=== PATIENT | female | born 1935 | race Caucasian/White ===

== ENCOUNTER 2016-04-27 16:51 | Emergency (ER) | payer MEDICARE ==
[~2016-04-27 16:51] MED LIST: /ATOR40TA; /WARF25TA; ACIPHEX; ALPH0.156; ATEN25TA; AZAT5TAB PO; BENA40TA2 PO; BRIN1OPH OU; COMB0.2S OU; ESTR62CR; LASI20TA PO; LASI40TA; LEVO88TA4; LIPI20TA PO; NORV5TAB; OYST500T; PERC5TAB8; POTA99TA; PRIL20CA; PRIL20CA PO; REST0.05 OU; SYNT88TA2 PO; THERGRAN; TRAV04OPD OU; TYLE325T5 PO; VITA-113; VITA400C; VITA500T; XANA1TAB2; [UNRECOGNIZED DRUG - OTHER]
[2016-04-27 17:42] LABS: BASO % 0.8 % (0.0-1.0); EOS # 0.2 K/mm3 (0.0-0.50); EOS % 4.6 % (0.0-3.0); LARGE UNSTAINED CELL # 0.1 K/mm3 (0.0-0.4); LARGE UNSTAINED CELL % 2.9 % (0.0-4.0); LYMPH # 1.4 K/mm3 (1.5-4.5); LYMPH % 25.5 % (24.0-44.0); MEAN CORPUSCULAR HGB CONC 31.6 g/dl (32.0-36.5); MEAN CORPUSCULAR VOLUME 95.1 fl (80.0-96.0); MONO # 0.3 K/mm3 (0.0-0.8); MONO % 6.7 % (0.0-5.0); NEUTROPHILS # 2.8 K/mm3 (1.8-7.7); NEUTROPHILS % 59.5 % (36.0-66.0); PLATELET COUNT, AUTOMATED 258 k/mm3 (150-450); RED CELL DISTRIBUTION WIDTH 15.3 % (11.5-14.5); WHITE BLOOD COUNT 4.7 K/mm3 (4.0-10.0)
[2016-04-27] MEDS ORDERED: TETANUS/DIPHTHERIA TOX ADSORB ADULT 0.5ML SYR/VIAL (90714) As Ordered ONE (17:48)
[2016-04-27 17:50] LABS: INR 1.06
[2016-04-27 18:05] LABS: ANION GAP 7 MEQ/L (8-16); BLOOD UREA NITROGEN 21 MG/DL (7-18); CALCIUM LEVEL 9.6 MG/DL (8.8-10.2); CARBON DIOXIDE LEVEL 27 MEQ/L (21-32); CHLORIDE LEVEL 107 MEQ/L (98-107); CREATININE FOR GFR 0.81 MG/DL (0.55-1.02); GLOMERULAR FILTRATION RATE > 60.0 (>32); GLUCOSE, FASTING 167 MG/DL (83-110); POTASSIUM SERUM 4.4 MEQ/L (3.5-5.1); SODIUM LEVEL 141 MEQ/L (136-145)
--- NOTE | 2016-04-27 18:08 | REP ---
Brain CT without contrast: History: Trauma. Findings: There is evidence of a scalp laceration with hematoma at the vertex. No skull fracture is seen however. Vascular calcification is noted. Visualized paranasal sinuses are clear. No intraorbital abnormality is seen. There is mild to moderate diffuse cerebral atrophy unchanged from the comparison CT study dated April 10, 2012. Bryant-white differentiation pattern is normal above and below the tentorium. There is no evidence of intracranial hemorrhage, extra-axial fluid collection, infarction, mass or midline shift. Impression: Scalp hematoma at the vertex, presumed laceration. No skull fracture or intracranial injury. Diffuse atrophy and vascular calcification as before. Signed by Gilberto Coates MD 04/27/2016 07:28 P
[2016-04-27] MEDS ORDERED: ONDANSETRON 4MG/2ML VIAL (J2405) As Ordered ONE (18:33)
--- NOTE | 2016-04-27 18:36 | REP ---
Cervical spine CT study without contrast: History: Trauma. Findings: There is no evidence of cervical spine element fracture. No subluxation or displacement is seen. There is diffuse degenerative spondylosis change. These findings are stable from 01/02/2012 prior study. There is no evidence of intraspinal or paraspinal hematoma. The degenerative disc changes are most pronounced at C5-6 and C6-7. There is some diffuse bulging at C3-4 as well. Posterior osteophytic ridging is seen at 5-6 and 6-7. Impression: Degenerative spondylosis changes. No fracture or other traumatic abnormality seen. Signed by Gilberto Coates MD 04/27/2016 07:28 P
--- NOTE | 2016-04-27 21:01 | EDDOCDS ---
Physician Documentation [facility] Name: Maria D Duncan Age: 80 yrs Sex: Female : 1935 Arrival Date: 04/27/2016 Time: 16:51 Bed I8 [id number] Private MD: Lidia Sales Disposition: 04/27/16 20:24 Discharged to Home/Self Care. Impression: Laceration without foreign body of other part of head. - Condition is Stable. - Discharge Instructions: Laceration Care, Adult. - Medication Reconciliation, Local Pharmacy Hours form. - Follow up: Lidia Sales; When: 1 week; Reason: Staple/Suture removal. - Problem is an acute exacerbation. - Symptoms have improved. Historical: - Allergies: adhesive tape--redness to area; - PMHx: Hypertension; Hypothyroidism; autoimmune hepatitis; Hypercholesterolemia; Glaucoma; Macular Degeneration; - PSHx: Cesearean Section; bilateral knee rep;aacements; foot surgery --left; - Social history: Smoking status: Patient states former smoker of tobacco. No barriers to communication noted, The patient speaks fluent [place]. - : The pt / caregiver states he / she is not on anticoagulants. Home medication list is obtained from the patient. - Exposure Risk Screening:: None identified. Vital Signs: 04/27 17:05 BP 170 / 70 LA Sitting (man/lg); Pulse 83; Resp 18; Temp 97.7(TE); Pulse Ox 98% on R/A; jjr Weight 58.06 kg / 128 lbs (R); Height 5 ft. 4 in. (162.56 cm) (R); Pain 6/10; 18:32 BP 74 / 40; ms2 18:37 BP 110 / 46; Pulse 61; Resp 20 S; Pulse Ox 98% on R/A; ms2 18:46 BP 140 / 60; Pulse 65; Resp 20 S; ms2 18:46 ms2 17:05 Body Mass Index 21.97 (58.06 kg, 162.56 cm) jjr 18:32 dr chao aware---pt already placed in trendelenburg---receiving iv bolus ms2 18:46 taken out of trendelenburg---pt states starting to feel better ms2 [place] Coma Score: 17:03 Eye Response: spontaneous(4). Verbal Response: oriented(5). Motor Response: obeys ms2 commands(6). Total: 15. Procedures: 18:28 Laceration repair:. br1 Laceration: 18:28 Wound Repair of 7cm ( 2.8in ) full thickness laceration to occiput. Distal br1 neuro/vascular/tendon intact. Wound prep: Simple cleansing by provider, Wound irrigation with saline by provider. Skin closed with 9 thin layer [place] using Staple gun. Dressed with 4x4's. Patient tolerated well. MDM: 17:28 IV Saline Lock ordered. br1 17:28 CT Head Without Contrast Ordered. EDMS 17:28 CT Spine,Cervical W/o Contrast Ordered. EDMS 17:29 Misc. Nursing Order ordered. br1 17:29 Tetanus-Diphtheria Toxoid (Tenivac) Adult 0.5 ml IM once; Age 7-10 or >64 without br1 child contact [employer] ordered. 17:29 CBC with Diff Ordered. EDMS 17:29 BMP Ordered. EDMS 17:30 PT/INR Ordered. EDMS 17:30 PTT Ordered. EDMS 18:02 [facility] Payment Agreement was scanned into [employer] and attached to record. jp5 18:02 Financial registration complete. jp5 18:27 NS 0.9% 500 ml IV at bolus once ordered. br1 18:27 Ondansetron 4 mg IVP once ordered. br1 18:30 CBC with Diff Reviewed. br1 18:30 BMP Reviewed. br1 18:30 PT/INR Reviewed. br1 18:30 PTT Reviewed. br1 18:43 NS 0.9% 1000 ml IV at 150 mL/hr continuous ordered. br1 18:43 Fluid Challenge ordered. br1 18:43 Ambulate Patient to Assess Patient Safety ordered. br1 Administered Medications: 18:27 Not Given (Patient Refused): Tetanus-Diphtheria Toxoid (Tenivac) Adult 0.5 ml IM once; br1 Age 7-10 or >64 without child contact [facility] [employer] 18:30 Drug: NS 0.9% 500 ml [sodium chloride 0.9 % intravenous solution] Route: IV; Rate: ms2 bolus; Site: left hand; 18:34 Drug: Ondansetron 4 mg Route: IVP; Site: left hand; ms2 19:02 Drug: NS 0.9% 1000 ml [sodium chloride 0.9 % intravenous solution] Route: IV; Rate: 150 ms2 mL/hr; Site: left hand; Signatures: Dispatcher [employer] Khadar Briggs RN RN ms2 Jase Logan DO DO mm11 Schuyler Chao MD MD br1 Berkley Phillip RN RN rs3 Maurilio Williamson jp5 The chart was reviewed and I authenticate all verbal orders and agree with the evaluation and treatment provided.Attachments: 18:02 [facility] Payment Agreement jp5 MTDD
--- NOTE | 2016-04-27 21:01 | EDDOCDS ---
Nurse's Notes [facility] Name: Maria D Duncan Age: 80 yrs Sex: Female : 1935 Arrival Date: 04/27/2016 Time: 16:51 Bed I8 16 Private MD: Lidia Sales Diagnosis: Laceration without foreign body of other part of head Presentation: 04/27 17:03 Presenting complaint: Patient states: tripped by dog at 415pm today---hit back of ms2 head---per [facility] has 1-2 inch laceration to occipital area and is still bleeding---take---takes 81 mg per day. This patient has no additional risk factors. Mechanism of Injury: resulted from a fall. Adult Sepsis Screening: The patient does not have new or worsening altered mentation. Patient's respiratory rate is less than 22. Systolic blood pressure is greater than 100. Patient has a qSOFA score of 0- Negative Sepsis Screen. Suicide/Homicide risk assessment- the patient denies having any suicidal and/or homicidal ideations and does not present with any other emotional, behavioral or mental health complaints. Status: Patient is not a client services account manager or dependent. Transition of care: patient was not received from another setting of care. 17:03 Acuity: CARLINE Level 3 ms2 17:03 Method Of Arrival: Ambulance ms2 Triage Assessment: 17:18 General: Appears in no apparent distress, Behavior is cooperative. The patient is ms2 triaged at the bedside. See Assessment in Nurses Notes section of ED record. Neurological: Level of Consciousness is awake, alert, obeys commands, Reports headache. Respiratory: No deficits noted. Airway is patent Respiratory effort is even, unlabored, Respiratory pattern is regular, symmetrical. Derm: Skin is pink, warm & dry. Derm: Musculoskeletal: Range of motion intact in all extremities. Historical: - Allergies: adhesive tape--redness to area; - PMHx: Hypertension; Hypothyroidism; autoimmune hepatitis; Hypercholesterolemia; Glaucoma; Macular Degeneration; - PSHx: Cesearean Section; bilateral knee rep;aacements; foot surgery --left; - Social history: Smoking status: Patient states former smoker of tobacco. No barriers to communication noted, The patient speaks fluent Kiswahili. - : The pt / caregiver states he / she is not on anticoagulants. Home medication list is obtained from the patient. - Exposure Risk Screening:: None identified. Screenin:46 Screening information is obtained from the patient. Fall risk: At risk due to age. ms2 Assistance ADL's: requires no assistance with activities of daily living. Abuse/DV Screen: The patient / caregiver reports he/she is: not in a situation that causes fear, pain or injury. Nutritional screening: No deficits noted. Advance Directives: Currently, there is a health care proxy, -jordi. There is an active DNR order There is no living will. 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 Advance directive information has been placed on a prior [facility] medical record, but the patient/ family does not know when. Further advance directive information is declined. home support is adequate. Assessment: 17:10 General: occipital laceration dressed with 4x3's and [place]--pt to CT. Neurological: ms2 Level of Consciousness is awake, alert, obeys commands. Respiratory: No deficits noted. Airway is patent Respiratory effort is even, unlabored, Respiratory pattern is regular, symmetrical. Derm: Skin is pink, warm & dry. Musculoskeletal: Range of motion intact in all extremities. 17:50 General: PT STATES TETANUS SHOT RECEIVED IN NOVEMBER OF 2015. ms2 18:47 General: Appears comfortable, Behavior is cooperative. Neurological: Level of ms2 Consciousness is awake, alert, obeys commands. Derm: Skin is dry, Skin is pale, Skin temperature is warm. Musculoskeletal: Range of motion intact in all extremities. 19:30 General: Appears in no apparent distress, comfortable, given apple juice to drink. ms2 Neurological: Level of Consciousness is awake, alert, obeys commands. Respiratory: No deficits noted. Airway is patent Respiratory effort is even, unlabored, Respiratory pattern is regular, symmetrical. Derm: Skin is pink, warm & dry. Musculoskeletal: Range of motion intact in all extremities. 19:50 Adult Sepsis Screening: Patient has new or worsening altered mentation (1 point). ms2 Patient's respiratory rate is less than 22. Systolic blood pressure is greater than 100. Patient has a qSOFA score of 0- Negative Sepsis Screen. General: pt up and ambulated ---did well -dr aware --pt a little stiff with rising . Vital Signs: 17:05 BP 170 / 70 LA Sitting (man/lg); Pulse 83; Resp 18; Temp 97.7(TE); Pulse Ox 98% on R/A; jjr Weight 58.06 kg (R); Height 5 ft. 4 in. (162.56 cm) (R); Pain 6/10; 18:32 BP 74 / 40; ms2 18:37 BP 110 / 46; Pulse 61; Resp 20 S; Pulse Ox 98% on R/A; ms2 18:46 BP 140 / 60; Pulse 65; Resp 20 S; ms2 18:46 ms2 17:05 Body Mass Index 21.97 (58.06 kg, 162.56 cm) jjr 18:32 dr chao aware---pt already placed in trendelenburg---receiving iv bolus ms2 18:46 taken out of trendelenburg---pt states starting to feel better ms2 Vitals: 17:05 Log In Time N/A - ambulance arrival. jjr [place] Coma Score: 17:03 Eye Response: spontaneous(4). Verbal Response: oriented(5). Motor Response: obeys ms2 commands(6). Total: 15. ED Course: 16:53 Patient visited by Miya Adler Drying Supervisor. lbd 16:53 Lidia Sales is Private Physician. lbd 16:53 Khadar Reardon,RN is Primary Nurse. lbd 16:53 Patient moved to Waiting lbd 16:53 Patient moved to I lbd 17:03 Patient visited by Khadar Reardon,KAPIL. ms2 17:05 Triage Initiated ms2 17:16 Schuyler Chao MD is Attending Physician. br1 17:20 Inserted saline lock: 20 gauge in right antecubital area The patient tolerated the ms2 procedure well. No procedures done that require assistance. 17:30 Patient visited by Schuyler Chao MD. br1 17:43 The patient / caregiver is instructed regarding the plan of care and ED course. ms2 18:02 [facility] Payment Agreement was scanned into [employer] and attached to record. jp5 18:24 Patient visited by Schuyler Chao MD. br1 18:38 CT Head Without Contrast Returned. EDMS 18:38 CT Spine,Cervical W/o Contrast Returned. EDMS 19:02 Patient visited by Khadar Reardon,KAPIL. ms2 19:07 Patient visited by Rosendo Charles PCA. kb5 19:30 The patient / caregiver is instructed regarding the plan of care and ED course. Cardiac ms2 monitor on. Pulse ox on. NIBP on. 19:30 IV is patent, is intact, is free of redness or swelling. ms2 19:36 Attending Physician role handed off by Schuyler Chao MD mm11 19:36 Jase Logan DO is Attending Physician. mm11 19:46 Patient visited by Khadar Reardon RN. ms2 20:06 Patient visited by Rosendo Charles PCA. kb5 20:23 Lidia Sales is Referral Physician. mm11 Administered Medications: 18:27 Not Given (Patient Refused): Tetanus-Diphtheria Toxoid (Tenivac) Adult 0.5 ml IM once; br1 Age 7-10 or >64 without child contact [facility] 18:30 Drug: NS 0.9% 500 ml [sodium chloride 0.9 % intravenous solution] Route: IV; Rate: ms2 bolus; Site: left hand; 18:34 Drug: Ondansetron 4 mg Route: IVP; Site: left hand; ms2 19:02 Drug: NS 0.9% 1000 ml [sodium chloride 0.9 % intravenous solution] Route: IV; Rate: 150 ms2 mL/hr; Site: left hand; Order Results: Lab Order: CBC with Diff; SPEC'M 04/27/16 17:35 Test: WHITE BLOOD COUNT; Value: 4.7; Range: 4.0-10.0; Units: K/mm3; Status: F Test: RED BLOOD COUNT; Value: 3.72; Range: 4.00-5.40; Abnormal: Below low normal; Units: M/mm3; Status: F Test: HEMOGLOBIN; Value: 11.2; Range: 12.0-16.0; Abnormal: Below low normal; Units: g/dl; Status: F Test: HEMATOCRIT; Value: 35.4; Range: 36.0-47.0; Abnormal: Below low normal; Units: %; Status: F Test: MEAN CORPUSCULAR VOLUME; Value: 95.1; Range: 80.0-96.0; Units: fl; Status: F Test: MEAN CORPUSCULAR HEMOGLOBIN; Value: 30.0; Range: 27.0-33.0; Units: pg; Status: F Test: MEAN CORPUSCULAR HGB CONC; Value: 31.6; Range: 32.0-36.5; Abnormal: Below low normal; Units: g/dl; Status: F Test: RED CELL DISTRIBUTION WIDTH; Value: 15.3; Range: 11.5-14.5; Abnormal: Above high normal; Units: %; Status: F Test: PLATELET COUNT, AUTOMATED; Value: 258; Range: 150-450; Units: k/mm3; Status: F Test: NEUTROPHILS %; Value: 59.5; Range: 36.0-66.0; Units: %; Status: F Test: LYMPH %; Value: 25.5; Range: 24.0-44.0; Units: %; Status: F Test: MONO %; Value: 6.7; Range: 0.0-5.0; Abnormal: Above high normal; Units: %; Status: F Test: EOS %; Value: 4.6; Range: 0.0-3.0; Abnormal: Above high normal; Units: %; Status: F Test: BASO %; Value: 0.8; Range: 0.0-1.0; Units: %; Status: F Test: LARGE UNSTAINED CELL %; Value: 2.9; Range: 0.0-4.0; Units: %; Status: F Test: NEUTROPHILS #; Value: 2.8; Range: 1.8-7.7; Units: K/mm3; Status: F Test: LYMPH #; Value: 1.4; Range: 1.5-4.5; Abnormal: Below low normal; Units: K/mm3; Status: F Test: MONO #; Value: 0.3; Range: 0.0-0.8; Units: K/mm3; Status: F Test: EOS #; Value: 0.2; Range: 0.0-0.50; Units: K/mm3; Status: F Test: BASO #; Value: 0.0; Range: 0.0-0.2; Units: K/mm3; Status: F Test: LARGE UNSTAINED CELL #; Value: 0.1; Range: 0.0-0.4; Units: K/mm3; Status: F Lab Order: [facility]; SPEC'M 04/27/16 17:35 Test: GLUCOSE, FASTING; Value: 167; Range: 83-110; Abnormal: Above high normal; Units: MG/DL; Status: F Test: BLOOD UREA NITROGEN; Value: 21; Range: 7-18; Abnormal: Above high normal; Units: MG/DL; Status: F Test: CREATININE FOR GFR; Value: 0.81; Range: 0.55-1.02; Units: MG/DL; Status: F Test: GLOMERULAR FILTRATION RATE; Value: > 60.0; Range: >32; Status: F Test: SODIUM LEVEL; Value: 141; Range: 136-145; Units: MEQ/L; Status: F Test: POTASSIUM SERUM; Value: 4.4; Range: 3.5-5.1; Units: MEQ/L; Status: F Test: CHLORIDE LEVEL; Value: 107; Range: 98-107; Units: MEQ/L; Status: F Test: CARBON DIOXIDE LEVEL; Value: 27; Range: 21-32; Units: MEQ/L; Status: F Test: ANION GAP; Value: 7; Range: 8-16; Abnormal: Below low normal; Units: MEQ/L; Status: F Test: CALCIUM LEVEL; Value: 9.6; Range: 8.8-10.2; Units: MG/DL; Status: F Test Note: ; Units are mL/min/1.73 m2 Chronic Kidney Disease Staging per NKF: Stage I & II GFR >=60 Normal to Mildly Decreased Stage III GFR 30-59 Moderately Decreased Stage IV GFR 15-29 Severely Decreased Stage V GFR <15 Very Little GFR Left ESRD GFR <15 on FASHION DESIGNER Lab Order: PT/INR; SPEC'M 04/27/16 17:35 Test: PROTHROMBIN TIME; Value: 13.9; Range: 12.3-14.5; Units: SECONDS; Status: F Test: INR; Value: 1.06; Status: F Test Note: ; THERAPUTIC HUMAN INR VALUES INDICATIONS NORMAL RANGES PROPHYLAXIS/TREATMENT OF: VENOUS THROMBOSIS 2.0-3.0 PULMONARY EMBOLISM 2.0-3.0 PREVENTION OF SYSTEMIC EMBOLISM FROM: TISSUE HEART VALVES 2.0-3.0 ACUTE MYOCARDIAL INFARCTION 2.0-3.0 VALVULAR HEART DISEASE 2.0-3.0 ATRIAL FIBRILLATION 2.0-3.0 MECHANICAL VALVES(HIGH RISK) 2.5-3.5 RECURRENT MYOCARDIAL INFARCTION 2.5-3.5 Lab Order: PTT; SERJIO'M 04/27/16 17:35 Test: PARTIAL THROMBOPLASTIN TIME; Value: 28.6; Range: 26.6-37.1; Units: SECONDS; Status: F Radiology Order: CT Head Without Contrast Test: CT Head Without Contrast REASON FOR EXAMINATION: Trauma; Brain CT without contrast:; ; History: Trauma.; ; Findings: There is evidence of a scalp laceration with hematoma at the vertex.; No skull fracture is seen however. Vascular calcification is noted. Visualized; paranasal sinuses are clear. No intraorbital abnormality is seen.; ; There is mild to moderate diffuse cerebral atrophy unchanged from the comparison; CT study dated April 10, 2012. Bryant-white differentiation pattern is normal; above and below the tentorium. There is no evidence of intracranial hemorrhage,; extra-axial fluid collection, infarction, mass or midline shift.; ; Impression:; ; Scalp hematoma at the vertex, presumed laceration. No skull fracture or; intracranial injury. Diffuse atrophy and vascular calcification as before.; ; ; Signed by; Gilberto Coates MD 04/27/2016 07:28 P; Radiology Order: CT Spine,Cervical W/o Contrast Test: CT Spine,Cervical W/o Contrast REASON FOR EXAMINATION: Trauma; Cervical spine CT study without contrast:; ; History: Trauma.; ; Findings: There is no evidence of cervical spine element fracture. No; subluxation or displacement is seen. There is diffuse degenerative spondylosis; change. These findings are stable from 01/02/2012 prior study. There is no; evidence of intraspinal or paraspinal hematoma. The degenerative disc changes; are most pronounced at C5-6 and C6-7. There is some diffuse bulging at C3-4 as; well. Posterior osteophytic ridging is seen at 5-6 and 6-7.; ; Impression:; ; Degenerative spondylosis changes. No fracture or other traumatic abnormality; seen.; ; ; Signed by; Gilberto Coates MD 04/27/2016 07:28 P; Outcome: 20:24 Discharge ordered by Provider. mm11 21:01 Patient left the ED. rs3 Signatures: Dispatcher [employer] EDMS Miya Adler, Drying Supervisor Unit lbd Khadar Reardon RN RN ms2 Rosendo Charles, FOUNDRY SUPERINTENDANT FOUNDRY SUPERINTENDANT kb5 Jase Logan, DO DO mm11 Schuyler Chao MD MD br1 Emily Peck RN RN jjr Berkley Phillip RN RN rs3 Maurilio Williamson 5 FLAVIO
--- NOTE | 2016-05-01 09:54 | EDDOCDS ---
Physician Documentation [facility] Name: Maria D Duncan Age: 80 yrs Sex: Female : 1935 Arrival Date: 04/27/2016 Time: 16:51 Bed I8 16 Private MD: Lidia Sales Disposition: 04/27/16 20:24 Discharged to Home/Self Care. Impression: Laceration without foreign body of other part of head. - Condition is Stable. - Discharge Instructions: Laceration Care, Adult. - Medication Reconciliation, Local Pharmacy Hours form. - Follow up: Lidia Sales; When: 1 week; Reason: Staple/Suture removal. - Problem is an acute exacerbation. - Symptoms have improved. Historical: - Allergies: adhesive tape--redness to area; - PMHx: Hypertension; Hypothyroidism; autoimmune hepatitis; Hypercholesterolemia; Glaucoma; Macular Degeneration; - PSHx: Cesearean Section; bilateral knee rep;aacements; foot surgery --left; - Social history: Smoking status: Patient states former smoker of tobacco. No barriers to communication noted, The patient speaks fluent Panamanian. - Family history: Not pertinent. - : The pt / caregiver states he / she is not on anticoagulants. Home medication list is obtained from the patient. - Exposure Risk Screening:: None identified. Vital Signs: 04/27 17:05 BP 170 / 70 [place] Sitting (man/lg); Pulse 83; Resp 18; Temp 97.7(TE); Pulse Ox 98% on R/A; jjr Weight 58.06 kg / 128 lbs (R); Height 5 ft. 4 in. (162.56 cm) (R); Pain 6/10; 18:32 BP 74 / 40; ms2 18:37 BP 110 / 46; Pulse 61; Resp 20 S; Pulse Ox 98% on R/A; ms2 18:46 BP 140 / 60; Pulse 65; Resp 20 S; ms2 18:46 ms2 19:50 BP 146 / 64; Pulse 88; Resp 20 S; Pulse Ox 99% on R/A; ms2 21:24 BP 142 / 66; Pulse 89; Resp 20 S; Temp 97.2(O); Pulse Ox 98% on R/A; Pain 3/10; ms2 17:05 Body Mass Index 21.97 (58.06 kg, 162.56 cm) jjr 18:32 dr chao aware---pt already placed in trendelenburg---receiving iv bolus ms2 18:46 taken out of trendelen[place]---pt states starting to feel better ms2 21:24 headache --states will take tylenol when gets home ms2 [place] Coma Score: 17:03 Eye Response: spontaneous(4). Verbal Response: oriented(5). Motor Response: obeys ms2 commands(6). Total: 15. Procedures: 18:28 Laceration repair:. br1 Laceration: 18:28 Wound Repair of 7cm ( 2.8in ) full thickness laceration to occiput. Distal br1 neuro/vascular/tendon intact. Wound prep: Simple cleansing by provider, Wound irrigation with saline by provider. Skin closed with 9 thin layer [place] using Staple gun. Dressed with 4x4's. Patient tolerated well. MDM: 17:28 IV Saline Lock ordered. br1 17:28 CT Head Without Contrast Ordered. EDMS 17:28 CT Spine,Cervical W/o Contrast Ordered. EDMS 17:29 Misc. Nursing Order ordered. br1 17:29 Tetanus-Diphtheria Toxoid (Tenivac) Adult 0.5 ml IM once; Age 7-10 or >64 without br1 child contact [facility] ordered. 17:29 CBC with Diff Ordered. EDMS 17:29 BMP Ordered. EDMS 17:30 PT/INR Ordered. EDMS 17:30 PTT Ordered. EDMS 18:02 [facility] Payment Agreement was scanned into [employer] and attached to record. jp5 18:02 Financial registration complete. jp5 18:27 NS 0.9% 500 ml IV at bolus once ordered. br1 18:27 Ondansetron 4 mg IVP once ordered. br1 18:30 CBC with Diff Reviewed. br1 18:30 BMP Reviewed. br1 18:30 PT/INR Reviewed. br1 18:30 PTT Reviewed. br1 18:43 NS 0.9% 1000 ml IV at 150 mL/hr continuous ordered. br1 18:43 Fluid Challenge ordered. br1 18:43 Ambulate Patient to Assess Patient Safety ordered. br1 04/28 08:59 T-Sheet-- Draft Copy was scanned into [employer] and attached to record. gb Administered Medications: 04/27 18:27 Not Given (Patient Refused): Tetanus-Diphtheria Toxoid (Tenivac) Adult 0.5 ml IM once; br1 Age 7-10 or >64 without child contact [facility] 18:30 Drug: NS 0.9% 500 ml [sodium chloride 0.9 % intravenous solution] Route: IV; Rate: ms2 bolus; Site: left hand; 18:34 Drug: Ondansetron 4 mg Route: IVP; Site: left hand; ms2 19:02 Drug: NS 0.9% 1000 ml [sodium chloride 0.9 % intravenous solution] Route: IV; Rate: 150 ms2 mL/hr; Site: left hand; Signatures: Dispatcher [employer] EDKhadar KnightRN RN ms2 Christie Barraza, Reg Reg gb Jase Logan, DO mm11 Schuyler Chao MD MD br1 Berkley Phillip RN RN rs3 Maurilio Williamson jp5 The chart was reviewed and I authenticate all verbal orders and agree with the evaluation and treatment provided.Attachments: 18:02 [facility] Payment Agreement jp5 04/28 08:59 T-Sheet-- Draft Copy gb Chart Complete MTDD
--- NOTE | 2016-05-01 09:54 | EDDOCDS ---
Nurse's Notes [facility] Name: Maria D Duncan Age: 80 yrs Sex: Female : 1935 Arrival Date: 04/27/2016 Time: 16:51 Bed I8 16 Private MD: Lidia Sales Diagnosis: Laceration without foreign body of other part of head Presentation: 04/27 17:03 Presenting complaint: Patient states: tripped by dog at 415pm today---hit back of ms2 head---per [facility] has 1-2 inch laceration to occipital area and is still bleeding---take---takes 81 mg per day. This patient has no additional risk factors. Mechanism of Injury: resulted from a fall. Adult Sepsis Screening: The patient does not have new or worsening altered mentation. Patient's respiratory rate is less than 22. Systolic blood pressure is greater than 100. Patient has a qSOFA score of 0- Negative Sepsis Screen. Suicide/Homicide risk assessment- the patient denies having any suicidal and/or homicidal ideations and does not present with any other emotional, behavioral or mental health complaints. Status: Patient is not a services tech or dependent. Transition of care: patient was not received from another setting of care. 17:03 Acuity: CARLINE Level 3 ms2 17:03 Method Of Arrival: Ambulance ms2 Triage Assessment: 17:18 General: Appears in no apparent distress, Behavior is cooperative. The patient is ms2 triaged at the bedside. See Assessment in Nurses Notes section of ED record. Neurological: Level of Consciousness is awake, alert, obeys commands, Reports headache. Respiratory: No deficits noted. Airway is patent Respiratory effort is even, unlabored, Respiratory pattern is regular, symmetrical. Derm: Skin is pink, warm & dry. Derm: Musculoskeletal: Range of motion intact in all extremities. Historical: - Allergies: adhesive tape--redness to area; - PMHx: Hypertension; Hypothyroidism; autoimmune hepatitis; Hypercholesterolemia; Glaucoma; Macular Degeneration; - PSHx: Cesearean Section; bilateral knee rep;aacements; foot surgery --left; - Social history: Smoking status: Patient states former smoker of tobacco. No barriers to communication noted, The patient speaks fluent Lao. - Family history: Not pertinent. - : The pt / caregiver states he / she is not on anticoagulants. Home medication list is obtained from the patient. - Exposure Risk Screening:: None identified. Screenin:46 Screening information is obtained from the patient. Fall risk: At risk due to age. ms2 Assistance ADL's: requires no assistance with activities of daily living. Abuse/DV Screen: The patient / caregiver reports he/she is: not in a situation that causes fear, pain or injury. Nutritional screening: No deficits noted. Advance Directives: Currently, there is a health care proxy, -jordi. There is an active DNR order There is no living will. There is no Power of Broommaking Supervisor. Advance directive information has been placed on a prior [facility] medical record, but the patient/ family does not know when. Further advance directive information is declined. home support is adequate. Assessment: 17:10 General: occipital laceration dressed with 4x3's and Coban--pt to CT. Neurological: ms2 Level of Consciousness is awake, alert, obeys commands. Respiratory: No deficits noted. Airway is patent Respiratory effort is even, unlabored, Respiratory pattern is regular, symmetrical. Derm: Skin is pink, warm & dry. Musculoskeletal: Range of motion intact in all extremities. 17:50 General: PT STATES TETANUS SHOT RECEIVED IN NOVEMBER OF 2015. ms2 18:10 General: dr chao stapling laceration about 7cm and expressing blood from area. ms2 18:47 General: Appears comfortable, Behavior is cooperative. Neurological: Level of ms2 Consciousness is awake, alert, obeys commands. Derm: Skin is dry, Skin is pale, Skin temperature is warm. Musculoskeletal: Range of motion intact in all extremities. 19:10 General: area about laceration cleansed of blood ---no other lacerations noted. ms2 pressure dressing noted. 19:30 General: Appears in no apparent distress, comfortable, given apple juice to drink. ms2 Neurological: Level of Consciousness is awake, alert, obeys commands. Respiratory: No deficits noted. Airway is patent Respiratory effort is even, unlabored, Respiratory pattern is regular, symmetrical. Derm: Skin is pink, warm & dry. Musculoskeletal: Range of motion intact in all extremities. 19:50 Adult Sepsis Screening: Patient has new or worsening altered mentation (1 point). ms2 Patient's respiratory rate is less than 22. Systolic blood pressure is greater than 100. Patient has a qSOFA score of 0- Negative Sepsis Screen. General: pt up and ambulated ---did well -dr liu --pt a little stiff with rising . 20:20 General: Appears comfortable, Behavior is cooperative, pleasant, fee;s better. ms2 Neurological: No deficits noted. Derm: Skin is pink, warm & dry. Musculoskeletal: No deficits noted. 21:01 Adult Sepsis Screening: The patient does not have new or worsening altered mentation. ms2 Patient's respiratory rate is less than 22. Systolic blood pressure is greater than 100. Patient has a qSOFA score of 0- Negative Sepsis Screen. General: Appears in no apparent distress, Behavior is cooperative, pleasant. Neurological: Level of Consciousness is awake, alert, obeys commands, Pupils are PERRLA. Respiratory: Airway is patent Respiratory effort is even, unlabored, Respiratory pattern is regular, symmetrical. Derm: Skin is pink, warm & dry. Musculoskeletal: Range of motion intact in all extremities. 21:40 General: monitor dc'd by ed secretary [employer] commissioners---see ekg for pt's rythm. ms2 Vital Signs: 17:05 BP 170 / 70 LA Sitting (man/lg); Pulse 83; Resp 18; Temp 97.7(TE); Pulse Ox 98% on R/A; jjr Weight 58.06 kg (R); Height 5 ft. 4 in. (162.56 cm) (R); Pain 6/10; 18:32 BP 74 / 40; ms2 18:37 BP 110 / 46; Pulse 61; Resp 20 S; Pulse Ox 98% on R/A; ms2 18:46 BP 140 / 60; Pulse 65; Resp 20 S; ms2 18:46 ms2 19:50 BP 146 / 64; Pulse 88; Resp 20 S; Pulse Ox 99% on R/A; ms2 21:24 BP 142 / 66; Pulse 89; Resp 20 S; Temp 97.2(O); Pulse Ox 98% on R/A; Pain 3/10; ms2 17:05 Body Mass Index 21.97 (58.06 kg, 162.56 cm) [facility] 18:32 dr zhanna liu---pt already placed in trendelenburg---receiving iv bolus ms2 18:46 taken out of trendelenburg---pt states starting to feel better ms2 21:24 headache --states will take tylenol when gets home ms2 Vitals: 17:05 Log In Time N/A - ambulance arrival. jjr Chadwick Coma Score: 17:03 Eye Response: spontaneous(4). Verbal Response: oriented(5). Motor Response: obeys ms2 commands(6). Total: 15. ED Course: 16:53 Patient visited by Miya Adler, Deputy Sheriff/Investigator. lbd 16:53 Lidia Sales is Private Physician. lbd 16:53 Khadar Reardon,RN is Primary Nurse. lbd 16:53 Patient moved to Waiting lbd 16:53 Patient moved to I8 / lbd 17:03 Patient visited by Khadar Reardon RN. ms2 17:05 Triage Initiated ms2 17:16 Schuyler Chao MD is Attending Physician. br1 17:20 Inserted saline lock: 20 gauge in right antecubital area The patient tolerated the ms2 procedure well. 17:30 Patient visited by Schuyler Chao MD. br1 17:43 The patient / caregiver is instructed regarding the plan of care and ED course. ms2 18:02 [facility] Payment Agreement was scanned into Liquid [employer] and attached to record. jp5 18:10 Assist provider with laceration repair. ms2 18:24 Patient visited by Schuyler Chao MD. br1 18:38 CT Head Without Contrast Returned. EDMS 18:38 CT Spine,Cervical W/o Contrast Returned. EDMS 19:02 Patient visited by Khadar Reardon RN. ms2 19:07 Patient visited by Rosendo Charles PCA. kb5 19:30 The patient / caregiver is instructed regarding the plan of care and ED course. Cardiac ms2 monitor on. Pulse ox on. NIBP on. 19:30 IV is patent, is intact, is free of redness or swelling. ms2 19:36 Attending Physician role handed off by Schuyler Chao MD mm11 19:36 Jase Logan DO is Attending Physician. mm11 19:46 Patient visited by Khadar Reardon RN. ms2 20:06 Patient visited by Rosendo Charles PCA. kb5 20:20 The patient / caregiver is instructed regarding the plan of care and ED course. Cardiac ms2 monitor on. Pulse ox on. NIBP on. 20:23 Lidia Sales is Referral Physician. mm11 04/28 08:59 T-Sheet-- Draft Copy was scanned into [employer] and attached to record. gb Administered Medications: 04/27 18:27 Not Given (Patient Refused): Tetanus-Diphtheria Toxoid (Tenivac) Adult 0.5 ml IM once; br1 Age 7-10 or >64 without child contact [facility] 18:30 Drug: NS 0.9% 500 ml [sodium chloride 0.9 % intravenous solution] Route: IV; Rate: ms2 bolus; Site: left hand; 18:34 Drug: Ondansetron 4 mg Route: IVP; Site: left hand; ms2 19:02 Drug: NS 0.9% 1000 ml [sodium chloride 0.9 % intravenous solution] Route: IV; Rate: 150 ms2 mL/hr; Site: left hand; Order Results: Lab Order: CBC with Diff; SPEC'M 04/27/16 17:35 Test: WHITE BLOOD COUNT; Value: 4.7; Range: 4.0-10.0; Units: K/mm3; Status: F Test: RED BLOOD COUNT; Value: 3.72; Range: 4.00-5.40; Abnormal: Below low normal; Units: M/mm3; Status: F Test: HEMOGLOBIN; Value: 11.2; Range: 12.0-16.0; Abnormal: Below low normal; Units: g/dl; Status: F Test: HEMATOCRIT; Value: 35.4; Range: 36.0-47.0; Abnormal: Below low normal; Units: %; Status: F Test: MEAN CORPUSCULAR VOLUME; Value: 95.1; Range: 80.0-96.0; Units: fl; Status: F Test: MEAN CORPUSCULAR HEMOGLOBIN; Value: 30.0; Range: 27.0-33.0; Units: pg; Status: F Test: MEAN CORPUSCULAR HGB CONC; Value: 31.6; Range: 32.0-36.5; Abnormal: Below low normal; Units: g/dl; Status: F Test: RED CELL DISTRIBUTION WIDTH; Value: 15.3; Range: 11.5-14.5; Abnormal: Above high normal; Units: %; Status: F Test: PLATELET COUNT, AUTOMATED; Value: 258; Range: 150-450; Units: k/mm3; Status: F Test: NEUTROPHILS %; Value: 59.5; Range: 36.0-66.0; Units: %; Status: F Test: LYMPH %; Value: 25.5; Range: 24.0-44.0; Units: %; Status: F Test: MONO %; Value: 6.7; Range: 0.0-5.0; Abnormal: Above high normal; Units: %; Status: F Test: EOS %; Value: 4.6; Range: 0.0-3.0; Abnormal: Above high normal; Units: %; Status: F Test: BASO %; Value: 0.8; Range: 0.0-1.0; Units: %; Status: F Test: LARGE UNSTAINED CELL %; Value: 2.9; Range: 0.0-4.0; Units: %; Status: F Test: NEUTROPHILS #; Value: 2.8; Range: 1.8-7.7; Units: K/mm3; Status: F Test: LYMPH #; Value: 1.4; Range: 1.5-4.5; Abnormal: Below low normal; Units: K/mm3; Status: F Test: MONO #; Value: 0.3; Range: 0.0-0.8; Units: K/mm3; Status: F Test: EOS #; Value: 0.2; Range: 0.0-0.50; Units: K/mm3; Status: F Test: BASO #; Value: 0.0; Range: 0.0-0.2; Units: K/mm3; Status: F Test: LARGE UNSTAINED CELL #; Value: 0.1; Range: 0.0-0.4; Units: K/mm3; Status: F Lab Order: [facility]; SPEC'M 04/27/16 17:35 Test: GLUCOSE, FASTING; Value: 167; Range: 83-110; Abnormal: Above high normal; Units: MG/DL; Status: F Test: BLOOD UREA NITROGEN; Value: 21; Range: 7-18; Abnormal: Above high normal; Units: MG/DL; Status: F Test: CREATININE FOR GFR; Value: 0.81; Range: 0.55-1.02; Units: MG/DL; Status: F Test: GLOMERULAR FILTRATION RATE; Value: > 60.0; Range: >32; Status: F Test: SODIUM LEVEL; Value: 141; Range: 136-145; Units: MEQ/L; Status: F Test: POTASSIUM SERUM; Value: 4.4; Range: 3.5-5.1; Units: MEQ/L; Status: F Test: CHLORIDE LEVEL; Value: 107; Range: 98-107; Units: MEQ/L; Status: F Test: CARBON DIOXIDE LEVEL; Value: 27; Range: 21-32; Units: MEQ/L; Status: F Test: ANION GAP; Value: 7; Range: 8-16; Abnormal: Below low normal; Units: MEQ/L; Status: F Test: CALCIUM LEVEL; Value: 9.6; Range: 8.8-10.2; Units: MG/DL; Status: F Test Note: ; Units are mL/min/1.73 m2 Chronic Kidney Disease Staging per NKF: Stage I & II GFR >=60 Normal to Mildly Decreased Stage III GFR 30-59 Moderately Decreased Stage IV GFR 15-29 Severely Decreased Stage V GFR <15 Very Little GFR Left ESRD GFR <15 on RAILWAY STATION MANAGER Lab Order: PT/INR; SPEC'M 04/27/16 17:35 Test: PROTHROMBIN TIME; Value: 13.9; Range: 12.3-14.5; Units: SECONDS; Status: F Test: INR; Value: 1.06; Status: F Test Note: ; THERAPUTIC HUMAN INR VALUES INDICATIONS NORMAL RANGES PROPHYLAXIS/TREATMENT OF: VENOUS THROMBOSIS 2.0-3.0 PULMONARY EMBOLISM 2.0-3.0 PREVENTION OF SYSTEMIC EMBOLISM FROM: TISSUE HEART VALVES 2.0-3.0 ACUTE MYOCARDIAL INFARCTION 2.0-3.0 VALVULAR HEART DISEASE 2.0-3.0 ATRIAL FIBRILLATION 2.0-3.0 MECHANICAL VALVES(HIGH RISK) 2.5-3.5 RECURRENT MYOCARDIAL INFARCTION 2.5-3.5 Lab Order: PTT; SPEC'M 04/27/16 17:35 Test: PARTIAL THROMBOPLASTIN TIME; Value: 28.6; Range: 26.6-37.1; Units: SECONDS; Status: F Radiology Order: CT Head Without Contrast Test: CT Head Without Contrast REASON FOR EXAMINATION: Trauma; Brain CT without contrast:; ; History: Trauma.; ; Findings: There is evidence of a scalp laceration with hematoma at the vertex.; No skull fracture is seen however. Vascular calcification is noted. Visualized; paranasal sinuses are clear. No intraorbital abnormality is seen.; ; There is mild to moderate diffuse cerebral atrophy unchanged from the comparison; CT study dated April 10, 2012. Bryant-white differentiation pattern is normal; above and below the tentorium. There is no evidence of intracranial hemorrhage,; extra-axial fluid collection, infarction, mass or midline shift.; ; Impression:; ; Scalp hematoma at the vertex, presumed laceration. No skull fracture or; intracranial injury. Diffuse atrophy and vascular calcification as before.; ; ; Signed by; Gilberto Coates MD 04/27/2016 07:28 P; Radiology Order: CT Spine,Cervical W/o Contrast Test: CT Spine,Cervical W/o Contrast REASON FOR EXAMINATION: Trauma; Cervical spine CT study without contrast:; ; History: Trauma.; ; Findings: There is no evidence of cervical spine element fracture. No; subluxation or displacement is seen. There is diffuse degenerative spondylosis; change. These findings are stable from 01/02/2012 prior study. There is no; evidence of intraspinal or paraspinal hematoma. The degenerative disc changes; are most pronounced at C5-6 and C6-7. There is some diffuse bulging at C3-4 as; well. Posterior osteophytic ridging is seen at 5-6 and 6-7.; ; Impression:; ; Degenerative spondylosis changes. No fracture or other traumatic abnormality; seen.; ; ; Signed by; Gilberto Coates MD 04/27/2016 07:28 P; Outcome: 20:24 Discharge ordered by Provider. mm11 21:01 Patient left the ED. rs3 21:11 Discharge Assessment: patient administered narcotics - no. The following High Risk ms2 Discharge criteria are identified: None. Discharged to home via wheelchair, with significant other, son will help parents inside. Condition: stable. Discharge instructions given to patient, Instructed on discharge instructions, follow up and referral plans. Demonstrated understanding of instructions, Pt was receptive of discharge instructions/ teaching. CT Study completed. Property sent home with patient. Signatures: Dispatcher [employer] EDMS Miya Adler, Deputy Sheriff/Investigator Unit lbd Khadar Reardon RN RN ms2 Christie Barraza, Reg Reg Rosendo Mendieta, PRODUCTION LEADER PRODUCTION LEADER kb5 Jase Logan, DO DO mm11 Schuyler Chao MD MD br1 Emily Peck RN RN jBerkley Lu RN RN rs3 Maurilio Williamson jp5 Corrections: (The following items were deleted from the chart) 21:20 17:20 Inserted saline lock: 20 gauge in right antecubital area The patient tolerated ms2 the procedure well. ms2 21:20 17:20 No procedures done that require assistance ms2 ms2 Chart Complete MTDD
--- NOTE | 2016-05-01 09:54 | EDDOCDS ---
Physician Documentation [facility] Name: Maria D Duncan Age: 80 yrs Sex: Female : 1935 Arrival Date: 04/27/2016 Time: 16:51 Bed I8 16 Private MD: Lidia Sales Disposition: 04/27/16 20:24 Discharged to Home/Self Care. Impression: Laceration without foreign body of other part of head. - Condition is Stable. - Discharge Instructions: Laceration Care, Adult. - Medication Reconciliation, Local Pharmacy Hours form. - Follow up: Lidia Sales; When: 1 week; Reason: Staple/Suture removal. - Problem is an acute exacerbation. - Symptoms have improved. Historical: - Allergies: adhesive tape--redness to area; - PMHx: Hypertension; Hypothyroidism; autoimmune hepatitis; Hypercholesterolemia; Glaucoma; Macular Degeneration; - PSHx: Cesearean Section; bilateral knee rep;aacements; foot surgery --left; - Social history: Smoking status: Patient states former smoker of tobacco. No barriers to communication noted, The patient speaks fluent Moldovan. - Family history: Not pertinent. - : The pt / caregiver states he / she is not on anticoagulants. Home medication list is obtained from the patient. - Exposure Risk Screening:: None identified. Vital Signs: 04/27 17:05 BP 170 / 70 LA Sitting (man/lg); Pulse 83; Resp 18; Temp 97.7(TE); Pulse Ox 98% on R/A; jjr Weight 58.06 kg / 128 lbs (R); Height 5 ft. 4 in. (162.56 cm) (R); Pain 6/10; 18:32 BP 74 / 40; ms2 18:37 BP 110 / 46; Pulse 61; Resp 20 S; Pulse Ox 98% on R/A; ms2 18:46 BP 140 / 60; Pulse 65; Resp 20 S; ms2 18:46 ms2 19:50 BP 146 / 64; Pulse 88; Resp 20 S; Pulse Ox 99% on R/A; ms2 21:24 BP 142 / 66; Pulse 89; Resp 20 S; Temp 97.2(O); Pulse Ox 98% on R/A; Pain 3/10; ms2 17:05 Body Mass Index 21.97 (58.06 kg, 162.56 cm) jjr 18:32 dr chao aware---pt already placed in trendelenburg---receiving iv bolus ms2 18:46 taken out of trendelenburg---pt states starting to feel better ms2 21:24 headache --states will take tylenol when gets home ms2 Chadwick Coma Score: 17:03 Eye Response: spontaneous(4). Verbal Response: oriented(5). Motor Response: obeys ms2 commands(6). Total: 15. Procedures: 18:28 Laceration repair:. br1 Laceration: 18:28 Wound Repair of 7cm ( 2.8in ) full thickness laceration to occiput. Distal br1 neuro/vascular/tendon intact. Wound prep: Simple cleansing by provider, Wound irrigation with saline by provider. Skin closed with 9 thin layer Xi using Staple gun. Dressed with 4x4's. Patient tolerated well. MDM: 17:28 IV Saline Lock ordered. br1 17:28 CT Head Without Contrast Ordered. EDMS 17:28 CT Spine,Cervical W/o Contrast Ordered. EDMS 17:29 Misc. Nursing Order ordered. br1 17:29 Tetanus-Diphtheria Toxoid (Tenivac) Adult 0.5 ml IM once; Age 7-10 or >64 without br1 child contact [facility] ordered. 17:29 CBC with Diff Ordered. EDMS 17:29 BMP Ordered. EDMS 17:30 PT/INR Ordered. EDMS 17:30 PTT Ordered. EDMS 18:02 [facility] Payment Agreement was scanned into [employer] and attached to record. jp5 18:02 Financial registration complete. jp5 18:27 NS 0.9% 500 ml IV at bolus once ordered. br1 18:27 Ondansetron 4 mg IVP once ordered. br1 18:30 CBC with Diff Reviewed. br1 18:30 BMP Reviewed. br1 18:30 PT/INR Reviewed. br1 18:30 PTT Reviewed. br1 18:43 NS 0.9% 1000 ml IV at 150 mL/hr continuous ordered. br1 18:43 Fluid Challenge ordered. br1 18:43 Ambulate Patient to Assess Patient Safety ordered. br1 04/28 08:59 T-Sheet-- Draft Copy was scanned into [employer] and attached to record. gb Administered Medications: 04/27 18:27 Not Given (Patient Refused): Tetanus-Diphtheria Toxoid (Tenivac) Adult 0.5 ml IM once; br1 Age 7-10 or >64 without child contact [facility] 18:30 Drug: NS 0.9% 500 ml [sodium chloride 0.9 % intravenous solution] Route: IV; Rate: ms2 bolus; Site: left hand; 18:34 Drug: Ondansetron 4 mg Route: IVP; Site: left hand; ms2 19:02 Drug: NS 0.9% 1000 ml [sodium chloride 0.9 % intravenous solution] Route: IV; Rate: 150 ms2 mL/hr; Site: left hand; Signatures: Dispatcher [employer] EDKhadar KnightRN RN ms2 Christie Barraza, Reg Reg gb Jase Logan, DO mm11 Schuyler Chao MD MD br1 Berkley Phillip RN RN rs3 Maurilio Williamson jp5 The chart was reviewed and I authenticate all verbal orders and agree with the evaluation and treatment provided.Attachments: 18:02 [facility] Payment Agreement jp5 04/28 08:59 T-Sheet-- Draft Copy gb Chart Complete MTDD
== END 2016-04-27 21:01 | disposition home or self-care (01) ==
LOC: M ED 16:51
DX: S01.01XA Laceration without foreign body of scalp, initial encounter (principal); W01.0XXA Fall on same level from slipping, tripping and stumbling without subsequent striking against object, initial encounter; Y92.019 Unspecified place in single-family (private) house as the place of occurrence of the external cause; Y93.9 Activity, unspecified; Y99.9 Unspecified external cause status; I10 Essential (primary) hypertension; E03.9 Hypothyroidism, unspecified; E78.00 Pure hypercholesterolemia, unspecified; K75.4 Autoimmune hepatitis; H40.9 Unspecified glaucoma; H35.30 Unspecified macular degeneration; Z96.653 Presence of artificial knee joint, bilateral; Z87.891 Personal history of nicotine dependence; Z91.89 Other specified personal risk factors, not elsewhere classified
CPT/HCPCS: 12002; 70450; 72125; 80048; 85025; 85610; 85730; 96374; 99285; J2405

== ENCOUNTER 2016-10-12 16:54 | Inpatient (IN) | payer MEDICARE ==
[~2016-10-12 16:54] MED LIST changes: +AZAT50TA2 PO; -AZAT5TAB PO; -BENA40TA2 PO; +BENA40TA7 PO; -PRIL20CA PO; +PRIL20CA9 PO
[2016-10-12 18:03] LABS: BASO % 0.4 % (0.0-1.0); EOS # 0.1 K/mm3 (0.0-0.50); EOS % 1.7 % (0.0-3.0); LARGE UNSTAINED CELL # 0.1 K/mm3 (0.0-0.4); LARGE UNSTAINED CELL % 2.1 % (0.0-4.0); LYMPH # 1.6 K/mm3 (1.5-4.5); LYMPH % 24.7 % (24.0-44.0); MEAN CORPUSCULAR HEMOGLOBIN 33.4 pg (27.0-33.0); MEAN CORPUSCULAR HGB CONC 33.9 g/dl (32.0-36.5); MEAN CORPUSCULAR VOLUME 98.6 fl (80.0-96.0); MONO # 0.3 K/mm3 (0.0-0.8); MONO % 5.1 % (0.0-5.0); PLATELET COUNT, AUTOMATED 223 k/mm3 (150-450)
[2016-10-12 18:08] LABS: ABG BASE EXCESS -1.5 (-2.0-2.0); ABG HCO3 23.5 MEQ/L (22.0-26.0); ABG PARTIAL PRESSURE CO2 40.8 mmHg (35.0-45.0); ABG PARTIAL PRESSURE O2 157.3 mmHg (75.0-100.0); ABG STANDARD HCO3 23.2 MEQ/L (22.0-26.0); ABG TOTAL CO2 24.7 MEQ/L (23.0-31.0); ABG pH (ARTERIAL) 7.378 UNITS (7.350-7.450)
[2016-10-12 18:08] LABS: INR 0.94
--- NOTE | 2016-10-12 18:10 | REP ---
CT BRAIN WITHOUT CONTRAST: 10/12/2016. Clinical history: Trauma. Comparison: Noncontrast soft tissue and bone window settings are reviewed in conjunction with prior study 04/27/2016. Findings: There is rheumatic acute this subdural hematoma in the right hemisphere are of subarachnoid blood may also be present as well. The hemorrhage is hyperdense, acute has a maximum thickness of up to 16 mm. I do not see fracture of the adjacent temporal bone and frontal bone. There is a midline shift almost 12 mm to the left with effacement of the right lateral ventricle. Left lateral ventricle intact. There is a small amount of interhemispheric blood in the anterior falx and some parenchymal contusion suggested in both frontal lobes. The third ventricle is effaced fourth ventricle is patent but narrowed. Perimesencephalic cisterns are tight. There is atrophy in the left hemisphere but it is reduced because of midline shift, edema. Loss of murphy-white junction differentiation is beginning on that right hemisphere mastoids and sinuses grossly intact. No gross fracture skull base and calvarium. Impression: 1. Large right subdural hematoma with no evidence of epidural hematoma. Some subarachnoid blood suggests right-sided contusions in the frontal lobes are mild to midline shift almost 12 mm with effacement right lateral ventricle and loss of the basal cisterns beginning. Loss of murphy-white junction noted. 2. No fracture of the skull base or calvarium. Findings conveyed by phone to the attending physician at 05:46 PM. Signed by Lefty eBlle MD 10/12/2016 08:42 P
[2016-10-12] MEDS ORDERED: ISOVUE-370 76% 100ML VIAL (Q9967) As Ordered ONE (18:18)
[2016-10-12 18:20] LABS: ALBUMIN 3.6 GM/DL (3.2-5.2); ALT/SGPT 31 U/L (12-78); AMYLASE 55 U/L (25-115); ANION GAP 9 MEQ/L (8-16); AST/SGOT 28 U/L (15-37); BILIRUBIN,DIRECT < 0.1 MG/DL (0.0-0.2); BILIRUBIN,TOTAL 0.4 MG/DL (0.2-1.0); BLOOD UREA NITROGEN 27 MG/DL (7-18); CARBON DIOXIDE LEVEL 24 MEQ/L (21-32); CHLORIDE LEVEL 103 MEQ/L (98-107); CREATININE FOR GFR 0.82 MG/DL (0.55-1.02); GLOMERULAR FILTRATION RATE > 60.0 (>32); GLUCOSE, FASTING 142 MG/DL (83-110); POTASSIUM SERUM 3.8 MEQ/L (3.5-5.1); SODIUM LEVEL 136 MEQ/L (136-145); TOTAL PROTEIN 7.2 GM/DL (6.4-8.2)
[2016-10-12 18:23] LABS: ALKALINE PHOSPHATASE 41 U/L (45-117)
--- NOTE | 2016-10-12 18:27 | REP ---
CT CERVICAL SPINE WITHOUT CONTRAST: 10/12/2016: Clinical history: Trauma, patient fell. Comparison: 04/27/2016. Findings. Standard trauma protocol with reconstructions utilized. The vertebral body heights are intact without acute compression deformity, dense without a fracture. There is disc space narrowing at C4-5 through C6-7. Posterior osteophytes at C5-6 and C6-7. The dens and lateral masses along the anterior arch of C1 align normally on all projections. Ring of C1 intact. Spinous processes intact. Lamina, facets, pedicles and transverse processes without acute fracture. There is extensive facet arthropathy at multiple levels. Foraminal encroachment at multiple levels due to uncinate and facet spurs. Central canal stenosis at multiple levels also but unchanged from prior studies. Impression: 1. There is no evidence of cervical spine fracture or malalignment. Central canal stenosis and foraminal encroachment is as on prior studies. Stable exam. Nothing acute. Signed by Lefty Belle MD 10/12/2016 08:43 P
[2016-10-12] MEDS ORDERED: dexameTHASONE 20 MG/5 ML VIAL (J1100) IV ONE (18:30)
--- NOTE | 2016-10-12 18:54 | REP ---
AP PORTABLE CHEST: 10/12/2016. Comparison: 12/05/2015 chest x-ray. Clinical history: Trauma. Findings: Upright portable chest show the lung sheehan well inflated. CP angles are sharply defined. Some underlying minor fibrotic changes and COPD with pulmonary artery hypertension. Heart size not grossly enlarged but there is left ventricular configuration. No vascular redistribution or pulmonary edema or is calcified at the arch, tortuous but without aneurysm. Airway midline. Degenerative changes of the shoulders. Spine shows degenerative change as well. Impression: 1. Changes of COPD. Pulmonary artery hypertension and a tortuous calcified aorta, stable. Although there is left ventricular configuration of the heart, there is no vascular redistribution or pulmonary edema. Signed by Lefty Belle MD 10/12/2016 08:49 P
--- NOTE | 2016-10-12 19:00 | REP ---
CT ABDOMEN AND PELVIS WITH CONTRAST: 10/12/2016. Clinical history: Trauma. Technique: Scanning through the abdomen and pelvis with coronal and sagittal reconstructions following infusion of 100 ml as Isovue 370. Comparison: 05/24/2008. CT abdomen: Lung bases are clear without effusion or infiltrate. Heart shows left atrial and ventricular enlargement, but no gross cardiomegaly. No pericardial thickening or effusion. No hiatal hernia. There is no hepatomegaly or splenomegaly. The gallbladder is mildly distended but without calcified stone or mass. No biliary dilatation or ascites. Atherosclerotic calcifications throughout the lower thoracic and abdominal aorta to the bifurcation. No aneurysm or dissection. No periaortic adenopathy. Pancreas shows prominence of the pancreatic duct with some atrophy, but no mass. No adenopathy or fluid collection adjacent to the pancreas. Adrenal glands are normal. There is an upper pole cyst in the right kidney about 2 cm. Smaller cyst in the upper pole on the left and lower pole of both kidneys. No hydronephrosis, stone or mass. No hydroureter. Colon shows no sign of colitis, diverticulitis, stricture or mass. Small bowel loops are intact. No inflammatory changes about the cecum. Bone windows show no compression deformity in the lumbar or lower thoracic vertebral bodies. There are some degenerative disc changes and a few millimeters of anterolisthesis of L4 on L5 due to facet arthritis. No spondylolysis. CT pelvis: Bony hips show degenerative changes without fracture. The iliac bones, acetabuli, ischia and sacrum are without fracture. Degenerative changes of the SI joint, right greater than left. Lumbosacral junction with degenerative changes. Bladder is empty with a Michael catheter balloon inflated within it. Pelvic phleboliths are seen. There is diverticulosis distal left colon and sigmoid without diverticulitis or colitis. No pelvic free fluid or adenopathy. No ventral or inguinal hernia. Impression: 1. Negative CT abdomen/pelvis for acute finding. There is no acute fracture, compression deformity of the spine. The pelvis, hips and posterior elements show degenerative changes. 2. There is no ascites or adenopathy. 3. The solid organs without acute finding. There are some renal cysts. Negative for abdominal wall hematoma. Signed by Lefty Belle MD 10/12/2016 08:49 P
--- NOTE | 2016-10-12 19:04 | REP ---
CT CHEST WITH CONTRAST: 10/12/2016. Clinical history: Trauma. Comparison: CT 03/01/2016. Findings. The patient received a bolus of 100 ml of Isovue 370. Coronal and sagittal reconstructions provided. Lungs are well inflated without pleural effusion. There is no pneumothorax. Reticulonodular interstitial changes in the right upper lung zone seen. I do not see bullous emphysematous changes. No parenchymal mass or acute infiltrate. No lung contusion. Heart not enlarged overall, but left atrium and left ventricle mildly prominent. No pericardial thickening or effusion. The aorta is without aneurysm or dissection. The main, right and left pulmonary arteries are without filling defects. There is no CT evidence for thrombi in the lobar or segmental arteries. No axillary or supraclavicular mass. Bone windows show the thoracic spine with marginal osteophytes without destructive lesions. There are degenerative changes in the lower cervical spine. The sternum, manubrium, medial clavicles and the visualized ribs are without displaced fracture or focal lesion. There is no pneumothorax. I do not see a chest wall hematoma. The upper abdomen is best evaluated on the abdominal CT. Impression: 1. There is no CT evidence of parenchymal mass, lung contusion, effusion or pneumothorax. 2. No spinal or chest wall fractures are noted on this study on bone window settings. 3. Reticulonodular interstitial changes in the right upper lobe and elsewhere, mild and stable. No acute finding. Signed by Lefty Belle MD 10/12/2016 08:49 P
[2016-10-12] MEDS ORDERED: ONDANSETRON 4MG/2ML VIAL (J2405) IV PRN (20:15)
[2016-10-12] MEDS ORDERED: KCL 20MEQ in NS 1000ML 1,000 ML IV SCH (20:15)
[2016-10-12] MEDS ORDERED: LEVO88TA3 PO (20:19)
[2016-10-12] MEDS ORDERED: COMB0.2S OU (20:19)
[2016-10-12] MEDS ORDERED: ALEN70TA39 PO (20:19)
[2016-10-12] MEDS ORDERED: TRAV04OPD OU (20:19)
[2016-10-12] MEDS ORDERED: ATOR40TA75 PO (20:19)
[2016-10-12] MEDS ORDERED: AZOP0.2S OU (20:19)
[2016-10-12] MEDS ORDERED: ASPI1TAB PO (20:19)
[2016-10-12] MEDS ORDERED: GABA-279 PO (20:19)
[2016-10-12] MEDS ORDERED: BENA10TA6 PO (20:20)
[2016-10-12] MEDS ORDERED: ceFAZolin 1GM INJ (J0690) As Ordered ONE (20:35)
--- NOTE | 2016-10-12 20:54 | CR ---
DATE OF CONSULTATION: 10/12/2016 REASON FOR CONSULTATION Fall (one flight of stairs) with subdural hematoma. HISTORY OF PRESENT ILLNESS: The patient is an 80-year-old female who slipped and fell down the stairs. Had some minimal confusion at the time from reports of both her son and her , but did not complain of any shortness breath, did not complain of any chest pain. No abdominal pain discomfort. No other aches and pains. She had no nausea or vomiting. No fevers or chills. No hematemesis. She has had a previous fall earlier this year with a laceration. She also had a subdural on the left side which was not operated on and has resolved on recent CT scan here today. The patient's past medical history is significant for history of knee surgery, history of hyperlipidemia, hypothyroidism, hypertension, osteoarthritis, history of tonsillectomy, left foot surgery, left thumb surgery, left knee arthroscopy, tobacco abuse quit in 1990, history of cataract surgery, history of previous gastric ulcers, history of diverticulosis, history of macular degeneration, history of glaucoma, history of section. Medications include the following azathioprine, omeprazole, Tylenol, atorvastatin, gabapentin, Synthroid. PHYSICAL EXAMINATION: GENERAL: Physical exam reveals an 80-year-old female who looks stated age. HEENT: Is unremarkable. Surprisingly she has no evidence of contusions or abrasions on her scalp. Pupils are equal and reactive to light. Sclerae nonicteric. Oropharynx clear without exudate or lesions. NECK: Supple without adenopathy. LUNGS: Clear to auscultation without crackles, wheezes or rhonchi. HEART: Regular without murmur with a few irregular beats. ABDOMEN: Soft, nontender, nondistended. No hepatosplenomegaly is appreciated. No masses are appreciated. No pelvic tenderness is appreciated. No chest wall tenderness or sternal tenderness is appreciated. EXTREMITIES: Warm, well perfused. I do not see any abrasions or contusions on the lower extremities. On her upper extremity, she has a few contusions but no evidence of tenderness or pain with movement of joints or with specifically of her hand which has contusion on this area. IMPRESSION AND PLAN: CT scans were reviewed and specifically no evidence of chest trauma, abdominal trauma. No general surgical issues at this time. After operative intervention I would recommend advancing her diet as tolerated without restrictions. If she develops any increasing pain or discomfort, I would be glad to reevaluate her. Otherwise, this appears to be a isolated subdural hematoma at this time and neurosurgery has been consulted and appears to be planning on taking her to the operating room for this.
[2016-10-12] MEDS ORDERED: FAMOTIDINE IV BAG 20 MG in APPROPRIATE DILUENT 1 EA IV SCH (21:00)
[2016-10-12] MEDS ORDERED: LIDOCAINE 2% MDV 20 ML VIAL As Ordered ONE (21:48)
[2016-10-12] MEDS ORDERED: SUCCINYLCHOLINE 100 MG/5 ML SYRINGE (J0330) As Ordered ONE ×2 (22:12→22:59)
[2016-10-12] MEDS ORDERED: THROMBIN SOLN 20,000 UNITS KIT As Ordered ONE (22:18)
--- NOTE | 2016-10-12 22:21 | CR.PDOC ---
[facility] Consultation Consultation DATE OF CONSULTATION: Oct 12, 2016 at 19:04 PRIMARY CARE PHYSICIAN: Lidia Sales REFERRING PROVIDER: Rodrigo Carty ATTENDING PHYSICIAN: Rodrigo Ventura REASON FOR CONSULTATION/CHIEF COMPLAINT: Headache. HISTORY OF PRESENT ILLNESS: 80 y/o F h/o HTN HLD Hypothyroid presented with headache after fall. She was walking down stairs and missed 2 steps and fell on forehead and immediately felt intense headache. Denies any focal weakness, problem with speech, vision hearing or swallowing. Denies any chest pain palpitation or SOB.. ALLERGIES: Please see below. HOME MEDICATIONS: Please see below. PAST MEDICAL HISTORY: 1. HTN. 2. HLD 3. Hypothyroid. PAST SURGICAL HISTORY: 1. 2. Knee replacement FAMILY HISTORY: noncontributory SOCIAL HISTORY: Tobacco use:no ETOH: no Illicit drug use: no REVIEW OF SYSTEMS: CONSTITUTIONAL: no weakness or fever. HEENT: headache no blurred vision. CARDIOVASCULAR: no chest pain or palpitation. RESPIRATORY: no SOB or cough. GENITOURINARY: no dysuria. MUSCULOSKELETAL: joint pain. GASTROINTESTINAL: no abd pain or constipation. SKIN: no ulcer. NEUROLOGICAL: no sensory or motor deficit. PSYCHIATRIC: no dementia or psychosis. PHYSICAL EXAMINATION: VITAL SIGNS: Please see below. GENERAL APPEARANCE: mild distress. HEENT: no blurred vision, no hearing problem Pupils sluggish. RESPIRATORY: clear to auscultation, no crackles. CARDIOVASCULAR: S1 S2 regular no murmurs or gallops. ABDOMEN: soft nontender bowel sounds normal. EXTREMITIES: no edema. NEUROLOGICAL: no focal weakness. PSYCHIATRIC: no depression or psychosis. LABORATORY DATA: Please see below. ASSESSMENT/PLAN: 1. 80 y/o F h/o HTN HLD Hypothyroid presented with headache after fall. CT head showed large subdural hematoma with 12mm midline shift. 2. Plan: Traumatic Brain Injury = CT head showed large subdural hematoma with 12mm midline shift = Neurosurgery on Board. 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 Vital Signs/I&O Vital Signs Date Time Temp Pulse Resp B/P (MAP) Pulse Ox O2 Delivery O2 Flow Rate FiO2 10/12/16 20:48 91 99 Nasal Cannula 2.0 10/12/16 20:46 213/96 (135) 10/12/16 18:48 20 10/12/16 17:22 96.7 Laboratory Data Labs 24H Laboratory Tests 2 10/12/16 17:14: White Blood Count 6.0, Red Blood Count 3.55L, Hemoglobin 11.9L, Hematocrit 35.0L , Mean Corpuscular Volume 98.6H, Mean Corpuscular Hemoglobin 33.4H, Mean Corpuscular Hemoglobin Concent 33.9, Red Cell Distribution Width 14.0, Platelet Count 223, Neutrophils (%) (Auto) 66.0, Lymphocytes (%) (Auto) 24.7, Monocytes ( %) (Auto) 5.1H, Eosinophils (%) (Auto) 1.7, Basophils (%) (Auto) 0.4, Neutrophils # (Auto) 4.0, Lymphocytes # (Auto) 1.6, Monocytes # (Auto) 0.3, Eosinophils # (Auto) 0.1, Basophils # (Auto) 0.0, Large Unclassified Cells % 2.1 , Large Unclassified Cells # 0.1, Prothrombin Time 12.7, Prothromb Time International Ratio 0.94, Activated Partial Thromboplast Time 25.8L, Anion Gap 9 , Glomerular Filtration Rate > 60.0, Lactic Acid Level 0.7, Calcium Level 9.0, Aspartate Amino Transf (AST/SGOT) 28, Alanine Aminotransferase (ALT/SGPT) 31, Alkaline Phosphatase 41L, Total Bilirubin 0.4, Direct Bilirubin < 0.1, Total Creatine Kinase 142, Creatine Kinase MB 3.1, Creatine Kinase MB Relative Index 2.18, Troponin I < 0.02, Total Protein 7.2, Albumin 3.6, Albumin/Globulin Ratio 1.00, Amylase Level 55, Lipase 287, Ethyl Alcohol Level < 0.003 10/12/16 17:59: Blood Gas Bicarbonate Standard 23.2, Arterial Blood pH 7.378, Arterial Blood Partial Pressure CO2 40.8, Arterial Blood Partial Pressure O2 157.3H, Arterial Blood Total CO2 24.7, Arterial Blood HCO3 23.5, Arterial Blood Base Excess -1.5 , Arterial Blood Oxygen Saturation 99.2H CBC/BMP Laboratory Tests 10/12/16 17:14 Red Blood Count 3.55 L, Mean Corpuscular Volume 98.6 H, Mean Corpuscular Hemoglobin 33.4 H, Mean Corpuscular Hemoglobin Concent 33.9, Red Cell Distribution Width 14.0, Neutrophils (%) (Auto) 66.0, Lymphocytes (%) (Auto) 24.7, Monocytes (%) (Auto) 5.1 H, Eosinophils (%) (Auto) 1.7, Basophils (%) ( Auto) 0.4, Neutrophils # (Auto) 4.0, Lymphocytes # (Auto) 1.6, Monocytes # (Auto ) 0.3, Eosinophils # (Auto) 0.1, Basophils # (Auto) 0.0 Allergies Coded Allergies: Naproxen (Verified Allergy, Unknown, 10/12/16) TAPE (Verified Allergy, Unknown, ADHESIVE TAPE, 10/12/16) Home Medications Scheduled (Combigan 0.2-0.5 %) 1 Lavonne Lavonne, 1 DROP OU BID, (Reported) Alendronate Sodium (Alendronate Sodium) 70 Mg Tab, 70 MG PO QWEEK, (Reported) Aspirin (Aspirin 81) 81 Mg Tab, 81 MG PO QHS, (Reported) Atorvastatin Calcium (Atorvastatin Calcium) 40 Mg Tab, 40 MG PO QHS, (Reported) Azathioprine (Azathioprine) 50 Mg Tab, 50 MG PO DAILY, (Reported) Benazepril HCl (Benazepril HCl) 10 Mg Tab, 30 MG PO QHS, (Reported) Brinzolamide (Azopt) 1 % Qian, 1 DROP OU BID, (Reported) Gabapentin (Gabapentin) 100 Mg Cap, 100 MG PO QHS, (Reported) can take up to 200mg if needed Levothyroxine Sodium (Synthroid) 88 Mcg Tab, 44 MCG PO QAM, (Reported) Omeprazole (Prilosec) 20 Mg Cap, 20 MG PO QHS, (Reported) Travoprost (Travatan Z) 50 Drop/2.5 Ml Soln, 1 DROP OU QHS, (Reported) Scheduled PRN Acetaminophen (Tylenol) 325 Mg Tab, 325 MG PO PRN PRN for PAIN, (Reported) over the counter med ESHA ROSALES MD Oct 12, 2016 22:21
[2016-10-12] MEDS ORDERED: PHENYLephrine HCL 500 MCG/5 ML (100MCG/ML) SYRINGE (J2370) As Ordered ONE (22:52)
[2016-10-12] MEDS ORDERED: ROCURONIUM BROMIDE 50 MG/5 ML VIAL/SYRINGE As Ordered ONE (22:58)
[2016-10-12] MEDS ORDERED: ONDANSETRON 4MG/2ML VIAL (J2405) As Ordered ONE (22:58)
[2016-10-12] MEDS ORDERED: fentaNYL 100 MCG/2 ML INJECTION (J3010) As Ordered ONE ×2 (22:58→23:00)
[2016-10-12] MEDS ORDERED: PROPOFOL 200 MG/20 ML VIAL As Ordered ONE (22:58)
[2016-10-12] MEDS ORDERED: NEOSTIGMINE 1MG/ML 5 ML SYRINGE (J2710) As Ordered ONE (22:58)
[2016-10-12] MEDS ORDERED: REMIFENTANIL 1MG 3ML VIAL As Ordered ONE (22:58)
[2016-10-12] MEDS ORDERED: LIDOCAINE 2% INJ 100 MG/5 ML SDV (FOR ANES.) As Ordered ONE (22:58)
[2016-10-12] MEDS ORDERED: ETOMIDATE INJ 20MG/10ML VIAL As Ordered ONE (22:58)
[2016-10-12] MEDS ORDERED: GLYCOPYRROLATE INJ 0.2 MG/ML 2 ML VIAL As Ordered ONE (22:59)
[2016-10-12] MEDS ORDERED: PHENYLEPHRINE INJ 10MG/ML VIAL (J2370) As Ordered ONE (22:59)
[2016-10-12] MEDS ORDERED: BACITRACIN PWD 50,000 UNITS VIAL As Ordered ONE (23:59)
[2016-10-13] VITALS (25 sets, daily range): BP systolic 130–189; BP diastolic 48–74
[2016-10-13] MEDS ORDERED: ACETAMINOPHEN 325 MG TAB PO SCH
[2016-10-13] MEDS ORDERED: BACITRACIN PWD 50,000 UNITS VIAL As Ordered ONE (01:23)
[2016-10-13] MEDS ORDERED: BACITRACIN OINT 30GM As Ordered ONE (01:57)
[2016-10-13] MEDS ORDERED: fentaNYL 100 MCG/2 ML INJECTION (J3010) IV PRN (02:45)
[2016-10-13] MEDS ORDERED: ONDANSETRON 4MG/2ML VIAL (J2405) IV PRN ×2 (02:45→03:00)
[2016-10-13] MEDS ORDERED: LR 1,000 ML IV SCH (02:45)
[2016-10-13] MEDS ORDERED: KCL 20MEQ IN D5/NS 1000ML 1,000 ML IV SCH (02:45)
[2016-10-13] MEDS ORDERED: ACETAMINOPHEN 650 MG SUPP PR PRN (04:00)
[2016-10-13 04:31] LABS: MEAN CORPUSCULAR HEMOGLOBIN 33.9 pg (27.0-33.0); MEAN CORPUSCULAR HGB CONC 33.7 g/dl (32.0-36.5); MEAN CORPUSCULAR VOLUME 100.4 fl (80.0-96.0); RED CELL DISTRIBUTION WIDTH 14.2 % (11.5-14.5)
[2016-10-13 04:56] LABS: ALBUMIN/GLOBULIN RATIO 0.94 (1.00-1.93); ALKALINE PHOSPHATASE 39 U/L (45-117); ALT/SGPT 26 U/L (12-78); ANION GAP 8 MEQ/L (8-16); AST/SGOT 20 U/L (15-37); BILIRUBIN,TOTAL 0.4 MG/DL (0.2-1.0); BLOOD UREA NITROGEN 20 MG/DL (7-18); CARBON DIOXIDE LEVEL 25 MEQ/L (21-32); CHLORIDE LEVEL 106 MEQ/L (98-107); CREATININE FOR GFR 0.73 MG/DL (0.55-1.02); GLOMERULAR FILTRATION RATE > 60.0 (>32); GLUCOSE, FASTING 199 MG/DL (83-110); SODIUM LEVEL 139 MEQ/L (136-145); TOTAL PROTEIN 6.2 GM/DL (6.4-8.2)
[2016-10-13] MEDS: ceFAZolin SOD 1 GM in D5W MINI-BAG PLUS 50 ML IV SCH ×3 (05:35→22:57)
[2016-10-13] MEDS: levETIRAcetam INJection 1,000 MG in D5W 100 ML IV SCH ×2 (05:35→17:53)
[2016-10-13] MEDS ORDERED: ceFAZolin SOD 1 GM in D5W MINI-BAG PLUS 50 ML IV ONE (06:00)
[2016-10-13] MEDS ORDERED: LEVOTHYROXINE 88MCG TABLET (0.088 MG) PO SCH (06:00)
[2016-10-13] MEDS ORDERED: ACETAMINOPHEN TAB 650MG DOSE (2X325MG) PO SCH (06:00)
[2016-10-13] MEDS ORDERED: ACETAMINOPHEN 325 MG SUPP PR ONE (06:00)
--- NOTE | 2016-10-13 07:38 | ECGEPIP ---
Stationary ECG Study [facility] - ED Test Date: 2016-10-12 Pat Name: AKI PEÑALOZA Department: Room: - Gender: F Blender Snuff: rn : 1935 Requested By: Rosenda Zhu Order Number: [id number] Reading MD: Phu Cohen Measurements Intervals [place] Rate: 72 P: 89 ME: 241 QRS: -1 QRSD: 99 T: 55 QT: 400 QTc: 438 Interpretive Statements SINUS RHYTHM WITH FIRST DEGREE AV BLOCK INFERIOR MYOCARDIAL INFARCTION, PROBABLY OLD SIMILAR TO 09/15/14 Electronically Signed On 10-13-2016 7:37:42 EDT by Phu Cohen
[2016-10-13] MEDS: MORPHINE 2 MG/ML 1ML SYRINGE IV PRN (08:27)
[2016-10-13] MEDS: azaTHIOprine 50 MG TAB (J7500) PO SCH (09:00)
[2016-10-13] MEDS ORDERED: LEVOTHYROXINE 100 MCG (0.1MG) VIAL IV SCH (09:00)
[2016-10-13] MEDS: PANTOPRAZOLE 40MG INJ (PROTONIX) (C9113) IV SCH (09:00)
--- NOTE | 2016-10-13 09:21 | REP ---
CT BRAIN WITHOUT CONTRAST: 10/13/2016 CLINICAL HISTORY: Status post right hemispheric subdural hematoma with craniotomy and hematoma drainage. COMPARISON: 10/12/2016 FINDINGS: Web Development Consultant film shows numerous skin leilani in the scalp and surgical drains overlying. There has been a right frontotemporal craniotomy. Soft tissue and bone windows for each slice level show much of the hematoma evacuated from the right hemisphere. There are small pockets of hyperdense blood along the dural margins and posteriorly and dependent portion of the subdural space. As a contrecoup injury, the left frontal scalp contusion is more developed than last evening. There is less effacement of the right lateral ventricle and the midline shift is reduced today measuring about 9 mm compared to 12 mm last evening. The shift remains toward the right. I do not see intraventricular hemorrhage. Quadrigeminal plate cisterns are better visualized today. Sylvian fissure on the left is more prominent today than yesterday, confirming decreased intracranial pressure from evacuating hematoma. Pneumocephalus and some packing material noted in that subdural space on the right. I do not see other new or significant finding. Mastoids and sinuses intact. IMPRESSION: 1. Status post right craniotomy and evacuation of a prominent right hemispheric subdural hematoma. Midline shift is reduced from about 12 mm towards the left to about 9 mm today. Smaller amounts of blood remaining and packing material in the subdural space. Much less effacement of the right lateral ventricle and better visualization of basal cisterns beginning. 2. The previously noted small left frontal scalp contusion as a contrecoup injury is more developed today. Signed by Lefty Belle MD 10/13/2016 07:49 P
[2016-10-13 09:46] LABS: ABG BASE EXCESS -1.8 (-2.0-2.0); ABG HCO3 22.3 MEQ/L (22.0-26.0); ABG PARTIAL PRESSURE CO2 35.8 mmHg (35.0-45.0); ABG PARTIAL PRESSURE O2 180.9 mmHg (75.0-100.0); ABG TOTAL CO2 23.4 MEQ/L (23.0-31.0); ABG pH (ARTERIAL) 7.413 UNITS (7.350-7.450)
[2016-10-13] MEDS: NS 1,000 ML IV SCH (10:00)
[2016-10-13] MEDS: LABETALOL HCL 200 MG in D5W 160 ML IV SCH (10:52)
--- NOTE | 2016-10-13 11:15 | ROOPDOC ---
[facility] Report Of Operation Report of Operation DATE OF SURGERY: 10/13/2016 SURGEON: Dr. Mariela Carty PATENT LEGAL ASSISTANT: None PREOPERATIVE DIAGNOSIS: R acute subdural hematoma (aSDH) POSTOPERATIVE DIAGNOSIS: Same PROCEDURE PERFORMED: 1. Craniotomy for evacuation of Right acute SDH. ANESTHESIA: GETA. ESTIMATED BLOOD LOSS: 200cc. FINDINGS : R acute subdural hematomas. DRAINS: ANDRY drains x 1 COMPLICATIONS: None. DISPOSITION: Stable to the PACU. INDICATIONS FOR THE PROCEDURE HISTORY: Mrs Duncan is a 80 y/o F who presents to the hospital after fall with signs, symptoms and radiographic evidence of acute subdural hematoma. DIAGNOSTIC STUDY: Head CT scan showed R acute raugvx-[id number]-[id number] hematoma more than 1 cm thikness causing midline shift to left more than 1 cm. SURGICAL RISKS: The patient is disoriented, unable to provide consent. Her daughter, and family was well apprised of all objectives, benefits, risks and potential complications of the procedure, including but not limited to: worsening of current status, the possible need for further procedures, the risk of infection , headaches, CSF leak, possible spinal nerve injury resulting in paralysis, infection, injury to major vessels causing hemorrhage, stroke, loss of language function, coma and even . No assurance was given whether symptoms would improve following the procedure. The surgery is technically difficult procedure and despite the significant discomfort for the patient and the best effort of the physician, the surgery may be unsuccessful or may need to be aborted. Informed consent was obtained and secured in the chart after the family voiced understanding of these risks and decided to proceed with the operation. DESCRIPTION OF THE PROCEDURE The patient was transferred to the operating room. He was given preoperative prophylactic IV antibiotics. ANESTHESIA: The patient was sedated and intubated without difficulty by the anesthesia service. Eyes were taped shut after ointment was applied to prevent corneal abrasion. A Ant Hugger was placed over the upper body to maintain control of core body temperature. A Michael catheter was inserted. POSITIONING: The patient was placed in the supine position, rotated to the Left with help of jelly bolster along R side of body and all pressure points were well padded. The hair was clipped in the area where the incision was planned and marked. Pre-prepping was done with alcohol. OPERATIVE TECHNIQUE: The patient was prepped and draped in the standard sterile fashion. Local anesthesic was infiltrated along the line of the planned skin incisionA ( Right/Left) [id number]-[id number] inverted question jordi incision was performed with a # 15 scalpel blade to the level of the periosteum. The scalp flap, along with the muscle and the periosteum were elevated, reflected anteriorly and held in place utilizing fish hooks. Using a high speed pneumatic and electric drill, tommie holes were placed with a pharmacy services representative bit in the temporo- parietal-frontal regions. With the B1 bit and footplate, the tommie holes were interconnected and a wide craniotomy carried out. Hemostasis was achieved utilizing a combination of bipolar electrocautery, monopolar electrocautery and absorbable gelatin compressed sponge Gelfoam and Surgicel. The wound was irrigated until clear. The dura was tense and protruding with a dark blue discoloration. It was coagulated with the bipolarelectrocautery and opened in a C-shaped fashion, releasing dark blood and clot that seemed to be under significant pressure. The source of venous bleeding was identified as one cortical vein and coagulated with the bipolar electrocautery. The exposed brain was depressed but still pulsating. There were several areas of contused brain. Circumferential revision of the field was carried out. No residual oozing blood was visualized and it was copiously irrigated until clear. Hemostasis was obtained utilizing a combination of bipolar electrocautery and absorbable gelatin compressed sponge Gelfoam and Surgicel. The dura was reapproximated utilizing interrupted 2-0 non -absorbable braided polyamide suture Nurolon and the cavity irrigated full. The bone flap was replaced and secured utilizing plates and screws. The temporalis muscle was reapproximated utilizing 3-0 polyglactin synthetic absorbable suture Vicryl. The wound was again irrigated with antibiotic solution until clear. The galea was closed with inverted interrupted stitches utilizing 1O polyglactin synthetic absorbable suture Vicryl. Scalp has been closed by metal leilani. Bacitracin ointment has been applied to the wound and sterile dressing has been placed over closed wound. All sponge counts, needle counts and instrument counts were correct at the end of the case times two. The patient tolerated the procedure well, without any complications and was transferred in stable condition to the recovery room. MARIELA CARTY MD Oct 13, 2016 11:15
--- NOTE | 2016-10-13 14:18 | IPNPDOC ---
Subjective Date Seen The patient was seen on 10/13/16. Subjective Chief Complaint/HPI The patient is a 80-year-old female admitted with a reason for visit of Closed Tbi; R Subdural Hematoma. Events since last encounter admitted overnight under neuro surgery, patient lethargic, withdrawal from pain. s/p surgery, aaox1, further history not possible. hypertensive sbp 200s General: Reports: ROS Unobtainable Objective Physical Examination General Exam: Positive: Moderate Distress, Other (lethargic), Negative: Alert, Cooperative Eye Exam: Positive: Other Eye Symptoms (b/l pupils sluggish to respond to light ) ENT Exam: Positive: Other ENT (crainial drain in place sangreous fluid) Neck Exam: Positive: Supple Chest Exam: Positive: Clear to auscultation, Normal air movement, Negative: Rales, Rhonchi, Wheezing Heart Exam: Positive: Rate Normal, Regular Rhythm, Normal S1, Normal S2 Abdomen Exam: Positive: Normal bowel sounds, Soft, Tenderness, Hepatospenomegaly Extremity Exam: Positive: Clubbing, Cyanosis, Edema Neuro Exam: Positive: Other (ext withdrawal from pain, aaox1, pupils sluggish to respond) Assessment /Plan Assessment 80 y/o F h/o HTN HLD Hypothyroid, gerd, autoimmune hepatitis, glaucoma, macular degeneration presented with headache after fall. with right acute subdural hematoma. Problems (1) Subdural hemorrhage following injury Status: Acute Problem Text: admitted by neuro surgery, management as per neurosurgery, repeat ct as ordered, BP goal as per Neuro surgery sbp 160, vs arterial robbin on labetalol drip for bp. neuro checks airway protection abd apreciated Dr Lynch accounting manager assistant controller consulted NGT consider early feeding okay with primary team GI ppx. ppi keppra as per Neurosurgery hold asa, given PLT (2) HTN (hypertension) Problem Text: bp goal as per neurosurgery spb 160 katy labetalol drip (3) Hypothyroid Problem Text: synthroid IV (4) GERD (gastroesophageal reflux disease) Problem Text: ppi (5) Autoimmune hepatitis Problem Text: outpatient f/u (6) Macular degeneration Problem Text: c/w home med (7) Glaucoma Problem Text: c/w home meds (8) HLD (hyperlipidemia) Problem Text: restart statin once tolerate oral Plan/VTE VTE Prophylaxis Ordered?: Yes (teds) Plan/Urinary Catheter Reason for insertion/continuin: Critical Pt monitoring Disposition as per primary team VS, [facility]&O, [facility] Vital Signs/I&O Vital Signs Date Time Temp Pulse Resp B/P (MAP) Pulse Ox O2 Delivery O2 Flow Rate FiO2 10/13/16 12:49 86 16 153/70 100 Nasal Cannula 2.0 10/13/16 08:00 98.0 I&O- Last 24 Hours up to 6 AM 10/13/16 05:59 Intake Total 1800 ml Output Total 1560 ml Balance 240 ml Laboratory Data 24H LABS Laboratory Tests 2 10/12/16 17:14: White Blood Count 6.0, Red Blood Count 3.55L, Hemoglobin 11.9L, Hematocrit 35.0L , Mean Corpuscular Volume 98.6H, Mean Corpuscular Hemoglobin 33.4H, Mean Corpuscular Hemoglobin Concent 33.9, Red Cell Distribution Width 14.0, Platelet Count 223, Neutrophils (%) (Auto) 66.0, Lymphocytes (%) (Auto) 24.7, Monocytes ( %) (Auto) 5.1H, Eosinophils (%) (Auto) 1.7, Basophils (%) (Auto) 0.4, Neutrophils # (Auto) 4.0, Lymphocytes # (Auto) 1.6, Monocytes # (Auto) 0.3, Eosinophils # (Auto) 0.1, Basophils # (Auto) 0.0, Large Unclassified Cells % 2.1 , Large Unclassified Cells # 0.1, Prothrombin Time 12.7, Prothromb Time International Ratio 0.94, Activated Partial Thromboplast Time 25.8L, Anion Gap 9 , Glomerular Filtration Rate > 60.0, Lactic Acid Level 0.7, Calcium Level 9.0, Aspartate Amino Transf (AST/SGOT) 28, Alanine Aminotransferase (ALT/SGPT) 31, Alkaline Phosphatase 41L, Total Bilirubin 0.4, Direct Bilirubin < 0.1, Total Creatine Kinase 142, Creatine Kinase MB 3.1, Creatine Kinase MB Relative Index 2.18, Troponin I < 0.02, Total Protein 7.2, Albumin 3.6, Albumin/Globulin Ratio 1.00, Amylase Level 55, Lipase 287, Ethyl Alcohol Level < 0.003 10/12/16 17:59: Blood Gas Bicarbonate Standard 23.2, Arterial Blood pH 7.378, Arterial Blood Partial Pressure CO2 40.8, Arterial Blood Partial Pressure O2 157.3H, Arterial Blood Total CO2 24.7, Arterial Blood HCO3 23.5, Arterial Blood Base Excess -1.5 , Arterial Blood Oxygen Saturation 99.2H 10/13/16 04:00: Anion Gap 8, Glomerular Filtration Rate > 60.0, Calcium Level 8.0L, Aspartate Amino Transf (AST/SGOT) 20, Alanine Aminotransferase (ALT/SGPT) 26, Alkaline Phosphatase 39L, Total Bilirubin 0.4, Total Protein 6.2L, Albumin 3.0L, Albumin/ Globulin Ratio 0.94L, Blood Urea Nitrogen 20H, Creatinine 0.73, Sodium Level 139 , Potassium Level 4.0, Chloride Level 106, Carbon Dioxide Level 25 10/13/16 07:24: Total Creatine Kinase 94, Creatine Kinase MB 3.1, Creatine Kinase MB Relative Index 3.29, Troponin I 0.02 10/13/16 09:17: Blood Gas Bicarbonate Standard 23.0, Arterial Blood pH 7.413, Arterial Blood Partial Pressure CO2 35.8, Arterial Blood Partial Pressure O2 180.9H, Arterial Blood Total CO2 23.4, Arterial Blood HCO3 22.3, Arterial Blood Base Excess -1.8 , Arterial Blood Oxygen Saturation 99.4H 10/13/16 13:04: CBC/BMP Laboratory Tests 10/12/16 17:14 Red Blood Count 3.55 L, Mean Corpuscular Volume 98.6 H, Mean Corpuscular Hemoglobin 33.4 H, Mean Corpuscular Hemoglobin Concent 33.9, Red Cell Distribution Width 14.0, Neutrophils (%) (Auto) 66.0, Lymphocytes (%) (Auto) 24.7, Monocytes (%) (Auto) 5.1 H, Eosinophils (%) (Auto) 1.7, Basophils (%) ( Auto) 0.4, Neutrophils # (Auto) 4.0, Lymphocytes # (Auto) 1.6, Monocytes # (Auto ) 0.3, Eosinophils # (Auto) 0.1, Basophils # (Auto) 0.0 10/13/16 04:00 Red Blood Count 2.96 L, Mean Corpuscular Volume 100.4 H, Mean Corpuscular Hemoglobin 33.9 H, Mean Corpuscular Hemoglobin Concent 33.7, Red Cell Distribution Width 14.2, Calcium Level 8.0 L, Aspartate Amino Transf (AST/SGOT) 20, Alanine Aminotransferase (ALT/SGPT) 26, Alkaline Phosphatase 39 L, Total Bilirubin 0.4, Total Protein 6.2 L, Albumin 3.0 L RISHI SHEN MD Oct 13, 2016 14:18
--- NOTE | 2016-10-13 15:01 | CCN ---
DATE: 10/13/2016 TIME: 10:10 a.m. I was called to see this patient in the intensive care unit. She presented to the emergency department yesterday after a fall with pain in her right forehead. While in the emergency department, level of consciousness became depressed. A CT scan showed an enlarging subdural hematoma with midline shift. She was taken to surgery for evacuation of the subdural hematoma, was hypertensive in the recovery room, and has been started on intravenous (IV) beta blockers in the intensive care unit (ICU). On reviewing the electronic health record, there is a history of hypertension, bronchiectasis, 50 pack years of smoking, quit in 1990, but no chronic obstructive pulmonary disease (COPD). Outpatient spirometry normal. She had an abnormal CT scan of the chest with multiple nodules and some prior history of minor hemoptysis a year ago. She has acid reflux disease, hypothyroidism on replacement, glaucoma, and macular degeneration. She was diagnosed with autoimmune hepatitis. At bedside, her temperature is 97, pulse rate is 90, respirations 16, blood pressure 168/72. HEENT: Her pupils respond to light. Oral mucosa is dry. Neck is supple. No meningismus. Heart sounds are regular without appreciable murmur. Breath sounds are mildly coarse in the bases, right greater than the left. No other focal sounds. Chest expansion is symmetric. There is no accessory muscle engagement. Abdomen is soft with bowel sounds in the right lower quadrant. Extremities are cool, and she does withdraw to pain. Diagnostic studies were reviewed. Sodium is 139, potassium 4.0, chloride 106, CO2 of 25, BUN 20, creatinine 0.73, glucose 199. Albumin is 3. White cell count is 9, hemoglobin 10, hematocrit 29, platelet count 230,000. Arterial blood gases show pH 7.41, pCO2 of 35, pO2 180. Multiple head CTs and a chest image was removed. The primary problem requiring critical attention is obtundation. This may be residual effects from anesthesia, toxic metabolic. The subdural hematoma has been evacuated, but recovery in this age group may be delayed and/or limited. Obtundation secondary to brain compression. Systemic arterial hypertension. The patient is on Lopressor IV drip. She had been on atenolol and Norvasc in the past but was not actively taking these medications prior to her admission. Pending her response to the Lopressor, we may restart her oral antihypertensives. Will target systolic blood pressure of 160 plus or minus 10. Autoimmune hepatitis. Will continue the use azathioprine.. Deep vein thrombosis (DVT) prophylaxis will be addressed with sequential hose. Ulcer prophylaxis will be addressed with Protonix. The patient's condition is critical. Prognosis is guarded. ICU care is appropriate. 77 minutes was spent in the provision of bedside critical care and coordination. FLAVIO
[2016-10-13] MEDS: BRINZOLAMIDE 1 % OPHTH SUSP (AZOPT) 10ML OU SCH (20:06)
[2016-10-13] MEDS: LATANOPROST 0.005% OPHTH SOLN 2.5 ML OU SCH (20:06)
[2016-10-13] MEDS: ACETAMINOPHEN TAB 650MG DOSE (2X325MG) PO PRN (20:07)
[2016-10-14] VITALS (22 sets, daily range): BP systolic 138–200; BP diastolic 52–86
[2016-10-14 04:31] LABS: MEAN CORPUSCULAR HEMOGLOBIN 33.8 pg (27.0-33.0); MEAN CORPUSCULAR HGB CONC 35.3 g/dl (32.0-36.5); MEAN CORPUSCULAR VOLUME 95.8 fl (80.0-96.0); RED CELL DISTRIBUTION WIDTH 15.9 % (11.5-14.5); WHITE BLOOD COUNT 11.2 K/mm3 (4.0-10.0)
[2016-10-14 05:03] LABS: ALBUMIN 2.6 GM/DL (3.2-5.2); ALBUMIN/GLOBULIN RATIO 0.81 (1.00-1.93); ALKALINE PHOSPHATASE 36 U/L (45-117); ALT/SGPT 19 U/L (12-78); ANION GAP 8 MEQ/L (8-16); AST/SGOT 17 U/L (15-37); BILIRUBIN,TOTAL 0.5 MG/DL (0.2-1.0); BLOOD UREA NITROGEN 16 MG/DL (7-18); CALCIUM LEVEL 7.5 MG/DL (8.8-10.2); CARBON DIOXIDE LEVEL 23 MEQ/L (21-32); CHLORIDE LEVEL 108 MEQ/L (98-107); CREATININE FOR GFR 0.52 MG/DL (0.55-1.02); GLOMERULAR FILTRATION RATE > 60.0 (>32); GLUCOSE, FASTING 133 MG/DL (83-110); POTASSIUM SERUM 3.5 MEQ/L (3.5-5.1); SODIUM LEVEL 139 MEQ/L (136-145); TOTAL PROTEIN 5.8 GM/DL (6.4-8.2)
[2016-10-14] MEDS: levETIRAcetam INJection 1,000 MG in D5W 100 ML IV SCH ×2 (05:49→17:31)
[2016-10-14] MEDS: NS 1,000 ML IV SCH ×2 (05:50→20:15)
[2016-10-14] MEDS: ACETAMINOPHEN TAB 650MG DOSE (2X325MG) PO PRN (06:05)
[2016-10-14] MEDS ORDERED: POTASSIUM CHLORIDE 10% LIQ 20 MEQ/15 ML UDC NG ONE (07:30)
[2016-10-14] MEDS: LEVOTHYROXINE 88MCG TABLET (0.088 MG) PO SCH (09:16)
[2016-10-14] MEDS: azaTHIOprine 50 MG TAB (J7500) PO SCH (09:17)
[2016-10-14] MEDS: PANTOPRAZOLE 40MG INJ (PROTONIX) (C9113) IV SCH (09:17)
[2016-10-14] MEDS: BENAZEPRIL 20 MG TAB PO SCH ×2 (09:17→20:16)
[2016-10-14] MEDS: BRINZOLAMIDE 1 % OPHTH SUSP (AZOPT) 10ML OU SCH ×2 (09:18→20:16)
[2016-10-14] MEDS: ACETAMINOPHEN 325 MG TAB PO SCH ×3 (12:02→23:26)
--- NOTE | 2016-10-14 14:00 | IPNPDOC ---
Subjective Date Seen The patient was seen on 10/14/16. Subjective Chief Complaint/HPI The patient is a 80-year-old female admitted with a reason for visit of Closed Tbi; R Subdural Hematoma. Events since last encounter no acute events overnight. bedside swallow tolerated apple sauce. Denied cp, abd pain. mild lethargy. improved Constitutional: Denies: Chills, Fever ENT: Denies: Head Aches, Ear Pain Pulmonary: Denies: Dyspnea, Cough Cardiovascular: Denies: Chest Pain, Palpitations Gastrointestinal: Denies: Nausea, Vomiting, Abdominal Pain Objective Physical Examination General Exam: Positive: Alert, Moderate Distress, Other (lethargic) Eye Exam: Positive: PERRLA, EOMI ENT Exam: Positive: Other ENT (crainial drain in place sangreous fluid) Neck Exam: Positive: Supple Chest Exam: Positive: Clear to auscultation, Normal air movement, Negative: Rales, Rhonchi, Wheezing Heart Exam: Positive: Rate Normal, Regular Rhythm, Normal S1, Normal S2 Abdomen Exam: Positive: Normal bowel sounds, Soft, Tenderness, Hepatospenomegaly Extremity Exam: Positive: Clubbing, Cyanosis, Edema Neuro Exam: Positive: Other (ext withdrawal from pain, aaox2, b/l pupils reactive to light) Assessment /Plan Problems (1) Subdural hemorrhage following injury Status: Acute Problem Text: admitted by neuro surgery, management as per neurosurgery, repeat ct as ordered, BP goal as per Neuro surgery sbp 160, vs arterial robbin on labetalol drip for bp. neuro checks airway protection abd apreciated Dr Syed sanitation worker cleaning equipment consulted NGT pulled by patient pureed nectar thick pending speech GI ppx. ppi keppra as per Neurosurgery hold asa, given PLT (2) HTN (hypertension) Problem Text: bp goal as per neurosurgery spb 160 katy labetalol drip, benazepril, wean labetalol (3) Hypothyroid Problem Text: synthroid (4) GERD (gastroesophageal reflux disease) Problem Text: ppi (5) Autoimmune hepatitis Problem Text: outpatient f/u (6) Macular degeneration Problem Text: c/w home med (7) Glaucoma Problem Text: c/w home meds (8) HLD (hyperlipidemia) Problem Text: restart statin once tolerate oral Plan/VTE VTE Prophylaxis Ordered?: Yes (teds) Plan/Urinary Catheter Reason for insertion/continuin: Critical Pt monitoring Disposition as per neurosurgery, PT, OT, clinical improvement. DNR VS, I&O, 24H, [facility] Vital Signs/I&O Vital Signs Date Time Temp Pulse Resp B/P (MAP) Pulse Ox O2 Delivery O2 Flow Rate FiO2 10/14/16 12:00 99.2 82 22 160/66 (97) 98 Room Air 177/78 (111) 10/13/16 20:00 2.0 I&O- Last 24 Hours up to 6 AM 10/14/16 06:00 Intake Total 2050 ml Output Total 1230 ml Balance 820 ml Laboratory Data 24H LABS Laboratory Tests 2 10/14/16 04:09: Anion Gap 8, Glomerular Filtration Rate > 60.0, Blood Urea Nitrogen 16, Creatinine 0.52L, Sodium Level 139, Potassium Level 3.5, Chloride Level 108H, Carbon Dioxide Level 23, Calcium Level 7.5L, Aspartate Amino Transf (AST/SGOT) 17, Alanine Aminotransferase (ALT/SGPT) 19, Alkaline Phosphatase 36L, Total Bilirubin 0.5, Total Protein 5.8L, Albumin 2.6L, Albumin/Globulin Ratio 0.81L CBC/BMP Laboratory Tests 10/14/16 04:09 Red Blood Count 3.51 L, Mean Corpuscular Volume 95.8, Mean Corpuscular Hemoglobin 33.8 H, Mean Corpuscular Hemoglobin Concent 35.3, Red Cell Distribution Width 15.9 H, Calcium Level 7.5 L, Aspartate Amino Transf (AST/SGOT ) 17, Alanine Aminotransferase (ALT/SGPT) 19, Alkaline Phosphatase 36 L, Total Bilirubin 0.5, Total Protein 5.8 L, Albumin 2.6 L RISHI SHEN MD Oct 14, 2016 13:59
[2016-10-14] MEDS: LABETALOL HCL 200 MG in D5W 160 ML IV SCH (14:29)
[2016-10-14] MEDS: LATANOPROST 0.005% OPHTH SOLN 2.5 ML OU SCH (20:16)
[2016-10-15] VITALS (48 sets, daily range): BP systolic 101–198; BP diastolic 34–82
[2016-10-15 04:25] LABS: MEAN CORPUSCULAR HEMOGLOBIN 33.2 pg (27.0-33.0); MEAN CORPUSCULAR HGB CONC 34.5 g/dl (32.0-36.5); MEAN CORPUSCULAR VOLUME 96.2 fl (80.0-96.0); RED CELL DISTRIBUTION WIDTH 15.6 % (11.5-14.5); WHITE BLOOD COUNT 9.5 K/mm3 (4.0-10.0)
[2016-10-15 04:39] LABS: ALBUMIN 2.4 GM/DL (3.2-5.2); ALBUMIN/GLOBULIN RATIO 0.71 (1.00-1.93); ALKALINE PHOSPHATASE 33 U/L (45-117); ALT/SGPT 19 U/L (12-78); ANION GAP 6 MEQ/L (8-16); AST/SGOT 17 U/L (15-37); BILIRUBIN,TOTAL 0.5 MG/DL (0.2-1.0); BLOOD UREA NITROGEN 15 MG/DL (7-18); CALCIUM LEVEL 7.5 MG/DL (8.8-10.2); CARBON DIOXIDE LEVEL 23 MEQ/L (21-32); CHLORIDE LEVEL 111 MEQ/L (98-107); CREATININE FOR GFR 0.44 MG/DL (0.55-1.02); GLOMERULAR FILTRATION RATE > 60.0 (>32); GLUCOSE, FASTING 136 MG/DL (83-110); MAGNESIUM LEVEL 2.1 MG/DL (1.8-2.4); POTASSIUM SERUM 3.4 MEQ/L (3.5-5.1); SODIUM LEVEL 140 MEQ/L (136-145); TOTAL PROTEIN 5.8 GM/DL (6.4-8.2)
[2016-10-15] MEDS: ACETAMINOPHEN 325 MG TAB PO SCH ×3 (06:09→17:37)
[2016-10-15] MEDS: LEVOTHYROXINE 88MCG TABLET (0.088 MG) PO SCH (06:09)
[2016-10-15] MEDS: levETIRAcetam INJection 1,000 MG in D5W 100 ML IV SCH ×2 (06:10→17:38)
[2016-10-15] MEDS ORDERED: POTASSIUM CHLORIDE 10 MEQ SR TABLET PO ONE (08:00)
[2016-10-15] MEDS: azaTHIOprine 50 MG TAB (J7500) PO SCH (08:56)
[2016-10-15] MEDS: PANTOPRAZOLE 40MG INJ (PROTONIX) (C9113) IV SCH (08:56)
[2016-10-15] MEDS: BRINZOLAMIDE 1 % OPHTH SUSP (AZOPT) 10ML OU SCH ×2 (08:58→20:50)
[2016-10-15] MEDS: BENAZEPRIL 20 MG TAB PO SCH ×2 (08:58→20:49)
[2016-10-15] MEDS ORDERED: **hydrALAZINE HCL** 25 MG TAB PO SCH (09:00)
[2016-10-15] MEDS ORDERED: fentaNYL 100 MCG/2 ML INJECTION (J3010) IV ONE (10:00)
[2016-10-15] MEDS ORDERED: **hydrALAZINE** 50 MG TAB PO SCH (13:00)
[2016-10-15] MEDS: **hydrALAZINE HCL** 25 MG TAB PO SCH ×3 (13:00→17:38)
--- NOTE | 2016-10-15 16:14 | REP ---
Clinical: Followup postoperative changes. Comparison: 10/13/2016. Findings: The patient is again noted to be status post craniotomy for evacuation of subdural collection. Postoperative and postsurgical changes involving the right frontoparietal region are similar to prior examination including residual subdural hemorrhage, intracranial/extra-axial packing material and pneumocephalus. Small hemorrhagic foci within the frontal lobes (left greater than right) are unchanged. Current examination suggests mildly increased contralateral midline shift of approximately 12 mm. Basilar cisterns are patent. Fluid in the sinuses has increased from prior examination. Impression: 1. Postoperative changes as described above are similar to prior examination. 2. Contralateral midline shift may be slightly increased from prior examination. 3. Fluid in the paranasal sinuses. Signed by Jadiel Hernandez MD 10/15/2016 04:05 P
[2016-10-15] MEDS: MORPHINE 2 MG/ML 1ML SYRINGE IV PRN (18:23)
[2016-10-15] MEDS ORDERED: **hydrALAZINE HCL** 25 MG TAB PO ONE (18:45)
--- NOTE | 2016-10-15 19:04 | IPNPDOC ---
Subjective Date Seen The patient was seen on 10/15/16. Subjective Chief Complaint/HPI The patient is a 80-year-old female admitted with a reason for visit of Closed Tbi; R Subdural Hematoma. Events since last encounter no acute events, follows simple command, poor oral intake, Denied cp/abdpain/n/v /sob Constitutional: Denies: Chills, Fever Skin: Denies: Rash, Lesions Pulmonary: Denies: Dyspnea, Cough Cardiovascular: Denies: Chest Pain, Palpitations, Orthopnea Gastrointestinal: Denies: Nausea, Vomiting, Abdominal Pain, Diarrhea, Constipation Objective Physical Examination General Exam: Positive: Alert, Moderate Distress, Other (lethargic) Eye Exam: Positive: PERRLA, EOMI ENT Exam: Positive: Other ENT (crainial drain in place sangreous fluid) Neck Exam: Positive: Supple Chest Exam: Positive: Clear to auscultation, Normal air movement, Negative: Rales, Rhonchi, Wheezing Heart Exam: Positive: Rate Normal, Regular Rhythm, Normal S1, Normal S2 Abdomen Exam: Positive: Normal bowel sounds, Soft, Tenderness, Hepatospenomegaly Extremity Exam: Positive: Clubbing, Cyanosis, Edema Neuro Exam: Positive: Other (ext withdrawal from pain, aaox2, b/l pupils reactive to light) Assessment /Plan Assessment 80 y/o F h/o HTN HLD Hypothyroid, gerd, autoimmune hepatitis, glaucoma, macular degeneration presented with headache and AMS after fall. with right acute subdural hematoma. Problems (1) Subdural hemorrhage following injury Status: Acute Problem Text: admitted by neuro surgery, management as per neurosurgery, repeat ct as ordered, BP goal as per Neuro surgery sbp 160, vs arterial robbin on labetalol drip for bp. neuro checks airway protection abd apreciated Dr Lynch side door worker consulted pureed nectar thick, speech eval GI ppx. ppi keppra as per Neurosurgery hold asa, given PLT Poor oral intake, NGT ordered my neurosurgery, Jevity started pending dietary consult, will discuss with family, given patient does not want permanent tube feeding, but this might be temporary in the process of recovery (2) HTN (hypertension) Problem Text: bp goal as per neurosurgery spb 160 katy labetalol drip, benazepril, hydralazine added, wean labetalol (3) Hypothyroid Problem Text: synthroid (4) GERD (gastroesophageal reflux disease) Problem Text: ppi (5) Autoimmune hepatitis Problem Text: outpatient f/u (6) Macular degeneration Problem Text: c/w home med (7) Glaucoma Problem Text: c/w home meds (8) HLD (hyperlipidemia) Problem Text: restart statin once tolerate oral Plan/VTE VTE Prophylaxis Ordered?: Yes (teds) Plan/Urinary Catheter Reason for insertion/continuin: Critical Pt monitoring Disposition as per primary, guarded prognosis VS, [facility] Vital Signs/I&O Vital Signs Date Time Temp Pulse Resp B/P (MAP) Pulse Ox O2 Delivery O2 Flow Rate FiO2 10/15/16 18:52 178/72 10/15/16 18:33 16 10/15/16 11:45 77 97 10/15/16 08:00 98.7 10/15/16 06:00 Room Air 10/13/16 20:00 2.0 I&O- Last 24 Hours up to 6 AM 10/15/16 06:00 Intake Total 1938 ml Output Total 1095 ml Balance 843 ml Laboratory Data 24H LABS Laboratory Tests 2 10/15/16 04:09: Anion Gap 6L, Glomerular Filtration Rate > 60.0, Blood Urea Nitrogen 15, Creatinine 0.44L, Sodium Level 140, Potassium Level 3.4L, Chloride Level 111H, Carbon Dioxide Level 23, Calcium Level 7.5L, Aspartate Amino Transf (AST/SGOT) 17, Alanine Aminotransferase (ALT/SGPT) 19, Alkaline Phosphatase 33L, Total Bilirubin 0.5, Total Protein 5.8L, Albumin 2.4L, Magnesium Level 2.1, Albumin/ Globulin Ratio 0.71L CBC/BMP Laboratory Tests 10/15/16 04:09 Red Blood Count 3.31 L, Mean Corpuscular Volume 96.2 H, Mean Corpuscular Hemoglobin 33.2 H, Mean Corpuscular Hemoglobin Concent 34.5, Red Cell Distribution Width 15.6 H, Calcium Level 7.5 L, Aspartate Amino Transf (AST/SGOT ) 17, Alanine Aminotransferase (ALT/SGPT) 19, Alkaline Phosphatase 33 L, Total Bilirubin 0.5, Total Protein 5.8 L, Albumin 2.4 L RISHI SHEN MD Oct 15, 2016 19:04
[2016-10-15] MEDS: ACETAMINOPHEN TAB 650MG DOSE (2X325MG) PO PRN (19:13)
[2016-10-15] MEDS: LABETALOL HCL 200 MG in D5W 160 ML IV SCH (19:14)
[2016-10-15] MEDS: NS 1,000 ML IV SCH (20:20)
[2016-10-15] MEDS: LATANOPROST 0.005% OPHTH SOLN 2.5 ML OU SCH (20:50)
--- NOTE | 2016-10-15 22:00 | IPNPDOC ---
Date Seen The patient was seen on 10/15/16. Progress Note NEUROSURGERY Admission day #: 3 (admitted on 10/12/16) Post-op Day #: 2 (10/13/16) Pain control: Tylenol 325 mg PO q 6 hrs PRN, morphine 2 mg IV q 4 hrs PRN. Surgical procedure: 10/13/16. Craniotomy for evacuation of right acute subdural hematoma, right-sided drain placed. Over 24 hrs: Per nursing- she has been more responsive today but still pretty sleepy. She continues on a pureed diet. She had a speech evaluation yesterday. She ate apple sauce well earlier. She has been taking Tylenol PO without difficulty. SUBJECTIVE Ms Duncan is a pleasant 80 year old female who was admitted 10/12/16 for acute SDH. She underwent neurosurgical procedure by Dr Carty on 10/13/16, 2 days ago, for right acute subdural hematoma with placement of right sided drain. Nursing states she has been more responsive today. She was speaking with Dr Forrest today just prior to Dr Carty and I visiting her. OBJECTIVE Clinical status: AVSS Neurological status: alert and orientated to person and place. She is able to recall a fall at home which is why she is at hospital. GCS= [id number]= 13. Speech is limited, has been sleeping much of the day. She does respond to her name. Wound/incision: Edges of the wound are closed with superficial xi. No increased drainage, erythema, or increased pain at the site. Non-adhesive dressing held in place by xi covering right sided drain and incision. Xi holding non-adhesive dressing were removed. Her drain was removed today. 3 xi were placed to close the drain incision. She tolerated procedure well and without use of Fentanyl. Drainage: None. strickler attendant= intact. Motor: R upper extremity > L upper extremity. Unable to hold L arm independently against gravity. This does improve when I visited her speedy in the day (perhaps she was more alert on the second round.) Able to move her toes bilaterally. Sensory: Intact to light touch in all 4 extremities, R=L=UE=LE. Gait= laying in bed. LABS: WBC= 9.5 HGB= 11.0 Na+= 140 K+= 3.4 ASSESSMENT Patient improving PLAN 1. Acute subdural hematoma with brain compression. S/p day 2 craniotomy for evacuation of right acute subdural hematoma. Weakness on left upper extremity. Will order CT head for further assessment. 2. Wound care: Right sided drain removed today, area cleansed with chlorhexadine , and incision closed with 3 xi. She tolerated procedure well. 3. Pain control: Satisfactory. 4. Seizure precaution: Continue Keppra. 5. DVT prophylaxis: TEDs and SCD 6. Constipation prophylaxis: colace PRN 7. Diet: pureed. Diet consult per Dr Carty. Would like more protein in her diet for better healing. 8. Activity: as tolerated. Thank you for all providers for your much appreciated help regarding care of Ms Duncan. Dr Chikis Knapp, RPA-C VS, I&O, 24H, [facility] Vital Signs/I&O Vital Signs Date Time Temp Pulse Resp B/P (MAP) Pulse Ox O2 Delivery O2 Flow Rate FiO2 10/15/16 19:14 83 185/73 10/15/16 18:33 16 10/15/16 18:26 98 10/15/16 12:00 98.8 10/15/16 06:00 Room Air 10/13/16 20:00 2.0 I&O- Last 24 Hours up to 6 AM 10/15/16 06:00 Intake Total 1938 ml Output Total 1095 ml Balance 843 ml Laboratory Data 24H LABS Laboratory Tests 2 10/15/16 04:09: Anion Gap 6L, Glomerular Filtration Rate > 60.0, Blood Urea Nitrogen 15, Creatinine 0.44L, Sodium Level 140, Potassium Level 3.4L, Chloride Level 111H, Carbon Dioxide Level 23, Calcium Level 7.5L, Aspartate Amino Transf (AST/SGOT) 17, Alanine Aminotransferase (ALT/SGPT) 19, Alkaline Phosphatase 33L, Total Bilirubin 0.5, Total Protein 5.8L, Albumin 2.4L, Magnesium Level 2.1, Albumin/ Globulin Ratio 0.71L CBC/BMP Laboratory Tests 10/15/16 04:09 Red Blood Count 3.31 L, Mean Corpuscular Volume 96.2 H, Mean Corpuscular Hemoglobin 33.2 H, Mean Corpuscular Hemoglobin Concent 34.5, Red Cell Distribution Width 15.6 H, Calcium Level 7.5 L, Aspartate Amino Transf (AST/SGOT ) 17, Alanine Aminotransferase (ALT/SGPT) 19, Alkaline Phosphatase 33 L, Total Bilirubin 0.5, Total Protein 5.8 L, Albumin 2.4 L GENARO KNAPP PA-C Oct 15, 2016 19:38
[2016-10-16] VITALS (23 sets, daily range): BP systolic 128–200; BP diastolic 60–110
[2016-10-16] MEDS: ACETAMINOPHEN 325 MG TAB PO SCH ×2 (00:09→05:23)
[2016-10-16] MEDS: **hydrALAZINE** 50 MG TAB PO SCH ×4 (00:09→17:23)
[2016-10-16 05:03] LABS: MEAN CORPUSCULAR HEMOGLOBIN 32.6 pg (27.0-33.0); MEAN CORPUSCULAR VOLUME 95.9 fl (80.0-96.0); RED CELL DISTRIBUTION WIDTH 15.7 % (11.5-14.5); WHITE BLOOD COUNT 9.6 K/mm3 (4.0-10.0)
[2016-10-16] MEDS: LEVOTHYROXINE 88MCG TABLET (0.088 MG) PO SCH (05:24)
[2016-10-16] MEDS: levETIRAcetam **XR** 500 MG TABLET PO SCH ×2 (05:24→17:23)
[2016-10-16 05:25] LABS: ALBUMIN 2.4 GM/DL (3.2-5.2); ALBUMIN/GLOBULIN RATIO 0.69 (1.00-1.93); ALKALINE PHOSPHATASE 41 U/L (45-117); ALT/SGPT 37 U/L (12-78); ANION GAP 6 MEQ/L (8-16); AST/SGOT 32 U/L (15-37); BILIRUBIN,TOTAL 0.4 MG/DL (0.2-1.0); BLOOD UREA NITROGEN 17 MG/DL (7-18); CALCIUM LEVEL 7.9 MG/DL (8.8-10.2); CARBON DIOXIDE LEVEL 23 MEQ/L (21-32); CHLORIDE LEVEL 112 MEQ/L (98-107); CREATININE FOR GFR 0.41 MG/DL (0.55-1.02); GLOMERULAR FILTRATION RATE > 60.0 (>32); GLUCOSE, FASTING 131 MG/DL (83-110); MAGNESIUM LEVEL 2.3 MG/DL (1.8-2.4); POTASSIUM SERUM 3.7 MEQ/L (3.5-5.1); SODIUM LEVEL 141 MEQ/L (136-145); TOTAL PROTEIN 5.9 GM/DL (6.4-8.2)
[2016-10-16] MEDS ORDERED: **hydrALAZINE HCL** 25 MG TAB PO ONE (09:00)
[2016-10-16] MEDS: azaTHIOprine 50 MG TAB (J7500) PO SCH (09:12)
[2016-10-16] MEDS: BRINZOLAMIDE 1 % OPHTH SUSP (AZOPT) 10ML OU SCH ×2 (09:12→21:06)
[2016-10-16] MEDS: PANTOPRAZOLE 40MG INJ (PROTONIX) (C9113) IV SCH (09:12)
[2016-10-16] MEDS: BENAZEPRIL 20 MG TAB PO SCH ×2 (09:12→21:06)
--- NOTE | 2016-10-16 10:52 | REP ---
Portable chest x-ray: Single view. History: Choking. Comparison chest x-ray: October 12, 2016. Findings: The lungs are symmetrically aerated. There is an area of increased density in the periphery of the right upper lobe laterally just above the right minor fissure which may be an infiltrate. Today's view is exposed at a lesser level of inspiration than the prior study. No other infiltrate is seen. Heart is not felt to be enlarged. The aorta is somewhat tortuous. There are EKG monitoring electrodes overlying the chest. Impression: Question infiltrate right upper lobe peripherally. Today's view exposed at a somewhat lesser level of inspiration. Signed by Gilberto Coates MD 10/16/2016 12:18 P
[2016-10-16] MEDS ORDERED: amLODIPine 5 MG TAB PO ONE ×2 (11:45→21:45)
[2016-10-16] MEDS ORDERED: **hydrALAZINE HCL** 25 MG TAB PO SCH (12:00)
--- NOTE | 2016-10-16 12:13 | IPNPDOC ---
Date Seen The patient was seen on 10/16/16. Progress Note NEUROSURGERY Admission day #: 4 (admitted on 10/12/16) Post-op Day #: 3 (10/13/16) Pain control: Tylenol 650 mg PO q 6 hrs PRN, morphine 2 mg IV q 4 hrs PRN. Surgical procedure: 10/13/16. Craniotomy for evacuation of right acute subdural hematoma, right-sided drain placed. Over 24 hrs: Her diet was advanced from pureed diet. Per nursing, she had a choking episode around 8:30 am while eating an egg or muffin. She was able to clear her airway. Her O2 sat decreased, but then spontaneously returned to her baseline. The feeding tube had been stopped. She started complaining about right ear pain yesterday. Per nursing- her SBP has been running 160-180 mm Hg. IV labetolol was last used 10/15, but has been on hold. SUBJECTIVE Ms Duncan is a pleasant 80 year old female who was admitted 10/12/16 for acute SDH. She underwent neurosurgical procedure by Dr Carty on 10/13/16, 2 days ago, for right acute subdural hematoma with placement of right sided drain. She is accompanied by her today. He feels she has a "world of improvement." He notes she has been upright, eating, and speaking to him. She states her biggest issue is a sore throat that started yesterday. She also notes right ear pain that started yesterday, however, the ear pain has resolved. No other complaints for today. OBJECTIVE Clinical status: AVSS Neurological status: alert and orientated to person and place. GCS= E4M6V5= 13. Speech is limited, has been sleeping much of the day. She does respond to her name. Wound/incision: Edges of the wound are closed with superficial leilani. No increased drainage, erythema, or increased pain at the site. Appears to be healing well. Drainage: None. septic tank setter= PERRL. Motor: R upper extremity > L upper extremity. She has some difficulty holding her left arm against gravity. This appears to be somewhat improved comparing to yesterday. Able to move her toes bilaterally. Gait= laying in bed. LABS: WBC= 9.6 HGB= 11.4 Na+= 141 K+= 3.7 IMAGING 10/15/16. CT head. Post op changes similar to prior study. Contralateral midline shift may be slightly increased from prior exam. Fluid in paranasal sinuses. ASSESSMENT Patient improving PLAN 1. Acute subdural hematoma with brain compression. Improving. S/p day 3 craniotomy for evacuation of right acute subdural hematoma. Weakness on left upper extremity. No CT head findings to explain this deficit- per Dr Carty. Plan for PT and eventually rehab once out of ICU. She has mild confusion as she is not able to recall today's date. Will cont to monitor. 2. Possible aspiration. Ordered CXR for further assessment. 3. R-side Earache. Currently resolved. Plan to consult ENT for further evaluation- per Dr Carty, who placed call for consult. 4. UTI prophylaxis: D/C pickering cath. 5. Wound care: Appears to be improving. Plan to D/C leilani in 4 or 5 days. 6. Pain control: Satisfactory with Tylenol 650 mg PRN. 7. Seizure precaution: Seizure-free. Continue Keppra for 7 days then D/C. 8. DVT prophylaxis: TEDs and SCD. Heparin will be delayed due to risk of intracranial rebleed. 9. Constipation prophylaxis: Not currently constipated. Cont colace PRN 10. Diet: low protein (5.9) and albumin (2.4). Consult to nutrition placed. Waiting response. 11. Activity: as tolerated with 100% supervision. 12. D/C plan: Transfer to PCU. Spoke with nursing regarding SBP and her BP meds have just been changed. No current indications for use of IV labetolol. Her GCS has been stable and status is improving. Thank you for all providers for your much appreciated help regarding care of Ms Duncan. Dr Chikis Knapp, RPA-C VS, I&O, 24H, [place] Vital Signs/I&O Vital Signs Date Time Temp Pulse Resp B/P (MAP) Pulse Ox O2 Delivery O2 Flow Rate FiO2 10/16/16 10:00 100 137/62 (87) 96 10/16/16 08:00 98.7 17 Room Air 10/13/16 20:00 2.0 I&O- Last 24 Hours up to 6 AM 10/16/16 06:00 Intake Total 2400 ml Output Total 830 ml Balance 1570 ml Laboratory Data 24H LABS Laboratory Tests 2 6/27/17 04:46: Anion Gap 6L, Glomerular Filtration Rate > 60.0, Blood Urea Nitrogen 17, Creatinine 0.41L, Sodium Level 141, Potassium Level 3.7, Chloride Level 112H, Carbon Dioxide Level 23, Calcium Level 7.9L, Aspartate Amino Transf (AST/SGOT) 32, Alanine Aminotransferase (ALT/SGPT) 37, Alkaline Phosphatase 41L, Total Bilirubin 0.4, Total Protein 5.9L, Albumin 2.4L, Magnesium Level 2.3, Albumin/ Globulin Ratio 0.69L CBC/BMP Laboratory Tests 10/16/16 04:46 Red Blood Count 3.49 L, Mean Corpuscular Volume 95.9, Mean Corpuscular Hemoglobin 32.6, Mean Corpuscular Hemoglobin Concent 34.0, Red Cell Distribution Width 15.7 H, Calcium Level 7.9 L, Aspartate Amino Transf (AST/SGOT ) 32, Alanine Aminotransferase (ALT/SGPT) 37, Alkaline Phosphatase 41 L, Total Bilirubin 0.4, Total Protein 5.9 L, Albumin 2.4 L GENARO KNAPP PA-C Oct 16, 2016 12:13
[2016-10-16] MEDS: ACETAMINOPHEN TAB 650MG DOSE (2X325MG) PO PRN (13:48)
[2016-10-16] MEDS: SLF 3 ML SYR IV SCH ×2 (14:00→19:33)
--- NOTE | 2016-10-16 15:45 | IPNPDOC ---
Text Note Date of Service The patient was seen on 10/16/16. NOTE Subjective: Pt and believe that the patient's mentation has improved and she is more alert. Attempted to eat breakfast this morning. Objective: Vitals: (see below) General: No acute distress, laying comfortably in bed. HEENT: Moist mucous membranes. Craniotomy incisions clean dry and intact. Neck: No JVD or lymphadenopathy Cardiac: RRR, No murmurs Pulm: Clear to auscultation b/l. No wheezing, rhonchi Abd: NT/ND + BS Ext: No edema or cyanosis Neuro: Strength 4-5/5 right upper extremity, 3-4/5 left upper extremity. 5/5 bilateral lower extremities. CN 2-12 intact. F to N intact Alert and oriented to person and place. Not time. Labs (see below) Images: Assessment/Plan 1. Acute subdural hematoma with brain compression- status post craniotomy and evacuation on the right subdural hematoma by neurosurgery. Is noted to have left upper extremity weakness which was notable prior exams as well. Management per neurosurg. Dr. Leon had been consulted as well. Neuro checks. Keppra per neurosurgery. 2. HTN - uncontrolled. status post labetalol drip. Spoke with Dr. Carty - No further strict BP of 140-160. Amlodipine added. Continue hydralazine every 6 hours. Continue AMY inhibitor. 3. Hypothyroidism- on Synthroid 4. GERD- on PPI 5. History of autoimmune hepatitis- follow-up patient 6. Macular degeneration- continue home meds 7. History of glaucoma- continue home meds 8. Hyperlipidemia- will need to be discharged on statin. DVT prophy: Per neurosurgery. VS,Fishbone, I+O VS, Fishbone, I+O Laboratory Tests 10/16/16 04:46 Red Blood Count 3.49 L, Mean Corpuscular Volume 95.9, Mean Corpuscular Hemoglobin 32.6, Mean Corpuscular Hemoglobin Concent 34.0, Red Cell Distribution Width 15.7 H, Calcium Level 7.9 L, Aspartate Amino Transf (AST/SGOT ) 32, Alanine Aminotransferase (ALT/SGPT) 37, Alkaline Phosphatase 41 L, Total Bilirubin 0.4, Total Protein 5.9 L, Albumin 2.4 L Vital Signs Date Time Temp Pulse Resp B/P (MAP) Pulse Ox O2 Delivery O2 Flow Rate FiO2 10/16/16 13:00 102 167/72 (103) 98 10/16/16 12:00 98.5 20 Room Air 10/13/16 20:00 2.0 I&O- Last 24 Hours up to 6 AM 10/16/16 05:59 Intake Total 2450 ml Output Total 845 ml Balance 1605 ml JIMMY FALCON MD Oct 16, 2016 15:45
--- NOTE | 2016-10-16 19:18 | CR ---
DATE OF CONSULTATION: 10/16/2016 REASON FOR CONSULTATION: Ear and throat pain. HISTORY OF PRESENT ILLNESS: Maria D Duncan is an 80-year-old woman who underwent right craniotomy for evacuation of subdural hematoma on October 12. The patient has made good progress postoperatively. She been extubated. Her feeding tube was removed today. Patient began complaining of some right ear pain yesterday and today has been reporting that she is having pain in her throat. Earlier this morning she did have a choking episode on a piece of muffin. At the time that the patient had this episode, she did still have the nasogastric (NG) tube in place. is at the bedside. He does not think that the patient has had any prior significant problems with her ears, any ear surgery, anything like that. PAST MEDICAL HISTORY: 1. Hypertension. 2. Hypothyroidism. PAST SURGICAL HISTORY: As above, additionally: 1. section. 2. Knee replacement. MEDICATIONS: These were reviewed in the nursing notes. ALLERGIES: To NAPROXEN and adhesive tape. FAMILY HISTORY: Noncontributory. REVIEW OF SYSTEMS: Patient is no longer complaining of ear pain. There has not been any noted ear drainage other than some dried blood in the ear yesterday. Patient is complaining of some throat pain. PHYSICAL EXAMINATION: Pulse 102, blood pressure 167/72, pulse oximetry 98% on room air. GENERAL: Patient appears sleepy. She is in no acute distress. She is easy to awaken, and she answers questions appropriately. HEAD: There is healing surgical incision, which is in good condition. The external ears are normal in appearance. The mastoids are nontender. The right ear canal contains a small amount of dried blood. Deeper in the canal there is a small amount of cerumen that is visible. Tympanic membrane appears normal with no signs of infection. No middle ear fluid. On the left side, the external auditory canal is normal. The tympanic membrane is intact. There is no middle ear fluid. FACE: Cranial nerve VII is intact bilaterally. There are no gross facial abnormalities. Patient has sensation in the preauricular area bilaterally. She reports decreased sensation in the postauricular area on the right and normal sensation on the left. ORAL CAVITY AND OROPHARYNX: There is no trismus. Mucosa appears somewhat dry. No oral mucosal lesions. There is erythema, particularly in the right soft palate and right posterior oropharynx. This is likely due to recent nasogastric tube and possibly even some irritation from the endotracheal tube. NECK: No masses. No lymphadenopathy. No tenderness. Review of CT scan done October 15 demonstrates normal mastoid aeration. Normal middle ear aeration bilaterally. Normal ear canals bilaterally. Speech evaluation done October 15 was reviewed. No problems with aspiration were noted. Recommended pureed and calorie-dense foods. ASSESSMENT AND PLAN: 1. Right otalgia. This has resolved since yesterday. There is no evidence of ongoing ear infection, problems with the eardrum, or problems with the ear canal. 2. Throat pain. This is likely related to the NG tube and the endotracheal tube, and there is erythema and irritation in the right oropharynx. This will just take time to resolve. There is no specific recommendation for this. Additionally, the patient's right ear pain may have been referred from the pain in the oropharynx or the irritation in the oropharynx.
[2016-10-16] MEDS: MORPHINE 2 MG/ML 1ML SYRINGE IV PRN (19:34)
[2016-10-16] MEDS: LATANOPROST 0.005% OPHTH SOLN 2.5 ML OU SCH (21:06)
[2016-10-16] MEDS ORDERED: LABETALOL HCL 100 MG/20 ML VIAL IV PRN (21:45)
[2016-10-16] MEDS: LABETALOL 100 MG TAB PO SCH (23:02)
[2016-10-17] VITALS (10 sets, daily range): BP systolic 115–159; BP diastolic 56–79
[2016-10-17] MEDS: **hydrALAZINE** 50 MG TAB PO SCH ×2 (00:09→05:56)
[2016-10-17 04:29] LABS: MEAN CORPUSCULAR HEMOGLOBIN 31.7 pg (27.0-33.0); MEAN CORPUSCULAR HGB CONC 32.7 g/dl (32.0-36.5); MEAN CORPUSCULAR VOLUME 96.9 fl (80.0-96.0); RED CELL DISTRIBUTION WIDTH 15.9 % (11.5-14.5); WHITE BLOOD COUNT 8.1 K/mm3 (4.0-10.0)
[2016-10-17 05:00] LABS: ALBUMIN 2.1 GM/DL (3.2-5.2); ALBUMIN/GLOBULIN RATIO 0.68 (1.00-1.93); ALKALINE PHOSPHATASE 43 U/L (45-117); ALT/SGPT 35 U/L (12-78); ANION GAP 5 MEQ/L (8-16); AST/SGOT 24 U/L (15-37); BILIRUBIN,TOTAL 0.4 MG/DL (0.2-1.0); BLOOD UREA NITROGEN 18 MG/DL (7-18); CALCIUM LEVEL 7.8 MG/DL (8.8-10.2); CARBON DIOXIDE LEVEL 25 MEQ/L (21-32); CHLORIDE LEVEL 111 MEQ/L (98-107); CREATININE FOR GFR 0.39 MG/DL (0.55-1.02); GLOMERULAR FILTRATION RATE > 60.0 (>32); GLUCOSE, FASTING 123 MG/DL (83-110); MAGNESIUM LEVEL 2.1 MG/DL (1.8-2.4); POTASSIUM SERUM 3.9 MEQ/L (3.5-5.1); SODIUM LEVEL 141 MEQ/L (136-145); TOTAL PROTEIN 5.2 GM/DL (6.4-8.2)
[2016-10-17] MEDS: levETIRAcetam **XR** 500 MG TABLET PO SCH ×2 (05:57→18:24)
[2016-10-17] MEDS: LEVOTHYROXINE 88MCG TABLET (0.088 MG) PO SCH (05:57)
[2016-10-17] MEDS: SLF 3 ML SYR IV SCH ×3 (06:00→21:37)
--- NOTE | 2016-10-17 07:57 | ECGEPIP ---
Stationary ECG Study [facility] Test Date: 2016-10-16 Pat Name: AKI PEÑALOZA Department: Room: [place] [address] Gender: F Director Of Regulatory Affairs: STEPHAN : 1935 Requested By: JIMMY FALCON Order Number: [id number] Reading MD: Rodney Linn Measurements Intervals [place] Rate: 107 P: 73 AK: 186 QRS: 1 QRSD: 85 T: 66 QT: 329 QTc: 441 Interpretive Statements SINUS TACHYCARDIA WITH OCCASIONAL SUPRAVENTRICULAR PREMATURE COMPLEXES PROBABLE INFERIOR MYOCARDIAL INFARCTION, OLD SINCE 10/12/16 HR IS FASTER, OTHERWISE NO CHANGE Electronically Signed On 10-17-2016 7:57:03 EDT by Rodney Linn
[2016-10-17] MEDS ORDERED: amLODIPine 5 MG TAB PO SCH (09:00)
[2016-10-17] MEDS: BENAZEPRIL 20 MG TAB PO SCH ×2 (09:10→21:37)
[2016-10-17] MEDS: azaTHIOprine 50 MG TAB (J7500) PO SCH (09:10)
[2016-10-17] MEDS: PANTOPRAZOLE 40MG INJ (PROTONIX) (C9113) IV SCH (09:10)
[2016-10-17] MEDS: amLODIPine 10 MG TAB PO SCH (09:11)
[2016-10-17] MEDS: LABETALOL 100 MG TAB PO SCH ×2 (09:11→21:36)
[2016-10-17] MEDS: BRINZOLAMIDE 1 % OPHTH SUSP (AZOPT) 10ML OU SCH ×2 (09:11→21:36)
[2016-10-17] MEDS: ACETAMINOPHEN TAB 650MG DOSE (2X325MG) PO PRN ×2 (09:28→23:47)
--- NOTE | 2016-10-17 10:18 | IPNPDOC ---
Date Seen The patient was seen on 10/17/16. Progress Note NEUROSURGERY Admission day #: 5 (admitted on 10/12/16) Post-op Day #: 4 (10/13/16) Pain control: Tylenol 650 mg PO q 6 hrs PRN, morphine 2 mg IV q 4 hrs PRN. Surgical procedure: 10/13/16. Craniotomy for evacuation of right acute subdural hematoma, right-sided drain placed. Over 24 hrs: She was seen by PT. Noted to be doing well. Potential candidate for PMNR. This consult was placed. She was seen by ENT. No specific recommendations. CXR completed after choking episode. She has not been eating much. Possibly at baseline, per her . Reports slight headache which has been present since admission. She was given Tylenol. SUBJECTIVE Ms Duncan is a pleasant 80 year old female who was admitted 10/12/16 for acute SDH. She underwent neurosurgical procedure by Dr Carty on 10/13/16 for right acute subdural hematoma with placement of right sided drain. She is accompanied by her today. He states that she is improving more every day. She is eating small bites without difficulty, but does nt have much of an appetite this morning. She is able to recall her as her , as she previously referred to him as her father. She denies ear pain, pain over incision, drainage, shortness of breath, cough, OBJECTIVE Clinical status: AVSS- T 99.8F. Neurological status: alert and orientated to person and place. Unable to recall day of week and year. GCS= E4M6V5= 13. She is more talkative today. Wound/incision: Edges of the wound are closed with superficial leilani. No increased drainage, erythema, or increased pain at the site. Appears to be healing well. Drainage: None. talent acquisition operations manager= PERRL. Eye tearing bilaterally, clear. Motor: R upper extremity > L upper extremity. She is able to raise her left arm partially but is still noticeably weak as compared to the right. She is able to put her glasses on her face. This appears to be much improved from yesterday. Able to move her toes bilaterally. Gait= not assessed. Working with PT. LABS: WBC= 8.1, stable HGB= 10.6, trending downward. RBC trending downward as well. Na+= 141, stable K+= 3.9 Protein: 5.2 Albumin: 2.1 IMAGING 10/16/16. CXR (choking episode) Area of increased density in periphery of RUL. Possible infiltrate. 10/15/16. CT head. Post op changes similar to prior study. Contralateral midline shift may be slightly increased from prior exam. Fluid in paranasal sinuses. ASSESSMENT Patient improving PLAN 1. Acute subdural hematoma with brain compression. Improving. S/p day 4 craniotomy for evacuation of right acute subdural hematoma. Weakness on left upper extremity improving. Plan for transfer to PCU and continue PT. Spoke to Dr Leon who feels she is improving and agrees with transfer. She continues with mild confusion as she is not able to recall today's date, but with noted improvements as she is able to recall her as her . Will cont to monitor. 2. Possible aspiration. CXR shows possible infiltrate in RUL. Notify hospitalist. 3. Worsening anemia. HgB has been trending downward, currently 10.6. Notify hospitalist. 4. R-side Earache. Currently resolved. Consulted ENT. R otalgia resolved. No signs of infection, TM issues, or external canal issues. Throat pain- likely related to NG tube and endotracheal tube. Will take time to resolve. No specific recommendations. 5. HTN: Not requiring IV labetalol. Still requiring attention from hospitalist. BP has been relatively controlled, with exception of an elevated reading today but this was taken after PT. Amlodipine has been added. 6. Wound care: Appears to be improving. Plan to D/C leilani in 3 or 4 days. 7. Pain control: Satisfactory with Tylenol 650 mg PRN. 8. Seizure precaution: Seizure-free. Continue Keppra for 6 days then D/C. 9. DVT prophylaxis: TEDs and SCD. Heparin will be delayed due to risk of intracranial rebleed. 10. Constipation prophylaxis: Not currently constipated. Cont colace PRN 11. Diet: low protein (5.2) and albumin (2.1). Consult to nutrition placed. Waiting response. 12. Activity: as tolerated with 100% supervision. 13. D/C plan: Plan to transfer to acute rehab by the weekend. Her GCS has been stable and status is improving. Thank you for all providers for your much appreciated help regarding care of Ms Duncan. BRANNON MoodyC Dr Diop VS, I&O, 24H, Fishbone Vital Signs/I&O Vital Signs Date Time Temp Pulse Resp B/P (MAP) Pulse Ox O2 Delivery O2 Flow Rate FiO2 10/17/16 09:11 125 159/70 10/17/16 08:00 99.8 20 94 Room Air 10/13/16 20:00 2.0 I&O- Last 24 Hours up to 6 AM 10/17/16 05:59 Intake Total 1660 ml Output Total 1235 ml Balance 425 ml Laboratory Data 24H LABS Laboratory Tests 2 10/17/16 04:18: Anion Gap 5L, Glomerular Filtration Rate > 60.0, Blood Urea Nitrogen 18, Creatinine 0.39L, Sodium Level 141, Potassium Level 3.9, Chloride Level 111H, Carbon Dioxide Level 25, Calcium Level 7.8L, Aspartate Amino Transf (AST/SGOT) 24, Alanine Aminotransferase (ALT/SGPT) 35, Alkaline Phosphatase 43L, Total Bilirubin 0.4, Total Protein 5.2L, Albumin 2.1L, Magnesium Level 2.1, Albumin/ Globulin Ratio 0.68L CBC/BMP Laboratory Tests 10/17/16 04:18 Red Blood Count 3.34 L, Mean Corpuscular Volume 96.9 H, Mean Corpuscular Hemoglobin 31.7, Mean Corpuscular Hemoglobin Concent 32.7, Red Cell Distribution Width 15.9 H, Calcium Level 7.8 L, Aspartate Amino Transf (AST/SGOT ) 24, Alanine Aminotransferase (ALT/SGPT) 35, Alkaline Phosphatase 43 L, Total Bilirubin 0.4, Total Protein 5.2 L, Albumin 2.1 L GENARO ROJO PA-C Oct 17, 2016 10:18
--- NOTE | 2016-10-17 12:31 | REP ---
Clinical: Chest pain. Rule out infiltrate. Comparison: 10/12/2016. Findings: Pulmonary vascular congestion with prominent pulmonary vasculature, increased interstitial markings, moderate bilateral pleural effusions and bibasilar atelectasis is appreciated. Small nodular consolidations predominantly noted in the aerated right lung are increased from prior examination and likely represent small multifocal infiltrate/atelectasis. No pneumothorax. Cardiomegaly noted along with atherosclerotic changes to the thoracic aorta and coronary arteries. No pericardial effusion. No obvious adenopathy. Impression: 1. Moderate pulmonary vascular congestion with bibasilar atelectasis and moderate pleural effusions (right greater than left). 2. Small but increased scattered nodular opacities likely representing element of multifocal pneumonia / atelectasis. Signed by Jadiel Hernandez MD 10/17/2016 12:22 P
[2016-10-17] MEDS ORDERED: LevoFLOXacin 500 MG TABLET PO ONE (13:30)
[2016-10-17] MEDS ORDERED: FUROSEMIDE 20 MG/2 ML VIAL (J1940) IV ONE (13:30)
--- NOTE | 2016-10-17 13:37 | IPNPDOC ---
Text Note Date of Service The patient was seen on 10/17/16. NOTE Subjective: Pt is more alert today. Eating breakfast. Objective: Vitals: (see below) General: No acute distress, laying comfortably in bed. HEENT: Moist mucous membranes. Craniotomy incisions clean dry and intact. Neck: No JVD or lymphadenopathy Cardiac: RRR, No murmurs Pulm: Clear to auscultation b/l. No wheezing, rhonchi Abd: NT/ND + BS Ext: No edema or cyanosis Neuro: Strength 4-5/5 right upper extremity, 3-4/5 left upper extremity. 5/5 bilateral lower extremities. CN 2-12 intact. F to N intact Alert and oriented to person and place. Not time. Labs (see below) Images: CT Chest 10/17/16 Impression: 1. Moderate pulmonary vascular congestion with bibasilar atelectasis and moderate pleural effusions (right greater than left). 2. Small but increased scattered nodular opacities likely representing element of multifocal pneumonia / atelectasis. Assessment/Plan 1. Acute subdural hematoma with brain compression- status post craniotomy and evacuation on the right subdural hematoma by neurosurgery. Is noted to have left upper extremity weakness which was notable prior exams as well. Management per neurosurg. Dr. Leon had been consulted as well. Neuro checks. Jah per neurosurgery. 2. HTN - controlled. status post labetalol drip. Spoke with Dr. Carty - No further strict BP of 140-160. Labetalol and Amlodipine added. D/c hydralazine which may cause tachycardia. Continue AMY inhibitor. 3. ? PNA vs atelectasis - CXR (see above) CT chest (see above) - no cough, leukocytosis, fevers. Will start Levaquin and monitor. 4. Pulmonary congestion - sat well. No Dyspnea. Lasix IV x 1. 5. Hypothyroidism- on Synthroid 6. GERD- on PPI 7. History of autoimmune hepatitis- follow-up patient 8. Macular degeneration- continue home meds 9. History of glaucoma- continue home meds 10. Hyperlipidemia- will need to be discharged on statin. DVT prophy: Per neurosurgery. VS,Fishbone, I+O VS, Fishbone, I+O Laboratory Tests 10/17/16 04:18 Red Blood Count 3.34 L, Mean Corpuscular Volume 96.9 H, Mean Corpuscular Hemoglobin 31.7, Mean Corpuscular Hemoglobin Concent 32.7, Red Cell Distribution Width 15.9 H, Calcium Level 7.8 L, Aspartate Amino Transf (AST/SGOT ) 24, Alanine Aminotransferase (ALT/SGPT) 35, Alkaline Phosphatase 43 L, Total Bilirubin 0.4, Total Protein 5.2 L, Albumin 2.1 L Vital Signs Date Time Temp Pulse Resp B/P (MAP) Pulse Ox O2 Delivery O2 Flow Rate FiO2 10/17/16 13:00 95 10/17/16 12:00 98.8 20 115/56 (75) 95 Room Air 10/13/16 20:00 2.0 I&O- Last 24 Hours up to 6 AM 10/17/16 06:00 Intake Total 1340 ml Output Total 1135 ml Balance 205 ml JIMMY FALCON MD Oct 17, 2016 13:37
[2016-10-17] MEDS: TAMSULOSIN 0.4 MG CAP PO SCH (16:10)
[2016-10-17] MEDS ORDERED: ENTER DRUG NAME HERE (PATIENT'S OWN MED) OU SCH (21:00)
[2016-10-17] MEDS: LATANOPROST 0.005% OPHTH SOLN 2.5 ML OU SCH (21:36)
[2016-10-18] MEDS ORDERED: diphenhydrAMINE 25 MG CAP PO PRN (00:45)
[2016-10-18 04:11] VITALS: BP 127/63
[2016-10-18 04:54] LABS: MEAN CORPUSCULAR HEMOGLOBIN 32.6 pg (27.0-33.0); MEAN CORPUSCULAR HGB CONC 33.8 g/dl (32.0-36.5); MEAN CORPUSCULAR VOLUME 96.6 fl (80.0-96.0); RED CELL DISTRIBUTION WIDTH 15.7 % (11.5-14.5); WHITE BLOOD COUNT 8.4 K/mm3 (4.0-10.0)
[2016-10-18 05:22] LABS: ALBUMIN 1.9 GM/DL (3.2-5.2); ALBUMIN/GLOBULIN RATIO 0.59 (1.00-1.93); ALKALINE PHOSPHATASE 51 U/L (45-117); ALT/SGPT 33 U/L (12-78); ANION GAP 7 MEQ/L (8-16); AST/SGOT 20 U/L (15-37); BILIRUBIN,TOTAL 0.5 MG/DL (0.2-1.0); BLOOD UREA NITROGEN 23 MG/DL (7-18); CALCIUM LEVEL 8.3 MG/DL (8.8-10.2); CARBON DIOXIDE LEVEL 26 MEQ/L (21-32); CHLORIDE LEVEL 107 MEQ/L (98-107); CREATININE FOR GFR 0.57 MG/DL (0.55-1.02); GLOMERULAR FILTRATION RATE > 60.0 (>32); GLUCOSE, FASTING 117 MG/DL (83-110); MAGNESIUM LEVEL 1.8 MG/DL (1.8-2.4); POTASSIUM SERUM 3.8 MEQ/L (3.5-5.1); SODIUM LEVEL 140 MEQ/L (136-145); TOTAL PROTEIN 5.1 GM/DL (6.4-8.2)
[2016-10-18] MEDS: levETIRAcetam **XR** 500 MG TABLET PO SCH (05:42)
[2016-10-18] MEDS: SLF 3 ML SYR IV SCH (05:43)
[2016-10-18] MEDS: LEVOTHYROXINE 88MCG TABLET (0.088 MG) PO SCH (05:43)
[2016-10-18] MEDS ORDERED: LevoFLOXacin 500 MG TABLET PO SCH (06:00)
[2016-10-18 08:00] VITALS: BP 125/57
[2016-10-18] MEDS: amLODIPine 10 MG TAB PO SCH (08:32)
[2016-10-18] MEDS: PANTOPRAZOLE 40MG INJ (PROTONIX) (C9113) IV SCH (08:32)
[2016-10-18] MEDS: TAMSULOSIN 0.4 MG CAP PO SCH (08:32)
[2016-10-18] MEDS: azaTHIOprine 50 MG TAB (J7500) PO SCH (08:33)
[2016-10-18 08:34] VITALS: BP 128/58
[2016-10-18] MEDS: LABETALOL 100 MG TAB PO SCH (08:34)
[2016-10-18] MEDS: BENAZEPRIL 20 MG TAB PO SCH (08:34)
[2016-10-18] MEDS: BRINZOLAMIDE 1 % OPHTH SUSP (AZOPT) 10ML OU SCH (08:34)
[2016-10-18 09:00] LABS: FERRITIN 33 NG/ML (8-252); PERCENT SATURATION 13.1 % (13.2-37.4); TOTAL IRON BINDING CAPACITY 206 UG/DL (250-450)
[2016-10-18] MEDS ORDERED: FERROUS SULFATE 325MG TAB PO SCH (09:00)
[2016-10-18 09:10] LABS: RETIC HEMOGLOBIN CONTENT CHr 32.8 PG (24-36); RETICULOCYTE % 2.5 % (0.5-1.5)
[2016-10-18] MEDS: ACETAMINOPHEN TAB 650MG DOSE (2X325MG) PO PRN (11:20)
[2016-10-18] MEDS ORDERED: LABE10TAB PO (12:27)
[2016-10-18] MEDS ORDERED: LEVE500XR PO (12:27)
[2016-10-18] MEDS ORDERED: FLOM5CAP PO (12:27)
[2016-10-18] MEDS ORDERED: BENA20TA PO (12:27)
[2016-10-18] MEDS ORDERED: AMLO10TA2 PO (12:27)
[2016-10-18] MEDS ORDERED: FERR1TAB8 PO (12:27)
--- NOTE | 2016-10-18 14:05 | IPNPDOC ---
Text Note Date of Service The patient was seen on 10/18/16. NOTE Subjective: Denies acute changes overnight. Objective: Vitals: (see below) General: No acute distress, laying comfortably in bed. HEENT: Moist mucous membranes. Craniotomy incisions clean dry and intact. Neck: No JVD or lymphadenopathy Cardiac: RRR, No murmurs Pulm: Clear to auscultation b/l. No wheezing, rhonchi Abd: NT/ND + BS Ext: No edema or cyanosis Neuro: Strength 4-5/5 right upper extremity, 4/5 left upper extremity. 5/5 bilateral lower extremities. CN 2-12 intact. F to N intact Alert and oriented to person and place. Not time. Labs (see below) Images: CT Chest 10/17/16 Impression: 1. Moderate pulmonary vascular congestion with bibasilar atelectasis and moderate pleural effusions (right greater than left). 2. Small but increased scattered nodular opacities likely representing element of multifocal pneumonia / atelectasis. Assessment/Plan 1. Acute subdural hematoma with brain compression- status post craniotomy and evacuation on the right subdural hematoma by neurosurgery. Is noted to have left upper extremity weakness which was notable prior exams as well. Management per neurosurg. Dr. Leon had been consulted as well. Neuro checks. [place] per neurosurgery. 2. HTN - controlled. status post labetalol drip. Spoke with Dr. Carty - No further strict BP of 140-160. On Labetalol, Benazapril, and Amlodipin. D/c hydralazine which may cause tachycardia. 3. ? PNA vs atelectasis - CXR (see above) CT chest (see above) - no cough, leukocytosis, fevers. Discussed with Dr. Leon - likely pulmonary contusion. D /c Abx. Cont to monitor. 4. Hypothyroidism- on Synthroid 5. GERD- on PPI 6. History of autoimmune hepatitis- follow-up patient 7. Macular degeneration- continue home meds 8. History of glaucoma- continue home meds 9. Hyperlipidemia- will need to be discharged on statin. Restart ASA when ok with neuro-surg. DVT prophy: Per neurosurgery. Going to PMR today. VS,Fishbone, I+O VS, Fishbone, I+O Laboratory Tests 10/18/16 04:20 Red Blood Count 3.03 L, Mean Corpuscular Volume 96.6 H, Mean Corpuscular Hemoglobin 32.6, Mean Corpuscular Hemoglobin Concent 33.8, Red Cell Distribution Width 15.7 H, Calcium Level 8.3 L, Aspartate Amino Transf (AST/SGOT ) 20, Alanine Aminotransferase (ALT/SGPT) 33, Alkaline Phosphatase 51, Total Bilirubin 0.5, Total Protein 5.1 L, Albumin 1.9 L Vital Signs Date Time Temp Pulse Resp B/P (MAP) Pulse Ox O2 Delivery O2 Flow Rate FiO2 10/18/16 12:00 98.7 10/18/16 08:34 102 128/58 10/18/16 08:00 Room Air 10/18/16 08:00 20 95 10/13/16 20:00 2.0 I&O- Last 24 Hours up to 6 AM 10/18/16 05:59 Intake Total 1320 ml Output Total 2445 ml Balance -1125 ml JIMMY FALCON MD Oct 18, 2016 14:05
--- NOTE | 2016-10-18 23:01 | IPNPDOC ---
Date Seen The patient was seen on 10/18/16. Progress Note NEUROSURGERY Admission day #: 6 (admitted on 10/12/16) Post-op Day #: 5 (10/13/16) Pain control: Tylenol 650 mg PO q 6 hrs PRN, morphine 2 mg IV q 4 hrs PRN. Surgical procedure: 10/13/16. Craniotomy for evacuation of right acute subdural hematoma, right-sided drain placed. Over 24 hrs: Continues to improve. No complaints. SUBJECTIVE Ms Duncan is a pleasant 80 year old female who was admitted 10/12/16 for acute SDH. She underwent neurosurgical procedure by Dr Carty on 10/13/16 for right acute subdural hematoma with placement of right sided drain. She is accompanied by her today. She states she is feeling well today. No complaints. She denies ear pain, pain over incision, drainage, shortness of breath, cough, or leg pain. OBJECTIVE Clinical status: AVSS. Neurological status: alert and orientated to person and place. GCS= [id number]= 13. Wound/incision: Edges of the wound are closed with superficial leilani. No increased drainage, erythema, or increased pain at the site. Appears to be healing well. Drainage: None. purchasing clerk= PERRL. Motor: R upper extremity > L upper extremity. Continuing to improve from yesterday. Able to move her toes bilaterally. Gait= not assessed. LABS: WBC= 8.4, stable HGB= 9.9, trending downward fast. RBC trending downward as well. Na+= 140, stable K+= 3.8 Protein: 5.1, L. Trending downward. Albumin: 1.9, L. Trending downward. IMAGING 10/16/16. CXR (choking episode) Area of increased density in periphery of RUL. Possible infiltrate. 10/15/16. CT head. Post op changes similar to prior study. Contralateral midline shift may be slightly increased from prior exam. Fluid in paranasal sinuses. ASSESSMENT Patient improving PLAN 1. Acute subdural hematoma with brain compression. Improving. S/p day 5 craniotomy for evacuation of right acute subdural hematoma. Weakness on left upper extremity improving. Plan for transfer to acute rehab. 2. Possible aspiration. CXR shows possible infiltrate in RUL. Notify hospitalist. 3. Worsening anemia. HgB has been trending downward, currently 9.9. Notify hospitalist. 4. R-side Earache. Currently resolved. Consulted ENT. R otalgia resolved. No signs of infection, TM issues, or external canal issues. Throat pain- likely related to NG tube and endotracheal tube. Will take time to resolve. No specific recommendations. 5. HTN: improved. Stable. 6. Wound care: Appears to be improving. Plan to D/C leilani in 2 or 3 days. 7. Pain control: Satisfactory with Tylenol 650 mg PRN. 8. Seizure precaution: Seizure-free. Continue Keppra for 5 days then D/C. 9. DVT prophylaxis: TEDs and SCD. Heparin will be delayed due to risk of intracranial rebleed. 10. Constipation prophylaxis: Not currently constipated. Cont colace PRN 11. Diet: increase protein. She has been drinking Ensure drinks. 12. Activity: as tolerated with 100% supervision. 13. D/C plan: Plan to transfer to acute rehab today. Her GCS has been stable and status is improving. Thank you for all providers for your much appreciated help regarding care of Ms Duncan. Antoinette Knapp, RPA-C Dr Diop VS, I&O, 24H, [facility] Vital Signs/I&O Vital Signs Date Time Temp Pulse Resp B/P (MAP) Pulse Ox O2 Delivery O2 Flow Rate FiO2 10/18/16 12:00 98.7 10/18/16 08:34 102 128/58 10/18/16 08:00 Room Air 10/18/16 08:00 20 95 10/13/16 20:00 2.0 I&O- Last 24 Hours up to 6 AM 10/18/16 05:59 Intake Total 1320 ml Output Total 2445 ml Balance -1125 ml Laboratory Data 24H LABS Laboratory Tests 2 10/18/16 04:20: Absolute Reticulocyte Count 78H, Percent Reticulocyte Count 2.50H, Reticulocyte Hgb Content (CHr) 32.8, Anion Gap 7L, Glomerular Filtration Rate > 60.0, Blood Urea Nitrogen 23H, Creatinine 0.57, Sodium Level 140, Potassium Level 3.8, Chloride Level 107, Carbon Dioxide Level 26, Calcium Level 8.3L, Aspartate Amino Transf (AST/SGOT) 20, Alanine Aminotransferase (ALT/SGPT) 33, Alkaline Phosphatase 51, Total Bilirubin 0.5, Total Protein 5.1L, Albumin 1.9L, Magnesium Level 1.8, Iron Level 27L, Total Iron Binding Capacity 206L, Transferrin % Saturation 13.1L, Ferritin 33, Albumin/Globulin Ratio 0.59L CBC/BMP Laboratory Tests 10/18/16 04:20 Red Blood Count 3.03 L, Mean Corpuscular Volume 96.6 H, Mean Corpuscular Hemoglobin 32.6, Mean Corpuscular Hemoglobin Concent 33.8, Red Cell Distribution Width 15.7 H, Calcium Level 8.3 L, Aspartate Amino Transf (AST/SGOT ) 20, Alanine Aminotransferase (ALT/SGPT) 33, Alkaline Phosphatase 51, Total Bilirubin 0.5, Total Protein 5.1 L, Albumin 1.9 L GENARO KNAPP PA-C Oct 18, 2016 23:01
--- NOTE | 2016-11-09 11:48 | DS.PDOC ---
Discharge Summary General Date of Admission Oct 12, 2016 at 20:00 Date of Discharge 10/18/16. Attending Physician: MARIELA CARTY MD Discharge Summary ELIESER Moody, dictating discharge summary on behalf of Dr. Carty. CONSULTATIONS: 1. B[employer] consult 2. Hospitalist consult 3. Ear nose and throat consult PROCEDURES PERFORMED DURING STAY: 1. 10/13/16. Craniotomy for evacuation of right acute subdural hematoma. By Dr. Carty. ADMITTING DIAGNOSES: 1. Right acute subdural hematoma with brain compression. DISCHARGE DIAGNOSES: 1. Acute right subdural hematoma with brain compression. 2. Worsening anemia. 3. Hypertension. COMPLICATIONS/CHIEF COMPLAINT: Fall with head contusion resulting in acute right subdural hematoma. HISTORY OF PRESENT ILLNESS: Ms. Duncan is a pleasant 80-year-old female who had presented to the ED after a fall with head contusion and was found to have an acute right sided subdural hematoma. Dr. Carty was called on 10/12/16 and had performed craniotomy for evacuation of acute right-sided subdural hematoma the next day on 10/13/16. HOSPITAL COURSE: Patient was admitted to ICU following surgery. Her hospital course has been relatively uneventful. She denies any postop symptoms and has remained afebrile. She had a coughing episode with a possible aspiration. Her chest x- ray showed a possible infiltrate in the RUL. The hospitalist was notified of these findings. She had also complained of a right-sided earache which had resolved after one day. No new focal motor deficits have been noted on exam. DISCHARGE MEDICATIONS: Please see below. ALLERGIES: Please see below. PHYSICAL EXAMINATION ON DISCHARGE: VITAL SIGNS: Please see below. GENERAL: Sitting comfortably and participating in conversation well. Appears to be in no acute distress. EXTREMITIES: No peripheral edema, ecchymosis, or lesions. Moving all 4 extremities well, still with weakness on left upper extremity. SKIN: No rashes, ecchymosis, erythema, or lesions. Edges of the incision are close together nicely and incision is dry. There is no active drainage or significant swelling noted. NEUROLOGICAL EXAMINATION: Alert and oriented to person, place, and year. Rate and flow speech is ordinary. Speech is fluent. No new focal deficits noted on exam. LABORATORY DATA: Please see below. IMAGIN. 6/23/17. Head CT. Large right subdural hematoma with no evidence of epidural hematoma. Some subarachnoid blood suggest right-sided contusions in the frontal lobes are mild to midline shift almost 12 mm with effacement right lateral ventricle and loss of the basal cisterns beginning. Loss of murphy-white junction noted. No fracture of the skull base or calvarium. These findings conveyed by phone to the attending physician at 5:46 PM. 2. 10/12/16. Cervical CT. There is no evidence of cervical spine fracture or malalignment. Central canal stenosis and foraminal encroachment is as on prior studies. Stable exam. Nothing acute. 3. 10/13/16. Head CT. Status post right craniotomy and evacuation of a prominent right hemispheric subdural hematoma. Midline shift is reduced from about 12 mm towards the left to about 9 mm today. Smaller amounts of blood remaining and packing material in the subdural space. Much less effacement of the right lateral ventricle and better visualization of the basal cisterns beginning. The previously noted small left frontal scalp contusion as a contrecoup injury is more developed today. 4. 10/16/16. Chest x-ray. Question infiltrate right upper lobe peripherally. Today's view exposed at a somewhat lesser level of inspiration. 5. 10/17/16. Chest CT. Moderate pulmonary vascular congestion with bibasilar atelectasis and moderate pleural effusions (right greater than left). Small but increased scattered nodular opacities likely representing element of multifocal pneumonia/atelectasis. Activity: As per rehabilitation. Diet: See below in discharge instructions DISCHARGE PLAN AND INSTRUCTIONS: The following discharge instructions have been discussed with the patient. Transferred to acute rehabilitation. 1. Keep incision dry for at least 48 hours. 2. Keep incision clean and inspect daily for signs of infection (redness, discharge, swelling, increased pain, and warmth. 3. You may shower 48 hours after your surgery. Avoid bath tubs, hot tubs/ whirlpools, and swimming pools until cleared by surgeon or PA. 4. Do not apply lotions or creams near the incision site. 5. Start walking around the house as soon as possible. This helps to reduce swelling and lowers the chance of blood clots. 6. Continue to gradually increase physical activity. 7. Climbing stairs at home is permitted as tolerated with caution. If available use handrails and taken time going up and down the stairs pain close attention to place each foot on each step carefully. 8. No bending, twisting, pulling, pushing, or lifting greater than 5 pounds until follow-up in the office. 9. No strenuous activity for at least 2 weeks. 10. Get plenty of rest. 11. Follow-up balance diet and drink plenty of water. 12. Decreased activity and pain medications may promote constipation, so you may want to add more raw fruit to your diet. A mild [id number] stool softener or laxative may be used if necessary. 13. Take pain medication as prescribed. Pain medication will not remove all the pain, but will lessen it significantly. 14. Do not drink alcohol when taking pain medications. 15. Do not drive or operate any machinery until youre given specific instructions about driving when you follow-up in the office. 16. She is to call office to schedule follow-up appointment within 1-2 weeks or if any new signs or symptoms develop; [phone]. 17. She understands to call the office if any new questions arise. WHAT TO EXPECT: - Soreness, stiffness, and aching can be expected after surgery. - [id number] postoperative pain. - Periods of fatigue and/or tiredness. -Healing is a slow and gradual process. - May experience a sore throat and/or hoarseness of your voice. - Some numbness may be present around the area of the incision which may persist for several weeks. WHEN TO CALL: - Increased swelling or bruising. - If swelling and redness persist after a few days. - Increased redness along the incision. -If any unusual bleeding or drainage developed at the incision site. -If severe or increased pain not relieved by medication develops. - If any side effects to medications, such as rash, nausea, vomiting, or headache, arises. - If temperature of 100.5 or greater. - If any calf pain and/or swelling in any extremity develops. - Any new or increased difficulty breathing or shortness of breath. - Any loss of feeling or motion. - Increased intensity of headache or headache not responding tear medications. - Inability to urinate. - Extreme fatigue or lethargy. - Any worsening of any of your symptoms. All questions have been answered to patient's satisfaction. Patient understands and is aware of possible catastrophic sequela if she does not follow these recommendations. Patient agrees to follow-up in the office within 2 weeks or sooner if needed. DISCHARGE CONDITION: Stable. TIME SPENT ON DISCHARGE: Greater than 45 minutes. Frank Moody PA-C Vital Signs/I&Os Vital Signs Date Time Temp Pulse Resp B/P (MAP) Pulse Ox O2 Delivery O2 Flow Rate FiO2 10/18/16 08:34 102 128/58 10/18/16 08:00 Room Air 10/18/16 08:00 97.8 20 95 10/13/16 20:00 2.0 I&O- Last 24 Hours up to 6 AM 10/18/16 05:59 Intake Total 1320 ml Output Total 2445 ml Balance -1125 ml Laboratory Data Labs 24H Laboratory Tests 2 10/18/16 04:20: Absolute Reticulocyte Count 78H, Percent Reticulocyte Count 2.50H, Reticulocyte Hgb Content (CHr) 32.8, Anion Gap 7L, Glomerular Filtration Rate > 60.0, Blood Urea Nitrogen 23H, Creatinine 0.57, Sodium Level 140, Potassium Level 3.8, Chloride Level 107, Carbon Dioxide Level 26, Calcium Level 8.3L, Aspartate Amino Transf (AST/SGOT) 20, Alanine Aminotransferase (ALT/SGPT) 33, Alkaline Phosphatase 51, Total Bilirubin 0.5, Total Protein 5.1L, Albumin 1.9L, Magnesium Level 1.8, Iron Level 27L, Total Iron Binding Capacity 206L, Transferrin % Saturation 13.1L, Ferritin 33, Albumin/Globulin Ratio 0.59L CBC/BMP Laboratory Tests 10/18/16 04:20 Red Blood Count 3.03 L, Mean Corpuscular Volume 96.6 H, Mean Corpuscular Hemoglobin 32.6, Mean Corpuscular Hemoglobin Concent 33.8, Red Cell Distribution Width 15.7 H, Calcium Level 8.3 L, Aspartate Amino Transf (AST/SGOT ) 20, Alanine Aminotransferase (ALT/SGPT) 33, Alkaline Phosphatase 51, Total Bilirubin 0.5, Total Protein 5.1 L, Albumin 1.9 L Discharge Medications Scheduled (Combigan 0.2-0.5 %) 1 Lavonne Lavonne, 1 DROP OU BID, (Reported) Alendronate Sodium (Alendronate Sodium) 70 Mg Tab, 70 MG PO QWEEK, (Reported) Amlodipine Besylate (Amlodipine Besylate) 10 Mg Tab, 10 MG PO DAILY Atorvastatin Calcium (Atorvastatin Calcium) 40 Mg Tab, 40 MG PO QHS, (Reported) Azathioprine (Azathioprine) 50 Mg Tab, 50 MG PO DAILY, (Reported) Benazepril Hcl (Lotensin) 20 Mg Tab, 20 MG PO BID Brinzolamide (Azopt) 1 % Qian, 1 DROP OU BID, (Reported) Ferrous Sulfate (Ferrous Sulfate) 325 Mg Tab, 325 MG PO BID Labetalol HCl (Labetalol HCl) 100 Mg Tab, 100 MG PO BID Levetiracetam (Levetiracetam ER) 500 Mg Ben, 1,000 MG PO BID@0600,1800 Levothyroxine Sodium (Synthroid) 88 Mcg Tab, 44 MCG PO QAM, (Reported) Omeprazole (Prilosec) 20 Mg Cap, 20 MG PO QHS, (Reported) Tamsulosin Hydrochloride (Flomax) 0.4 Mg Cap, 0.8 MG PO QHS Travoprost (Travatan Z) 50 Drop/2.5 Ml Soln, 1 DROP OU QHS, (Reported) Scheduled PRN (Muscle Rub 10-15 %) 1 Cre Cre, 0 DOSE TOP TIDP PRN for PAIN Apply topically to hands/wrists, ankles/feet for arthritis pain prn QID (Proctozone-Hc) 2.5 % Cre, 0 DOSE TOP TIDP PRN for HEMORRHOIDS Acetaminophen (Tylenol) 325 Mg Tab, 325 MG PO PRN PRN for PAIN, (Reported) over the counter med Allergies Coded Allergies: Naproxen (Verified Allergy, Unknown, 10/12/16) TAPE (Verified Allergy, Unknown, ADHESIVE TAPE, 10/12/16) GENARO ROJO PA-C Oct 18, 2016 11:51
== END 2016-10-18 12:33 | DRG 955 ==
LOC: M ED 19:04 → M ED INP 20:00 → M ICU 10-13 03:15
PROVIDERS: ADMIT Neurological Surgery; ATTEND Neurological Surgery
PROC: 009 Central Nervous System and Cranial Nerves, Drainage (ICD-10-PCS; principal; 2016-10-13)
PROC: 05QY0ZZ Repair Upper Vein, Open Approach (ICD-10-PCS; 2016-10-13)
PROC: 30233N1 Transfusion of Nonautologous Red Blood Cells into Peripheral Vein, Percutaneous Approach (ICD-10-PCS; 2016-10-13)
PROC: 30233R1 Transfusion of Nonautologous Platelets into Peripheral Vein, Percutaneous Approach (ICD-10-PCS; 2016-10-13)
DX: S06.5X0A Traumatic subdural hemorrhage without loss of consciousness, initial encounter (principal); S27.329A Contusion of lung, unspecified, initial encounter; G93.5 Compression of brain; G93.41 Metabolic encephalopathy; J18.9 Pneumonia, unspecified organism; K21.9 Gastro-esophageal reflux disease without esophagitis; H35.30 Unspecified macular degeneration; I10 Essential (primary) hypertension; H40.9 Unspecified glaucoma; E78.5 Hyperlipidemia, unspecified; E03.9 Hypothyroidism, unspecified; K75.4 Autoimmune hepatitis; Z91.048 Other nonmedicinal substance allergy status; W10.9XXA Fall (on) (from) unspecified stairs and steps, initial encounter; Y92.008 Other place in unspecified non-institutional (private) residence as the place of occurrence of the external cause; Y93.01 Activity, walking, marching and hiking; Y99.9 Unspecified external cause status; Z96.659 Presence of unspecified artificial knee joint; Z79.899 Other long term (current) drug therapy; Z88.6 Allergy status to analgesic agent

== ENCOUNTER 2016-10-18 11:29 | Inpatient (IN) | payer MEDICARE ==
[~2016-10-18 11:29] MED LIST changes: +ALEN70TA39 PO; +ASPI1TAB PO; +ATOR40TA75 PO; +AZOP0.2S OU; +BENA10TA6 PO; +GABA-279 PO; +LEVO88TA3 PO
[2016-10-18] MEDS ORDERED: MAALOX 30 ML SUSP *UDC PO PRN (12:15)
[2016-10-18] MEDS ORDERED: FLEET ENEMA PR PRN (12:15)
[2016-10-18] MEDS ORDERED: BISACODYL 10 MG SUPP PR PRN (12:15)
[2016-10-18] MEDS ORDERED: AMLO10TA2 PO (12:27)
[2016-10-18] MEDS ORDERED: FERR1TAB8 PO (12:27)
[2016-10-18] MEDS ORDERED: BENA20TA PO (12:27)
[2016-10-18] MEDS ORDERED: FLOM5CAP PO (12:27)
[2016-10-18] MEDS ORDERED: LABE10TAB PO (12:27)
[2016-10-18] MEDS ORDERED: LEVE500XR PO (12:27)
[2016-10-18 14:00] VITALS: BP 121/58
[2016-10-18] MEDS: ACETAMINOPHEN TAB 650MG DOSE (2X325MG) PO PRN (14:28)
--- NOTE | 2016-10-18 16:52 | PMRNOTEPD ---
PMR Note 80-year-old white female status post evacuation of right subdural hematoma which it'll cause 12 mm midline shift along with principally left hemiparesis but some right hemiparesis and left sensory deficits with some limited right sensory deficits as well as earlier this arthritic dysphasia and left facial droop. Patient with complicated factors of all immune hepatitis along with atherosclerotic cardiovascular disease including cardiomegaly hypertension and hyperlipidemia. Patient also with osteoarthritis which is probably contributory factor to fall and hitting her head along with glaucoma and macular degeneration that limits her ability for safety and gaiting needs acute intensive rehabilitation and appears to be able to and has expressed her willingness to participate in the program. History and physical has been dictated with dictation #[id number]. JOON ROB MD Oct 18, 2016 16:52
--- NOTE | 2016-10-18 19:39 | PMRHPE ---
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 PAST MEDICAL HISTORY: Includes: 1. Atherosclerotic cardiovascular disease including hypertension and hyperlipidemia. 2. Hypothyroidism. 3. Osteoarthritis. 4. Autoimmune hepatitis. 5. Multifocal pneumonia/atelectasis of the lungs. 6. Status post cataract surgery. 7. Status post knee replacement. 8. Glaucoma. 9. Persistent headache since hitting head and surgery. HISTORY OF PRESENT ILLNESS: Patient is an 80-year-old white female who reports this is her second time when she has hit her head and sustained a subdural hematoma. This time, the patient tripped coming down the last couple of stairs, struck her head, and had slow progression of headache, blurring vision, and some confusion and was brought to the emergency room at [facility] on 10/12/2016. Evaluation there showed patient with a fairly large right subdural hematoma that was pushing 12 mm past the midline. The patient was seen by Dr. Carty who performed a drainage procedure and left the shunt in place. This relieved the pressure and patient had improvement in cognition and some motor, but continues to have notable left upper extremity and some mild to moderate bilateral lower extremity weakness and left sensorium deficits. She has had swallow evaluation and has progressed back to regular diet. She continues to be bothered by an ongoing headache. Past medical history includes the glaucoma, the macular degeneration, the autoimmune hepatitis, the hypothyroidism, the gastroesophageal reflux disease (GERD), and the atherosclerotic cardiovascular disease with hypertension, hyperlipidemia, and cardiomegaly. PAST SURGICAL HISTORY: Includes section and knee replacement. FAMILY HISTORY: Noncontributory. ALLERGIES: Reaction to NAPROXEN and also allergy to CLOTH TAPE and its ADHESIVE. MEDICATIONS ON ADMISSION: - Protonix 40 mg per day - Norvasc 10 mg per day - Flomax 0.4 mg per day - Imuran 50 mg per day - Synthroid 44 mcg per day - iron sulfate 325 mg twice a day - trazodone 75 mg nightly - Keppra XL 1000 mg twice a day - Lotensin 20 mg twice a day - Azopt one drop both eyes twice a day - latanoprost 0.005% ophthalmic solution one drop both eyes nightly - Normodyne, Trandate 100 mg twice a day - Mylanta 30 mL every 4 hours as needed for dyspepsia - MiraLAX one packet daily as needed for constipation - Dulcolax suppository 10 mg per rectum as needed for constipation daily - Fleet enema one per rectum as needed for constipation on a daily basis - Tylenol 650 mg every 6 hours as needed for pain or fever - Combigan eye drops one drop both eyes twice a day REVIEW OF SYSTEMS: Negative except for the headache, decreased balance, and some decreased sensation on the left side, no longer having visual problems, and some continued joint pain. Otherwise psychiatric, neurologic, skin, gastrointestinal (GI), genitourinary (), respiratory, cardiac, HEENT, and constitutional are negative. PHYSICAL EXAMINATION: The patient is an average height, mildly overweight, elderly, white female who weighs 62.9 kg who appears to be in very mild musculoskeletal distress with a scalp incision and staple closure on the right frontal to occipital region that is clean and without drainage. VITAL SIGNS: Show a temperature of 98.8, blood pressure 121/58, pulse 95, respirations 14, and pulse oximetry 96% on room air. HEENT: Shows minimal left facial droop with tongue midline. Extraocular motions are intact. Pupils are equal, round, reactive to light and accommodation. Neck is supple. No carotid bruits. Thyroid normal size and midline with no nodules or goiter. LUNGS: Clear in all sheehan to auscultation. CORONARY: Regular rate and rhythm with normal S1, S2. 2/4 radial pulses. Good perfusion in the upper extremities. Some very small ecchymoses in the extremities from prior IV and blood draw sites. ABDOMEN: Mildly obese, benign, no palpable tenderness. Normal bowel sounds in all quadrants. EXTREMITIES: With functional range of motion but only about 3+ over 5 bilateral lower extremities and decreased awareness sensorium of the left upper extremity, though light touch and vibration are reported there, felt more on the right versus the left and felt more proximal than distal. The patient is alert and oriented times four and speech is clear and coherent. No gurgling or sounds of fluid pocketing are noted. Affect is pleasant and cooperative. Balance was not tested but patient with noted deficits in therapy. LABORATORIES AND IMAGING: On urinalysis, elevated leukocyte esterase, white cells, red cells, with only 1+ bacteria, but some mucus and squamous cells present, trace ketones, 2+ blood and urine protein. CBC shows moderate anemia with normal white count today at 8.4, but hemoglobin and hematocrit at 9.9 and 29.3%. MCV mildly elevated at 96.6 with RDW of 15.7, suggesting patient is trying to replace lost blood cells, and a platelet count of 199,000, and elevation of reticulocytes. Chemistry shows normal electrolytes, BUN however elevated at 23, creatinine normal at 0.57, fasting glucose this morning was 117, calcium 8.3 with an albumin that is severely low of 1.9, magnesium normal at 1.8, but tending to trend down. Iron studies show low iron, TIBC, and transferrin and normal liver function tests. Chest CT with moderate pulmonary vascular congestion with bibasilar atelectasis and moderate pleural effusion, right greater than left, along with mildly increased scattered nodular opacities representing multifocal pneumonia/atelectasis. IMPRESSION: 1. The patient is an 80-year-old white female who tripped coming down stairs and sustained a traumatic brain injury, in this case a large right subdural hematoma with midline shift of 12 mm causing parietal lobe involvement on the right as well as the left affecting motor bilaterally, more on the right brain than the left, therefore more left hemiparesis than right, but also sensorium in the right sensory cortex, again with some involvement on the left. These are limiting patient in her ability to safely locomote, balance, and perform activities of daily living (ADLs) and she needs training on this. Fortunately, she has responded well to the decompression and cognition appears to be at orientation level to time, person, place, and situation. However, I will go ahead and have speech therapy evaluate the patient's cognition. Also, will proceed with physical and occupational therapy to work on balance, endurance, along with neuromuscular facilitation of the bilateral upper and lower extremities, principally the left and sensory reintegration. I anticipate patient likely will require around 17 days admission for this neurorehabilitation as review of her home situation requires her to be at a fairly high level before she will be reasonably safe to return home and transition to home care with physical and occupational therapy. 2. Atherosclerotic cardiovascular disease. Will continue to monitor blood pressure, lipid levels, and heart function in this patient with multiple deficits noted above. 3. Autoimmune hepatitis. Patient is on Imuran. Will continue to monitor liver function. Also, patient is at risk for infection, we will continue to monitor her for this. 4. Vision. Patient with glaucoma and macular degeneration which may be a contributing factor to the fall and head injury. Will try and work with patient on compensatory mechanisms around this. 5. Moderate Anemia: Continue Iron and monitor. 6. Possible UTI: We will check Uc&s. POSTADMISSION PHYSICIAN EVALUATION: Patient's preadmission screen and status are consistent with each other and patient, who has participated in therapy, does appear to have, and definitely expresses, a desire to participate in three hours of therapy per day and I feel this will be important in her returning home. It will be very important to manage her other medical problems and patient will need a program with physical, occupational, and at least initially speech therapy along with neurorehabilitation, as well as podiatry and medicine consult. Consult also being sent to neurosurgery to follow as appropriate and Dr. Carty has been notified of this. He reports leilani should be removed on postoperative day #7 and he will have staff member do that. I do anticipate patient will be able to return to home and has a good prognosis. ESTIMATED LENGTH OF STAY: Approximately 17 days, though depending on how the brain recovers having been decompressed it is possible to be more or less than that. Time spent on chart review, history and physical (H and P), and documentation: Greater than 70 minutes. RACHAELD
[2016-10-18 20:00] VITALS: BP 125/60
[2016-10-18] MEDS: traZODone 50 MG TAB PO SCH (20:24)
[2016-10-18] MEDS: LABETALOL 100 MG TAB PO SCH (20:24)
[2016-10-18] MEDS: FERROUS SULFATE 325MG TAB PO SCH (20:24)
[2016-10-18] MEDS: BENAZEPRIL 20 MG TAB PO SCH (20:24)
[2016-10-18] MEDS: BRINZOLAMIDE 1 % OPHTH SUSP (AZOPT) 10ML OU SCH (20:24)
[2016-10-18] MEDS: levETIRAcetam **XR** 500 MG TABLET PO SCH (20:24)
[2016-10-18] MEDS: LATANOPROST 0.005% OPHTH SOLN 2.5 ML OU SCH (20:24)
[2016-10-18] MEDS: BACITRACIN OINT 30GM TOP SCH (20:25)
[2016-10-18] MEDS ORDERED: levETIRAcetam 250MG TABLET (KEPPRA) PO SCH (21:00)
[2016-10-19 06:00] VITALS: BP 142/64
[2016-10-19] MEDS: LEVOTHYROXINE 88MCG TABLET (0.088 MG) PO SCH (06:24)
[2016-10-19] MEDS: ACETAMINOPHEN TAB 650MG DOSE (2X325MG) PO PRN (06:25)
[2016-10-19 06:30] LABS: BASO % 0.1 % (0.0-1.0); EOS # 0.2 K/mm3 (0.0-0.50); EOS % 3.2 % (0.0-3.0); LARGE UNSTAINED CELL # 0.1 K/mm3 (0.0-0.4); LARGE UNSTAINED CELL % 1.8 % (0.0-4.0); LYMPH # 0.8 K/mm3 (1.5-4.5); MEAN CORPUSCULAR HGB CONC 33.4 g/dl (32.0-36.5); MEAN CORPUSCULAR VOLUME 98.6 fl (80.0-96.0); MONO # 0.3 K/mm3 (0.0-0.8); MONO % 4.8 % (0.0-5.0); NEUTROPHILS # 5.1 K/mm3 (1.8-7.7); NEUTROPHILS % 79.1 % (36.0-66.0); PLATELET COUNT, AUTOMATED 207 k/mm3 (150-450); RED CELL DISTRIBUTION WIDTH 15.6 % (11.5-14.5); WHITE BLOOD COUNT 6.5 K/mm3 (4.0-10.0)
[2016-10-19 07:58] LABS: ALBUMIN/GLOBULIN RATIO 0.57 (1.00-1.93); ALKALINE PHOSPHATASE 55 U/L (45-117); ALT/SGPT 41 U/L (12-78); ANION GAP 9 MEQ/L (8-16); AST/SGOT 28 U/L (15-37); BILIRUBIN,TOTAL 0.4 MG/DL (0.2-1.0); BLOOD UREA NITROGEN 26 MG/DL (7-18); CALCIUM LEVEL 8.7 MG/DL (8.8-10.2); CARBON DIOXIDE LEVEL 25 MEQ/L (21-32); CHLORIDE LEVEL 105 MEQ/L (98-107); GLOMERULAR FILTRATION RATE > 60.0 (>32); GLUCOSE, FASTING 131 MG/DL (83-110); POTASSIUM SERUM 4.2 MEQ/L (3.5-5.1); SODIUM LEVEL 139 MEQ/L (136-145); TOTAL PROTEIN 5.5 GM/DL (6.4-8.2)
[2016-10-19] MEDS: FERROUS SULFATE 325MG TAB PO SCH ×2 (09:13→20:53)
[2016-10-19] MEDS: PANTOPRAZOLE 40MG TAB (PROTONIX) PO SCH (09:13)
[2016-10-19] MEDS: TAMSULOSIN 0.4 MG CAP PO SCH (09:13)
[2016-10-19] MEDS: levETIRAcetam **XR** 500 MG TABLET PO SCH ×2 (09:14→20:53)
[2016-10-19] MEDS: amLODIPine 10 MG TAB PO SCH (09:15)
[2016-10-19] MEDS: LABETALOL 100 MG TAB PO SCH ×2 (09:15→20:53)
[2016-10-19] MEDS: BENAZEPRIL 20 MG TAB PO SCH ×2 (09:16→20:55)
[2016-10-19] MEDS: BRINZOLAMIDE 1 % OPHTH SUSP (AZOPT) 10ML OU SCH ×2 (09:16→20:55)
[2016-10-19] MEDS: azaTHIOprine 50 MG TAB (J7500) PO SCH (09:16)
[2016-10-19] MEDS: BACITRACIN OINT 30GM TOP SCH ×3 (09:17→20:55)
--- NOTE | 2016-10-19 13:37 | IPNPDOC ---
Nuclear Criticality Safety Engineer Progress Note DATE OF SERVICE: 10/19/16 DATE OF ADMISSION: Oct 18, 2016 at 12:40 INPATIENT REHABILITATION ADMISSION DAY: #2 SUBJECTIVE: Patient is a 80-year-old white female with right subdural hematoma status post evacuation. Patient with left hemiparesis and sensory deficits with some very mild right-sided deficits. Patient without complaints today. ALLERGIES: See Below MEDICATIONS: Reviewed, see below. OBJECTIVE: VITAL SIGNS: Please see below. PHYSICAL EXAMINATION: GENERAL: Somewhat overweight elderly white female who is alert and well oriented and in very mild to no acute distress. HEENT: Very mild left facial droop otherwise and clean right scalp incision in the parietal region about 1 inch lateral to midline. Tongue is midline on extension. CARDIOVASCULAR: Regular rate and rhythm with normal S1 and S2. 2/4 bilateral radial pulses. LUNGS: All sheehan clear to auscultation. ABDOMEN: Benign, mildly obese with normal bowel sounds in all quadrants. NEUROLOGICAL: Patient alert and oriented 4 with speech clear coherent and appropriate. Affect is pleasant cooperative & memory is fairly good. Very mild increase in left upper extremity motor versus yesterday. SKIN: Scalp incision is clean with no drainage or inflammation. LABORATORY DATA: Reviewed. Please see below. MICROBIOLOGY: Please see below. IMAGING: No new imaging. DVT prophylaxis ordered?: Patient using AJ hose secondary to intercerebral hemorrhage. ASSESSMENT AND PLAN: 1. Rehabilitation of right subdural hematoma with 12 mm midline shift: Patient starting program with physical occupational therapy work on strength and balance coordination and sensory re-integration. Patient is willing and able and participating in therapy but today will be her first full 3 hour day. 2. Possible UTI on admission: I will go ahead and send urine for culture and sensitivity as patient with 2+ blood and 1+ back. And 2+ leukoesterase though not febrile or having discharge may still have a UTI. 3. Renal disease: BUN only mildly elevated at 26 with normal creatinine and glomerular filtration rates. We will continue to observe. 4. Moderate anemia: H&H is 9.9 and 29.5% today. We will watch BP and levels. TIME SPENT: Chart Review, examination and documentation require greater than 25 minutes. Allergies Coded Allergies: Naproxen (Verified Allergy, Unknown, 10/12/16) TAPE (Verified Allergy, Unknown, ADHESIVE TAPE, 10/12/16) Vital Signs Vital Signs Date Time Temp Pulse Resp B/P (MAP) Pulse Ox O2 Delivery O2 Flow Rate FiO2 10/19/16 09:15 95 142/64 10/19/16 08:00 Room Air 10/19/16 06:00 99.0 18 95 Laboratory Data CBC/BMP Laboratory Tests 10/19/16 06:18 Red Blood Count 2.99 L, Mean Corpuscular Volume 98.6 H, Mean Corpuscular Hemoglobin 33.0, Mean Corpuscular Hemoglobin Concent 33.4, Red Cell Distribution Width 15.6 H, Neutrophils (%) (Auto) 79.1 H, Lymphocytes (%) (Auto ) 11.0 L, Monocytes (%) (Auto) 4.8, Eosinophils (%) (Auto) 3.2 H, Basophils (%) (Auto) 0.1, Neutrophils # (Auto) 5.1, Lymphocytes # (Auto) 0.8 L, Monocytes # ( Auto) 0.3, Eosinophils # (Auto) 0.2, Basophils # (Auto) 0.0, Calcium Level 8.7 L , Aspartate Amino Transf (AST/SGOT) 28, Alanine Aminotransferase (ALT/SGPT) 41, Alkaline Phosphatase 55, Total Bilirubin 0.4, Total Protein 5.5 L, Albumin 2.0 L Labs 24H Laboratory Tests 2 10/18/16 15:27: Urine Appearance CLEAR, Urine Color YELLOW, Urine pH 5.0, Urine Specific [place] 1.017, Urine Protein 1+H, Urine Glucose (UA) NEGATIVE, Urine Ketones TRACEH, Urine Urobilinogen 0.2, Urine Bilirubin NEGATIVE, Urine Leukocyte Esterase 2+H, Urine Blood 2+H, Urine Nitrite NEGATIVE, Urine WBC (Auto) 32H, Urine RBC (Auto) 34H, Urine Hyaline Casts (Auto) 0, Urine Bacteria (Auto) 1+H, Urine Squamous Epithelial Cells 1, Urine Mucus (Auto) SMALL, Urine Sperm (Auto) 10/19/16 06:18: White Blood Count 6.5, Red Blood Count 2.99L, Hemoglobin 9.8L, Hematocrit 29.5L , Mean Corpuscular Volume 98.6H, Mean Corpuscular Hemoglobin 33.0, Mean Corpuscular Hemoglobin Concent 33.4, Red Cell Distribution Width 15.6H, Platelet Count 207, Neutrophils (%) (Auto) 79.1H, Lymphocytes (%) (Auto) 11.0L, Monocytes (%) (Auto) 4.8, Eosinophils (%) (Auto) 3.2H, Basophils (%) (Auto) 0.1 , Neutrophils # (Auto) 5.1, Lymphocytes # (Auto) 0.8L, Monocytes # (Auto) 0.3, Eosinophils # (Auto) 0.2, Basophils # (Auto) 0.0, Large Unclassified Cells % 1.8 , Large Unclassified Cells # 0.1, Anion Gap 9, Glomerular Filtration Rate > 60.0 , Blood Urea Nitrogen 26H, Creatinine 0.50L, Sodium Level 139, Potassium Level 4.2, Chloride Level 105, Carbon Dioxide Level 25, Calcium Level 8.7L, Aspartate Amino Transf (AST/SGOT) 28, Alanine Aminotransferase (ALT/SGPT) 41, Alkaline Phosphatase 55, Total Bilirubin 0.4, Total Protein 5.5L, Albumin 2.0L, Albumin/ Globulin Ratio 0.57L Microbiology Microbiology 10/18/16 Urine Culture, Received Pending Current Medications Current Medications Current Medications Acetaminophen (Tylenol Tab) 650 mg Q6HP PRN PO PAIN OR FEVER Last administered on 10/19/16 06:25; Start 10/18/16 at 12:15; Stop 11/17/16 at 12:14 Al Hydrox/Mg Hydrox/Simethicone (Mylanta) 30 ml Q4HP PRN PO DYSPEPSIA; Start at 12:15; Stop 11/17/16 at 12:14 Amlodipine Besylate (Norvasc) 10 mg DAILY PO Last administered on 10/19/16 09: 15; Start 10/19/16 at 09:00; Stop 11/18/16 at 08:59 Azathioprine (Imuran) 50 mg DAILY PO Last administered on 10/19/16 09:16; Start 10/19/16 at 09:00; Stop 11/18/16 at 08:59 Bacitracin (Bacitracin Oint) 1 dose TID TOP Last administered on 10/19/16 09: 17; Start 10/18/16 at 21:00; Stop 11/17/16 at 20:59 Benazepril HCl (Lotensin) 20 mg BID PO Last administered on 10/19/16 09:16; Start 10/18/16 at 21:00; Stop 11/17/16 at 20:59 Bisacodyl (Dulcolax Suppository) 10 mg DAILYPRN PRN CO CONSTIPATION; Start at 12:15; Stop 11/17/16 at 12:14 Brinzolamide (Azopt) 1 drop BID OU Last administered on 10/19/16 09:16; Start 10/18/16 at 21:00; Stop 11/17/16 at 20:59 Ferrous Sulfate (Ferrous Sulfate) 325 mg BID PO Last administered on 10/19/16 09:13; Start 10/18/16 at 21:00; Stop 11/17/16 at 20:59 Labetalol HCl (Normodyne, Trandate) 100 mg BID PO Last administered on 09:15; Start 10/18/16 at 21:00; Stop 11/17/16 at 20:59 Latanoprost (Xalatan 0.005% Op Soln) 1 drop QHS OU Last administered on 20:24; Start 10/18/16 at 21:00; Stop 11/17/16 at 20:59 Levetiracetam (Keppra Xr) 1,000 mg BID PO Last administered on 10/19/16 09 :14; Start 10/18/16 at 21:00; Stop 11/17/16 at 20:59 Levetiracetam (Keppra) 1,000 mg BID PO ; Start 10/18/16 at 21:00; Stop 10/18/16 at 21:00; Status DC Levothyroxine Sodium (Synthroid) 44 mcg DAILY@06 PO Last administered on 06:24; Start 10/19/16 at 06:00; Stop 11/18/16 at 05:59 Miscellaneous (Unresolved Patient Own Med Order) SEE LABEL COMMENTS UNRESOLVED XX ; Start 10/18/16 at 00:01; Stop 11/17/16 at 00:00 Pantoprazole Sodium (Protonix) 40 mg DAILY PO Last administered on 10/19/16 09 :13; Start 10/19/16 at 09:00; Stop 11/18/16 at 08:59 Patient Own Medication (Patient'S Own Med) 1 ea BID OU ; Start 10/19/16 at 21:00 ; Stop 11/18/16 at 20:59; Status UNV Polyethylene Glycol (Miralax) 1 pkt DAILY PRN PO CONSTIPATION; Start 10/18/16 at 12:15; Stop 11/17/16 at 12:14 Sodium Biphosphate/ Sodium Phosphate (Fleet Enema) 1 ea DAILYPRN PRN CO CONSTIPATION; Start 10/18/16 at 12:15; Stop 11/17/16 at 12:14 Tamsulosin HCl (Flomax) 0.4 mg DAILY PO Last administered on 10/19/16 09:13; Start 10/19/16 at 09:00; Stop 11/18/16 at 08:59 Trazodone HCl (Desyrel) 75 mg QHS PO Last administered on 10/18/16 20:24; Start 10/18/16 at 21:00; Stop 11/17/16 at 20:59 JOON ROB MD Oct 19, 2016 13:37
[2016-10-19 14:00] VITALS: BP 150/67
[2016-10-19 20:00] VITALS: BP 141/63
[2016-10-19] MEDS: traZODone 50 MG TAB PO SCH (20:54)
[2016-10-19] MEDS: LATANOPROST 0.005% OPHTH SOLN 2.5 ML OU SCH (20:55)
--- NOTE | 2016-10-19 22:04 | CR ---
DATE OF CONSULTATION: 10/19/2016 PRIMARY DOCTOR: Lidia Velazquez MD INFRASTRUCTURE ENGINEER: Brian Boss MD CHIEF COMPLAINT: Headache. HISTORY OF PRESENT ILLNESS: The patient is an 80-year-old female who is status post evacuation of right subdural hematoma. I am being consulted for management of her chronic medical problems and any other new medical issue that arises during her stay in the hospital. During my interaction with her she was solmolant, but easily wakes up before rides back to sleep and reported that she was tired. She did not want to be bothered much. REVIEW OF SYSTEMS: Unable to obtain. PAST MEDICAL HISTORY: Hypertension. Hyperlipidemia. Hyperthyroidism. Coronary artery disease. Osteoarthritis. Glaucoma. Macular degeneration. Anemia. Autoimmune hepatitis. PAST SURGICAL HISTORY: section. Knee replacement. FAMILY HISTORY: Unable to obtain. SOCIAL HISTORY: No documented history of smoking, alcohol abuse or illicit drug use. ALLERGIES: NAPROXEN. TAPE. MEDICATIONS: - alendronate 70 mg once a week - amlodipine 10 mg once a day - atorvastatin 40 mg once daily - Azathioprine 50 mg once a day - benazepril 20 mg once daily - brinzolamide 1% to both eyes twice a day - ferrous sulfate 325 mg by mouth twice a day - labetalol 100 mg tablets by mouth twice a day - levetiracetam 500 mg tablets 2 tablets by mouth twice a day - levothyroxine 88 mcg tablets, take 1/2 by mouth every morning - omeprazole 20 mg at night - tamsulosin 0.4 mg once a day - Travoprost 50/2.5 mL solution, one drop both eyes at night - Combigan 0.2 to 0.5% solution, one drop to one eye twice a day - Tylenol PHYSICAL EXAMINATION: VITAL SIGNS: Blood pressure 150/67, pulse 92, respiratory rate 18, 02 saturation 97% on room air. Temperature 99.3. GENERAL: She is awake. Oriented to person, place, time. Somnolent. Appears comfortable and in no distress. HEENT: Pupils are full and reactive. Anicteric sclera. Mucous membranes appear dry. CARDIOVASCULAR: S1, S1 present. Rate is regular. Pulses in all lower extremities are palpable. RESPIRATORY: Lungs are clear to auscultation. GASTROINTESTINAL (GI): Abdomen is soft, nontender, nondistended. Normal bowel sounds. NEUROLOGICAL: Deferred. SKIN: There is midline clean incision without drainage or bleeding. Mild inflammation. LABS: Hematology: White blood cell count 6.5, hemoglobin 10, hematocrit 30, platelets 207. Chemistry: Sodium 139, potassium 4.2, chloride 105, bicarbonate 25, BUN 26, creatinine 0.50. Fasting glucose 131. Potassium 8.7. Total bilirubin 0.4. AST 28, ALT 41, alkaline phosphatase 55. Total protein 5.5, albumin 2.0. Urinalysis: Showing positive trace of protein, trace of ketones, +2 blood. Positive leukocyte esterase. 32 high white blood cell count. Red blood cell 34. Bacteria +. IMAGING STUDIES: Chest x-ray, CT chest without contrast showed moderate pulmonary vascular congestion with bibasilar atelectasis and moderate pleural effusions, right greater than left. Small but increased scattered nodular opacity likely representing multifocal pneumonia or atelectasis. The test was done on the 17 of October. X-ray: Questionable infiltrate right upper lobe, which is done on the 16 of October. IMPRESSION: 1. Urinary tract infection. 2. History of hypertension. Blood pressure is slightly on the high side. Will monitor and control. 3. History of hyperlipidemia. 4. History of hypothyroidism. 5. History of coronary artery disease (CAD). 6. History osteoarthritis. 7. History of acute blood loss anemia. 8. Pleural effusion. 9. Possible pneumonia/atelectasis on CT scan. 10. History of glaucoma. 11. History of autoimmune hepatitis. PLAN: Will start antibiotics if patient is not already on it. Agree with her current management. Most of her chronic medications are resumed. Will continue to follow patient with you daily. Thank you for the opportunity to co-manage her with you.
[2016-10-19] MEDS: cefTRIAXone SOD 2 GM in D5W MINI-BAG PLUS 50 ML IV SCH (22:57)
[2016-10-19] MEDS: AZITHROMYCIN INJ 500 MG, VIAL MATE ADAPTER 1 EACH in D5W 250 ML IV SCH (23:02)
[2016-10-20 06:00] VITALS: BP 142/65
[2016-10-20] MEDS: LEVOTHYROXINE 88MCG TABLET (0.088 MG) PO SCH (06:51)
[2016-10-20] MEDS: amLODIPine 10 MG TAB PO SCH (09:08)
[2016-10-20] MEDS: TAMSULOSIN 0.4 MG CAP PO SCH (09:08)
[2016-10-20] MEDS: FERROUS SULFATE 325MG TAB PO SCH ×2 (09:08→20:17)
[2016-10-20] MEDS: levETIRAcetam **XR** 500 MG TABLET PO SCH ×2 (09:08→20:11)
[2016-10-20] MEDS: PANTOPRAZOLE 40MG TAB (PROTONIX) PO SCH (09:08)
[2016-10-20] MEDS: BRINZOLAMIDE 1 % OPHTH SUSP (AZOPT) 10ML OU SCH ×2 (09:09→20:15)
[2016-10-20] MEDS: BACITRACIN OINT 30GM TOP SCH ×3 (09:09→20:14)
[2016-10-20] MEDS: azaTHIOprine 50 MG TAB (J7500) PO SCH (09:09)
[2016-10-20] MEDS: BENAZEPRIL 20 MG TAB PO SCH ×2 (09:09→20:13)
[2016-10-20] MEDS: LABETALOL 100 MG TAB PO SCH ×2 (09:09→20:13)
[2016-10-20 14:00] VITALS: BP 134/56
[2016-10-20 20:00] VITALS: BP 141/65
[2016-10-20] MEDS: ACETAMINOPHEN TAB 650MG DOSE (2X325MG) PO PRN (20:12)
[2016-10-20] MEDS: cefTRIAXone SOD 2 GM in D5W MINI-BAG PLUS 50 ML IV SCH (20:13)
[2016-10-20] MEDS: LATANOPROST 0.005% OPHTH SOLN 2.5 ML OU SCH (20:14)
[2016-10-20] MEDS: COMBIGAN OPHTH (PATIENT'S OWN MED) OU SCH (21:01)
[2016-10-20] MEDS: AZITHROMYCIN INJ 500 MG, VIAL MATE ADAPTER 1 EACH in D5W 250 ML IV SCH (21:02)
[2016-10-20] MEDS: traZODone 50 MG TAB PO SCH (21:02)
[2016-10-21] MEDS: LEVOTHYROXINE 88MCG TABLET (0.088 MG) PO SCH (05:18)
[2016-10-21 06:00] VITALS: BP 144/70
[2016-10-21] MEDS: levETIRAcetam **XR** 500 MG TABLET PO SCH ×2 (08:38→20:59)
[2016-10-21] MEDS: amLODIPine 10 MG TAB PO SCH (08:38)
[2016-10-21] MEDS: azaTHIOprine 50 MG TAB (J7500) PO SCH (08:38)
[2016-10-21] MEDS: LABETALOL 100 MG TAB PO SCH ×2 (08:38→21:00)
[2016-10-21] MEDS: BENAZEPRIL 20 MG TAB PO SCH ×2 (08:39→21:00)
[2016-10-21] MEDS: FERROUS SULFATE 325MG TAB PO SCH ×2 (08:39→21:00)
[2016-10-21] MEDS: COMBIGAN OPHTH (PATIENT'S OWN MED) OU SCH ×2 (08:39→21:01)
[2016-10-21] MEDS: BRINZOLAMIDE 1 % OPHTH SUSP (AZOPT) 10ML OU SCH ×2 (08:39→21:01)
[2016-10-21] MEDS: BACITRACIN OINT 30GM TOP SCH (08:39)
[2016-10-21] MEDS: PANTOPRAZOLE 40MG TAB (PROTONIX) PO SCH (08:39)
[2016-10-21] MEDS: TAMSULOSIN 0.4 MG CAP PO SCH (08:39)
[2016-10-21 14:00] VITALS: BP 128/59
[2016-10-21 20:00] VITALS: BP 148/69
[2016-10-21] MEDS: LATANOPROST 0.005% OPHTH SOLN 2.5 ML OU SCH (20:58)
[2016-10-21] MEDS: traZODone 50 MG TAB PO SCH (21:00)
[2016-10-21] MEDS: cefTRIAXone SOD 2 GM in D5W MINI-BAG PLUS 50 ML IV SCH (21:01)
[2016-10-21] MEDS: AZITHROMYCIN INJ 500 MG, VIAL MATE ADAPTER 1 EACH in D5W 250 ML IV SCH (21:23)
[2016-10-22] MEDS: ACETAMINOPHEN TAB 650MG DOSE (2X325MG) PO PRN ×2 (02:09→11:12)
[2016-10-22] MEDS: LEVOTHYROXINE 88MCG TABLET (0.088 MG) PO SCH (05:30)
[2016-10-22 06:00] VITALS: BP 149/71
[2016-10-22] MEDS: TAMSULOSIN 0.4 MG CAP PO SCH (08:48)
[2016-10-22] MEDS: FERROUS SULFATE 325MG TAB PO SCH ×2 (08:48→21:21)
[2016-10-22] MEDS: levETIRAcetam **XR** 500 MG TABLET PO SCH ×2 (08:48→21:20)
[2016-10-22] MEDS: amLODIPine 10 MG TAB PO SCH (08:49)
[2016-10-22] MEDS: BENAZEPRIL 20 MG TAB PO SCH ×2 (08:49→21:21)
[2016-10-22] MEDS: PANTOPRAZOLE 40MG TAB (PROTONIX) PO SCH (08:49)
[2016-10-22] MEDS: azaTHIOprine 50 MG TAB (J7500) PO SCH (08:49)
[2016-10-22] MEDS: LABETALOL 100 MG TAB PO SCH ×2 (08:49→21:20)
[2016-10-22] MEDS: COMBIGAN OPHTH (PATIENT'S OWN MED) OU SCH ×2 (08:50→21:21)
[2016-10-22] MEDS: BRINZOLAMIDE 1 % OPHTH SUSP (AZOPT) 10ML OU SCH ×2 (08:50→21:21)
[2016-10-22 09:31] LABS: RED CELL DISTRIBUTION WIDTH 14.9 % (11.5-14.5); WHITE BLOOD COUNT 9.9 K/mm3 (4.0-10.0)
[2016-10-22 09:50] LABS: ANION GAP 8 MEQ/L (8-16); BLOOD UREA NITROGEN 24 MG/DL (7-18); CARBON DIOXIDE LEVEL 26 MEQ/L (21-32); CHLORIDE LEVEL 99 MEQ/L (98-107); CREATININE FOR GFR 0.53 MG/DL (0.55-1.02); GLOMERULAR FILTRATION RATE > 60.0 (>32); GLUCOSE, FASTING 189 MG/DL (83-110); SODIUM LEVEL 133 MEQ/L (136-145)
[2016-10-22 09:51] LABS: CALCIUM LEVEL 8.2 MG/DL (8.8-10.2)
[2016-10-22] MEDS ORDERED: FLOM5CAP PO (09:52)
[2016-10-22] MEDS: ANALGESIC BALM CRM 120 GM TOP SCH ×3 (10:00→21:21)
[2016-10-22] MEDS ORDERED: TAMSULOSIN 0.4 MG CAP PO ONE ×2 (10:00→19:00)
--- NOTE | 2016-10-22 11:23 | IPNPDOC ---
Imaging Engineer Progress Note DATE OF SERVICE: 10/22/16 DATE OF ADMISSION: Oct 18, 2016 at 12:40 INPATIENT REHABILITATION ADMISSION DAY: #5 SUBJECTIVE: Patient is a 80-year-old white female with right subdural hematoma status post evacuation. Patient with left hemiparesis and sensory deficits with some very mild right-sided deficits. Patient without complaints today except wrist, ankle and hand pain bilaterally that is consistent with her prior OA. ALLERGIES: See Below MEDICATIONS: Reviewed, see below. OBJECTIVE: VITAL SIGNS: Please see below. PHYSICAL EXAMINATION: GENERAL: Somewhat overweight elderly white female who is alert and well oriented and in very mild to no acute distress. Bilateral hand with some distal nodules and varus deviation of some PIP joints in Bilateral hands. HEENT: Very mild left facial droop otherwise and clean right scalp incision in the parietal region about 1 inch lateral to midline. Tongue is midline on extension. CARDIOVASCULAR: Regular rate and rhythm with normal S1 and S2. 2/4 bilateral radial pulses. LUNGS: All sheehan clear to auscultation. ABDOMEN: Benign, mildly obese with normal bowel sounds in all quadrants. NEUROLOGICAL: Patient alert and oriented 4 with speech clear coherent and appropriate. Affect is pleasant cooperative & memory is fairly good. Very mild increase in left upper extremity motor versus yesterday. Tends to lean to left, but now able to self correct partially when focused on it. Level of alertness and focus has been variable through the work day today. SKIN: Scalp incision is clean with no drainage or inflammation with staple removed.. LABORATORY DATA: Reviewed. Please see below. MICROBIOLOGY: Please see below. IMAGING: No new imaging. DVT prophylaxis ordered?: Patient using AJ hose secondary to intercerebral hemorrhage. ASSESSMENT AND PLAN: 1. Rehabilitation of right subdural hematoma with 12 mm midline shift: Patient tolerating 3 hrs of therapy per day and is participating well in PT/OT/[employer]. Rehab Team Rounds: I will try Ritalin 0.25 mg with breakfast and lunch starting tomorrow. Her urinary retention is better but still higher than 200 cc's. I will increase Flomax to 0.8 mg at HS, but since she was on AM dose I will give 0.4 mg at HS tonight. The increase should help blood pressure. We will continue to watch for any regression signaling renewed bleeding from the SDH or any hydrocephalus. Anticipated D/C to home 11/07/16. 2. Possible UTI on admission: Pre-antibiotics for possible pneumonia and low grade temperatures came back as negative for growth. 3. Renal disease: BUN only mildly elevated at 24 with normal creatinine and glomerular filtration rates. We will continue to observe. 4. Moderate anemia: H&H is 9.5 and 28.7% today, which is slightly down, mainly the MCV drop to 97.0. We will continue to watch BP and levels. 5. Possible Pneumonia vs. Ateletaxis: Patient on IV Azithromycin and Ceftriaxone started 10/19/16 and to finish 10/26/16. Currently, I suspect it is more likely the ateletaxis. 6. Osteoarthritis Diffusely: Will try some Bossman Farmer topically to hand/wrists and ankles. TIME SPENT: Chart Review, examination and documentation require greater than 35 minutes. Allergies Coded Allergies: Naproxen (Verified Allergy, Unknown, 10/12/16) TAPE (Verified Allergy, Unknown, ADHESIVE TAPE, 10/12/16) Vital Signs Vital Signs Date Time Temp Pulse Resp B/P (MAP) Pulse Ox O2 Delivery O2 Flow Rate FiO2 10/22/16 09:00 Room Air 10/22/16 08:49 81 149/71 10/22/16 06:00 99.0 18 96 Laboratory Data CBC/BMP Laboratory Tests 10/22/16 09:14 Red Blood Count 2.96 L, Mean Corpuscular Volume 97.0 H, Mean Corpuscular Hemoglobin 32.0, Mean Corpuscular Hemoglobin Concent 33.0, Red Cell Distribution Width 14.9 H, Calcium Level 8.2 L Labs 24H Laboratory Tests 2 10/22/16 09:14: Anion Gap 8, Glomerular Filtration Rate > 60.0, Blood Urea Nitrogen 24H, Creatinine 0.53L, Sodium Level 133L, Potassium Level 4.0, Chloride Level 99, Carbon Dioxide Level 26, Calcium Level 8.2L Microbiology Microbiology 10/18/16 Urine Culture - Final, Complete Current Medications Current Medications Current Medications Acetaminophen (Tylenol Tab) 650 mg Q6HP PRN PO PAIN OR FEVER Last administered on 10/22/16t 02:09; Start 10/18/16 at 12:15; Stop 11/17/16 at 12:14 Al Hydrox/Mg Hydrox/Simethicone (Mylanta) 30 ml Q4HP PRN PO DYSPEPSIA; Start at 12:15; Stop 11/17/16 at 12:14 Amlodipine Besylate (Norvasc) 10 mg DAILY PO Last administered on 10/22/16 08: 49; Start 10/19/16 at 09:00; Stop 11/18/16 at 08:59 Azathioprine (Imuran) 50 mg DAILY PO Last administered on 10/22/16 08:49; Start 10/19/16 at 09:00; Stop 11/18/16 at 08:59 Azithromycin 500 mg/IV Miscellaneous Supplies 1 each/ Dextrose 255 ml @ 255 mls /hr Q24H IV Last administered on 10/21/16 21:23; Start 10/19/16 at 22:00; Stop 10/26/16 at 21:59 Bacitracin (Bacitracin Oint) 1 dose TID TOP Last administered on 10/21/16 08:39 ; Start 10/18/16 at 21:00; Stop 10/21/16 at 09:25; Status DC Benazepril HCl (Lotensin) 20 mg BID PO Last administered on 10/22/16 08:49; Start 10/18/16 at 21:00; Stop 11/17/16 at 20:59 Bisacodyl (Dulcolax Suppository) 10 mg DAILYPRN PRN [place] CONSTIPATION; Start at 12:15; Stop 11/17/16 at 12:14 Brinzolamide (Azopt) 1 drop BID OU Last administered on 10/22/16 08:50; Start 10/18/16 at 21:00; Stop 11/17/16 at 20:59 Ceftriaxone Sodium 2 gm/ Dextrose 50 ml @ 100 mls/hr Q24H IV Last administered on 10/21/16 21:01; Start 10/19/16 at 21:00; Stop 10/26/16 at 20:59 Ferrous Sulfate (Ferrous Sulfate) 325 mg BID PO Last administered on 10/22/16 08:48; Start 10/18/16 at 21:00; Stop 11/17/16 at 20:59 Labetalol HCl (Normodyne, Trandate) 100 mg BID PO Last administered on 08:49; Start 10/18/16 at 21:00; Stop 11/17/16 at 20:59 Latanoprost (Xalatan 0.005% Op Soln) 1 drop QHS OU Last administered on 20:58; Start 10/18/16 at 21:00; Stop 11/17/16 at 20:59 Levetiracetam (Keppra Xr) 1,000 mg BID PO Last administered on 10/22/16 08: 48; Start 10/18/16 at 21:00; Stop 11/17/16 at 20:59 Levetiracetam (Keppra) 1,000 mg BID PO ; Start 10/18/16 at 21:00; Stop 10/18/16 at 21:00; Status DC Levothyroxine Sodium (Synthroid) 44 mcg DAILY@06 PO Last administered on 05:30; Start 10/19/16 at 06:00; Stop 11/18/16 at 05:59 Miscellaneous (Unresolved Patient Own Med Order) SEE LABEL COMMENTS UNRESOLVED XX ; Start 10/18/16 at 00:01; Stop 10/20/16 at 19:45; Status DC Pantoprazole Sodium (Protonix) 40 mg DAILY PO Last administered on 10/22/16 08: 49; Start 10/19/16 at 09:00; Stop 11/18/16 at 08:59 Patient Own Medication (Patient'S Own Med) 1 ea BID OU Last administered on 10/22 08:50; Start 10/20/16 at 21:00; Stop 11/19/16 at 20:59; Status Future hold Polyethylene Glycol (Miralax) 1 pkt DAILY PRN PO CONSTIPATION; Start 10/18/16 at 12:15; Stop 11/17/16 at 12:14 Sodium Biphosphate/ Sodium Phosphate (Fleet Enema) 1 ea DAILYPRN PRN [place] CONSTIPATION; Start 10/18/16 at 12:15; Stop 11/17/16 at 12:14 Tamsulosin HCl (Flomax) 0.4 mg DAILY PO Last administered on 10/22/16 08:48; Start 10/19/16 at 09:00; Stop 11/18/16 at 08:59 Tamsulosin HCl (Flomax) 0.4 mg DAILY PO ; Start 10/23/16 at 09:00; Stop 11/22/16 at 08:59; Status UNV Trazodone HCl (Desyrel) 75 mg QHS PO Last administered on 10/21/16t 21:00; Start 10/18/16 at 21:00; Stop 11/17/16 at 20:59 JOON ROB MD Oct 22, 2016 11:23
[2016-10-22 14:00] VITALS: BP 108/54
[2016-10-22] MEDS: METHYLPHENIDATE 5 MG TAB PO SCH (14:00)
[2016-10-22 20:00] VITALS: BP 135/64
[2016-10-22] MEDS: traZODone 50 MG TAB PO SCH (21:20)
[2016-10-22] MEDS: LATANOPROST 0.005% OPHTH SOLN 2.5 ML OU SCH (21:21)
[2016-10-23 06:00] VITALS: BP 159/69
[2016-10-23] MEDS: LEVOTHYROXINE 88MCG TABLET (0.088 MG) PO SCH (06:00)
[2016-10-23] MEDS: METHYLPHENIDATE 5 MG TAB PO SCH ×2 (08:40→13:54)
[2016-10-23] MEDS: azaTHIOprine 50 MG TAB (J7500) PO SCH (08:40)
[2016-10-23] MEDS: LABETALOL 100 MG TAB PO SCH ×2 (08:40→20:02)
[2016-10-23] MEDS: FERROUS SULFATE 325MG TAB PO SCH ×2 (08:40→20:02)
[2016-10-23] MEDS: PANTOPRAZOLE 40MG TAB (PROTONIX) PO SCH (08:41)
[2016-10-23] MEDS: levETIRAcetam **XR** 500 MG TABLET PO SCH ×2 (08:41→20:02)
[2016-10-23] MEDS: BENAZEPRIL 20 MG TAB PO SCH ×2 (08:41→20:02)
[2016-10-23] MEDS: amLODIPine 10 MG TAB PO SCH (08:41)
[2016-10-23] MEDS: COMBIGAN OPHTH (PATIENT'S OWN MED) OU SCH ×2 (08:42→20:03)
[2016-10-23] MEDS: ANALGESIC BALM CRM 120 GM TOP SCH ×3 (08:42→20:03)
[2016-10-23] MEDS: BRINZOLAMIDE 1 % OPHTH SUSP (AZOPT) 10ML OU SCH ×2 (08:42→20:02)
[2016-10-23] MEDS ORDERED: TAMSULOSIN 0.4 MG CAP PO SCH (09:00)
--- NOTE | 2016-10-23 10:09 | REP ---
Clinical: Increased confusion and altered mental status. Comparison: 10/15/2016. Findings: The patient is again noted to be status post right frontotemporal craniotomy and underlying postoperative changes including pneumocephalus and mixed subdural collection with small amounts of gas appears mildly improved. The previously identified hemorrhagic contusions in the bilateral frontal lobes have essentially resolved. Mild contralateral midline shift of approximately 8 mm is improved from 12 mm on prior examination. No new acute intracranial process is appreciated. Impression: Mild improvement to the prior traumatic and postoperative changes. No new acute intracranial process identified. Signed by Jadiel Hernandez MD 10/23/2016 10:00 A
--- NOTE | 2016-10-23 12:10 | IPNPDOC ---
Road Consultant Progress Note DATE OF SERVICE: 10/23/16 DATE OF ADMISSION: Oct 18, 2016 at 12:40 INPATIENT REHABILITATION ADMISSION DAY: #6 SUBJECTIVE: Patient is a 80-year-old white female with right subdural hematoma status post evacuation. Patient with left hemiparesis and sensory deficits with some very mild right-sided deficits. Patient without complaints today. ALLERGIES: See Below MEDICATIONS: Reviewed, see below. OBJECTIVE: VITAL SIGNS: Please see below. PHYSICAL EXAMINATION: GENERAL: Somewhat overweight elderly white female who is alert and well oriented and in very mild to no acute distress. Bilateral hand with some distal nodules and varus deviation of some PIP joints in Bilateral hands. HEENT: Very mild left facial droop otherwise and clean right scalp incision in the parietal region about 1 inch lateral to midline. Tongue is midline on extension. CARDIOVASCULAR: Regular rate and rhythm with normal S1 and S2. 2/4 bilateral radial pulses. LUNGS: All sheehan clear to auscultation. ABDOMEN: Benign, mildly obese with normal bowel sounds in all quadrants. NEUROLOGICAL: Patient lethargic but still well oriented with speech clear coherent and appropriate. Affect is pleasant cooperative & memory is fairly good. Tends to lean to left, but now able to self correct partially when focused on it. Level of alertness and focus has been variable through the work day today. SKIN: Scalp incision is clean with no drainage or inflammation with staple removed.. LABORATORY DATA: Reviewed. Please see below. MICROBIOLOGY: Please see below. IMAGING: CT Head today showing some improvement since pre-op. MId-line shift now 8mm and some pneumocephalus. DVT prophylaxis ordered?: Patient using AJ hose secondary to intercerebral hemorrhage. ASSESSMENT AND PLAN: 1. Rehabilitation of right subdural hematoma with 12 mm midline shift: Patient tolerating 3 hrs of therapy per day and is participating well in PT/OT/[employer]. Patient started trial of Ritalin 0.25 mg with breakfast and lunch. I will stop the Trazodone to see if this improves on her lethargy. Her urinary retention is better but still higher than 200 cc's. I will increase Flomax to 0.8 mg at HS, but since she was on AM dose I will give 0.4 mg at HS tonight. The increase should help blood pressure. We will continue to watch for any regression signaling renewed bleeding from the SDH or any hydrocephalus. Anticipated D/C to home 11/07/16. 2. Osteoarthritis Diffusely: Will try some Bossman Farmer topically to hand/wrists and ankles. Some less hand and wrist pain, but declined putting it on ankles. 3. Renal disease: BUN only mildly elevated at 24 with normal creatinine and glomerular filtration rates. We will continue to observe with BMP tomorrow. 4. Moderate anemia: H&H is 9.5 and 28.7% yesterday, which is slightly down, mainly the MCV drop to 97.0. We will continue to watch BP and levels. 5. Possible Pneumonia vs. Ateletaxis: Patient on IV Azithromycin and Ceftriaxone started 10/19/16 and to finish 10/26/16. Stopped on 10/22/[address] Villalobos. Currently, I suspect it is more likely the ateletaxis, but with some of patient's lethargy and confusion I will get PA/Lat CXR today. TIME SPENT: Chart Review, examination and documentation require greater than 25 minutes. Allergies Allergies Coded Allergies: Naproxen (Verified Allergy, Unknown, 10/12/16) TAPE (Verified Allergy, Unknown, ADHESIVE TAPE, 10/12/16) Vital Signs Vital Signs Date Time Temp Pulse Resp B/P (MAP) Pulse Ox O2 Delivery O2 Flow Rate FiO2 10/23/16 09:00 Room Air 10/23/16 08:40 87 159/69 10/23/16 06:00 99.1 16 94 Laboratory Data Labs 24H Laboratory Tests 2 10/23/16 11:23: Microbiology Microbiology 10/18/16 Urine Culture - Final, Complete Current Medications Current Medications Current Medications Acetaminophen (Tylenol Tab) 650 mg Q6HP PRN PO PAIN OR FEVER Last administered on 10/22/16 11:12; Start 10/18/16 at 12:15; Stop 11/17/16 at 12:14 Al Hydrox/Mg Hydrox/Simethicone (Mylanta) 30 ml Q4HP PRN PO DYSPEPSIA; Start at 12:15; Stop 11/17/16 at 12:14 Amlodipine Besylate (Norvasc) 10 mg DAILY PO Last administered on 10/23/16 08: 41; Start 10/19/16 at 09:00; Stop 11/18/16 at 08:59 Azathioprine (Imuran) 50 mg DAILY PO Last administered on 10/23/16 08:40; Start 10/19/16 at 09:00; Stop 11/18/16 at 08:59 Azithromycin 500 mg/IV Miscellaneous Supplies 1 each/ Dextrose 255 ml @ 255 mls /hr Q24H IV Last administered on 10/21/16 21:23; Start 10/19/16 at 22:00; Stop 10/22/16 at 12:59; Status DC Bacitracin (Bacitracin Oint) 1 dose TID TOP Last administered on 10/21/16 08:39 ; Start 10/18/16 at 21:00; Stop 10/21/16 at 09:25; Status DC Benazepril HCl (Lotensin) 20 mg BID PO Last administered on 10/23/16 08:41; Start 10/18/16 at 21:00; Stop 11/17/16 at 20:59 Bisacodyl (Dulcolax Suppository) 10 mg DAILYPRN PRN [place] CONSTIPATION; Start at 12:15; Stop 11/17/16 at 12:14 Brinzolamide (Azopt) 1 drop BID OU Last administered on 10/23/16 08:42; Start 10/18/16 at 21:00; Stop 11/17/16 at 20:59 Ceftriaxone Sodium 2 gm/ Dextrose 50 ml @ 100 mls/hr Q24H IV Last administered on 10/21/16 21:01; Start 10/19/16 at 21:00; Stop 10/22/16 at 12:59; Status DC Ferrous Sulfate (Ferrous Sulfate) 325 mg BID PO Last administered on 10/23/16 08:40; Start 10/18/16 at 21:00; Stop 11/17/16 at 20:59 Labetalol HCl (Normodyne, Trandate) 100 mg BID PO Last administered on 08:40; Start 10/18/16 at 21:00; Stop 11/17/16 at 20:59 Latanoprost (Xalatan 0.005% Op Soln) 1 drop QHS OU Last administered on 21:21; Start 10/18/16 at 21:00; Stop 11/17/16 at 20:59 Levetiracetam (Keppra Xr) 1,000 mg BID PO Last administered on 10/23/16 08: 41; Start 10/18/16 at 21:00; Stop 11/17/16 at 20:59 Levetiracetam (Keppra) 1,000 mg BID PO ; Start 10/18/16 at 21:00; Stop 10/18/16 at 21:00; Status DC Levothyroxine Sodium (Synthroid) 44 mcg DAILY@06 PO Last administered on 06:00; Start 10/19/16 at 06:00; Stop 11/18/16 at 05:59 Menthol/Methyl Salicylate (Bengay Cream) Bilateral hands/ wrists, ... TID TOP Last administered on 10/23/16 08:42; Start 10/22/16 at 09:00; Stop 10/29/16 at 08 :59 Methylphenidate HCl (Ritalin) 2.5 mg DAILY@0800,1230 PO Last administered on 08:40; Start 10/22/16 at 12:30; Stop 10/29/16 at 12:29 Miscellaneous (Unresolved Patient Own Med Order) SEE LABEL COMMENTS UNRESOLVED XX ; Start 10/18/16 at 00:01; Stop 10/20/16 at 19:45; Status DC Pantoprazole Sodium (Protonix) 40 mg DAILY PO Last administered on 10/23/16 08: 41; Start 10/19/16 at 09:00; Stop 11/18/16 at 08:59 Patient Own Medication (Patient'S Own Med) 1 ea BID OU Last administered on 10/23 08:42; Start 10/20/16 at 21:00; Stop 11/19/16 at 20:59; Status Future hold Polyethylene Glycol (Miralax) 1 pkt DAILY PRN PO CONSTIPATION; Start 10/18/16 at 12:15; Stop 11/17/16 at 12:14 Sodium Biphosphate/ Sodium Phosphate (Fleet Enema) 1 ea DAILYPRN PRN [place] CONSTIPATION; Start 10/18/16 at 12:15; Stop 11/17/16 at 12:14 Tamsulosin HCl (Flomax) 0.4 mg DAILY PO Last administered on 10/22/16 08:48; Start 10/19/16 at 09:00; Stop 10/22/16 at 13:52; Status DC Tamsulosin HCl (Flomax) 0.4 mg DAILY PO ; Start 10/23/16 at 09:00; Stop 11/22/16 at 08:59; Status UNV Tamsulosin HCl (Flomax) 0.8 mg QHS PO ; Start 10/23/16 at 21:00; Stop 11/18/16 at 08:59 Trazodone HCl (Desyrel) 75 mg QHS PO Last administered on 10/22/16t 21:20; Start 10/18/16 at 21:00; Stop 10/23/16 at 11:02; Status DC JOON ROB MD Oct 23, 2016 12:09
[2016-10-23 12:14] LABS: ANION GAP 8 MEQ/L (8-16); BLOOD UREA NITROGEN 25 MG/DL (7-18); CALCIUM LEVEL 8.5 MG/DL (8.8-10.2); CARBON DIOXIDE LEVEL 28 MEQ/L (21-32); CHLORIDE LEVEL 100 MEQ/L (98-107); CREATININE FOR GFR 0.54 MG/DL (0.55-1.02); GLOMERULAR FILTRATION RATE > 60.0 (>32); GLUCOSE, FASTING 175 MG/DL (83-110); POTASSIUM SERUM 4.4 MEQ/L (3.5-5.1); SODIUM LEVEL 136 MEQ/L (136-145)
[2016-10-23 14:00] VITALS: BP 139/63
--- NOTE | 2016-10-23 14:11 | REP ---
Clinical: Pneumonia. Technique: AP and lateral views. Comparison: 10/16/2016. Findings: Lateral view demonstrates moderate bilateral pleural effusions with mild atelectasis and findings to suggest pulmonary vascular congestion/interstitial edema. Correlation is recommended. No pneumothorax. Cardiac silhouette is normal. Skeletal structures intact. Impression: Moderate bilateral pleural effusions and bibasilar atelectasis. Signed by Jadiel Hernandez MD 10/23/2016 02:03 P
[2016-10-23] MEDS: ACETAMINOPHEN TAB 650MG DOSE (2X325MG) PO PRN (17:42)
[2016-10-23 20:00] VITALS: BP 144/66
[2016-10-23] MEDS: TAMSULOSIN 0.4 MG CAP PO SCH (20:02)
[2016-10-23] MEDS: LATANOPROST 0.005% OPHTH SOLN 2.5 ML OU SCH (20:03)
[2016-10-23] MEDS: MIRALAX *UNIT DOSE* 17GM PACKET PO PRN (20:20)
[2016-10-24 06:00] VITALS: BP 125/60
[2016-10-24] MEDS: LEVOTHYROXINE 88MCG TABLET (0.088 MG) PO SCH (06:08)
[2016-10-24] MEDS: METHYLPHENIDATE 5 MG TAB PO SCH ×2 (08:34→12:05)
[2016-10-24] MEDS: ACETAMINOPHEN TAB 650MG DOSE (2X325MG) PO PRN ×2 (08:34→14:10)
[2016-10-24] MEDS: levETIRAcetam **XR** 500 MG TABLET PO SCH ×2 (08:35→20:40)
[2016-10-24] MEDS: PANTOPRAZOLE 40MG TAB (PROTONIX) PO SCH (08:35)
[2016-10-24] MEDS: BENAZEPRIL 20 MG TAB PO SCH ×2 (08:36→20:41)
[2016-10-24] MEDS: azaTHIOprine 50 MG TAB (J7500) PO SCH (08:36)
[2016-10-24] MEDS: FERROUS SULFATE 325MG TAB PO SCH ×2 (08:36→20:41)
[2016-10-24] MEDS: amLODIPine 10 MG TAB PO SCH (08:36)
[2016-10-24] MEDS: LABETALOL 100 MG TAB PO SCH ×2 (08:36→20:40)
[2016-10-24] MEDS: COMBIGAN OPHTH (PATIENT'S OWN MED) OU SCH ×2 (08:41→20:40)
[2016-10-24] MEDS: ANALGESIC BALM CRM 120 GM TOP SCH ×3 (08:41→20:41)
[2016-10-24] MEDS: BRINZOLAMIDE 1 % OPHTH SUSP (AZOPT) 10ML OU SCH ×2 (08:41→20:40)
--- NOTE | 2016-10-24 10:18 | IPNPDOC ---
Field Marketing Representative Progress Note DATE OF SERVICE: 10/24/16 DATE OF ADMISSION: Oct 18, 2016 at 12:40 INPATIENT REHABILITATION ADMISSION DAY: #7 SUBJECTIVE: Patient is a 80-year-old white female with right subdural hematoma status post evacuation. Patient with left hemiparesis and sensory deficits with some very mild right-sided deficits. Patient without complaints today. ALLERGIES: See Below MEDICATIONS: Reviewed, see below. OBJECTIVE: VITAL SIGNS: Please see below. PHYSICAL EXAMINATION: GENERAL: Somewhat overweight elderly white female who is alert and well oriented and in very mild to no acute distress. Bilateral hand with some distal nodules and varus deviation of some PIP joints in Bilateral hands. HEENT: Very mild left facial droop otherwise and clean right scalp incision in the parietal region about 1 inch lateral to midline. Tongue is midline on extension. CARDIOVASCULAR: Regular rate and rhythm with normal S1 and S2. 2/4 bilateral radial pulses. LUNGS: All sheehan clear to auscultation. ABDOMEN: Benign, mildly obese with normal bowel sounds in all quadrants. NEUROLOGICAL: Patient alert and oriented time four with speech that is clear, coherent and appropriate. Affect is pleasant cooperative & memory is fairly good. Tends to lean to left less today. Level of alertness and focus has been better through the work day today. SKIN: Scalp incision is clean with no drainage or inflammation with staple removed.. LABORATORY DATA: Reviewed. Please see below. MICROBIOLOGY: Please see below. IMAGING: CT Head today showing some improvement since pre-op. MId-line shift now 8mm and some pneumocephalus. DVT prophylaxis ordered?: Patient using AJ hose secondary to intercerebral hemorrhage. ASSESSMENT AND PLAN: 1. Rehabilitation of right subdural hematoma with 12 mm midline shift: Patient tolerating 3 hrs of therapy per day and is participating well in PT/OT/CAFETERIA CLERK. Patient started trial of Ritalin 0.25 mg with breakfast and lunch. I will stop the Trazodone and it improved on her lethargy. We will continue to watch for any regression signaling renewed bleeding from the SDH or any hydrocephalus. However, patient is more alert and interactive today. Anticipated D/C to home . 2. Osteoarthritis Diffusely: Will try some Boss[employer] topically to hand/wrists and ankles. Some less hand and wrist pain, but declined putting it on ankles. 3. Renal disease: BUN only mildly elevated at 24 with normal creatinine and glomerular filtration rates yesterday. We will continue to observe with BMP tomorrow and Mg++ level. 4. Moderate anemia: H&H is 9.5 and 28.7% Saturday, which is slightly down, mainly the MCV drop to 97.0. We will continue to watch BP and levels and recheck CBC tomorrow. 5. Bilateral Ateletaxis: Reconfirmed on CXR with Bilateral Pleural effusions. Nursing to continue to encourage incentive spirometry and patient being up and active. TIME SPENT: Chart Review, examination and documentation require greater than 25 minutes. Allergies Coded Allergies: Naproxen (Verified Allergy, Unknown, 10/12/16) TAPE (Verified Allergy, Unknown, ADHESIVE TAPE, 10/12/16) Vital Signs Vital Signs Date Time Temp Pulse Resp B/P (MAP) Pulse Ox O2 Delivery O2 Flow Rate FiO2 10/24/16 08:36 82 125/60 10/24/16 08:30 Room Air 10/24/16 06:00 97.7 18 95 Laboratory Data CBC/BMP Laboratory Tests 10/23/16 11:23 Calcium Level 8.5 L Labs 24H Laboratory Tests 2 10/23/16 11:23: Anion Gap 8, Glomerular Filtration Rate > 60.0, Blood Urea Nitrogen 25H, Creatinine 0.54L, Sodium Level 136, Potassium Level 4.4, Chloride Level 100, Carbon Dioxide Level 28, Calcium Level 8.5L Microbiology Microbiology 10/18/16 Urine Culture - Final, Complete Current Medications Current Medications Current Medications Acetaminophen (Tylenol Tab) 650 mg Q6HP PRN PO PAIN OR FEVER Last administered on 10/24/16 08:34; Start 10/18/16 at 12:15; Stop 11/17/16 at 12:14 Al Hydrox/Mg Hydrox/Simethicone (Mylanta) 30 ml Q4HP PRN PO DYSPEPSIA; Start at 12:15; Stop 11/17/16 at 12:14 Amlodipine Besylate (Norvasc) 10 mg DAILY PO Last administered on 10/24/16 08: 36; Start 10/19/16 at 09:00; Stop 11/18/16 at 08:59 Azathioprine (Imuran) 50 mg DAILY PO Last administered on 10/24/16 08:36; Start 10/19/16 at 09:00; Stop 11/18/16 at 08:59 Azithromycin 500 mg/IV Miscellaneous Supplies 1 each/ Dextrose 255 ml @ 255 mls /hr Q24H IV Last administered on 10/21/16 21:23; Start 10/19/16 at 22:00; Stop 10/22/16 at 12:59; Status DC Bacitracin (Bacitracin Oint) 1 dose TID TOP Last administered on 10/21/16 08:39 ; Start 10/18/16 at 21:00; Stop 10/21/16 at 09:25; Status DC Benazepril HCl (Lotensin) 20 mg BID PO Last administered on 10/24/16 08:36; Start 10/18/16 at 21:00; Stop 11/17/16 at 20:59 Bisacodyl (Dulcolax Suppository) 10 mg DAILYPRN PRN [place] CONSTIPATION; Start at 12:15; Stop 11/17/16 at 12:14 Brinzolamide (Azopt) 1 drop BID OU Last administered on 10/24/16 08:41; Start 10/18/16 at 21:00; Stop 11/17/16 at 20:59 Ceftriaxone Sodium 2 gm/ Dextrose 50 ml @ 100 mls/hr Q24H IV Last administered on 10/21/16 21:01; Start 10/19/16 at 21:00; Stop 10/22/16 at 12:59; Status DC Ferrous Sulfate (Ferrous Sulfate) 325 mg BID PO Last administered on 10/24/16 08:36; Start 10/18/16 at 21:00; Stop 11/17/16 at 20:59 Labetalol HCl (Normodyne, Trandate) 100 mg BID PO Last administered on 08:36; Start 10/18/16 at 21:00; Stop 11/17/16 at 20:59 Latanoprost (Xalatan 0.005% Op Soln) 1 drop QHS OU Last administered on 20:03; Start 10/18/16 at 21:00; Stop 11/17/16 at 20:59 Levetiracetam (Keppra Xr) 1,000 mg BID PO Last administered on 10/24/16 08: 35; Start 10/18/16 at 21:00; Stop 11/17/16 at 20:59 Levetiracetam (Keppra) 1,000 mg BID PO ; Start 10/18/16 at 21:00; Stop 10/18/16 at 21:00; Status DC Levothyroxine Sodium (Synthroid) 44 mcg DAILY@06 PO Last administered on 06:08; Start 10/19/16 at 06:00; Stop 11/18/16 at 05:59 Menthol/Methyl Salicylate (Bengay Cream) Bilateral hands/ wrists, ... TID TOP Last administered on 10/24/16 08:41; Start 10/22/16 at 09:00; Stop 10/29/16 at 08 :59 Methylphenidate HCl (Ritalin) 2.5 mg DAILY@0800,1230 PO Last administered on 08:34; Start 10/22/16 at 12:30; Stop 10/29/16 at 12:29 Miscellaneous (Unresolved Patient Own Med Order) SEE LABEL COMMENTS UNRESOLVED XX ; Start 10/18/16 at 00:01; Stop 10/20/16 at 19:45; Status DC Pantoprazole Sodium (Protonix) 40 mg DAILY PO Last administered on 10/24/16 08: 35; Start 10/19/16 at 09:00; Stop 11/18/16 at 08:59 Patient Own Medication (Patient'S Own Med) 1 ea BID OU Last administered on 10/24 08:41; Start 10/20/16 at 21:00; Stop 11/19/16 at 20:59; Status Future hold Polyethylene Glycol (Miralax) 1 pkt DAILY PRN PO CONSTIPATION Last administered on 10/23/16 20:20; Start 10/18/16 at 12:15; Stop 11/17/16 at 12:14 Sodium Biphosphate/ Sodium Phosphate (Fleet Enema) 1 ea DAILYPRN PRN [place] CONSTIPATION; Start 10/18/16 at 12:15; Stop 11/17/16 at 12:14 Tamsulosin HCl (Flomax) 0.4 mg DAILY PO Last administered on 10/22/16 08:48; Start 10/19/16 at 09:00; Stop 10/22/16 at 13:52; Status DC Tamsulosin HCl (Flomax) 0.4 mg DAILY PO ; Start 10/23/16 at 09:00; Stop 11/22/16 at 08:59; Status UNV Tamsulosin HCl (Flomax) 0.8 mg QHS PO Last administered on 10/23/16 20:02; Start 10/23/16 at 21:00; Stop 11/18/16 at 08:59 Trazodone HCl (Desyrel) 75 mg QHS PO Last administered on 10/22/16 21:20; Start 10/18/16 at 21:00; Stop 10/23/16 at 11:02; Status DC JOON ROB MD Oct 24, 2016 10:17
[2016-10-24 11:22] LABS: ANION GAP 8 MEQ/L (8-16); BLOOD UREA NITROGEN 27 MG/DL (7-18); CALCIUM LEVEL 8.4 MG/DL (8.8-10.2); CARBON DIOXIDE LEVEL 27 MEQ/L (21-32); CHLORIDE LEVEL 100 MEQ/L (98-107); CREATININE FOR GFR 0.49 MG/DL (0.55-1.02); GLOMERULAR FILTRATION RATE > 60.0 (>32); GLUCOSE, FASTING 222 MG/DL (83-110); POTASSIUM SERUM 4.3 MEQ/L (3.5-5.1); SODIUM LEVEL 135 MEQ/L (136-145)
--- NOTE | 2016-10-24 12:40 | IPN ---
DATE OF SERVICE: 10/24/2016 SUBJECTIVE: Ms. Duncan is resting comfortable in physical medicine rehabilitation unit. She had some increased lethargy yesterday. Dr. Carty had ordered a CT of her head. Today, her lethargy has improved. Physical medicine rehabilitation physician stopped or decreased her trazodone, which was a significant improvement in terms of her lethargy and level of consciousness. The patient was without any complaints today and is asking about when she could be discharged home. OBJECTIVE: On examination, vital signs: Blood pressure (BP) 125/60, heart rate of 82, respiratory rate of 16. Her scalp incision is clean, dry. No erythema. No discharge. No signs of infection. Speech is clear and fluent. Smile is symmetrical. Tongue is midline. She has very minimal weakness in strength in the left side but no gross deficit. Good shoulder shrug bilaterally. Hearing is grossly intact bilaterally to finger rub. No pronator drift. ASSESSMENT: Status post evacuation of subdural hematoma, traumatic brain injury. PLAN: From a neurosurgical standpoint, the patient is stable. She had a repeat CT yesterday for some increased lethargy. This has significantly improved when her trazodone was decreased. She has no acute neurosurgical problems. She will continue with physical medicine and rehabilitation. She will followup in neurosurgical office 1 month after she is discharged from physical medicine and rehabilitation (PM and R). Neurosurgery will be signing off case unless any further consultation is needed by PM and R.
[2016-10-24 14:00] VITALS: BP 122/57
[2016-10-24 20:00] VITALS: BP 132/61
[2016-10-24] MEDS: MIRALAX *UNIT DOSE* 17GM PACKET PO PRN (20:40)
[2016-10-24] MEDS: TAMSULOSIN 0.4 MG CAP PO SCH (20:40)
[2016-10-24] MEDS: LATANOPROST 0.005% OPHTH SOLN 2.5 ML OU SCH (20:40)
[2016-10-25] MEDS: LEVOTHYROXINE 88MCG TABLET (0.088 MG) PO SCH (05:33)
[2016-10-25 06:00] VITALS: BP 127/60
[2016-10-25 08:32] LABS: MEAN CORPUSCULAR HEMOGLOBIN 31.8 pg (27.0-33.0); MEAN CORPUSCULAR VOLUME 99.2 fl (80.0-96.0); RED CELL DISTRIBUTION WIDTH 14.2 % (11.5-14.5); WHITE BLOOD COUNT 8.7 K/mm3 (4.0-10.0)
[2016-10-25] MEDS: METHYLPHENIDATE 5 MG TAB PO SCH ×2 (08:48→12:11)
[2016-10-25] MEDS: ACETAMINOPHEN TAB 650MG DOSE (2X325MG) PO PRN (08:50)
[2016-10-25] MEDS: BENAZEPRIL 20 MG TAB PO SCH ×2 (08:51→20:49)
[2016-10-25] MEDS: azaTHIOprine 50 MG TAB (J7500) PO SCH (08:51)
[2016-10-25] MEDS: LABETALOL 100 MG TAB PO SCH ×2 (08:51→20:49)
[2016-10-25] MEDS: levETIRAcetam **XR** 500 MG TABLET PO SCH ×2 (08:51→20:49)
[2016-10-25] MEDS: amLODIPine 10 MG TAB PO SCH (08:51)
[2016-10-25] MEDS: PANTOPRAZOLE 40MG TAB (PROTONIX) PO SCH (08:51)
[2016-10-25] MEDS: COMBIGAN OPHTH (PATIENT'S OWN MED) OU SCH ×2 (08:52→20:50)
[2016-10-25] MEDS: FERROUS SULFATE 325MG TAB PO SCH ×2 (08:52→20:50)
[2016-10-25] MEDS: LATANOPROST 0.005% OPHTH SOLN 2.5 ML OU SCH ×2 (08:52→20:50)
[2016-10-25] MEDS: ANALGESIC BALM CRM 120 GM TOP SCH ×3 (08:53→20:51)
[2016-10-25] MEDS: BRINZOLAMIDE 1 % OPHTH SUSP (AZOPT) 10ML OU SCH ×2 (08:54→20:50)
[2016-10-25 09:13] LABS: MAGNESIUM LEVEL 2.1 MG/DL (1.8-2.4)
--- NOTE | 2016-10-25 11:41 | IPNPDOC ---
Digital Project Coordinator Progress Note DATE OF SERVICE: 10/25/16 DATE OF ADMISSION: Oct 18, 2016 at 12:40 INPATIENT REHABILITATION ADMISSION DAY: #8 SUBJECTIVE: Patient is a 80-year-old white female with right subdural hematoma status post evacuation. Patient with left hemiparesis and sensory deficits with some very mild right-sided deficits. Patient seen sitting up in chair without leaning and no support, and improved alertness from last 3 days. Patient without complaints today. ALLERGIES: See Below MEDICATIONS: Reviewed, see below. OBJECTIVE: VITAL SIGNS: Please see below. PHYSICAL EXAMINATION: GENERAL: Somewhat overweight elderly white female who is alert and well oriented and in very mild to no acute distress. Bilateral hand with some distal nodules and varus deviation of some PIP joints in Bilateral hands. Patient able with coaching and encouragement to do > 750ml on incentive spirometry for me. HEENT: Very mild left facial droop otherwise and clean right scalp incision in the parietal region about 1 inch lateral to midline. CARDIOVASCULAR: Regular rate and rhythm with normal S1 and S2 without S3, S4, murmurs or rubs. 2/4 bilateral radial pulses. LUNGS: All sheehan clear to auscultation. ABDOMEN: Benign, mildly obese with normal bowel sounds in all quadrants. NEUROLOGICAL: Patient alert and oriented time four with speech that is clear, coherent and appropriate. Affect is pleasant cooperative & memory is fairly good. Level of alertness and focus has been better today. SKIN: Scalp incision is clean with no drainage or inflammation with staple removed.. LABORATORY DATA: Reviewed. Please see below. MICROBIOLOGY: Please see below. IMAGING: No New Imaging. Had CT Head and PA/Lat. Chest earlier this week. DVT prophylaxis ordered?: Patient using AJ hose secondary to intercerebral hemorrhage. ASSESSMENT AND PLAN: 1. Rehabilitation of right subdural hematoma with 12 mm midline shift: Patient tolerating 3 hrs of therapy per day and is participating well in PT/OT/NURSING COORDINATOR. Patient started trial of Ritalin 0.25 mg with breakfast and lunch which seems to be helping now that Trazodone cause Serotonin level is back down. We will continue to watch for any regression signaling renewed bleeding from the SDH or any hydrocephalus. However, patient is alert and interactive today. Rehab. Team Rounds: Patient more awake, but level of effort and progress still low. I will try increase in Ritalin to 5 mg bid and we will continue PT/OT/NURSING COORDINATOR. Anticipated Date of D/C is 11/07 2. Osteoarthritis Diffusely: Will try some Bossman Farmer topically to hand/wrists and ankles. Less hand, wrist and ankle pain. 3. Renal disease: CMP with Mg++ ordered for tomorrow. 4. Moderate anemia: CBC recheck tomorrow. 5. Bilateral Ateletaxis: Nursing to continue to encourage incentive spirometry and patient being up and active, but some low grade fevers last night and this morning. Lungs with good air movement, but effusions still present on xr on Saturday. TIME SPENT: Chart Review, examination and documentation require greater than 25 minutes. Allergies Coded Allergies: Naproxen (Verified Allergy, Unknown, 10/12/16) TAPE (Verified Allergy, Unknown, ADHESIVE TAPE, 10/12/16) Vital Signs Vital Signs Date Time Temp Pulse Resp B/P (MAP) Pulse Ox O2 Delivery O2 Flow Rate FiO2 10/25/16 08:51 82 127/60 10/25/16 08:30 Room Air 10/25/16 06:00 100.0 20 95 Laboratory Data CBC/BMP Laboratory Tests 10/25/16 07:55 Red Blood Count 2.99 L, Mean Corpuscular Volume 99.2 H, Mean Corpuscular Hemoglobin 31.8, Mean Corpuscular Hemoglobin Concent 32.0, Red Cell Distribution Width 14.2 Labs 24H Laboratory Tests 2 10/25/16 07:55: Magnesium Level 2.1 Microbiology Microbiology 10/18/16 Urine Culture - Final, Complete Current Medications Current Medications Current Medications Acetaminophen (Tylenol Tab) 650 mg Q6HP PRN PO PAIN OR FEVER Last administered on 10/25/16 08:50; Start 10/18/16 at 12:15; Stop 11/17/16 at 12:14 Al Hydrox/Mg Hydrox/Simethicone (Mylanta) 30 ml Q4HP PRN PO DYSPEPSIA; Start at 12:15; Stop 11/17/16 at 12:14 Amlodipine Besylate (Norvasc) 10 mg DAILY PO Last administered on 10/25/16 08: 51; Start 10/19/16 at 09:00; Stop 11/18/16 at 08:59 Azathioprine (Imuran) 50 mg DAILY PO Last administered on 10/25/16 08:51; Start 10/19/16 at 09:00; Stop 11/18/16 at 08:59 Azithromycin 500 mg/IV Miscellaneous Supplies 1 each/ Dextrose 255 ml @ 255 mls /hr Q24H IV Last administered on 10/21/16 21:23; Start 10/19/16 at 22:00; Stop 10/22/16 at 12:59; Status DC Bacitracin (Bacitracin Oint) 1 dose TID TOP Last administered on 10/21/16 08:39 ; Start 10/18/16 at 21:00; Stop 10/21/16 at 09:25; Status DC Benazepril HCl (Lotensin) 20 mg BID PO Last administered on 10/25/16 08:51; Start 10/18/16 at 21:00; Stop 11/17/16 at 20:59 Bisacodyl (Dulcolax Suppository) 10 mg DAILYPRN PRN [place] CONSTIPATION Last administered on 10/24/16 18:37; Start 10/18/16 at 12:15; Stop 11/17/16 at 12:14 Brinzolamide (Azopt) 1 drop BID OU Last administered on 10/25/16 08:54; Start 10/18/16 at 21:00; Stop 11/17/16 at 20:59 Ceftriaxone Sodium 2 gm/ Dextrose 50 ml @ 100 mls/hr Q24H IV Last administered on 10/21/16 21:01; Start 10/19/16 at 21:00; Stop 10/22/16 at 12:59; Status DC Ferrous Sulfate (Ferrous Sulfate) 325 mg BID PO Last administered on 10/25/16 08:52; Start 10/18/16 at 21:00; Stop 11/17/16 at 20:59 Labetalol HCl (Normodyne, Trandate) 100 mg BID PO Last administered on 08:51; Start 10/18/16 at 21:00; Stop 11/17/16 at 20:59 Latanoprost (Xalatan 0.005% Op Soln) 1 drop QHS OU Last administered on 20:40; Start 10/18/16 at 21:00; Stop 11/17/16 at 20:59 Levetiracetam (Keppra Xr) 1,000 mg BID PO Last administered on 10/25/16 08: 51; Start 10/18/16 at 21:00; Stop 11/17/16 at 20:59 Levetiracetam (Keppra) 1,000 mg BID PO ; Start 10/18/16 at 21:00; Stop 10/18/16 at 21:00; Status DC Levothyroxine Sodium (Synthroid) 44 mcg DAILY@06 PO Last administered on 05:33; Start 10/19/16 at 06:00; Stop 11/18/16 at 05:59 Menthol/Methyl Salicylate (Bengay Cream) Bilateral hands/ wrists, ... TID TOP Last administered on 10/25/16 08:53; Start 10/22/16 at 09:00; Stop 10/29/16 at 08 :59 Methylphenidate HCl (Ritalin) 2.5 mg DAILY@0800,1230 PO Last administered on 08:48; Start 10/22/16 at 12:30; Stop 10/29/16 at 12:29 Miscellaneous (Unresolved Patient Own Med Order) SEE LABEL COMMENTS UNRESOLVED XX ; Start 10/18/16 at 00:01; Stop 10/20/16 at 19:45; Status DC Pantoprazole Sodium (Protonix) 40 mg DAILY PO Last administered on 10/25/16 08: 51; Start 10/19/16 at 09:00; Stop 11/18/16 at 08:59 Patient Own Medication (Patient'S Own Med) 1 ea BID OU Last administered on 10/25 08:52; Start 10/20/16 at 21:00; Stop 11/19/16 at 20:59; Status Future hold Polyethylene Glycol (Miralax) 1 pkt DAILY PRN PO CONSTIPATION Last administered on 10/24/16 20:40; Start 10/18/16 at 12:15; Stop 11/17/16 at 12:14 Sodium Biphosphate/ Sodium Phosphate (Fleet Enema) 1 ea DAILYPRN PRN [place] CONSTIPATION; Start 10/18/16 at 12:15; Stop 11/17/16 at 12:14 Tamsulosin HCl (Flomax) 0.4 mg DAILY PO Last administered on 10/22/16 08:48; Start 10/19/16 at 09:00; Stop 10/22/16 at 13:52; Status DC Tamsulosin HCl (Flomax) 0.4 mg DAILY PO ; Start 10/23/16 at 09:00; Stop 11/22/16 at 08:59; Status UNV Tamsulosin HCl (Flomax) 0.8 mg QHS PO Last administered on 10/24/16 20:40; Start 10/23/16 at 21:00; Stop 11/18/16 at 08:59 Trazodone HCl (Desyrel) 75 mg QHS PO Last administered on 10/22/16 21:20; Start 10/18/16 at 21:00; Stop 10/23/16 at 11:02; Status DC JOON ROB MD Oct 25, 2016 11:41
[2016-10-25 14:00] VITALS: BP 108/54
[2016-10-25] MEDS: BETHANECHOL 10 MG TAB PO SCH (15:34)
[2016-10-25 20:00] VITALS: BP 142/64
[2016-10-25] MEDS: TAMSULOSIN 0.4 MG CAP PO SCH (20:50)
[2016-10-26] MEDS: LEVOTHYROXINE 88MCG TABLET (0.088 MG) PO SCH (05:48)
[2016-10-26 06:00] VITALS: BP 128/59
[2016-10-26 07:35] LABS: BASO % 0.4 % (0.0-1.0); EOS # 0.1 K/mm3 (0.0-0.50); EOS % 0.9 % (0.0-3.0); LARGE UNSTAINED CELL # 0.1 K/mm3 (0.0-0.4); LARGE UNSTAINED CELL % 1.3 % (0.0-4.0); LYMPH # 0.8 K/mm3 (1.5-4.5); LYMPH % 10.5 % (24.0-44.0); MEAN CORPUSCULAR HEMOGLOBIN 31.7 pg (27.0-33.0); MEAN CORPUSCULAR HGB CONC 32.1 g/dl (32.0-36.5); MEAN CORPUSCULAR VOLUME 98.6 fl (80.0-96.0); MONO # 0.3 K/mm3 (0.0-0.8); MONO % 3.5 % (0.0-5.0); NEUTROPHILS % 83.3 % (36.0-66.0); PLATELET COUNT, AUTOMATED 446 k/mm3 (150-450); RED CELL DISTRIBUTION WIDTH 14.1 % (11.5-14.5); WHITE BLOOD COUNT 7.2 K/mm3 (4.0-10.0)
[2016-10-26 07:52] LABS: ALBUMIN 1.9 GM/DL (3.2-5.2); ALBUMIN/GLOBULIN RATIO 0.46 (1.00-1.93); ALKALINE PHOSPHATASE 158 U/L (45-117); ALT/SGPT 260 U/L (12-78); ANION GAP 7 MEQ/L (8-16); AST/SGOT 165 U/L (15-37); BILIRUBIN,TOTAL 0.4 MG/DL (0.2-1.0); BLOOD UREA NITROGEN 29 MG/DL (7-18); CALCIUM LEVEL 8.4 MG/DL (8.8-10.2); CARBON DIOXIDE LEVEL 28 MEQ/L (21-32); CHLORIDE LEVEL 104 MEQ/L (98-107); CREATININE FOR GFR 0.47 MG/DL (0.55-1.02); GLOMERULAR FILTRATION RATE > 60.0 (>32); GLUCOSE, FASTING 139 MG/DL (83-110); MAGNESIUM LEVEL 2.1 MG/DL (1.8-2.4); SODIUM LEVEL 139 MEQ/L (136-145)
[2016-10-26] MEDS: BENAZEPRIL 20 MG TAB PO SCH ×2 (08:37→22:16)
[2016-10-26] MEDS: BETHANECHOL 10 MG TAB PO SCH (08:37)
[2016-10-26] MEDS: azaTHIOprine 50 MG TAB (J7500) PO SCH (08:37)
[2016-10-26] MEDS: LABETALOL 100 MG TAB PO SCH ×2 (08:37→22:17)
[2016-10-26] MEDS: FERROUS SULFATE 325MG TAB PO SCH ×2 (08:37→22:17)
[2016-10-26] MEDS: amLODIPine 10 MG TAB PO SCH (08:37)
[2016-10-26] MEDS: PANTOPRAZOLE 40MG TAB (PROTONIX) PO SCH (08:37)
[2016-10-26] MEDS: METHYLPHENIDATE 5 MG TAB PO SCH ×2 (08:38→12:41)
[2016-10-26] MEDS: ANALGESIC BALM CRM 120 GM TOP SCH ×3 (08:38→22:18)
[2016-10-26] MEDS: BRINZOLAMIDE 1 % OPHTH SUSP (AZOPT) 10ML OU SCH ×2 (08:38→22:17)
[2016-10-26] MEDS: COMBIGAN OPHTH (PATIENT'S OWN MED) OU SCH ×2 (08:38→22:17)
[2016-10-26] MEDS: levETIRAcetam **XR** 500 MG TABLET PO SCH ×2 (08:40→22:16)
[2016-10-26] MEDS: ACETAMINOPHEN TAB 650MG DOSE (2X325MG) PO PRN ×2 (10:08→16:45)
--- NOTE | 2016-10-26 13:34 | IPNPDOC ---
Welder Apprentice Progress Note DATE OF SERVICE: 10/26/16 DATE OF ADMISSION: Oct 18, 2016 at 12:40 INPATIENT REHABILITATION ADMISSION DAY: #9 SUBJECTIVE: Patient is a 80-year-old white female with right subdural hematoma status post evacuation. Patient with left hemiparesis and sensory deficits with some very mild right-sided deficits. Patient seen sitting up in chair without leaning and no support, and improved alertness from last 4 days. Patient without complaints today except feels tired from all the therapy. ALLERGIES: See Below MEDICATIONS: Reviewed, see below. OBJECTIVE: VITAL SIGNS: Please see below. PHYSICAL EXAMINATION: GENERAL: Somewhat overweight elderly white female who is alert and well oriented and in very mild to no acute distress. Bilateral hand with some distal nodules and varus deviation of some PIP joints in Bilateral hands. Left neglect and trouble coordinating BUE without looking at them. HEENT: Very mild left facial droop otherwise and clean right scalp incision in the parietal region about 1 inch lateral to midline. CARDIOVASCULAR: Regular rate and rhythm with normal S1 and S2 without S3, S4, murmurs or rubs. 2/4 bilateral radial pulses. LUNGS: All sheehan clear to auscultation and breathe sounds heard lower on right vs. left chest. ABDOMEN: Benign, mildly obese with normal bowel sounds in all quadrants. NEUROLOGICAL: Patient alert and oriented time four with speech that is clear, coherent and appropriate. Affect is pleasant cooperative & memory is fairly good. Level of alertness and focus has been better today and yesterday than before. SKIN: Scalp incision is clean with no drainage or inflammation with staple removed.. LABORATORY DATA: Reviewed. Please see below. MICROBIOLOGY: Please see below. IMAGING: No New Imaging. DVT prophylaxis ordered?: Patient using AJ hose secondary to intercerebral hemorrhage. ASSESSMENT AND PLAN: 1. 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 Patient started trial of Ritalin 0.5 mg with breakfast and lunch which seems to be helping. We will continue to watch for any regression signaling renewed bleeding from the SDH or any hydrocephalus. However, patient is more alert and interactive today but level of effort and progress still low. Anticipated Date of D/C is 11/07 2. Osteoarthritis Diffusely: Will try some Bossman Farmer topically to hand/wrists and ankles. Less hand, wrist and ankle pain. No complaints today of pain in these areas. 3. Renal disease: BUN demetria at 29 with slow trend upward, but lytes are normal including Mg++ 4. Moderate anemia: CBC shows stable moderate anemia. 5. Bilateral Ateletaxis: Nursing to continue to encourage incentive spirometry and patient being up and active, but some low grade fevers 2 night and this morning. Lungs with good air movement, but effusions still bilateral, though seems less today on right side. TIME SPENT: Chart Review, examination and documentation require greater than 25 minutes. Allergies Coded Allergies: Naproxen (Verified Allergy, Unknown, 10/12/16) TAPE (Verified Allergy, Unknown, ADHESIVE TAPE, 10/12/16) Vital Signs Vital Signs Date Time Temp Pulse Resp B/P (MAP) Pulse Ox O2 Delivery O2 Flow Rate FiO2 10/26/16 09:00 Room Air 10/26/16 08:37 86 128/59 10/26/16 06:00 99.6 18 96 Laboratory Data CBC/BMP Laboratory Tests 10/26/16 07:00 Red Blood Count 3.02 L, Mean Corpuscular Volume 98.6 H, Mean Corpuscular Hemoglobin 31.7, Mean Corpuscular Hemoglobin Concent 32.1, Red Cell Distribution Width 14.1, Neutrophils (%) (Auto) 83.3 H, Lymphocytes (%) (Auto) 10.5 L, Monocytes (%) (Auto) 3.5, Eosinophils (%) (Auto) 0.9, Basophils (%) ( Auto) 0.4, Neutrophils # (Auto) 6.0, Lymphocytes # (Auto) 0.8 L, Monocytes # ( Auto) 0.3, Eosinophils # (Auto) 0.1, Basophils # (Auto) 0.0, Calcium Level 8.4 L , Aspartate Amino Transf (AST/SGOT) 165 H, Alanine Aminotransferase (ALT/SGPT) 260 H, Alkaline Phosphatase 158 H, Total Bilirubin 0.4, Total Protein 6.0 L, Albumin 1.9 L Labs 24H Laboratory Tests 2 10/26/16 07:00: White Blood Count 7.2, Red Blood Count 3.02L, Hemoglobin 9.6L, Hematocrit 29.8L , Mean Corpuscular Volume 98.6H, Mean Corpuscular Hemoglobin 31.7, Mean Corpuscular Hemoglobin Concent 32.1, Red Cell Distribution Width 14.1, Platelet Count 446, Neutrophils (%) (Auto) 83.3H, Lymphocytes (%) (Auto) 10.5L, Monocytes (%) (Auto) 3.5, Eosinophils (%) (Auto) 0.9, Basophils (%) (Auto) 0.4, Neutrophils # (Auto) 6.0, Lymphocytes # (Auto) 0.8L, Monocytes # (Auto) 0.3, Eosinophils # (Auto) 0.1, Basophils # (Auto) 0.0, Large Unclassified Cells % 1.3 , Large Unclassified Cells # 0.1, Anion Gap 7L, Glomerular Filtration Rate > 60.0, Blood Urea Nitrogen 29H, Creatinine 0.47L, Sodium Level 139, Potassium Level 4.0, Chloride Level 104, Carbon Dioxide Level 28, Calcium Level 8.4L, Aspartate Amino Transf (AST/SGOT) 165H, Alanine Aminotransferase (ALT/SGPT) 260H , Alkaline Phosphatase 158H, Total Bilirubin 0.4, Total Protein 6.0L, Albumin 1.9L, Magnesium Level 2.1, Albumin/Globulin Ratio 0.46L Microbiology Microbiology 10/18/16 Urine Culture - Final, Complete Current Medications Current Medications Current Medications Acetaminophen (Tylenol Tab) 650 mg Q6HP PRN PO PAIN OR FEVER Last administered on 10/26/16 10:08; Start 10/18/16 at 12:15; Stop 11/17/16 at 12:14 Al Hydrox/Mg Hydrox/Simethicone (Mylanta) 30 ml Q4HP PRN PO DYSPEPSIA; Start at 12:15; Stop 11/17/16 at 12:14 Amlodipine Besylate (Norvasc) 10 mg DAILY PO Last administered on 10/26/16 08: 37; Start 10/19/16 at 09:00; Stop 11/18/16 at 08:59 Azathioprine (Imuran) 50 mg DAILY PO Last administered on 10/26/16 08:37; Start 10/19/16 at 09:00; Stop 11/18/16 at 08:59 Azithromycin 500 mg/IV Miscellaneous Supplies 1 each/ Dextrose 255 ml @ 255 mls /hr Q24H IV Last administered on 10/21/16 21:23; Start 10/19/16 at 22:00; Stop 10/22/16 at 12:59; Status DC Bacitracin (Bacitracin Oint) 1 dose TID TOP Last administered on 10/21/16 08:39 ; Start 10/18/16 at 21:00; Stop 10/21/16 at 09:25; Status DC Benazepril HCl (Lotensin) 20 mg BID PO Last administered on 10/26/16 08:37; Start 10/18/16 at 21:00; Stop 11/17/16 at 20:59 Bethanechol Chloride (Urecholine) 10 mg DAILY PO Last administered on 10/26/16 08:37; Start 10/25/16 at 09:00; Stop 11/24/16 at 08:59 Bisacodyl (Dulcolax Suppository) 10 mg DAILYPRN PRN [place] CONSTIPATION Last administered on 10/24/16 18:37; Start 10/18/16 at 12:15; Stop 11/17/16 at 12:14 Brinzolamide (Azopt) 1 drop BID OU Last administered on 10/26/16 08:38; Start 10/18/16 at 21:00; Stop 11/17/16 at 20:59 Ceftriaxone Sodium 2 gm/ Dextrose 50 ml @ 100 mls/hr Q24H IV Last administered on 10/21/16 21:01; Start 10/19/16 at 21:00; Stop 10/22/16 at 12:59; Status DC Ferrous Sulfate (Ferrous Sulfate) 325 mg BID PO Last administered on 10/26/16 08:37; Start 10/18/16 at 21:00; Stop 11/17/16 at 20:59 Labetalol HCl (Normodyne, Trandate) 100 mg BID PO Last administered on 08:37; Start 10/18/16 at 21:00; Stop 11/17/16 at 20:59 Latanoprost (Xalatan 0.005% Op Soln) 1 drop QHS OU Last administered on 20:50; Start 10/18/16 at 21:00; Stop 11/17/16 at 20:59 Levetiracetam (Keppra Xr) 1,000 mg BID PO Last administered on 10/26/16 08: 40; Start 10/18/16 at 21:00; Stop 11/17/16 at 20:59 Levetiracetam (Keppra) 1,000 mg BID PO ; Start 10/18/16 at 21:00; Stop 10/18/16 at 21:00; Status DC Levothyroxine Sodium (Synthroid) 44 mcg DAILY@06 PO Last administered on 05:48; Start 10/19/16 at 06:00; Stop 11/18/16 at 05:59 Menthol/Methyl Salicylate (Bengay Cream) Bilateral hands/ wrists, ... TID TOP Last administered on 10/26/16 08:38; Start 10/22/16 at 09:00; Stop 10/29/16 at 08 :59 Methylphenidate HCl (Ritalin) 2.5 mg DAILY@0800,1230 PO Last administered on 12:11; Start 10/22/16 at 12:30; Stop 10/25/16 at 14:31; Status DC Methylphenidate HCl (Ritalin) 5 mg BID@0800,1230 PO Last administered on 12:41; Start 10/26/16 at 08:00; Stop 11/02/16 at 07:59 Miscellaneous (Unresolved Patient Own Med Order) SEE LABEL COMMENTS UNRESOLVED XX ; Start 10/18/16 at 00:01; Stop 10/20/16 at 19:45; Status DC Pantoprazole Sodium (Protonix) 40 mg DAILY PO Last administered on 10/26/16 08: 37; Start 10/19/16 at 09:00; Stop 11/18/16 at 08:59 Patient Own Medication (Patient'S Own Med) 1 ea BID OU Last administered on 10/26 08:38; Start 10/20/16 at 21:00; Stop 11/19/16 at 20:59; Status Future hold Polyethylene Glycol (Miralax) 1 pkt DAILY PRN PO CONSTIPATION Last administered on 10/24/16 20:40; Start 10/18/16 at 12:15; Stop 11/17/16 at 12:14 Sodium Biphosphate/ Sodium Phosphate (Fleet Enema) 1 ea DAILYPRN PRN OK CONSTIPATION; Start 10/18/16 at 12:15; Stop 11/17/16 at 12:14 Tamsulosin HCl (Flomax) 0.4 mg DAILY PO Last administered on 10/22/16 08:48; Start 10/19/16 at 09:00; Stop 10/22/16 at 13:52; Status DC Tamsulosin HCl (Flomax) 0.4 mg DAILY PO ; Start 10/23/16 at 09:00; Stop 11/22/16 at 08:59; Status UNV Tamsulosin HCl (Flomax) 0.8 mg QHS PO Last administered on 10/25/16 20:50; Start 10/23/16 at 21:00; Stop 11/18/16 at 08:59 Trazodone HCl (Desyrel) 75 mg QHS PO Last administered on 10/22/16 21:20; Start 10/18/16 at 21:00; Stop 10/23/16 at 11:02; Status DC JOON ROB MD Oct 26, 2016 13:34
[2016-10-26 14:00] VITALS: BP 110/56
[2016-10-26 22:00] VITALS: BP 125/58
[2016-10-26] MEDS: TAMSULOSIN 0.4 MG CAP PO SCH (22:15)
[2016-10-26] MEDS: LATANOPROST 0.005% OPHTH SOLN 2.5 ML OU SCH (22:17)
[2016-10-26] MEDS: MIRALAX *UNIT DOSE* 17GM PACKET PO PRN (22:17)
[2016-10-27] MEDS: ACETAMINOPHEN TAB 650MG DOSE (2X325MG) PO PRN ×3 (02:18→18:14)
[2016-10-27 06:00] VITALS: BP 121/60
[2016-10-27] MEDS: LEVOTHYROXINE 88MCG TABLET (0.088 MG) PO SCH (06:05)
[2016-10-27] MEDS: METHYLPHENIDATE 5 MG TAB PO SCH ×2 (10:16→12:19)
[2016-10-27] MEDS: azaTHIOprine 50 MG TAB (J7500) PO SCH (10:16)
[2016-10-27] MEDS: levETIRAcetam **XR** 500 MG TABLET PO SCH ×2 (10:16→21:24)
[2016-10-27] MEDS: BENAZEPRIL 20 MG TAB PO SCH ×2 (10:16→21:25)
[2016-10-27] MEDS: LABETALOL 100 MG TAB PO SCH ×2 (10:17→21:25)
[2016-10-27] MEDS: amLODIPine 10 MG TAB PO SCH (10:17)
[2016-10-27] MEDS: FERROUS SULFATE 325MG TAB PO SCH ×2 (10:17→21:24)
[2016-10-27] MEDS: PANTOPRAZOLE 40MG TAB (PROTONIX) PO SCH (10:17)
[2016-10-27] MEDS: BETHANECHOL 10 MG TAB PO SCH (10:17)
[2016-10-27] MEDS: BRINZOLAMIDE 1 % OPHTH SUSP (AZOPT) 10ML OU SCH ×2 (10:18→21:25)
[2016-10-27] MEDS: ANALGESIC BALM CRM 120 GM TOP SCH ×3 (10:18→21:25)
[2016-10-27] MEDS: COMBIGAN OPHTH (PATIENT'S OWN MED) OU SCH ×2 (10:18→21:25)
[2016-10-27 14:00] VITALS: BP 84/41
[2016-10-27 15:28] VITALS: BP 110/58
[2016-10-27 20:00] VITALS: BP 132/84
[2016-10-27] MEDS: TAMSULOSIN 0.4 MG CAP PO SCH (21:24)
[2016-10-27] MEDS: LATANOPROST 0.005% OPHTH SOLN 2.5 ML OU SCH (21:25)
[2016-10-28] MEDS: ACETAMINOPHEN TAB 650MG DOSE (2X325MG) PO PRN ×3 (00:25→18:28)
[2016-10-28 06:00] VITALS: BP 123/61
[2016-10-28] MEDS: LEVOTHYROXINE 88MCG TABLET (0.088 MG) PO SCH (06:00)
[2016-10-28] MEDS: FERROUS SULFATE 325MG TAB PO SCH ×2 (08:12→21:05)
[2016-10-28] MEDS: ANALGESIC BALM CRM 120 GM TOP SCH ×3 (08:12→21:07)
[2016-10-28] MEDS: LABETALOL 100 MG TAB PO SCH ×2 (08:12→21:07)
[2016-10-28] MEDS: BENAZEPRIL 20 MG TAB PO SCH ×2 (08:12→21:06)
[2016-10-28] MEDS: levETIRAcetam **XR** 500 MG TABLET PO SCH ×2 (08:13→21:06)
[2016-10-28] MEDS: COMBIGAN OPHTH (PATIENT'S OWN MED) OU SCH ×2 (08:13→21:07)
[2016-10-28] MEDS: METHYLPHENIDATE 5 MG TAB PO SCH ×2 (08:13→12:17)
[2016-10-28] MEDS: PANTOPRAZOLE 40MG TAB (PROTONIX) PO SCH (08:13)
[2016-10-28] MEDS: amLODIPine 10 MG TAB PO SCH (08:13)
[2016-10-28] MEDS: BRINZOLAMIDE 1 % OPHTH SUSP (AZOPT) 10ML OU SCH ×2 (08:13→21:07)
[2016-10-28] MEDS: azaTHIOprine 50 MG TAB (J7500) PO SCH (08:13)
[2016-10-28] MEDS: BETHANECHOL 10 MG TAB PO SCH (08:13)
[2016-10-28 14:00] VITALS: BP 109/55
[2016-10-28 20:16] VITALS: BP 149/67
[2016-10-28] MEDS: TAMSULOSIN 0.4 MG CAP PO SCH (21:06)
[2016-10-28] MEDS: LATANOPROST 0.005% OPHTH SOLN 2.5 ML OU SCH (21:07)
[2016-10-29] MEDS: LEVOTHYROXINE 88MCG TABLET (0.088 MG) PO SCH (05:38)
[2016-10-29 06:00] VITALS: BP 147/69
[2016-10-29] MEDS ORDERED: ANUSOL HC CREAM 30GM TOP PRN (08:45)
[2016-10-29] MEDS: ACETAMINOPHEN TAB 650MG DOSE (2X325MG) PO PRN ×2 (09:16→16:22)
[2016-10-29] MEDS: amLODIPine 10 MG TAB PO SCH (09:17)
[2016-10-29] MEDS: METHYLPHENIDATE 5 MG TAB PO SCH ×2 (09:17→12:36)
[2016-10-29] MEDS: BENAZEPRIL 20 MG TAB PO SCH ×2 (09:17→21:00)
[2016-10-29] MEDS: LABETALOL 100 MG TAB PO SCH ×2 (09:17→21:00)
[2016-10-29] MEDS: azaTHIOprine 50 MG TAB (J7500) PO SCH (09:17)
[2016-10-29] MEDS: FERROUS SULFATE 325MG TAB PO SCH ×2 (09:17→20:58)
[2016-10-29] MEDS: levETIRAcetam **XR** 500 MG TABLET PO SCH ×2 (09:17→21:00)
[2016-10-29] MEDS: COMBIGAN OPHTH (PATIENT'S OWN MED) OU SCH ×2 (09:18→21:02)
[2016-10-29] MEDS: PANTOPRAZOLE 40MG TAB (PROTONIX) PO SCH (09:18)
[2016-10-29] MEDS: BETHANECHOL 10 MG TAB PO SCH (09:18)
[2016-10-29] MEDS: BRINZOLAMIDE 1 % OPHTH SUSP (AZOPT) 10ML OU SCH ×2 (09:19→21:01)
--- NOTE | 2016-10-29 11:21 | IPNPDOC ---
Date Seen The patient was seen on 10/29/16. Progress Note REASON FOR CONSULTATION: Medical Management ATTENDING: Dr. Boateng HPI: 80 y/o F h/o HTN HLD Hypothyroid presented with headache after fall. CT head showed large subdural hematoma with 12mm midline shift S/P evacuation of SDH as per Neurosurgery 10/13/16, transferred to ARU as per Dr Boss 10/18/16. Denies any fevers, chills, weakness, fatigue, Headache, Chest Pain, Shortness of breath, cough, palpitations, abdominal pain, N/V/D or changes in bowel or bladder habits. PE: GEN: 80yoF, appears stated age. Well-nourished, well developed. No acute distress. Alert and oriented x 3. Pleasant, interactive. HEENT: Normocephalic, atraumatic. No nystagmus appreciated. Sclera are nonicteric. Conjunctiva without injection. Nose midline. Nasal turbinates without bogginess. No facial asymmetry. Moist mucous membranes. Dentition fair. Pharynx pink and moist, no cobblestoning. Neck supple, trachea midline. No lymphadenopathy or thyromegaly appreciated. CHEST: Regular rate and rhythm, +S1, +S2 LUNGS: Clear to auscultation bilaterally. No wheezes, rales, or rhonchi. Breathing appears symmetric and easy. Patient is speaking in full sentences. No accessory muscle use. ABD: Round, soft, non-tender, non-distended. +Bowel sounds throughout. No rebound or guarding. No costovertebral angle tenderness. EXT: Pulses 2+ bilaterally dorsalis pedis and radial. No lower extremity edema appreciated. SKIN: [place], dry, warm. Capillary refill <2sec. No rashes. NEURO: Alert and oriented x 3. Pt with residual left sided weakness. A&P: 1. Acute subdural hematoma with brain compression- status post craniotomy and evacuation on the right subdural hematoma by neurosurgery. Is noted to have residual left upper extremity weakness. Management per neurosurgery/ Outpt F/U with Dr Maria. Jah seizure prophylaxis. Restart ASA when cleared as per neurosurgery. Management as per ARU/Dr Boss. PT/OT/ST. Pain control as per ARU. Bowel care as per ARU. DVT prophylaxis as per ARU. 2. HTN - controlled. Norvasc/Lisinopril/Labetalol. 3. Atelectasis - CXR / CT chest - no cough, leukocytosis, fevers. Previously discussed with Dr. Leon - likely pulmonary contusion. Abx d/cd. Cont to monitor. 4. Hypothyroidism- on Synthroid 5. GERD- on PPI 6. History of autoimmune hepatitis- Plan for follow-up outpatient. Pt on Imuran. LFTs noted to be elevated 10/26/16. Will recheck. 7. Macular degeneration- continue home meds 8. History of glaucoma- continue home meds 9. Hyperlipidemia- Plan for discharge on statin. Will recheck LFTs. We will continue to follow along with you. VS, I&O, 24H, Fishbone Vital Signs/I&O Vital Signs Date Time Temp Pulse Resp B/P (MAP) Pulse Ox O2 Delivery O2 Flow Rate FiO2 10/29/16 09:17 73 147/69 10/29/16 09:00 Room Air 10/29/16 06:00 98.2 18 99 I&O- Last 24 Hours up to 6 AM 10/29/16 06:00 Intake Total 615 ml Output Total 1950 ml Balance -1335 ml Laboratory Data CBC/BMP Item Value Date Time White Blood Count 7.2 K/mm3 10/26/16 07 Red Blood Count 3.02 M/mm3 L 10/26/16 07 Hemoglobin 9.6 g/dl L 10/26/16 07 Hematocrit 29.8 % L 10/26/16 07 Mean Corpuscular Volume 98.6 fl H 10/26/16 07 Mean Corpuscular Hemoglobin 31.7 pg 10/26/16699 Mean Corpuscular Hemoglobin Concent 32.1 g/dl 10/26/16699 Red Cell Distribution Width 14.1 % 10/26/16699 Platelet Count 446 k/mm3 10/26/16 07 Sodium Level 139 MEQ/L 10/26/16699 Potassium Level 4.0 MEQ/L 10/26/16 07 Chloride Level 104 MEQ/L 10/26/16699 Carbon Dioxide Level 28 MEQ/L 10/26/16699 Anion Gap 7 MEQ/L L 10/26/16699 Blood Urea Nitrogen 29 MG/DL H 10/26/16 0700 Creatinine 0.47 MG/DL L 10/26/16699 Glomerular Filtration Rate > 60.0 10/26/16699 Fasting Glucose 139 MG/DL H 10/26/16 07 Calcium Level 8.4 MG/DL L 10/26/16699 Magnesium Level 2.1 MG/DL 10/26/16699 Total Bilirubin 0.4 MG/DL 10/26/16699 Aspartate Amino Transf (AST/SGOT) 165 U/L H 10/26/16699 Alanine Aminotransferase (ALT/SGPT) 260 U/L H 10/26/16 07 Alkaline Phosphatase 158 U/L H 10/26/16699 Total Protein 6.0 GM/DL L 10/26/16699 Albumin 1.9 GM/DL L 10/26/16699 Albumin/Globulin Ratio 0.46 L 10/26/16699 Hepatitis A IgM Antibody NEGATIVE 10/25/16754 Hepatitis B Surface Antigen NEGATIVE 10/25/16754 Hepatitis B Core IgM Antibody NEGATIVE 10/25/16754 Hepatitis C Antibody Index < 0.0 INDEX 10/25/16754 Angeles Traylor Oct 29, 2016 11:21
[2016-10-29 14:00] VITALS: BP 111/56
--- NOTE | 2016-10-29 15:29 | IPNPDOC ---
Reliability Manager Progress Note DATE OF SERVICE: 10/29/16 DATE OF ADMISSION: Oct 18, 2016 at 12:40 INPATIENT REHABILITATION ADMISSION DAY: #12 SUBJECTIVE: Patient is a 80-year-old white female with right subdural hematoma status post evacuation. Patient with left hemiparesis and sensory deficits with some very mild right-sided deficits. Patient seen sitting up in chair without leaning and no support, dressed and ambulating with PT in the [place] on a break when I saw her. She has improved alertness from last 7 days. Patient without complaints today except Headaches along posterior incision line in the occipital region on the right. The pain is variable. ALLERGIES: See Below MEDICATIONS: Reviewed, see below. OBJECTIVE: VITAL SIGNS: Please see below. PHYSICAL EXAMINATION: GENERAL: Somewhat overweight elderly white female who is alert and well oriented and in very mild to no acute distress. Bilateral hand with some distal nodules and varus deviation of some PIP joints in Bilateral hands. Left neglect and trouble coordinating BUE without looking at them. HEENT: Very mild left facial droop otherwise and clean right scalp incision in the parietal region about 1 inch lateral to midline. CARDIOVASCULAR: Regular rate and rhythm with normal S1 and S2 without S3, S4, murmurs or rubs. 2/4 bilateral radial pulses. LUNGS: All sheehan clear to auscultation and breathe sounds heard lower on right vs. left chest. ABDOMEN: Benign, mildly obese with normal bowel sounds in all quadrants. NEUROLOGICAL: Patient alert and oriented time four with speech that is clear, coherent and appropriate. Affect is pleasant cooperative & memory is fairly good. Level of alertness and focus has been better today and Saturday than before. SKIN: Scalp incision is clean with no drainage or inflammation with staple removed.. LABORATORY DATA: Reviewed. Please see below. MICROBIOLOGY: Please see below. IMAGING: No New Imaging. DVT prophylaxis ordered?: Patient using AJ hose secondary to intercerebral hemorrhage. ASSESSMENT AND PLAN: 1. 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 Patient was started trial of Ritalin 0.5 mg with breakfast and lunch which seems to be helping. We will continue to watch for any regression signaling renewed bleeding from the SDH or any hydrocephalus. However, patient is still more alert and interactive today but level of effort and progress still low. Anticipated Date of D/C is 11/07 may need adjustment. Patient encouraged to try icing more than tid for the headache pain. 2. Osteoarthritis Diffusely: Will try some Bossman Farmer topically to hand/wrists and ankles. Less hand, wrist and ankle pain. No complaints today of pain in these areas. 3. Renal disease: Last BUN high at 29 with slow trend upward, but lytes are normal including Mg++. I will recheck CMP tomorrow. This should also show how the Autoimmune Hepatitis is doing. The Serology was negative for Hep. A, B and C. 4. Moderate anemia: Last CBC shows stable moderate anemia, I will recheck tomorrow. 5. Bilateral Ateletaxis: Nursing to continue to encourage incentive spirometry and patient being up and active. TIME SPENT: Chart Review, examination and documentation require greater than 25 minutes. Allergies Coded Allergies: Naproxen (Verified Allergy, Unknown, 10/12/16) TAPE (Verified Allergy, Unknown, ADHESIVE TAPE, 10/12/16) Vital Signs Vital Signs Date Time Temp Pulse Resp B/P (MAP) Pulse Ox O2 Delivery O2 Flow Rate FiO2 10/29/16 09:17 73 147/69 10/29/16 09:00 Room Air 10/29/16 06:00 98.2 18 99 Current Medications Current Medications Current Medications Acetaminophen (Tylenol Tab) 650 mg Q6HP PRN PO PAIN OR FEVER Last administered on 10/29/16 09:16; Start 10/18/16 at 12:15; Stop 11/17/16 at 12:14 Al Hydrox/Mg Hydrox/Simethicone (Mylanta) 30 ml Q4HP PRN PO DYSPEPSIA; Start at 12:15; Stop 11/17/16 at 12:14 Amlodipine Besylate (Norvasc) 10 mg DAILY PO Last administered on 10/29/16 09: 17; Start 10/19/16 at 09:00; Stop 11/18/16 at 08:59 Azathioprine (Imuran) 50 mg DAILY PO Last administered on 10/29/16 09:17; Start 10/19/16 at 09:00; Stop 11/18/16 at 08:59 Azithromycin 500 mg/IV Miscellaneous Supplies 1 each/ Dextrose 255 ml @ 255 mls /hr Q24H IV Last administered on 10/21/16 21:23; Start 10/19/16 at 22:00; Stop 10/22/16 at 12:59; Status DC Bacitracin (Bacitracin Oint) 1 dose TID TOP Last administered on 10/21/16 08:39 ; Start 10/18/16 at 21:00; Stop 10/21/16 at 09:25; Status DC Benazepril HCl (Lotensin) 20 mg BID PO Last administered on 10/29/16 09:17; Start 10/18/16 at 21:00; Stop 11/17/16 at 20:59 Bethanechol Chloride (Urecholine) 10 mg DAILY PO Last administered on 09:18; Start 10/25/16 at 09:00; Stop 11/24/16 at 08:59 Bisacodyl (Dulcolax Suppository) 10 mg DAILYPRN PRN OR CONSTIPATION Last administered on 10/24/16 18:37; Start 10/18/16 at 12:15; Stop 11/17/16 at 12:14 Brinzolamide (Azopt) 1 drop BID OU Last administered on 10/29/16 09:19; Start 10/18/16 at 21:00; Stop 11/17/16 at 20:59 Ceftriaxone Sodium 2 gm/ Dextrose 50 ml @ 100 mls/hr Q24H IV Last administered on 10/21/16 21:01; Start 10/19/16 at 21:00; Stop 10/22/16 at 12:59; Status DC Ferrous Sulfate (Ferrous Sulfate) 325 mg BID PO Last administered on 10/29/16 09:17; Start 10/18/16 at 21:00; Stop 11/17/16 at 20:59 Hydrocortisone (Proctosol Hc) APPLY TO HEMORRHOIDS TID PRN TOP HEMORRHOIDS; Start 10/29/16 at 08:45; Stop 11/01/16 at 23:55 Labetalol HCl (Normodyne, Trandate) 100 mg BID PO Last administered on 09:17; Start 10/18/16 at 21:00; Stop 11/17/16 at 20:59 Latanoprost (Xalatan 0.005% Op Soln) 1 drop QHS OU Last administered on 21:07; Start 10/18/16 at 21:00; Stop 11/17/16 at 20:59 Levetiracetam (Keppra Xr) 1,000 mg BID PO Last administered on 10/29/16 09 :17; Start 10/18/16 at 21:00; Stop 11/17/16 at 20:59 Levetiracetam (Keppra) 1,000 mg BID PO ; Start 10/18/16 at 21:00; Stop 10/18/16 at 21:00; Status DC Levothyroxine Sodium (Synthroid) 44 mcg DAILY@06 PO Last administered on 05:38; Start 10/19/16 at 06:00; Stop 11/18/16 at 05:59 Menthol/Methyl Salicylate (Bengay Cream) Bilateral hands/ wrists, ... TID TOP Last administered on 10/28/16 21:07; Start 10/22/16 at 09:00; Stop 10/29/16 at 08 :59; Status DC Methylphenidate HCl (Ritalin) 2.5 mg DAILY@0800,1230 PO Last administered on 12:11; Start 10/22/16 at 12:30; Stop 10/25/16 at 14:31; Status DC Methylphenidate HCl (Ritalin) 5 mg BID@0800,1230 PO Last administered on 12:36; Start 10/26/16 at 08:00; Stop 11/02/16 at 07:59 Miscellaneous (Unresolved Patient Own Med Order) SEE LABEL COMMENTS UNRESOLVED XX ; Start 10/18/16 at 00:01; Stop 10/20/16 at 19:45; Status DC Pantoprazole Sodium (Protonix) 40 mg DAILY PO Last administered on 10/29/16 09 :18; Start 10/19/16 at 09:00; Stop 11/18/16 at 08:59 Patient Own Medication (Patient'S Own Med) 1 ea BID OU Last administered on 09:18; Start 10/20/16 at 21:00; Stop 11/19/16 at 20:59; Status Future hold Polyethylene Glycol (Miralax) 1 pkt DAILY PRN PO CONSTIPATION Last administered on 10/26/16 22:17; Start 10/18/16 at 12:15; Stop 11/17/16 at 12:14 Sodium Biphosphate/ Sodium Phosphate (Fleet Enema) 1 ea DAILYPRN PRN OR CONSTIPATION; Start 10/18/16 at 12:15; Stop 11/17/16 at 12:14 Tamsulosin HCl (Flomax) 0.4 mg DAILY PO Last administered on 10/22/16 08:48; Start 10/19/16 at 09:00; Stop 10/22/16 at 13:52; Status DC Tamsulosin HCl (Flomax) 0.4 mg DAILY PO ; Start 10/23/16 at 09:00; Stop 11/22/16 at 08:59; Status UNV Tamsulosin HCl (Flomax) 0.8 mg QHS PO Last administered on 10/28/16 21:06; Start 10/23/16 at 21:00; Stop 11/18/16 at 08:59 Trazodone HCl (Desyrel) 75 mg QHS PO Last administered on 10/22/16 21:20; Start 10/18/16 at 21:00; Stop 10/23/16 at 11:02; Status DC JOON ROB MD Oct 29, 2016 15:29
[2016-10-29 20:00] VITALS: BP 117/55
[2016-10-29] MEDS: TAMSULOSIN 0.4 MG CAP PO SCH (20:59)
[2016-10-29] MEDS: LATANOPROST 0.005% OPHTH SOLN 2.5 ML OU SCH (21:01)
[2016-10-30] MEDS: ACETAMINOPHEN TAB 650MG DOSE (2X325MG) PO PRN ×3 (05:39→21:26)
[2016-10-30] MEDS: LEVOTHYROXINE 88MCG TABLET (0.088 MG) PO SCH (05:39)
[2016-10-30 06:00] VITALS: BP 133/63
[2016-10-30 06:28] LABS: MEAN CORPUSCULAR HEMOGLOBIN 32.4 pg (27.0-33.0); MEAN CORPUSCULAR HGB CONC 31.9 g/dl (32.0-36.5); MEAN CORPUSCULAR VOLUME 101.3 fl (80.0-96.0); RED CELL DISTRIBUTION WIDTH 14.4 % (11.5-14.5); WHITE BLOOD COUNT 4.8 K/mm3 (4.0-10.0)
[2016-10-30 06:45] LABS: ALBUMIN 2.2 GM/DL (3.2-5.2); ALBUMIN/GLOBULIN RATIO 0.56 (1.00-1.93); ALKALINE PHOSPHATASE 131 U/L (45-117); ALT/SGPT 161 U/L (12-78); ANION GAP 6 MEQ/L (8-16); AST/SGOT 40 U/L (15-37); BILIRUBIN,TOTAL 0.3 MG/DL (0.2-1.0); BLOOD UREA NITROGEN 19 MG/DL (7-18); CALCIUM LEVEL 8.6 MG/DL (8.8-10.2); CARBON DIOXIDE LEVEL 27 MEQ/L (21-32); CHLORIDE LEVEL 106 MEQ/L (98-107); CREATININE FOR GFR 0.57 MG/DL (0.55-1.02); GLOMERULAR FILTRATION RATE > 60.0 (>32); GLUCOSE, FASTING 137 MG/DL (83-110); POTASSIUM SERUM 4.4 MEQ/L (3.5-5.1); SODIUM LEVEL 139 MEQ/L (136-145); TOTAL PROTEIN 6.1 GM/DL (6.4-8.2)
[2016-10-30] MEDS ORDERED: ANALGESIC BALM CRM 120 GM TOP PRN (08:15)
[2016-10-30] MEDS: BENAZEPRIL 20 MG TAB PO SCH ×2 (08:27→21:25)
[2016-10-30] MEDS: LABETALOL 100 MG TAB PO SCH ×2 (08:28→21:26)
[2016-10-30] MEDS: FERROUS SULFATE 325MG TAB PO SCH ×2 (08:28→21:24)
[2016-10-30] MEDS: METHYLPHENIDATE 5 MG TAB PO SCH ×2 (08:28→12:54)
[2016-10-30] MEDS: amLODIPine 10 MG TAB PO SCH (08:28)
[2016-10-30] MEDS: levETIRAcetam **XR** 500 MG TABLET PO SCH ×2 (08:28→21:25)
[2016-10-30] MEDS: azaTHIOprine 50 MG TAB (J7500) PO SCH (08:28)
[2016-10-30] MEDS: BETHANECHOL 10 MG TAB PO SCH (08:28)
[2016-10-30] MEDS: PANTOPRAZOLE 40MG TAB (PROTONIX) PO SCH (08:28)
[2016-10-30] MEDS: COMBIGAN OPHTH (PATIENT'S OWN MED) OU SCH ×2 (08:29→21:26)
[2016-10-30] MEDS: BRINZOLAMIDE 1 % OPHTH SUSP (AZOPT) 10ML OU SCH ×2 (08:29→21:26)
[2016-10-30 08:34] VITALS: BP 128/60
--- NOTE | 2016-10-30 11:33 | IPNPDOC ---
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 Patient with left hemiparesis and sensory deficits with some very mild right-sided deficits. Patient seen sitting up in chair without leaning and no support, dressed and ambulating with PT in the [place] on a break when I saw her. She has improved alertness from last 8 days. Patient complains feet swelling and mild pain of multiple areas. ALLERGIES: See Below MEDICATIONS: Reviewed, see below. OBJECTIVE: VITAL SIGNS: Please see below. PHYSICAL EXAMINATION: GENERAL: Somewhat overweight elderly white female who is alert and well oriented and in very mild to no acute distress. Bilateral hand with some distal nodules and varus deviation of some PIP joints in Bilateral hands. Left neglect and trouble coordinating BUE without looking at them. HEENT: Very mild left facial droop otherwise and clean right scalp incision in the parietal region about 1 inch lateral to midline. CARDIOVASCULAR: Regular rate and rhythm with normal S1 and S2 without S3, S4, murmurs or rubs. 2/4 bilateral radial pulses. LUNGS: All sheehan clear to auscultation and breathe sounds heard lower on right and left chest today. ABDOMEN: Benign, mildly obese with normal bowel sounds in all quadrants. NEUROLOGICAL: Patient alert and oriented time four with speech that is clear, coherent and appropriate. Affect is pleasant cooperative & memory is fairly good. Level of alertness and focus has been better today and Saturday than before. SKIN: Scalp incision is clean with no drainage or inflammation with staple removed.. LABORATORY DATA: Reviewed. Please see below. MICROBIOLOGY: Please see below. IMAGING: CXR today. DVT prophylaxis ordered?: Patient using AJ hose secondary to intercerebral hemorrhage. ASSESSMENT AND PLAN: 1. Rehabilitation of right subdural hematoma with 12 mm midline shift: Patient tolerating 3 hrs of therapy per day and is participating well in PT/OT/[employer]. Patient was started trial of Ritalin 0.5 mg with breakfast and lunch which is helping. We will continue to watch for any regression signaling renewed bleeding from the SDH or any hydrocephalus. However, patient is still more alert and interactive today but level of effort and progress still low. Patient encouraged to try icing more than tid for the headache pain. Rehabilitation Team Rounds: Patient doing better in therapies now walking 25 to 30 feet in repeated sessions and Min. Assist to Contact Guard Assist on several transfers. Anticipated Date of Discharge to Home is still November 07. 2. Osteoarthritis Diffusely: Will try some [employer] topically to hand/wrists and ankles. Less hand, wrist and ankle pain. Patient encouraged to use it, including for swollen feet. 3. Renal disease: BUN improved by 10 points to 19 today with lytes are normal. 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 Phos down to 138. 4. Moderate anemia: Today's CBC shows stable moderate anemia with H&H of 9.6 & 30.0%. 5. Bilateral Ateletaxis: Nursing to continue to encourage incentive spirometry and patient being up and active. Improved left base with breathe sounds heard lower onto chest wall. CXR today. TIME SPENT: Chart Review, examination and documentation require greater than 35 minutes. Allergies Coded Allergies: Naproxen (Verified Allergy, Unknown, 10/12/16) TAPE (Verified Allergy, Unknown, ADHESIVE TAPE, 10/12/16) Vital Signs Vital Signs Date Time Temp Pulse Resp B/P (MAP) Pulse Ox O2 Delivery O2 Flow Rate FiO2 10/30/16 08:37 Room Air 10/30/16 08:34 75 128/60 (82) 10/30/16 06:00 98.6 18 98 Laboratory Data CBC/BMP Laboratory Tests 10/30/16 06:08 Red Blood Count 2.96 L, Mean Corpuscular Volume 101.3 H, Mean Corpuscular Hemoglobin 32.4, Mean Corpuscular Hemoglobin Concent 31.9 L, Red Cell Distribution Width 14.4, Calcium Level 8.6 L, Aspartate Amino Transf (AST/SGOT) 40 H, Alanine Aminotransferase (ALT/SGPT) 161 H, Alkaline Phosphatase 131 H, Total Bilirubin 0.3, Total Protein 6.1 L, Albumin 2.2 L Labs 24H Laboratory Tests 2 10/30/16 06:08: Anion Gap 6L, Glomerular Filtration Rate > 60.0, Blood Urea Nitrogen 19H, Creatinine 0.57, Sodium Level 139, Potassium Level 4.4, Chloride Level 106, Carbon Dioxide Level 27, Calcium Level 8.6L, Aspartate Amino Transf (AST/SGOT) 40H, Alanine Aminotransferase (ALT/SGPT) 161H, Alkaline Phosphatase 131H, Total Bilirubin 0.3, Total Protein 6.1L, Albumin 2.2L, Albumin/Globulin Ratio 0.56L Current Medications Current Medications Current Medications Acetaminophen (Tylenol Tab) 650 mg Q6HP PRN PO PAIN OR FEVER Last administered on 10/30/16 05:39; Start 10/18/16 at 12:15; Stop 11/17/16 at 12:14 Al Hydrox/Mg Hydrox/Simethicone (Mylanta) 30 ml Q4HP PRN PO DYSPEPSIA; Start at 12:15; Stop 11/17/16 at 12:14 Amlodipine Besylate (Norvasc) 10 mg DAILY PO Last administered on 10/30/16 08: 28; Start 10/19/16 at 09:00; Stop 11/18/16 at 08:59 Azathioprine (Imuran) 50 mg DAILY PO Last administered on 10/30/16 08:28; Start 10/19/16 at 09:00; Stop 11/18/16 at 08:59 Azithromycin 500 mg/IV Miscellaneous Supplies 1 each/ Dextrose 255 ml @ 255 mls /hr Q24H IV Last administered on 10/21/16 21:23; Start 10/19/16 at 22:00; Stop 10/22/16 at 12:59; Status DC Bacitracin (Bacitracin Oint) 1 dose TID TOP Last administered on 10/21/16 08:39 ; Start 10/18/16 at 21:00; Stop 10/21/16 at 09:25; Status DC Benazepril HCl (Lotensin) 20 mg BID PO Last administered on 10/30/16 08:27; Start 10/18/16 at 21:00; Stop 11/17/16 at 20:59 Bethanechol Chloride (Urecholine) 10 mg DAILY PO Last administered on 08:28; Start 10/25/16 at 09:00; Stop 11/24/16 at 08:59 Bisacodyl (Dulcolax Suppository) 10 mg DAILYPRN PRN [place] CONSTIPATION Last administered on 10/24/16 18:37; Start 10/18/16 at 12:15; Stop 11/17/16 at 12:14 Brinzolamide (Azopt) 1 drop BID OU Last administered on 10/30/16 08:29; Start 10/18/16 at 21:00; Stop 11/17/16 at 20:59 Ceftriaxone Sodium 2 gm/ Dextrose 50 ml @ 100 mls/hr Q24H IV Last administered on 10/21/16 21:01; Start 10/19/16 at 21:00; Stop 10/22/16 at 12:59; Status DC Ferrous Sulfate (Ferrous Sulfate) 325 mg BID PO Last administered on 10/30/16 08:28; Start 10/18/16 at 21:00; Stop 11/17/16 at 20:59 Hydrocortisone (Proctosol Hc) APPLY TO HEMORRHOIDS TID PRN TOP HEMORRHOIDS; Start 10/29/16 at 08:45; Stop 11/01/16 at 23:55 Labetalol HCl (Normodyne, Trandate) 100 mg BID PO Last administered on 08:28; Start 10/18/16 at 21:00; Stop 11/17/16 at 20:59 Latanoprost (Xalatan 0.005% Op Soln) 1 drop QHS OU Last administered on 21:01; Start 10/18/16 at 21:00; Stop 11/17/16 at 20:59 Levetiracetam (Keppra Xr) 1,000 mg BID PO Last administered on 10/30/16 08 :28; Start 10/18/16 at 21:00; Stop 11/17/16 at 20:59 Levetiracetam (Keppra) 1,000 mg BID PO ; Start 10/18/16 at 21:00; Stop 10/18/16 at 21:00; Status DC Levothyroxine Sodium (Synthroid) 44 mcg DAILY@06 PO Last administered on 05:39; Start 10/19/16 at 06:00; Stop 11/18/16 at 05:59 Menthol/Methyl Salicylate (Bengay Cream) Bilateral hands/ wrists, ... TID TOP Last administered on 10/28/16 21:07; Start 10/22/16 at 09:00; Stop 10/29/16 at 08 :59; Status DC Menthol/Methyl Salicylate (Bengay Cream) To hands/ wrists, Ankles/fe... TIDP PRN TOP PAIN; Start 10/30/16 at 08:15; Stop 11/29/16 at 08:14 Methylphenidate HCl (Ritalin) 2.5 mg DAILY@0800,1230 PO Last administered on 12:11; Start 10/22/16 at 12:30; Stop 10/25/16 at 14:31; Status DC Methylphenidate HCl (Ritalin) 5 mg BID@0800,1230 PO Last administered on 08:28; Start 10/26/16 at 08:00; Stop 11/02/16 at 07:59 Miscellaneous (Unresolved Patient Own Med Order) SEE LABEL COMMENTS UNRESOLVED XX ; Start 10/18/16 at 00:01; Stop 10/20/16 at 19:45; Status DC Pantoprazole Sodium (Protonix) 40 mg DAILY PO Last administered on 10/30/16 08 :28; Start 10/19/16 at 09:00; Stop 11/18/16 at 08:59 Patient Own Medication (Patient'S Own Med) 1 ea BID OU Last administered on 08:29; Start 10/20/16 at 21:00; Stop 11/19/16 at 20:59; Status Future hold Polyethylene Glycol (Miralax) 1 pkt DAILY PRN PO CONSTIPATION Last administered on 10/26/16 22:17; Start 10/18/16 at 12:15; Stop 11/17/16 at 12:14 Sodium Biphosphate/ Sodium Phosphate (Fleet Enema) 1 ea DAILYPRN PRN [place] CONSTIPATION; Start 10/18/16 at 12:15; Stop 11/17/16 at 12:14 Tamsulosin HCl (Flomax) 0.4 mg DAILY PO Last administered on 10/22/16 08:48; Start 10/19/16 at 09:00; Stop 10/22/16 at 13:52; Status DC Tamsulosin HCl (Flomax) 0.4 mg DAILY PO ; Start 10/23/16 at 09:00; Stop 11/22/16 at 08:59; Status UNV Tamsulosin HCl (Flomax) 0.8 mg QHS PO Last administered on 10/29/16 20:59; Start 10/23/16 at 21:00; Stop 11/18/16 at 08:59 Trazodone HCl (Desyrel) 75 mg QHS PO Last administered on 10/22/16 21:20; Start 10/18/16 at 21:00; Stop 10/23/16 at 11:02; Status DC JOON ROB MD Oct 30, 2016 11:33
[2016-10-30 14:00] VITALS: BP 120/58
[2016-10-30 20:00] VITALS: BP 124/61
[2016-10-30] MEDS: TAMSULOSIN 0.4 MG CAP PO SCH (21:25)
[2016-10-30] MEDS: LATANOPROST 0.005% OPHTH SOLN 2.5 ML OU SCH (21:27)
[2016-10-31] MEDS: LEVOTHYROXINE 88MCG TABLET (0.088 MG) PO SCH (05:52)
[2016-10-31 06:00] VITALS: BP 150/69
[2016-10-31 07:35] LABS: ALBUMIN 2.3 GM/DL (3.2-5.2); ALBUMIN/GLOBULIN RATIO 0.61 (1.00-1.93); ALKALINE PHOSPHATASE 130 U/L (45-117); ALT/SGPT 127 U/L (12-78); ANION GAP 7 MEQ/L (8-16); AST/SGOT 24 U/L (15-37); BILIRUBIN,TOTAL 0.2 MG/DL (0.2-1.0); BLOOD UREA NITROGEN 29 MG/DL (7-18); CARBON DIOXIDE LEVEL 25 MEQ/L (21-32); CHLORIDE LEVEL 105 MEQ/L (98-107); CREATININE FOR GFR 0.53 MG/DL (0.55-1.02); GLOMERULAR FILTRATION RATE > 60.0 (>32); GLUCOSE, FASTING 133 MG/DL (83-110); POTASSIUM SERUM 4.4 MEQ/L (3.5-5.1); SODIUM LEVEL 137 MEQ/L (136-145); TOTAL PROTEIN 6.1 GM/DL (6.4-8.2)
[2016-10-31] MEDS: METHYLPHENIDATE 5 MG TAB PO SCH ×2 (08:46→12:13)
[2016-10-31] MEDS: LABETALOL 100 MG TAB PO SCH ×2 (08:46→20:07)
[2016-10-31] MEDS: BETHANECHOL 10 MG TAB PO SCH (08:46)
[2016-10-31] MEDS: PANTOPRAZOLE 40MG TAB (PROTONIX) PO SCH (08:46)
[2016-10-31] MEDS: BRINZOLAMIDE 1 % OPHTH SUSP (AZOPT) 10ML OU SCH ×2 (08:46→20:08)
[2016-10-31] MEDS: FERROUS SULFATE 325MG TAB PO SCH ×2 (08:46→20:07)
[2016-10-31] MEDS: azaTHIOprine 50 MG TAB (J7500) PO SCH (08:46)
[2016-10-31] MEDS: BENAZEPRIL 20 MG TAB PO SCH ×2 (08:46→20:08)
[2016-10-31] MEDS: amLODIPine 10 MG TAB PO SCH (08:46)
[2016-10-31] MEDS: levETIRAcetam **XR** 500 MG TABLET PO SCH ×2 (08:46→20:07)
[2016-10-31] MEDS: COMBIGAN OPHTH (PATIENT'S OWN MED) OU SCH ×2 (08:47→20:08)
[2016-10-31] MEDS: ACETAMINOPHEN TAB 650MG DOSE (2X325MG) PO PRN (09:13)
--- NOTE | 2016-10-31 10:38 | IPNPDOC ---
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 Patient with left hemiparesis and sensory deficits with some very mild right-sided deficits. Patient seen sitting up in chair without leaning and no support, dressed and ambulating with PT in the [place] on a break when I saw her. She has improved alertness from last 9 days. Patient notes the occipital headache under incision line. She has not been asking for ice to treat. ALLERGIES: See Below MEDICATIONS: Reviewed, see below. OBJECTIVE: VITAL SIGNS: Please see below. PHYSICAL EXAMINATION: GENERAL: Somewhat overweight elderly white female who is alert and well oriented and in very mild to no acute distress. Bilateral hand with some distal nodules and varus deviation of some PIP joints in Bilateral hands. Left neglect and trouble coordinating BUE without looking at them is lessening. HEENT: Very mild left facial droop otherwise and clean right scalp incision in the parietal-occipital region about 1 inch lateral to midline in parietal area. CARDIOVASCULAR: Regular rate and rhythm with normal S1 and S2. 2/4 bilateral radial pulses. LUNGS: All sheehan clear to auscultation and breathe sounds heard lower on right and left chest today. ABDOMEN: Benign, mildly obese with normal bowel sounds in all quadrants. NEUROLOGICAL: Patient alert and oriented time four with speech that is clear, coherent and appropriate. Affect is pleasant cooperative & memory is fairly good. SKIN: Scalp incision is clean with no drainage or inflammation with staple removed. It continues to heal. LABORATORY DATA: Reviewed. Please see below. MICROBIOLOGY: Please see below. IMAGING: no new imaging. DVT prophylaxis ordered?: Patient using AJ hose secondary to intercerebral hemorrhage. ASSESSMENT AND PLAN: 1. Rehabilitation of right subdural hematoma with 12 mm midline shift: Patient tolerating 3 hrs of therapy per day and is participating well in PT/OT/[employer]PER[employer]. Patient continues trial of Ritalin 0.5 mg with breakfast and lunch which is helping. We will continue to watch for any regression signaling renewed bleeding from the SDH or any hydrocephalus. However, patient is still more alert and interactive today but level of effort and progress still low. Patient encouraged to try icing more than tid for the headache pain. Also to increase fluid intake with BUN elevation. 2. 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 Less hand, wrist and ankle pain. Patient encouraged to use it, including for swollen feet. 3. Renal disease: BUN back to 29 today with Na+ down to 131. 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 Phos down to 130. 4. Moderate anemia: Today's CBC shows stable moderate anemia with H&H of 9.6 & 30.0%. 5. Bilateral Atelectasis: Nursing to continue to encourage incentive spirometry and patient being up and active. TIME SPENT: Chart Review, examination and documentation require greater than 25 minutes. Allergies Coded Allergies: Naproxen (Verified Allergy, Unknown, 10/12/16) TAPE (Verified Allergy, Unknown, ADHESIVE TAPE, 10/12/16) Vital Signs Vital Signs Date Time Temp Pulse Resp B/P (MAP) Pulse Ox O2 Delivery O2 Flow Rate FiO2 10/31/16 08:46 85 150/69 10/31/16 06:00 97.9 18 99 Room Air Laboratory Data CBC/BMP Laboratory Tests 10/31/16 06:42 Calcium Level 9.0, Aspartate Amino Transf (AST/SGOT) 24, Alanine Aminotransferase (ALT/SGPT) 127 H, Alkaline Phosphatase 130 H, Total Bilirubin 0.2, Total Protein 6.1 L, Albumin 2.3 L Labs 24H Laboratory Tests 2 10/31/16 06:42: Anion Gap 7L, Glomerular Filtration Rate > 60.0, Blood Urea Nitrogen 29#H, Creatinine 0.53L, Sodium Level 137, Potassium Level 4.4, Chloride Level 105, Carbon Dioxide Level 25, Calcium Level 9.0, Aspartate Amino Transf (AST/SGOT) 24 , Alanine Aminotransferase (ALT/SGPT) 127H, Alkaline Phosphatase 130H, Total Bilirubin 0.2, Total Protein 6.1L, Albumin 2.3L, Albumin/Globulin Ratio 0.61L Current Medications Current Medications Current Medications Acetaminophen (Tylenol Tab) 650 mg Q6HP PRN PO PAIN OR FEVER Last administered on 10/31/16t 09:13; Start 10/18/16 at 12:15; Stop 11/17/16 at 12:14 Al Hydrox/Mg Hydrox/Simethicone (Mylanta) 30 ml Q4HP PRN PO DYSPEPSIA; Start at 12:15; Stop 11/17/16 at 12:14 Amlodipine Besylate (Norvasc) 10 mg DAILY PO Last administered on 10/31/16 08: 46; Start 10/19/16 at 09:00; Stop 11/18/16 at 08:59 Azathioprine (Imuran) 50 mg DAILY PO Last administered on 10/31/16 08:46; Start 10/19/16 at 09:00; Stop 11/18/16 at 08:59 Azithromycin 500 mg/IV Miscellaneous Supplies 1 each/ Dextrose 255 ml @ 255 mls /hr Q24H IV Last administered on 10/21/16 21:23; Start 10/19/16 at 22:00; Stop 10/22/16 at 12:59; Status DC Bacitracin (Bacitracin Oint) 1 dose TID TOP Last administered on 10/21/16 08:39 ; Start 10/18/16 at 21:00; Stop 10/21/16 at 09:25; Status DC Benazepril HCl (Lotensin) 20 mg BID PO Last administered on 10/31/16 08:46; Start 10/18/16 at 21:00; Stop 11/17/16 at 20:59 Bethanechol Chloride (Urecholine) 10 mg DAILY PO Last administered on 08:46; Start 10/25/16 at 09:00; Stop 11/24/16 at 08:59 Bisacodyl (Dulcolax Suppository) 10 mg DAILYPRN PRN [place] CONSTIPATION Last administered on 10/24/16 18:37; Start 10/18/16 at 12:15; Stop 11/17/16 at 12:14 Brinzolamide (Azopt) 1 drop BID OU Last administered on 10/31/16 08:46; Start 10/18/16 at 21:00; Stop 11/17/16 at 20:59 Ceftriaxone Sodium 2 gm/ Dextrose 50 ml @ 100 mls/hr Q24H IV Last administered on 10/21/16 21:01; Start 10/19/16 at 21:00; Stop 10/22/16 at 12:59; Status DC Ferrous Sulfate (Ferrous Sulfate) 325 mg BID PO Last administered on 10/31/16 08:46; Start 10/18/16 at 21:00; Stop 11/17/16 at 20:59 Hydrocortisone (Proctosol Hc) APPLY TO HEMORRHOIDS TID PRN TOP HEMORRHOIDS; Start 10/29/16 at 08:45; Stop 11/01/16 at 23:55 Labetalol HCl (Normodyne, Trandate) 100 mg BID PO Last administered on 08:46; Start 10/18/16 at 21:00; Stop 11/17/16 at 20:59 Latanoprost (Xalatan 0.005% Op Soln) 1 drop QHS OU Last administered on 21:27; Start 10/18/16 at 21:00; Stop 11/17/16 at 20:59 Levetiracetam (Keppra Xr) 1,000 mg BID PO Last administered on 10/31/16 08 :46; Start 10/18/16 at 21:00; Stop 11/17/16 at 20:59 Levetiracetam (Keppra) 1,000 mg BID PO ; Start 10/18/16 at 21:00; Stop 10/18/16 at 21:00; Status DC Levothyroxine Sodium (Synthroid) 44 mcg DAILY@06 PO Last administered on 05:52; Start 10/19/16 at 06:00; Stop 11/18/16 at 05:59 Menthol/Methyl Salicylate (Bengay Cream) Bilateral hands/ wrists, ... TID TOP Last administered on 10/28/16 21:07; Start 10/22/16 at 09:00; Stop 10/29/16 at 08 :59; Status DC Menthol/Methyl Salicylate (Bengay Cream) To hands/ wrists, Ankles/fe... TIDP PRN TOP PAIN; Start 10/30/16 at 08:15; Stop 11/29/16 at 08:14 Methylphenidate HCl (Ritalin) 2.5 mg DAILY@0800,1230 PO Last administered on 12:11; Start 10/22/16 at 12:30; Stop 10/25/16 at 14:31; Status DC Methylphenidate HCl (Ritalin) 5 mg BID@0800,1230 PO Last administered on 08:46; Start 10/26/16 at 08:00; Stop 11/02/16 at 07:59 Miscellaneous (Unresolved Patient Own Med Order) SEE LABEL COMMENTS UNRESOLVED XX ; Start 10/18/16 at 00:01; Stop 10/20/16 at 19:45; Status DC Pantoprazole Sodium (Protonix) 40 mg DAILY PO Last administered on 10/31/16 08 :46; Start 10/19/16 at 09:00; Stop 11/18/16 at 08:59 Patient Own Medication (Patient'S Own Med) 1 ea BID OU Last administered on 08:47; Start 10/20/16 at 21:00; Stop 11/19/16 at 20:59; Status Future hold Polyethylene Glycol (Miralax) 1 pkt DAILY PRN PO CONSTIPATION Last administered on 10/26/16 22:17; Start 10/18/16 at 12:15; Stop 11/17/16 at 12:14 Sodium Biphosphate/ Sodium Phosphate (Fleet Enema) 1 ea DAILYPRN PRN [place] CONSTIPATION; Start 10/18/16 at 12:15; Stop 11/17/16 at 12:14 Tamsulosin HCl (Flomax) 0.4 mg DAILY PO Last administered on 10/22/16 08:48; Start 10/19/16 at 09:00; Stop 10/22/16 at 13:52; Status DC Tamsulosin HCl (Flomax) 0.4 mg DAILY PO ; Start 10/23/16 at 09:00; Stop 11/22/16 at 08:59; Status UNV Tamsulosin HCl (Flomax) 0.8 mg QHS PO Last administered on 10/30/16 21:25; Start 10/23/16 at 21:00; Stop 11/18/16 at 08:59 Trazodone HCl (Desyrel) 75 mg QHS PO Last administered on 10/22/16 21:20; Start 10/18/16 at 21:00; Stop 10/23/16 at 11:02; Status DC JOON ROB MD Oct 31, 2016 10:38
[2016-10-31 14:00] VITALS: BP 114/57
[2016-10-31 20:00] VITALS: BP 133/60
[2016-10-31] MEDS: TAMSULOSIN 0.4 MG CAP PO SCH (20:07)
[2016-10-31] MEDS: LATANOPROST 0.005% OPHTH SOLN 2.5 ML OU SCH (20:08)
[2016-11-01 06:00] VITALS: BP 145/66
[2016-11-01] MEDS: LEVOTHYROXINE 88MCG TABLET (0.088 MG) PO SCH (06:09)
[2016-11-01] MEDS: ACETAMINOPHEN TAB 650MG DOSE (2X325MG) PO PRN ×2 (06:15→23:54)
[2016-11-01] MEDS: MIRALAX *UNIT DOSE* 17GM PACKET PO PRN (08:41)
[2016-11-01] MEDS: BETHANECHOL 10 MG TAB PO SCH (08:41)
[2016-11-01] MEDS: LABETALOL 100 MG TAB PO SCH ×2 (08:41→21:28)
[2016-11-01] MEDS: BENAZEPRIL 20 MG TAB PO SCH ×2 (08:41→21:27)
[2016-11-01] MEDS: azaTHIOprine 50 MG TAB (J7500) PO SCH (08:41)
[2016-11-01] MEDS: PANTOPRAZOLE 40MG TAB (PROTONIX) PO SCH (08:42)
[2016-11-01] MEDS: COMBIGAN OPHTH (PATIENT'S OWN MED) OU SCH ×2 (08:42→21:25)
[2016-11-01] MEDS: levETIRAcetam **XR** 500 MG TABLET PO SCH ×2 (08:42→21:24)
[2016-11-01] MEDS: METHYLPHENIDATE 5 MG TAB PO SCH ×2 (08:42→12:40)
[2016-11-01] MEDS: amLODIPine 10 MG TAB PO SCH (08:42)
[2016-11-01] MEDS: FERROUS SULFATE 325MG TAB PO SCH ×2 (08:42→21:24)
[2016-11-01] MEDS: BRINZOLAMIDE 1 % OPHTH SUSP (AZOPT) 10ML OU SCH ×2 (08:43→21:25)
--- NOTE | 2016-11-01 11:44 | IPNPDOC ---
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 Patient with left hemiparesis and sensory deficits with some very mild right-sided deficits. Patient seen sitting up in chair without leaning and no support in regular dress of slacks, blouse and sweater. She has improved alertness from last 10 days. Patient notes the occipital headache under incision line improved with icing . ALLERGIES: See Below MEDICATIONS: Reviewed, see below. OBJECTIVE: VITAL SIGNS: Please see below. PHYSICAL EXAMINATION: GENERAL: Somewhat overweight elderly white female who is alert and well oriented and in very mild to no acute distress. Bilateral hand with some distal nodules and varus deviation of some PIP joints in Bilateral hands. Left neglect and trouble coordinating BUE without looking at them is lessening. HEENT: Very mild left facial droop otherwise and clean right scalp incision in the parietal-occipital region about 1 inch lateral to midline in parietal area. CARDIOVASCULAR: Regular rate and rhythm with normal S1 and S2. 2/4 bilateral radial pulses. LUNGS: All sheehan clear to auscultation. ABDOMEN: Benign, mildly obese with normal bowel sounds in all quadrants. NEUROLOGICAL: Patient alert and oriented time four with speech that is clear, coherent and appropriate. Affect is pleasant cooperative & memory is fairly good. More spontaneous and more energetic. SKIN: Scalp incision is clean with no drainage or inflammation with staple removed. It continues to heal. LABORATORY DATA: Reviewed. Please see below. MICROBIOLOGY: Please see below. IMAGING: no new imaging. DVT prophylaxis ordered?: Patient using AJ hose secondary to intercerebral hemorrhage. ASSESSMENT AND PLAN: 1. Rehabilitation of right subdural hematoma with 12 mm midline shift: Patient tolerating 3 hrs of therapy per day and is participating well in PT/OT/MED SPECIALIST. Patient continues trial of Ritalin 0.5 mg with breakfast and lunch which is helping. We will continue to watch for any regression signaling renewed bleeding from the SDH or any hydrocephalus. However, patient is still more alert and interactive today but level of effort and progress still low. Patient was encouraged to try icing more than tid for the headache pain and found it to be very helpful. Continuing to encourage patient to increase fluid intake due to BUN elevation. Rehab. Team Rounds: Patient progressing faster in the last week after being clearer cognitively. However, still with mobility of 50 feet using a FWW with Min. Assist and doing 4 steps of 4 inch height with Min. Assist and requiring various levels of assistance in ADL's as noted in FIM scoring. The Team sees her progressing to home, but will likely need more than original expectation of the . We will re-evaluate that on Saturday. 2. 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 Less hand, wrist and ankle pain. Patient encouraged to use it, including for swollen feet. This has been helping 3. Renal disease: BUN back to 29 yesterday with Na+ down to 131. 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 Phos down to 130. 4. Moderate anemia: Yesterday's CBC shows stable moderate anemia with H&H of 9.6 & 30.0%. 5. Bilateral Atelectasis: Nursing to continue to encourage incentive spirometry and patient being up and active. Patient is more compliant with this. TIME SPENT: Chart Review, examination and documentation require greater than 25 minutes. Allergies Coded Allergies: Naproxen (Verified Allergy, Unknown, 10/12/16) TAPE (Verified Allergy, Unknown, ADHESIVE TAPE, 10/12/16) Vital Signs Vital Signs Date Time Temp Pulse Resp B/P (MAP) Pulse Ox O2 Delivery O2 Flow Rate FiO2 11/01/16 09:00 Room Air 11/01/16 08:42 81 145/66 11/01/16 06:00 98.6 18 99 Current Medications Current Medications Current Medications Acetaminophen (Tylenol Tab) 650 mg Q6HP PRN PO PAIN OR FEVER Last administered on 11/01/16 06:15; Start 10/18/16 at 12:15; Stop 11/17/16 at 12:14 Al Hydrox/Mg Hydrox/Simethicone (Mylanta) 30 ml Q4HP PRN PO DYSPEPSIA; Start at 12:15; Stop 11/17/16 at 12:14 Amlodipine Besylate (Norvasc) 10 mg DAILY PO Last administered on 11/01/16 08: 42; Start 10/19/16 at 09:00; Stop 11/18/16 at 08:59 Azathioprine (Imuran) 50 mg DAILY PO Last administered on 11/01/16 08:41; Start 10/19/16 at 09:00; Stop 11/18/16 at 08:59 Azithromycin 500 mg/IV Miscellaneous Supplies 1 each/ Dextrose 255 ml @ 255 mls /hr Q24H IV Last administered on 10/21/16 21:23; Start 10/19/16 at 22:00; Stop 10/22/16 at 12:59; Status DC Bacitracin (Bacitracin Oint) 1 dose TID TOP Last administered on 10/21/16 08:39 ; Start 10/18/16 at 21:00; Stop 10/21/16 at 09:25; Status DC Benazepril HCl (Lotensin) 20 mg BID PO Last administered on 11/01/16 08:41; Start 10/18/16 at 21:00; Stop 11/17/16 at 20:59 Bethanechol Chloride (Urecholine) 10 mg DAILY PO Last administered on 08:41; Start 10/25/16 at 09:00; Stop 11/24/16 at 08:59 Bisacodyl (Dulcolax Suppository) 10 mg DAILYPRN PRN [place] CONSTIPATION Last administered on 10/24/16 18:37; Start 10/18/16 at 12:15; Stop 11/17/16 at 12:14 Brinzolamide (Azopt) 1 drop BID OU Last administered on 11/01/16 08:43; Start 10/18/16 at 21:00; Stop 11/17/16 at 20:59 Ceftriaxone Sodium 2 gm/ Dextrose 50 ml @ 100 mls/hr Q24H IV Last administered on 10/21/16 21:01; Start 10/19/16 at 21:00; Stop 10/22/16 at 12:59; Status DC Ferrous Sulfate (Ferrous Sulfate) 325 mg BID PO Last administered on 11/01/16 08:42; Start 10/18/16 at 21:00; Stop 11/17/16 at 20:59 Hydrocortisone (Proctosol Hc) APPLY TO HEMORRHOIDS TID PRN TOP HEMORRHOIDS; Start 10/29/16 at 08:45; Stop 11/08/16 at 23:55 Labetalol HCl (Normodyne, Trandate) 100 mg BID PO Last administered on 08:41; Start 10/18/16 at 21:00; Stop 11/17/16 at 20:59 Latanoprost (Xalatan 0.005% Op Soln) 1 drop QHS OU Last administered on 20:08; Start 10/18/16 at 21:00; Stop 11/17/16 at 20:59 Levetiracetam (Keppra Xr) 1,000 mg BID PO Last administered on 11/01/16 08 :42; Start 10/18/16 at 21:00; Stop 11/17/16 at 20:59 Levetiracetam (Keppra) 1,000 mg BID PO ; Start 10/18/16 at 21:00; Stop 10/18/16 at 21:00; Status DC Levothyroxine Sodium (Synthroid) 44 mcg DAILY@06 PO Last administered on 06:09; Start 10/19/16 at 06:00; Stop 11/18/16 at 05:59 Menthol/Methyl Salicylate (Bengay Cream) Bilateral hands/ wrists, ... TID TOP Last administered on 10/28/16 21:07; Start 10/22/16 at 09:00; Stop 10/29/16 at 08 :59; Status DC Menthol/Methyl Salicylate (Bengay Cream) To hands/ wrists, Ankles/fe... TIDP PRN TOP PAIN Last administered on 11/01/16 08:42; Start 10/30/16 at 08:15; Stop 11/29/16 at 08:14 Methylphenidate HCl (Ritalin) 2.5 mg DAILY@0800,1230 PO Last administered on 12:11; Start 10/22/16 at 12:30; Stop 10/25/16 at 14:31; Status DC Methylphenidate HCl (Ritalin) 5 mg BID@0800,1230 PO Last administered on 08:42; Start 10/26/16 at 08:00; Stop 11/08/16 at 23:55 Miscellaneous (Unresolved Patient Own Med Order) SEE LABEL COMMENTS UNRESOLVED XX ; Start 10/18/16 at 00:01; Stop 10/20/16 at 19:45; Status DC Pantoprazole Sodium (Protonix) 40 mg DAILY PO Last administered on 11/01/16 08 :42; Start 10/19/16 at 09:00; Stop 11/18/16 at 08:59 Patient Own Medication (Patient'S Own Med) 1 ea BID OU Last administered on 08:42; Start 10/20/16 at 21:00; Stop 11/19/16 at 20:59; Status Future hold Polyethylene Glycol (Miralax) 1 pkt DAILY PRN PO CONSTIPATION Last administered on 11/01/16 08:41; Start 10/18/16 at 12:15; Stop 11/17/16 at 12:14 Sodium Biphosphate/ Sodium Phosphate (Fleet Enema) 1 ea DAILYPRN PRN [place] CONSTIPATION; Start 10/18/16 at 12:15; Stop 11/17/16 at 12:14 Tamsulosin HCl (Flomax) 0.4 mg DAILY PO Last administered on 10/22/16 08:48; Start 10/19/16 at 09:00; Stop 10/22/16 at 13:52; Status DC Tamsulosin HCl (Flomax) 0.4 mg DAILY PO ; Start 10/23/16 at 09:00; Stop 11/22/16 at 08:59; Status UNV Tamsulosin HCl (Flomax) 0.8 mg QHS PO Last administered on 10/31/16 20:07; Start 10/23/16 at 21:00; Stop 11/18/16 at 08:59 Trazodone HCl (Desyrel) 75 mg QHS PO Last administered on 10/22/16 21:20; Start 10/18/16 at 21:00; Stop 10/23/16 at 11:02; Status DC JOON ROB MD Nov 01, 2016 11:44
[2016-11-01 14:00] VITALS: BP 117/58
[2016-11-01 20:45] VITALS: BP 128/59
[2016-11-01] MEDS: TAMSULOSIN 0.4 MG CAP PO SCH (21:24)
[2016-11-01] MEDS: LATANOPROST 0.005% OPHTH SOLN 2.5 ML OU SCH (21:25)
[2016-11-02 06:00] VITALS: BP 129/63
[2016-11-02] MEDS: LEVOTHYROXINE 88MCG TABLET (0.088 MG) PO SCH (06:04)
[2016-11-02] MEDS: ACETAMINOPHEN TAB 650MG DOSE (2X325MG) PO PRN (06:04)
[2016-11-02] MEDS: BRINZOLAMIDE 1 % OPHTH SUSP (AZOPT) 10ML OU SCH ×2 (08:46→20:05)
[2016-11-02] MEDS: COMBIGAN OPHTH (PATIENT'S OWN MED) OU SCH ×2 (08:46→20:05)
[2016-11-02] MEDS: PANTOPRAZOLE 40MG TAB (PROTONIX) PO SCH (08:46)
[2016-11-02] MEDS: amLODIPine 10 MG TAB PO SCH (08:46)
[2016-11-02] MEDS: azaTHIOprine 50 MG TAB (J7500) PO SCH (08:46)
[2016-11-02] MEDS: FERROUS SULFATE 325MG TAB PO SCH ×2 (08:46→20:04)
[2016-11-02] MEDS: METHYLPHENIDATE 5 MG TAB PO SCH ×2 (08:47→11:36)
[2016-11-02] MEDS: BENAZEPRIL 20 MG TAB PO SCH ×2 (08:47→20:04)
[2016-11-02] MEDS: BETHANECHOL 10 MG TAB PO SCH (08:47)
[2016-11-02] MEDS: levETIRAcetam **XR** 500 MG TABLET PO SCH ×2 (08:47→20:04)
[2016-11-02] MEDS: LABETALOL 100 MG TAB PO SCH ×2 (08:47→20:05)
--- NOTE | 2016-11-02 11:20 | IPNPDOC ---
Aircraft Communicator Progress Note DATE OF SERVICE: 11/02/16 DATE OF ADMISSION: Oct 18, 2016 at 12:40 INPATIENT REHABILITATION ADMISSION DAY: #16 SUBJECTIVE: Patient is a 80-year-old white female with right subdural hematoma status post evacuation. Patient with left hemiparesis and sensory deficits with some very mild right-sided deficits. Patient seen sitting up in chair without leaning and no support in regular dress of slacks, blouse and sweater. She has improved alertness from last 11 days. No complaints today. ALLERGIES: See Below MEDICATIONS: Reviewed, see below. OBJECTIVE: VITAL SIGNS: Please see below. PHYSICAL EXAMINATION: GENERAL: Somewhat overweight elderly white female who is alert and well oriented and in very mild to no acute distress. Bilateral hand with some distal nodules and varus deviation of some PIP joints in Bilateral hands. Left neglect and trouble coordinating BUE without looking at them is lessening. HEENT: Very mild left facial droop otherwise and clean right scalp incision in the parietal-occipital region about 1 inch lateral to midline in parietal area. CARDIOVASCULAR: Regular rate and rhythm with normal S1 and S2. 2/4 bilateral radial pulses. LUNGS: All sheehan clear to auscultation. ABDOMEN: Benign, mildly obese with normal bowel sounds in all quadrants. NEUROLOGICAL: Patient alert and oriented time four with speech that is clear, coherent and appropriate. Affect is pleasant cooperative & memory is fairly good. More spontaneous and more energetic. SKIN: Scalp incision is clean with no drainage or inflammation with staple removed. It continues to heal. LABORATORY DATA: Reviewed. Please see below. MICROBIOLOGY: Please see below. IMAGING: no new imaging. DVT prophylaxis ordered?: Patient using AJ hose secondary to intercerebral hemorrhage. ASSESSMENT AND PLAN: 1. 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 Patient continues trial of Ritalin 0.5 mg with breakfast and lunch which is helping. We will continue to watch for any regression signaling renewed bleeding from the SDH or any hydrocephalus. However, patient is still more alert and interactive today but level of effort and progress still low. Patient was encouraged to try icing more than tid for the headache pain and found it to be very helpful. Continuing to encourage patient to increase fluid intake due to BUN elevation. Patient progressing faster in the last week after being clearer cognitively. However, still with mobility of 120 feet today using a FWW with Min. Assist. This is good pattern of gains from 60' earlier this week and 70 & 74' yesterday. 2. 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 Less hand, wrist and ankle pain. Patient encouraged to use it, including for swollen feet. This has been helping. 3. Renal disease: BUN back to 29 with Na+ down to 131. 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 Phos down to 130. We will recheck on Saturday. 4. Moderate anemia:We will continue to watch. 5. Bilateral Atelectasis: Nursing to continue to encourage incentive spirometry and patient being up and active. Patient is more compliant with this. TIME SPENT: Chart Review, examination and documentation require greater than 25 minutes. Allergies Coded Allergies: Naproxen (Verified Allergy, Unknown, 10/12/16) TAPE (Verified Allergy, Unknown, ADHESIVE TAPE, 10/12/16) Vital Signs Vital Signs Date Time Temp Pulse Resp B/P (MAP) Pulse Ox O2 Delivery O2 Flow Rate FiO2 11/02/16 08:47 71 129/63 11/02/16 08:00 Room Air 11/02/16 06:00 98.0 18 97 Current Medications Current Medications Current Medications Acetaminophen (Tylenol Tab) 650 mg Q6HP PRN PO PAIN OR FEVER Last administered on 11/02/16 06:04; Start 10/18/16 at 12:15; Stop 11/17/16 at 12:14 Al Hydrox/Mg Hydrox/Simethicone (Mylanta) 30 ml Q4HP PRN PO DYSPEPSIA; Start at 12:15; Stop 11/17/16 at 12:14 Amlodipine Besylate (Norvasc) 10 mg DAILY PO Last administered on 11/02/16 08: 46; Start 10/19/16 at 09:00; Stop 11/18/16 at 08:59 Azathioprine (Imuran) 50 mg DAILY PO Last administered on 11/02/16 08:46; Start 10/19/16 at 09:00; Stop 11/18/16 at 08:59 Azithromycin 500 mg/IV Miscellaneous Supplies 1 each/ Dextrose 255 ml @ 255 mls /hr Q24H IV Last administered on 10/21/16 21:23; Start 10/19/16 at 22:00; Stop 10/22/16 at 12:59; Status DC Bacitracin (Bacitracin Oint) 1 dose TID TOP Last administered on 10/21/16 08:39 ; Start 10/18/16 at 21:00; Stop 10/21/16 at 09:25; Status DC Benazepril HCl (Lotensin) 20 mg BID PO Last administered on 11/02/16 08:47; Start 10/18/16 at 21:00; Stop 11/17/16 at 20:59 Bethanechol Chloride (Urecholine) 10 mg DAILY PO Last administered on 08:47; Start 10/25/16 at 09:00; Stop 11/24/16 at 08:59 Bisacodyl (Dulcolax Suppository) 10 mg DAILYPRN PRN [place] CONSTIPATION Last administered on 10/24/16 18:37; Start 10/18/16 at 12:15; Stop 11/17/16 at 12:14 Brinzolamide (Azopt) 1 drop BID OU Last administered on 11/02/16 08:46; Start 10/18/16 at 21:00; Stop 11/17/16 at 20:59 Ceftriaxone Sodium 2 gm/ Dextrose 50 ml @ 100 mls/hr Q24H IV Last administered on 10/21/16 21:01; Start 10/19/16 at 21:00; Stop 10/22/16 at 12:59; Status DC Ferrous Sulfate (Ferrous Sulfate) 325 mg BID PO Last administered on 11/02/16 08:46; Start 10/18/16 at 21:00; Stop 11/17/16 at 20:59 Hydrocortisone (Proctosol Hc) APPLY TO HEMORRHOIDS TID PRN TOP HEMORRHOIDS; Start 10/29/16 at 08:45; Stop 11/08/16 at 23:55 Labetalol HCl (Normodyne, Trandate) 100 mg BID PO Last administered on 08:47; Start 10/18/16 at 21:00; Stop 11/17/16 at 20:59 Latanoprost (Xalatan 0.005% Op Soln) 1 drop QHS OU Last administered on 21:25; Start 10/18/16 at 21:00; Stop 11/17/16 at 20:59 Levetiracetam (Keppra Xr) 1,000 mg BID PO Last administered on 11/02/16 08 :47; Start 10/18/16 at 21:00; Stop 11/17/16 at 20:59 Levetiracetam (Keppra) 1,000 mg BID PO ; Start 10/18/16 at 21:00; Stop 10/18/16 at 21:00; Status DC Levothyroxine Sodium (Synthroid) 44 mcg DAILY@06 PO Last administered on 06:04; Start 10/19/16 at 06:00; Stop 11/18/16 at 05:59 Menthol/Methyl Salicylate (Bengay Cream) Bilateral hands/ wrists, ... TID TOP Last administered on 10/28/16 21:07; Start 10/22/16 at 09:00; Stop 10/29/16 at 08 :59; Status DC Menthol/Methyl Salicylate (Bengay Cream) To hands/ wrists, Ankles/fe... TIDP PRN TOP PAIN Last administered on 11/01/16 08:42; Start 10/30/16 at 08:15; Stop 11/29/16 at 08:14 Methylphenidate HCl (Ritalin) 2.5 mg DAILY@0800,1230 PO Last administered on 12:11; Start 10/22/16 at 12:30; Stop 10/25/16 at 14:31; Status DC Methylphenidate HCl (Ritalin) 5 mg BID@0800,1230 PO Last administered on 08:47; Start 10/26/16 at 08:00; Stop 11/08/16 at 23:55 Miscellaneous (Unresolved Patient Own Med Order) SEE LABEL COMMENTS UNRESOLVED XX ; Start 10/18/16 at 00:01; Stop 10/20/16 at 19:45; Status DC Pantoprazole Sodium (Protonix) 40 mg DAILY PO Last administered on 11/02/16 08 :46; Start 10/19/16 at 09:00; Stop 11/18/16 at 08:59 Patient Own Medication (Patient'S Own Med) 1 ea BID OU Last administered on 08:46; Start 10/20/16 at 21:00; Stop 11/19/16 at 20:59; Status Future hold Polyethylene Glycol (Miralax) 1 pkt DAILY PRN PO CONSTIPATION Last administered on 11/01/16 08:41; Start 10/18/16 at 12:15; Stop 11/17/16 at 12:14 Sodium Biphosphate/ Sodium Phosphate (Fleet Enema) 1 ea DAILYPRN PRN [place] CONSTIPATION; Start 10/18/16 at 12:15; Stop 11/17/16 at 12:14 Tamsulosin HCl (Flomax) 0.4 mg DAILY PO Last administered on 10/22/16 08:48; Start 10/19/16 at 09:00; Stop 10/22/16 at 13:52; Status DC Tamsulosin HCl (Flomax) 0.4 mg DAILY PO ; Start 10/23/16 at 09:00; Stop 11/22/16 at 08:59; Status UNV Tamsulosin HCl (Flomax) 0.8 mg QHS PO Last administered on 11/01/16 21:24; Start 10/23/16 at 21:00; Stop 11/18/16 at 08:59 Trazodone HCl (Desyrel) 75 mg QHS PO Last administered on 10/22/16 21:20; Start 10/18/16 at 21:00; Stop 10/23/16 at 11:02; Status DC JOON ROB MD Nov 02, 2016 11:20
[2016-11-02 14:00] VITALS: BP 109/53
[2016-11-02 20:02] VITALS: BP 128/60
[2016-11-02] MEDS: TAMSULOSIN 0.4 MG CAP PO SCH (20:04)
[2016-11-02] MEDS: LATANOPROST 0.005% OPHTH SOLN 2.5 ML OU SCH (20:05)
[2016-11-03] MEDS: ACETAMINOPHEN TAB 650MG DOSE (2X325MG) PO PRN ×4 (02:25→21:29)
[2016-11-03 06:00] VITALS: BP 135/65
[2016-11-03] MEDS: LEVOTHYROXINE 88MCG TABLET (0.088 MG) PO SCH (06:17)
[2016-11-03] MEDS: FERROUS SULFATE 325MG TAB PO SCH ×2 (08:39→21:31)
[2016-11-03] MEDS: BENAZEPRIL 20 MG TAB PO SCH ×2 (08:40→21:30)
[2016-11-03] MEDS: LABETALOL 100 MG TAB PO SCH ×2 (08:40→21:31)
[2016-11-03] MEDS: PANTOPRAZOLE 40MG TAB (PROTONIX) PO SCH (08:40)
[2016-11-03] MEDS: METHYLPHENIDATE 5 MG TAB PO SCH ×2 (08:40→12:10)
[2016-11-03] MEDS: amLODIPine 10 MG TAB PO SCH (08:40)
[2016-11-03] MEDS: BETHANECHOL 10 MG TAB PO SCH (08:40)
[2016-11-03] MEDS: BRINZOLAMIDE 1 % OPHTH SUSP (AZOPT) 10ML OU SCH ×2 (08:41→21:28)
[2016-11-03] MEDS: COMBIGAN OPHTH (PATIENT'S OWN MED) OU SCH ×2 (08:41→21:28)
[2016-11-03] MEDS: azaTHIOprine 50 MG TAB (J7500) PO SCH (08:41)
[2016-11-03] MEDS: levETIRAcetam **XR** 500 MG TABLET PO SCH ×2 (08:41→21:29)
[2016-11-03 14:00] VITALS: BP 102/55
[2016-11-03 20:00] VITALS: BP 128/62
[2016-11-03] MEDS: MIRALAX *UNIT DOSE* 17GM PACKET PO PRN (21:29)
[2016-11-03] MEDS: LATANOPROST 0.005% OPHTH SOLN 2.5 ML OU SCH (21:29)
[2016-11-03] MEDS: TAMSULOSIN 0.4 MG CAP PO SCH (21:30)
[2016-11-04] MEDS: LEVOTHYROXINE 88MCG TABLET (0.088 MG) PO SCH (05:53)
[2016-11-04 06:00] VITALS: BP 137/62
[2016-11-04] MEDS: ACETAMINOPHEN TAB 650MG DOSE (2X325MG) PO PRN ×2 (06:30→20:04)
[2016-11-04] MEDS: METHYLPHENIDATE 5 MG TAB PO SCH ×2 (08:16→11:56)
[2016-11-04] MEDS: BENAZEPRIL 20 MG TAB PO SCH ×2 (08:16→20:03)
[2016-11-04] MEDS: MIRALAX *UNIT DOSE* 17GM PACKET PO PRN (08:16)
[2016-11-04] MEDS: levETIRAcetam **XR** 500 MG TABLET PO SCH ×2 (08:16→20:02)
[2016-11-04] MEDS: FERROUS SULFATE 325MG TAB PO SCH ×2 (08:16→20:02)
[2016-11-04] MEDS: PANTOPRAZOLE 40MG TAB (PROTONIX) PO SCH (08:16)
[2016-11-04] MEDS: COMBIGAN OPHTH (PATIENT'S OWN MED) OU SCH ×2 (08:16→20:03)
[2016-11-04] MEDS: BRINZOLAMIDE 1 % OPHTH SUSP (AZOPT) 10ML OU SCH ×2 (08:16→20:03)
[2016-11-04] MEDS: amLODIPine 10 MG TAB PO SCH (08:17)
[2016-11-04] MEDS: BETHANECHOL 10 MG TAB PO SCH (08:17)
[2016-11-04] MEDS: azaTHIOprine 50 MG TAB (J7500) PO SCH (08:17)
[2016-11-04] MEDS: LABETALOL 100 MG TAB PO SCH ×2 (08:17→20:03)
[2016-11-04 14:00] VITALS: BP 113/53
[2016-11-04 20:00] VITALS: BP 125/59
[2016-11-04] MEDS: TAMSULOSIN 0.4 MG CAP PO SCH (20:02)
[2016-11-04] MEDS: LATANOPROST 0.005% OPHTH SOLN 2.5 ML OU SCH (20:03)
[2016-11-05 06:00] VITALS: BP 121/59
[2016-11-05] MEDS: LEVOTHYROXINE 88MCG TABLET (0.088 MG) PO SCH (06:29)
[2016-11-05] MEDS: LABETALOL 100 MG TAB PO SCH ×2 (08:37→21:43)
[2016-11-05] MEDS: azaTHIOprine 50 MG TAB (J7500) PO SCH (08:38)
[2016-11-05] MEDS: amLODIPine 10 MG TAB PO SCH (08:38)
[2016-11-05] MEDS: ACETAMINOPHEN TAB 650MG DOSE (2X325MG) PO PRN ×2 (08:38→21:36)
[2016-11-05] MEDS: BETHANECHOL 10 MG TAB PO SCH (08:38)
[2016-11-05] MEDS: levETIRAcetam **XR** 500 MG TABLET PO SCH ×2 (08:38→21:36)
[2016-11-05] MEDS: PANTOPRAZOLE 40MG TAB (PROTONIX) PO SCH (08:38)
[2016-11-05] MEDS: BENAZEPRIL 20 MG TAB PO SCH ×2 (08:38→21:43)
[2016-11-05] MEDS: METHYLPHENIDATE 5 MG TAB PO SCH ×2 (08:38→12:11)
[2016-11-05] MEDS: FERROUS SULFATE 325MG TAB PO SCH ×2 (08:38→21:35)
[2016-11-05] MEDS: COMBIGAN OPHTH (PATIENT'S OWN MED) OU SCH ×2 (08:39→21:37)
[2016-11-05] MEDS: BRINZOLAMIDE 1 % OPHTH SUSP (AZOPT) 10ML OU SCH ×2 (08:39→21:37)
--- NOTE | 2016-11-05 11:44 | IPNPDOC ---
Cardiovascular Technician Progress Note DATE OF SERVICE: 11/05/16 DATE OF ADMISSION: Oct 18, 2016 at 12:40 INPATIENT REHABILITATION ADMISSION DAY: #19 SUBJECTIVE: Patient is a 80-year-old white female with right subdural hematoma status post evacuation. Patient with left hemiparesis and sensory deficits with some very mild right-sided deficits. Patient seen laying in bed after self transfer from standing with FWW in regular dress of slacks, blouse and sweater. She has improved alertness for last 2 weeks. No complaints today. ALLERGIES: See Below MEDICATIONS: Reviewed, see below. OBJECTIVE: VITAL SIGNS: Please see below. PHYSICAL EXAMINATION: GENERAL: Somewhat overweight elderly white female who is alert and well oriented and in very mild to no acute distress. Bilateral hand with some distal nodules and varus deviation of some PIP joints in Bilateral hands. Left neglect and trouble coordinating BUE without looking at them is lessening. HEENT: Very mild left facial droop otherwise and clean right scalp incision in the parietal-occipital region about 1 inch lateral to midline in parietal area. CARDIOVASCULAR: Regular rate and rhythm with normal S1 and S2. 2/4 bilateral radial pulses. LUNGS: All sheehan clear to auscultation. ABDOMEN: Benign, mildly obese with normal bowel sounds in all quadrants. NEUROLOGICAL: Patient alert and oriented time four with speech that is clear, coherent and appropriate. Affect is pleasant cooperative & memory is fairly good. More spontaneous and more energetic. SKIN: Scalp incision is clean with no drainage or inflammation with staple removed. It continues to heal. LABORATORY DATA: Reviewed. Please see below. MICROBIOLOGY: Please see below. IMAGING: no new imaging. DVT prophylaxis ordered?: Patient using AJ hose secondary to intercerebral hemorrhage. ASSESSMENT AND PLAN: 1. 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 Patient continues trial of Ritalin 0.5 mg with breakfast and lunch which is helping. We will continue to watch for any regression signaling renewed bleeding from the SDH or any hydrocephalus. However, patient is still more alert and interactive today but level of effort and progress still low. Patient was encouraged to try icing more than tid for the headache pain and found it to be very helpful. Continuing to encourage patient to increase fluid intake due to BUN elevation. Patient progressing faster in the last week after being clearer cognitively. Patient with mobility > 120 feet today using a FWW with Min. Assist. Modified [place] to CGA stand to bed transfer. Rehab. Team Rounds: Patient having some problems in frontal lobe function with mental flexibility and problem solving limiting some aspects of learning. However, with family training she should be able to go home with her on November 08. She will need bed rails and constant supervision. 2. 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 Less hand, wrist and ankle pain. Patient encouraged to use it, including for swollen feet. This has been helping. 3. Renal disease: BUN back to 29 with Na+ 137 on 10/31. 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 Phos down to 130. Recheck CMP tomorrow. 4. Moderate anemia:We will continue to watch. 5. Bilateral Atelectasis: Nursing to continue to encourage incentive spirometry and patient being up and active. Patient is more compliant with this so no fevers. TIME SPENT: Chart Review, examination and documentation require greater than 35 minutes. Allergies Coded Allergies: Naproxen (Verified Allergy, Unknown, 10/12/16) TAPE (Verified Allergy, Unknown, ADHESIVE TAPE, 10/12/16) Vital Signs Vital Signs Date Time Temp Pulse Resp B/P (MAP) Pulse Ox O2 Delivery O2 Flow Rate FiO2 11/05/16 08:38 121/59 11/05/16 08:38 74 11/05/16 08:00 Room Air 11/05/16 06:00 98.2 18 99 Current Medications Current Medications Current Medications Acetaminophen (Tylenol Tab) 650 mg Q6HP PRN PO PAIN OR FEVER Last administered on 11/05/16 08:38; Start 10/18/16 at 12:15; Stop 11/17/16 at 12:14 Al Hydrox/Mg Hydrox/Simethicone (Mylanta) 30 ml Q4HP PRN PO DYSPEPSIA; Start at 12:15; Stop 11/17/16 at 12:14 Amlodipine Besylate (Norvasc) 10 mg DAILY PO Last administered on 11/05/16 08: 38; Start 10/19/16 at 09:00; Stop 11/18/16 at 08:59 Azathioprine (Imuran) 50 mg DAILY PO Last administered on 11/05/16 08:38; Start 10/19/16 at 09:00; Stop 11/18/16 at 08:59 Azithromycin 500 mg/IV Miscellaneous Supplies 1 each/ Dextrose 255 ml @ 255 mls /hr Q24H IV Last administered on 10/21/16 21:23; Start 10/19/16 at 22:00; Stop 10/22/16 at 12:59; Status DC Bacitracin (Bacitracin Oint) 1 dose TID TOP Last administered on 10/21/16 08:39 ; Start 10/18/16 at 21:00; Stop 10/21/16 at 09:25; Status DC Benazepril HCl (Lotensin) 20 mg BID PO Last administered on 11/05/16 08:38; Start 10/18/16 at 21:00; Stop 11/17/16 at 20:59 Bethanechol Chloride (Urecholine) 10 mg DAILY PO Last administered on 08:38; Start 10/25/16 at 09:00; Stop 11/24/16 at 08:59 Bisacodyl (Dulcolax Suppository) 10 mg DAILYPRN PRN [place] CONSTIPATION Last administered on 10/24/16 18:37; Start 10/18/16 at 12:15; Stop 11/17/16 at 12:14 Brinzolamide (Azopt) 1 drop BID OU Last administered on 11/05/16 08:39; Start 10/18/16 at 21:00; Stop 11/17/16 at 20:59 Ceftriaxone Sodium 2 gm/ Dextrose 50 ml @ 100 mls/hr Q24H IV Last administered on 10/21/16 21:01; Start 10/19/16 at 21:00; Stop 10/22/16 at 12:59; Status DC Ferrous Sulfate (Ferrous Sulfate) 325 mg BID PO Last administered on 11/05/16 08:38; Start 10/18/16 at 21:00; Stop 11/17/16 at 20:59 Hydrocortisone (Proctosol Hc) APPLY TO HEMORRHOIDS TID PRN TOP HEMORRHOIDS; Start 10/29/16 at 08:45; Stop 11/08/16 at 23:55 Labetalol HCl (Normodyne, Trandate) 100 mg BID PO Last administered on 08:37; Start 10/18/16 at 21:00; Stop 11/17/16 at 20:59 Latanoprost (Xalatan 0.005% Op Soln) 1 drop QHS OU Last administered on 20:03; Start 10/18/16 at 21:00; Stop 11/17/16 at 20:59 Levetiracetam (Keppra Xr) 1,000 mg BID PO Last administered on 11/05/16 08 :38; Start 10/18/16 at 21:00; Stop 11/17/16 at 20:59 Levetiracetam (Keppra) 1,000 mg BID PO ; Start 10/18/16 at 21:00; Stop 10/18/16 at 21:00; Status DC Levothyroxine Sodium (Synthroid) 44 mcg DAILY@06 PO Last administered on 06:29; Start 10/19/16 at 06:00; Stop 11/18/16 at 05:59 Menthol/Methyl Salicylate (Bengay Cream) Bilateral hands/ wrists, ... TID TOP Last administered on 10/28/16 21:07; Start 10/22/16 at 09:00; Stop 10/29/16 at 08 :59; Status DC Menthol/Methyl Salicylate (Bengay Cream) To hands/ wrists, Ankles/fe... TIDP PRN TOP PAIN Last administered on 11/01/16 08:42; Start 10/30/16 at 08:15; Stop 11/29/16 at 08:14 Methylphenidate HCl (Ritalin) 2.5 mg DAILY@0800,1230 PO Last administered on 12:11; Start 10/22/16 at 12:30; Stop 10/25/16 at 14:31; Status DC Methylphenidate HCl (Ritalin) 5 mg BID@0800,1230 PO Last administered on 08:38; Start 10/26/16 at 08:00; Stop 11/08/16 at 23:55 Miscellaneous (Unresolved Patient Own Med Order) SEE LABEL COMMENTS UNRESOLVED XX ; Start 10/18/16 at 00:01; Stop 10/20/16 at 19:45; Status DC Pantoprazole Sodium (Protonix) 40 mg DAILY PO Last administered on 11/05/16 08 :38; Start 10/19/16 at 09:00; Stop 11/18/16 at 08:59 Patient Own Medication (Patient'S Own Med) 1 ea BID OU Last administered on 08:39; Start 10/20/16 at 21:00; Stop 11/19/16 at 20:59; Status Future hold Polyethylene Glycol (Miralax) 1 pkt DAILY PRN PO CONSTIPATION Last administered on 11/04/16 08:16; Start 10/18/16 at 12:15; Stop 11/17/16 at 12:14 Sodium Biphosphate/ Sodium Phosphate (Fleet Enema) 1 ea DAILYPRN PRN [place] CONSTIPATION; Start 10/18/16 at 12:15; Stop 11/17/16 at 12:14 Tamsulosin HCl (Flomax) 0.4 mg DAILY PO Last administered on 10/22/16 08:48; Start 10/19/16 at 09:00; Stop 10/22/16 at 13:52; Status DC Tamsulosin HCl (Flomax) 0.4 mg DAILY PO ; Start 10/23/16 at 09:00; Stop 11/22/16 at 08:59; Status UNV Tamsulosin HCl (Flomax) 0.8 mg QHS PO Last administered on 11/04/16 20:02; Start 10/23/16 at 21:00; Stop 11/18/16 at 08:59 Trazodone HCl (Desyrel) 75 mg QHS PO Last administered on 10/22/16 21:20; Start 10/18/16 at 21:00; Stop 10/23/16 at 11:02; Status DC JOON ROB MD Nov 05, 2016 11:43
--- NOTE | 2016-11-05 12:15 | IPNPDOC ---
Date Seen The patient was seen on 11/05/16. Progress Note HPI: 80 y/o F h/o HTN HLD Hypothyroid presented with headache after fall. CT head showed large subdural hematoma with 12mm midline shift S/P evacuation of SDH as per Neurosurgery 10/13/16, transferred to ARU as per Dr Boss 10/18/16. Pt with no new issues today. Denies any fevers, chills, weakness, fatigue, Headache, Chest Pain, Shortness of breath, cough, palpitations, abdominal pain, N/V/D or changes in bowel or bladder habits. PE: GEN: 80yoF, appears stated age. Well-nourished, well developed. No acute distress. Alert and oriented x 3. Pleasant, interactive. HEENT: Normocephalic, atraumatic. No nystagmus appreciated. Sclera are nonicteric. Conjunctiva without injection. Nose midline. Nasal turbinates without bogginess. No facial asymmetry. Moist mucous membranes. Dentition fair. Pharynx pink and moist, no cobblestoning. Neck supple, trachea midline. No lymphadenopathy or thyromegaly appreciated. CHEST: Regular rate and rhythm, +S1, +S2 LUNGS: Clear to auscultation bilaterally. No wheezes, rales, or rhonchi. Breathing appears symmetric and easy. Patient is speaking in full sentences. No accessory muscle use. ABD: Round, soft, non-tender, non-distended. +Bowel sounds throughout. No rebound or guarding. No costovertebral angle tenderness. EXT: Pulses 2+ bilaterally dorsalis pedis and radial. No lower extremity edema appreciated. SKIN: [place], dry, warm. Capillary refill <2sec. No rashes. NEURO: Alert and oriented x 3. Pt with residual left sided weakness. A&P: 1. Acute subdural hematoma with brain compression- status post craniotomy and evacuation on the right subdural hematoma by neurosurgery. Is noted to have residual left upper extremity weakness. Management per neurosurgery/ Outpt F/U with Dr Maria. Keppra seizure prophylaxis. Restart ASA when cleared as per neurosurgery. Management as per ARU/Dr Boss. PT/OT/ST. Pain control as per ARU. Bowel care as per ARU. DVT prophylaxis as per ARU. 2. HTN - controlled. Norvasc/Lisinopril/Labetalol. 3. Atelectasis - CXR / CT chest - no cough, leukocytosis, fevers. Previously discussed with Dr. Leon - likely pulmonary contusion. Abx d/cd. Cont to monitor. 4. Hypothyroidism- on Synthroid 5. GERD- on PPI 6. History of autoimmune hepatitis- Plan for follow-up outpatient. Pt on Imuran. Monitor LFTs, CMP in AM. 7. Macular degeneration- continue home meds 8. History of glaucoma- continue home meds 9. Hyperlipidemia- Plan for discharge on statin. Will recheck LFTs. VS, I&O, 24H, Fishbone Vital Signs/I&O Vital Signs Date Time Temp Pulse Resp B/P (MAP) Pulse Ox O2 Delivery O2 Flow Rate FiO2 11/05/16 08:38 121/59 11/05/16 08:38 74 11/05/16 08:00 Room Air 11/05/16 06:00 98.2 18 99 I&O- Last 24 Hours up to 6 AM 11/05/16 06:00 Intake Total 1080 ml Output Total 2975 ml Balance -1895 ml Angeles Traylor Nov 05, 2016 12:15
[2016-11-05 14:00] VITALS: BP 121/56
[2016-11-05 21:30] VITALS: BP 112/50
[2016-11-05] MEDS: TAMSULOSIN 0.4 MG CAP PO SCH (21:36)
[2016-11-05] MEDS: LATANOPROST 0.005% OPHTH SOLN 2.5 ML OU SCH (21:37)
[2016-11-06] MEDS: LEVOTHYROXINE 88MCG TABLET (0.088 MG) PO SCH (05:43)
[2016-11-06 06:00] VITALS: BP 115/58
[2016-11-06 07:00] LABS: ALBUMIN 2.6 GM/DL (3.2-5.2); ALBUMIN/GLOBULIN RATIO 0.74 (1.00-1.93); ALKALINE PHOSPHATASE 107 U/L (45-117); ALT/SGPT 44 U/L (12-78); ANION GAP 6 MEQ/L (8-16); AST/SGOT 15 U/L (15-37); BILIRUBIN,TOTAL 0.3 MG/DL (0.2-1.0); BLOOD UREA NITROGEN 24 MG/DL (7-18); CALCIUM LEVEL 8.7 MG/DL (8.8-10.2); CARBON DIOXIDE LEVEL 28 MEQ/L (21-32); CHLORIDE LEVEL 105 MEQ/L (98-107); CREATININE FOR GFR 0.58 MG/DL (0.55-1.02); GLOMERULAR FILTRATION RATE > 60.0 (>32); GLUCOSE, FASTING 95 MG/DL (83-110); POTASSIUM SERUM 4.3 MEQ/L (3.5-5.1); SODIUM LEVEL 139 MEQ/L (136-145); TOTAL PROTEIN 6.1 GM/DL (6.4-8.2)
[2016-11-06] MEDS: METHYLPHENIDATE 5 MG TAB PO SCH ×2 (08:22→12:12)
[2016-11-06] MEDS: levETIRAcetam **XR** 500 MG TABLET PO SCH ×2 (08:22→21:17)
[2016-11-06] MEDS: FERROUS SULFATE 325MG TAB PO SCH ×2 (08:22→21:17)
[2016-11-06] MEDS: amLODIPine 10 MG TAB PO SCH (08:22)
[2016-11-06] MEDS: BRINZOLAMIDE 1 % OPHTH SUSP (AZOPT) 10ML OU SCH ×2 (08:23→21:18)
[2016-11-06] MEDS: ACETAMINOPHEN TAB 650MG DOSE (2X325MG) PO PRN ×2 (08:23→21:22)
[2016-11-06] MEDS: COMBIGAN OPHTH (PATIENT'S OWN MED) OU SCH ×2 (08:23→21:18)
[2016-11-06] MEDS: azaTHIOprine 50 MG TAB (J7500) PO SCH (08:23)
[2016-11-06] MEDS: BETHANECHOL 10 MG TAB PO SCH (08:23)
[2016-11-06] MEDS: PANTOPRAZOLE 40MG TAB (PROTONIX) PO SCH (08:23)
[2016-11-06] MEDS: BENAZEPRIL 20 MG TAB PO SCH ×2 (08:23→21:17)
[2016-11-06] MEDS: LABETALOL 100 MG TAB PO SCH ×2 (09:00→21:17)
--- NOTE | 2016-11-06 12:00 | IPNPDOC ---
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 Patient with left hemiparesis and sensory deficits with some very mild right-sided deficits. Patient seen laying in bed after self transfer from standing with FWW in regular dress of slacks, blouse and sweater. She has improved alertness for last 2 weeks. No complaints today. ALLERGIES: See Below MEDICATIONS: Reviewed, see below. OBJECTIVE: VITAL SIGNS: Please see below. PHYSICAL EXAMINATION: GENERAL: Somewhat overweight elderly white female who is alert and well oriented and in very mild to no acute distress. Bilateral hand with some distal nodules and varus deviation of some PIP joints in Bilateral hands. Left neglect and trouble coordinating BUE without looking at them is lessening. HEENT: Very mild left facial droop otherwise and clean right scalp incision in the parietal-occipital region about 1 inch lateral to midline in parietal area. CARDIOVASCULAR: Regular rate and rhythm with normal S1 and S2. 2/4 bilateral radial pulses. LUNGS: All sheehan clear to auscultation. ABDOMEN: Benign, mildly obese with normal bowel sounds in all quadrants. NEUROLOGICAL: Patient alert and oriented time four with speech that is clear, coherent and appropriate. Affect is pleasant cooperative & memory is fairly good. More spontaneous and more energetic. SKIN: Scalp incision is clean with no drainage or inflammation with staple removed. It continues to heal. LABORATORY DATA: Reviewed. Please see below. MICROBIOLOGY: Please see below. IMAGING: no new imaging. DVT prophylaxis ordered?: Patient using AJ hose secondary to intercerebral hemorrhage. ASSESSMENT AND PLAN: 1. Rehabilitation of right subdural hematoma with 12 mm midline shift: Patient tolerating 3 hrs of therapy per day and is participating well in PT/OT/DISABILITY EXAMINER. Patient continues trial of Ritalin 0.5 mg with breakfast and lunch which is helping. We will continue to watch for any regression signaling renewed bleeding from the SDH or any hydrocephalus. However, patient is still more alert and interactive daily. Patient progressing faster in the last week after being clearer cognitively. Patient with mobility > 120 feet today using a FWW with Min. Assist. Modified [place] to CGA stand to bed transfer. Patient having some problems in frontal lobe function with mental flexibility and problem solving limiting some aspects of learning. However, with family training she should be able to go home with her on November 08. She will need bed rails and constant supervision. 2. 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 Less hand, wrist and ankle pain. This has been helping. 3. Renal disease: BUN improved to 24 with Na+ 139 today. 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 4. Moderate anemia: We will continue to watch. 5. Bilateral Atelectasis: Nursing to continue to encourage incentive spirometry and patient being up and active. Patient is more compliant with this so no fevers. TIME SPENT: Chart Review, examination and documentation require greater than 20 minutes. Allergies Coded Allergies: Naproxen (Verified Allergy, Unknown, 10/12/16) TAPE (Verified Allergy, Unknown, ADHESIVE TAPE, 10/12/16) Vital Signs Vital Signs Date Time Temp Pulse Resp B/P (MAP) Pulse Ox O2 Delivery O2 Flow Rate FiO2 11/06/16 09:00 69 115/58 11/06/16 08:00 Room Air 11/06/16 06:00 97.9 18 99 Laboratory Data CBC/BMP Laboratory Tests 11/06/16 06:17 Calcium Level 8.7 L, Aspartate Amino Transf (AST/SGOT) 15, Alanine Aminotransferase (ALT/SGPT) 44, Alkaline Phosphatase 107, Total Bilirubin 0.3, Total Protein 6.1 L, Albumin 2.6 L Labs 24H Laboratory Tests 2 11/06/16 06:17: Anion Gap 6L, Glomerular Filtration Rate > 60.0, Blood Urea Nitrogen 24H, Creatinine 0.58, Sodium Level 139, Potassium Level 4.3, Chloride Level 105, Carbon Dioxide Level 28, Calcium Level 8.7L, Aspartate Amino Transf (AST/SGOT) 15, Alanine Aminotransferase (ALT/SGPT) 44, Alkaline Phosphatase 107, Total Bilirubin 0.3, Total Protein 6.1L, Albumin 2.6L, Albumin/Globulin Ratio 0.74L Current Medications Current Medications Current Medications Acetaminophen (Tylenol Tab) 650 mg Q6HP PRN PO PAIN OR FEVER Last administered on 11/06/16t 08:23; Start 10/18/16 at 12:15; Stop 11/17/16 at 12:14 Al Hydrox/Mg Hydrox/Simethicone (Mylanta) 30 ml Q4HP PRN PO DYSPEPSIA; Start at 12:15; Stop 11/17/16 at 12:14 Amlodipine Besylate (Norvasc) 10 mg DAILY PO Last administered on 11/06/16 08: 22; Start 10/19/16 at 09:00; Stop 11/18/16 at 08:59 Azathioprine (Imuran) 50 mg DAILY PO Last administered on 11/06/16 08:23; Start 10/19/16 at 09:00; Stop 11/18/16 at 08:59 Azithromycin 500 mg/IV Miscellaneous Supplies 1 each/ Dextrose 255 ml @ 255 mls /hr Q24H IV Last administered on 10/21/16 21:23; Start 10/19/16 at 22:00; Stop 10/22/16 at 12:59; Status DC Bacitracin (Bacitracin Oint) 1 dose TID TOP Last administered on 10/21/16 08:39 ; Start 10/18/16 at 21:00; Stop 10/21/16 at 09:25; Status DC Benazepril HCl (Lotensin) 20 mg BID PO Last administered on 11/06/16 08:23; Start 10/18/16 at 21:00; Stop 11/17/16 at 20:59 Bethanechol Chloride (Urecholine) 10 mg DAILY PO Last administered on 08:23; Start 10/25/16 at 09:00; Stop 11/24/16 at 08:59 Bisacodyl (Dulcolax Suppository) 10 mg DAILYPRN PRN [place] CONSTIPATION Last administered on 10/24/16 18:37; Start 10/18/16 at 12:15; Stop 11/17/16 at 12:14 Brinzolamide (Azopt) 1 drop BID OU Last administered on 11/06/16 08:23; Start 10/18/16 at 21:00; Stop 11/17/16 at 20:59 Ceftriaxone Sodium 2 gm/ Dextrose 50 ml @ 100 mls/hr Q24H IV Last administered on 10/21/16 21:01; Start 10/19/16 at 21:00; Stop 10/22/16 at 12:59; Status DC Ferrous Sulfate (Ferrous Sulfate) 325 mg BID PO Last administered on 11/06/16 08:22; Start 10/18/16 at 21:00; Stop 11/17/16 at 20:59 Hydrocortisone (Proctosol Hc) APPLY TO HEMORRHOIDS TID PRN TOP HEMORRHOIDS; Start 10/29/16 at 08:45; Stop 11/08/16 at 23:55 Labetalol HCl (Normodyne, Trandate) 100 mg BID PO Last administered on 09:00; Start 10/18/16 at 21:00; Stop 11/17/16 at 20:59 Latanoprost (Xalatan 0.005% Op Soln) 1 drop QHS OU Last administered on 21:37; Start 10/18/16 at 21:00; Stop 11/17/16 at 20:59 Levetiracetam (Keppra Xr) 1,000 mg BID PO Last administered on 11/06/16 08 :22; Start 10/18/16 at 21:00; Stop 11/17/16 at 20:59 Levetiracetam (Keppra) 1,000 mg BID PO ; Start 10/18/16 at 21:00; Stop 10/18/16 at 21:00; Status DC Levothyroxine Sodium (Synthroid) 44 mcg DAILY@06 PO Last administered on 05:43; Start 10/19/16 at 06:00; Stop 11/18/16 at 05:59 Menthol/Methyl Salicylate (Bengay Cream) Bilateral hands/ wrists, ... TID TOP Last administered on 10/28/16 21:07; Start 10/22/16 at 09:00; Stop 10/29/16 at 08 :59; Status DC Menthol/Methyl Salicylate (Bengay Cream) To hands/ wrists, Ankles/fe... TIDP PRN TOP PAIN Last administered on 11/01/16 08:42; Start 10/30/16 at 08:15; Stop 11/29/16 at 08:14 Methylphenidate HCl (Ritalin) 2.5 mg DAILY@0800,1230 PO Last administered on 12:11; Start 10/22/16 at 12:30; Stop 10/25/16 at 14:31; Status DC Methylphenidate HCl (Ritalin) 5 mg BID@0800,1230 PO Last administered on 08:22; Start 10/26/16 at 08:00; Stop 11/08/16 at 23:55 Miscellaneous (Unresolved Patient Own Med Order) SEE LABEL COMMENTS UNRESOLVED XX ; Start 10/18/16 at 00:01; Stop 10/20/16 at 19:45; Status DC Pantoprazole Sodium (Protonix) 40 mg DAILY PO Last administered on 11/06/16 08 :23; Start 10/19/16 at 09:00; Stop 11/18/16 at 08:59 Patient Own Medication (Patient'S Own Med) 1 ea BID OU Last administered on 08:23; Start 10/20/16 at 21:00; Stop 11/19/16 at 20:59; Status Future hold Polyethylene Glycol (Miralax) 1 pkt DAILY PRN PO CONSTIPATION Last administered on 11/04/16 08:16; Start 10/18/16 at 12:15; Stop 11/17/16 at 12:14 Sodium Biphosphate/ Sodium Phosphate (Fleet Enema) 1 ea DAILYPRN PRN [place] CONSTIPATION; Start 10/18/16 at 12:15; Stop 11/17/16 at 12:14 Tamsulosin HCl (Flomax) 0.4 mg DAILY PO Last administered on 10/22/16 08:48; Start 10/19/16 at 09:00; Stop 10/22/16 at 13:52; Status DC Tamsulosin HCl (Flomax) 0.4 mg DAILY PO ; Start 10/23/16 at 09:00; Stop 11/22/16 at 08:59; Status UNV Tamsulosin HCl (Flomax) 0.8 mg QHS PO Last administered on 11/05/16 21:36; Start 10/23/16 at 21:00; Stop 11/18/16 at 08:59 Trazodone HCl (Desyrel) 75 mg QHS PO Last administered on 10/22/16 21:20; Start 10/18/16 at 21:00; Stop 10/23/16 at 11:02; Status DC JOON ROB MD Nov 06, 2016 12:00
[2016-11-06 14:00] VITALS: BP 120/58
[2016-11-06 21:00] VITALS: BP 131/60
[2016-11-06] MEDS: TAMSULOSIN 0.4 MG CAP PO SCH (21:17)
[2016-11-06] MEDS: LATANOPROST 0.005% OPHTH SOLN 2.5 ML OU SCH (21:17)
[2016-11-07 06:00] VITALS: BP 138/60
[2016-11-07] MEDS: LEVOTHYROXINE 88MCG TABLET (0.088 MG) PO SCH (06:12)
[2016-11-07] MEDS: BETHANECHOL 10 MG TAB PO SCH (08:49)
[2016-11-07] MEDS: FERROUS SULFATE 325MG TAB PO SCH ×2 (08:50→21:13)
[2016-11-07] MEDS: BENAZEPRIL 20 MG TAB PO SCH ×2 (08:50→21:13)
[2016-11-07] MEDS: amLODIPine 10 MG TAB PO SCH (08:50)
[2016-11-07] MEDS: PANTOPRAZOLE 40MG TAB (PROTONIX) PO SCH (08:50)
[2016-11-07] MEDS: azaTHIOprine 50 MG TAB (J7500) PO SCH (08:50)
[2016-11-07] MEDS: levETIRAcetam **XR** 500 MG TABLET PO SCH ×2 (08:50→21:13)
[2016-11-07] MEDS: METHYLPHENIDATE 5 MG TAB PO SCH ×2 (08:50→12:42)
[2016-11-07] MEDS: LABETALOL 100 MG TAB PO SCH ×2 (08:50→21:13)
[2016-11-07] MEDS: COMBIGAN OPHTH (PATIENT'S OWN MED) OU SCH ×2 (08:51→21:13)
[2016-11-07] MEDS: BRINZOLAMIDE 1 % OPHTH SUSP (AZOPT) 10ML OU SCH ×2 (08:51→21:13)
--- NOTE | 2016-11-07 11:33 | IPNPDOC ---
[facility] Progress Note DATE OF SERVICE: 11/07/16 DATE OF ADMISSION: Oct 18, 2016 at 12:40 INPATIENT REHABILITATION ADMISSION DAY: #21 SUBJECTIVE: Patient is a 80-year-old white female with right subdural hematoma status post evacuation. Patient with left hemiparesis and sensory deficits with some very mild right-sided deficits. Patient seen up in hallway with FWW in regular dress of slacks, blouse and sweater. She has good alertness for last 2 weeks. No complaints today. ALLERGIES: See Below MEDICATIONS: Reviewed, see below. OBJECTIVE: VITAL SIGNS: Please see below. PHYSICAL EXAMINATION: GENERAL: Somewhat overweight elderly white female who is alert and well oriented and in very mild to no acute distress. Bilateral hand with some distal nodules and varus deviation of some PIP joints in Bilateral hands. Left neglect and trouble coordinating BUE without looking at them is lessening. HEENT: Very mild left facial droop otherwise and clean right scalp incision in the parietal-occipital region about 1 inch lateral to midline in parietal area. CARDIOVASCULAR: Regular rate and rhythm with normal S1 and S2. 2/4 bilateral radial pulses. LUNGS: All sheehan clear to auscultation. ABDOMEN: Benign, mildly obese with normal bowel sounds in all quadrants. NEUROLOGICAL: Patient is alert and oriented time four with speech that is clear , coherent and appropriate. Affect is pleasant cooperative & memory is fairly good. More spontaneous and more energetic. SKIN: Scalp incision is clean with no drainage or inflammation and continues to heal. LABORATORY DATA: Reviewed. Please see below. MICROBIOLOGY: Please see below. IMAGING: no new imaging. DVT prophylaxis ordered?: Patient using AJ hose secondary to intercerebral hemorrhage. ASSESSMENT AND PLAN: 1. Rehabilitation of right subdural hematoma with 12 mm midline shift: Patient tolerating 3 hrs of therapy per day and is participating well in PT/OT/C[employer]IL [employer]. Patient continues trial of Ritalin 0.5 mg with breakfast and lunch which is helping. We will continue to watch for any regression signaling renewed bleeding from the SDH or any hydrocephalus. However, patient is still more alert and interactive daily. Patient progressing faster in the last week after being clearer cognitively. Patient with mobility > 120 feet today using a FWW with Min. Assist. Modified [place] to CGA stand to bed transfer. Patient having some problems in frontal lobe function with mental flexibility and problem solving limiting some aspects of learning. However, with family training she should be able to go home with her on November 08. She will need bed rails and constant supervision. Based on Patient/Family Conference, the will not be able to provide the supervision and support the patient needs at this time. We will look at continuing training and options to do that. 2. 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 Less hand, wrist and ankle pain. This has been helping. 3. Renal disease: BUN improved to 24 with Na+ 139 yesterday. 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 4. Moderate anemia: We will continue to watch. 5. Bilateral Atelectasis: Nursing to continue to encourage incentive spirometry and patient being up and active. Patient is more compliant with this so no fevers. TIME SPENT: Chart Review, examination and documentation require greater than 25 minutes. Allergies Coded Allergies: Naproxen (Verified Allergy, Unknown, 10/12/16) TAPE (Verified Allergy, Unknown, ADHESIVE TAPE, 10/12/16) Vital Signs Vital Signs Date Time Temp Pulse Resp B/P (MAP) Pulse Ox O2 Delivery O2 Flow Rate FiO2 11/07/16 09:00 Room Air 11/07/16 08:50 69 138/60 11/07/16 06:00 98.6 18 99 Current Medications Current Medications Current Medications Acetaminophen (Tylenol Tab) 650 mg Q6HP PRN PO PAIN OR FEVER Last administered on 11/06/16 21:22; Start 10/18/16 at 12:15; Stop 11/17/16 at 12:14 Al Hydrox/Mg Hydrox/Simethicone (Mylanta) 30 ml Q4HP PRN PO DYSPEPSIA; Start at 12:15; Stop 11/17/16 at 12:14 Amlodipine Besylate (Norvasc) 10 mg DAILY PO Last administered on 11/07/16 08: 50; Start 10/19/16 at 09:00; Stop 11/18/16 at 08:59 Azathioprine (Imuran) 50 mg DAILY PO Last administered on 11/07/16 08:50; Start 10/19/16 at 09:00; Stop 11/18/16 at 08:59 Azithromycin 500 mg/IV Miscellaneous Supplies 1 each/ Dextrose 255 ml @ 255 mls /hr Q24H IV Last administered on 10/21/16 21:23; Start 10/19/16 at 22:00; Stop 10/22/16 at 12:59; Status DC Bacitracin (Bacitracin Oint) 1 dose TID TOP Last administered on 10/21/16 08:39 ; Start 10/18/16 at 21:00; Stop 10/21/16 at 09:25; Status DC Benazepril HCl (Lotensin) 20 mg BID PO Last administered on 11/07/16 08:50; Start 10/18/16 at 21:00; Stop 11/17/16 at 20:59 Bethanechol Chloride (Urecholine) 10 mg DAILY PO Last administered on 08:49; Start 10/25/16 at 09:00; Stop 11/24/16 at 08:59 Bisacodyl (Dulcolax Suppository) 10 mg DAILYPRN PRN [place] CONSTIPATION Last administered on 10/24/16 18:37; Start 10/18/16 at 12:15; Stop 11/17/16 at 12:14 Brinzolamide (Azopt) 1 drop BID OU Last administered on 11/07/16 08:51; Start 10/18/16 at 21:00; Stop 11/17/16 at 20:59 Ceftriaxone Sodium 2 gm/ Dextrose 50 ml @ 100 mls/hr Q24H IV Last administered on 10/21/16 21:01; Start 10/19/16 at 21:00; Stop 10/22/16 at 12:59; Status DC Ferrous Sulfate (Ferrous Sulfate) 325 mg BID PO Last administered on 11/07/16 08:50; Start 10/18/16 at 21:00; Stop 11/17/16 at 20:59 Hydrocortisone (Proctosol Hc) APPLY TO HEMORRHOIDS TID PRN TOP HEMORRHOIDS; Start 10/29/16 at 08:45; Stop 11/15/16 at 23:55 Labetalol HCl (Normodyne, Trandate) 100 mg BID PO Last administered on 08:50; Start 10/18/16 at 21:00; Stop 11/17/16 at 20:59 Latanoprost (Xalatan 0.005% Op Soln) 1 drop QHS OU Last administered on 21:17; Start 10/18/16 at 21:00; Stop 11/17/16 at 20:59 Levetiracetam (Keppra Xr) 1,000 mg BID PO Last administered on 11/07/16 08 :50; Start 10/18/16 at 21:00; Stop 11/17/16 at 20:59 Levetiracetam (Keppra) 1,000 mg BID PO ; Start 10/18/16 at 21:00; Stop 10/18/16 at 21:00; Status DC Levothyroxine Sodium (Synthroid) 44 mcg DAILY@06 PO Last administered on 06:12; Start 10/19/16 at 06:00; Stop 11/18/16 at 05:59 Menthol/Methyl Salicylate (Bengay Cream) Bilateral hands/ wrists, ... TID TOP Last administered on 10/28/16 21:07; Start 10/22/16 at 09:00; Stop 10/29/16 at 08 :59; Status DC Menthol/Methyl Salicylate (Bengay Cream) To hands/ wrists, Ankles/fe... TIDP PRN TOP PAIN Last administered on 11/01/16 08:42; Start 10/30/16 at 08:15; Stop 11/29/16 at 08:14 Methylphenidate HCl (Ritalin) 2.5 mg DAILY@0800,1230 PO Last administered on 12:11; Start 10/22/16 at 12:30; Stop 10/25/16 at 14:31; Status DC Methylphenidate HCl (Ritalin) 5 mg BID@0800,1230 PO Last administered on 08:50; Start 10/26/16 at 08:00; Stop 11/12/16 at 23:55 Miscellaneous (Unresolved Patient Own Med Order) SEE LABEL COMMENTS UNRESOLVED XX ; Start 10/18/16 at 00:01; Stop 10/20/16 at 19:45; Status DC Pantoprazole Sodium (Protonix) 40 mg DAILY PO Last administered on 11/07/16 08 :50; Start 10/19/16 at 09:00; Stop 11/18/16 at 08:59 Patient Own Medication (Patient'S Own Med) 1 ea BID OU Last administered on 08:51; Start 10/20/16 at 21:00; Stop 11/19/16 at 20:59; Status Future hold Polyethylene Glycol (Miralax) 1 pkt DAILY PRN PO CONSTIPATION Last administered on 11/04/16 08:16; Start 10/18/16 at 12:15; Stop 11/17/16 at 12:14 Sodium Biphosphate/ Sodium Phosphate (Fleet Enema) 1 ea DAILYPRN PRN [place] CONSTIPATION; Start 10/18/16 at 12:15; Stop 11/17/16 at 12:14 Tamsulosin HCl (Flomax) 0.4 mg DAILY PO Last administered on 10/22/16 08:48; Start 10/19/16 at 09:00; Stop 10/22/16 at 13:52; Status DC Tamsulosin HCl (Flomax) 0.4 mg DAILY PO ; Start 10/23/16 at 09:00; Stop 11/22/16 at 08:59; Status UNV Tamsulosin HCl (Flomax) 0.8 mg QHS PO Last administered on 11/06/16 21:17; Start 10/23/16 at 21:00; Stop 11/18/16 at 08:59 Trazodone HCl (Desyrel) 75 mg QHS PO Last administered on 10/22/16 21:20; Start 10/18/16 at 21:00; Stop 10/23/16 at 11:02; Status DC JOON ROB MD Nov 07, 2016 11:33
[2016-11-07 14:00] VITALS: BP 115/56
[2016-11-07 20:00] VITALS: BP 131/61
[2016-11-07] MEDS: LATANOPROST 0.005% OPHTH SOLN 2.5 ML OU SCH (21:13)
[2016-11-07] MEDS: TAMSULOSIN 0.4 MG CAP PO SCH (21:13)
[2016-11-08] MEDS: LEVOTHYROXINE 88MCG TABLET (0.088 MG) PO SCH (05:41)
[2016-11-08 06:00] VITALS: BP 143/65
[2016-11-08] MEDS: azaTHIOprine 50 MG TAB (J7500) PO SCH (09:48)
[2016-11-08] MEDS: amLODIPine 10 MG TAB PO SCH (09:48)
[2016-11-08] MEDS: FERROUS SULFATE 325MG TAB PO SCH ×2 (09:48→20:50)
[2016-11-08] MEDS: METHYLPHENIDATE 5 MG TAB PO SCH ×2 (09:48→12:44)
[2016-11-08] MEDS: BETHANECHOL 10 MG TAB PO SCH (09:48)
[2016-11-08] MEDS: PANTOPRAZOLE 40MG TAB (PROTONIX) PO SCH (09:48)
[2016-11-08] MEDS: levETIRAcetam **XR** 500 MG TABLET PO SCH ×2 (09:49→20:49)
[2016-11-08] MEDS: ACETAMINOPHEN TAB 650MG DOSE (2X325MG) PO PRN (09:49)
[2016-11-08] MEDS: BENAZEPRIL 20 MG TAB PO SCH ×2 (09:49→21:14)
[2016-11-08] MEDS: LABETALOL 100 MG TAB PO SCH ×2 (09:50→21:14)
[2016-11-08] MEDS: BRINZOLAMIDE 1 % OPHTH SUSP (AZOPT) 10ML OU SCH ×2 (09:50→20:51)
[2016-11-08] MEDS: COMBIGAN OPHTH (PATIENT'S OWN MED) OU SCH ×2 (09:50→20:51)
--- NOTE | 2016-11-08 11:47 | IPNPDOC ---
[facility] Progress Note DATE OF SERVICE: 11/08/16 DATE OF ADMISSION: Oct 18, 2016 at 12:40 INPATIENT REHABILITATION ADMISSION DAY: #22 SUBJECTIVE: Patient is a 80-year-old white female with right subdural hematoma status post evacuation. Patient with left hemiparesis and sensory deficits with some very mild right-sided deficits. Patient seen up in hallway with FWW in regular dress of slacks, blouse and sweater. She has good alertness for last 2 weeks. No complaints today. ALLERGIES: See Below MEDICATIONS: Reviewed, see below. OBJECTIVE: VITAL SIGNS: Please see below. PHYSICAL EXAMINATION: GENERAL: Somewhat overweight elderly white female who is alert and well oriented and in very mild to no acute distress. Bilateral hand with some distal nodules and varus deviation of some PIP joints in Bilateral hands. Left neglect and trouble coordinating BUE without looking at them is lessening. HEENT: Very mild left facial droop otherwise and clean right scalp incision in the parietal-occipital region about 1 inch lateral to midline in parietal area. CARDIOVASCULAR: Regular rate and rhythm with normal S1 and S2. 2/4 bilateral radial pulses. LUNGS: All sheehan clear to auscultation. ABDOMEN: Benign, mildly obese with normal bowel sounds in all quadrants. NEUROLOGICAL: Patient is alert and oriented time four with speech that is clear , coherent and appropriate. Affect is pleasant cooperative & memory is fairly good. More spontaneous and more energetic. SKIN: Scalp incision is clean with no drainage or inflammation and continues to heal. LABORATORY DATA: Reviewed. Please see below. MICROBIOLOGY: Please see below. IMAGING: no new imaging. DVT prophylaxis ordered?: Patient using AJ hose secondary to intercerebral hemorrhage. ASSESSMENT AND PLAN: 1. 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 Patient continues on Ritalin 0.5 mg with breakfast and lunch which is helping. However, patient is alert and interactive daily. Patient with mobility > 120 feet today using a FWW with Min. Assist.. Modified [place] to CGA stand to bed transfer. Patient having some problems in frontal lobe function with mental flexibility and problem solving limiting some aspects of learning. However, with family training she should be able to go home with her on November 08. She will need bed rails and constant supervision. Based on Patient/Family Conference, the will not be able to provide the supervision and support the patient needs at this time. We will look at continuing training and options to do that. Rehab. Team Rounds: Patient without family gaining change in occupational therapy since Saturday, but ambulating 30 feet more now 150 feet 14 stairs in physical therapy as well as demonstrating more insight into danger and risk during her speech therapy sessions. Overall patient is making continued progress , but it appears she will need more time and will [facility] for her. 2. 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 Less hand, wrist and ankle pain. This has been helping. 3. Renal disease: BUN improved to 24 with Na+ 139 yesterday. 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 4. Moderate anemia: We will continue to watch. 5. Bilateral Atelectasis: Nursing to continue to encourage incentive spirometry and patient being up and active. Patient is more compliant with this so no fevers. TIME SPENT: Chart Review, examination and documentation require greater than 25 minutes. Allergies Coded Allergies: Naproxen (Verified Allergy, Unknown, 10/12/16) TAPE (Verified Allergy, Unknown, ADHESIVE TAPE, 10/12/16) Vital Signs Vital Signs Date Time Temp Pulse Resp B/P (MAP) Pulse Ox O2 Delivery O2 Flow Rate FiO2 11/08/16 09:50 76 143/65 11/08/16 06:00 98.2 18 97 Room Air Current Medications Current Medications Current Medications Acetaminophen (Tylenol Tab) 650 mg Q6HP PRN PO PAIN OR FEVER Last administered on 11/08/16 09:49; Start 10/18/16 at 12:15; Stop 11/17/16 at 12:14 Al Hydrox/Mg Hydrox/Simethicone (Mylanta) 30 ml Q4HP PRN PO DYSPEPSIA; Start at 12:15; Stop 11/17/16 at 12:14 Amlodipine Besylate (Norvasc) 10 mg DAILY PO Last administered on 11/08/16 09: 48; Start 10/19/16 at 09:00; Stop 11/18/16 at 08:59 Azathioprine (Imuran) 50 mg DAILY PO Last administered on 11/08/16 09:48; Start 10/19/16 at 09:00; Stop 11/18/16 at 08:59 Azithromycin 500 mg/IV Miscellaneous Supplies 1 each/ Dextrose 255 ml @ 255 mls /hr Q24H IV Last administered on 10/21/16 21:23; Start 10/19/16 at 22:00; Stop 10/22/16 at 12:59; Status DC Bacitracin (Bacitracin Oint) 1 dose TID TOP Last administered on 10/21/16 08:39 ; Start 10/18/16 at 21:00; Stop 10/21/16 at 09:25; Status DC Benazepril HCl (Lotensin) 20 mg BID PO Last administered on 11/08/16 09:49; Start 10/18/16 at 21:00; Stop 11/17/16 at 20:59 Bethanechol Chloride (Urecholine) 10 mg DAILY PO Last administered on 09:48; Start 10/25/16 at 09:00; Stop 11/24/16 at 08:59 Bisacodyl (Dulcolax Suppository) 10 mg DAILYPRN PRN [place] CONSTIPATION Last administered on 10/24/16 18:37; Start 10/18/16 at 12:15; Stop 11/17/16 at 12:14 Brinzolamide (Azopt) 1 drop BID OU Last administered on 11/08/16 09:50; Start 10/18/16 at 21:00; Stop 11/17/16 at 20:59 Ceftriaxone Sodium 2 gm/ Dextrose 50 ml @ 100 mls/hr Q24H IV Last administered on 10/21/16 21:01; Start 10/19/16 at 21:00; Stop 10/22/16 at 12:59; Status DC Ferrous Sulfate (Ferrous Sulfate) 325 mg BID PO Last administered on 11/08/16 09:48; Start 10/18/16 at 21:00; Stop 11/17/16 at 20:59 Hydrocortisone (Proctosol Hc) APPLY TO HEMORRHOIDS TID PRN TOP HEMORRHOIDS; Start 10/29/16 at 08:45; Stop 11/15/16 at 23:55 Labetalol HCl (Normodyne, Trandate) 100 mg BID PO Last administered on 09:50; Start 10/18/16 at 21:00; Stop 11/17/16 at 20:59 Latanoprost (Xalatan 0.005% Op Soln) 1 drop QHS OU Last administered on 21:13; Start 10/18/16 at 21:00; Stop 11/17/16 at 20:59 Levetiracetam (Keppra Xr) 1,000 mg BID PO Last administered on 11/08/16 09 :49; Start 10/18/16 at 21:00; Stop 11/17/16 at 20:59 Levetiracetam (Keppra) 1,000 mg BID PO ; Start 10/18/16 at 21:00; Stop 10/18/16 at 21:00; Status DC Levothyroxine Sodium (Synthroid) 44 mcg DAILY@06 PO Last administered on 05:41; Start 10/19/16 at 06:00; Stop 11/18/16 at 05:59 Menthol/Methyl Salicylate (Bengay Cream) Bilateral hands/ wrists, ... TID TOP Last administered on 10/28/16 21:07; Start 10/22/16 at 09:00; Stop 10/29/16 at 08 :59; Status DC Menthol/Methyl Salicylate (Bengay Cream) To hands/ wrists, Ankles/fe... TIDP PRN TOP PAIN Last administered on 11/01/16 08:42; Start 10/30/16 at 08:15; Stop 11/29/16 at 08:14 Methylphenidate HCl (Ritalin) 2.5 mg DAILY@0800,1230 PO Last administered on 12:11; Start 10/22/16 at 12:30; Stop 10/25/16 at 14:31; Status DC Methylphenidate HCl (Ritalin) 5 mg BID@0800,1230 PO Last administered on 09:48; Start 10/26/16 at 08:00; Stop 11/12/16 at 23:55 Miscellaneous (Unresolved Patient Own Med Order) SEE LABEL COMMENTS UNRESOLVED XX ; Start 10/18/16 at 00:01; Stop 10/20/16 at 19:45; Status DC Pantoprazole Sodium (Protonix) 40 mg DAILY PO Last administered on 11/08/16 09 :48; Start 10/19/16 at 09:00; Stop 11/18/16 at 08:59 Patient Own Medication (Patient'S Own Med) 1 ea BID OU Last administered on 09:50; Start 10/20/16 at 21:00; Stop 11/19/16 at 20:59; Status Future hold Polyethylene Glycol (Miralax) 1 pkt DAILY PRN PO CONSTIPATION Last administered on 11/04/16 08:16; Start 10/18/16 at 12:15; Stop 11/17/16 at 12:14 Sodium Biphosphate/ Sodium Phosphate (Fleet Enema) 1 ea DAILYPRN PRN [place] CONSTIPATION; Start 10/18/16 at 12:15; Stop 11/17/16 at 12:14 Tamsulosin HCl (Flomax) 0.4 mg DAILY PO Last administered on 10/22/16 08:48; Start 10/19/16 at 09:00; Stop 10/22/16 at 13:52; Status DC Tamsulosin HCl (Flomax) 0.4 mg DAILY PO ; Start 10/23/16 at 09:00; Stop 11/22/16 at 08:59; Status UNV Tamsulosin HCl (Flomax) 0.8 mg QHS PO Last administered on 11/07/16 21:13; Start 10/23/16 at 21:00; Stop 11/18/16 at 08:59 Trazodone HCl (Desyrel) 75 mg QHS PO Last administered on 10/22/16 21:20; Start 10/18/16 at 21:00; Stop 10/23/16 at 11:02; Status DC JOON ROB MD Nov 08, 2016 11:47
[2016-11-08 12:21] LABS: BASO % 0.5 % (0.0-1.0); EOS # 0.1 K/mm3 (0.0-0.50); EOS % 2.1 % (0.0-3.0); LARGE UNSTAINED CELL # 0.1 K/mm3 (0.0-0.4); LARGE UNSTAINED CELL % 2.7 % (0.0-4.0); LYMPH # 1.3 K/mm3 (1.5-4.5); LYMPH % 21.2 % (24.0-44.0); MEAN CORPUSCULAR HEMOGLOBIN 32.5 pg (27.0-33.0); MEAN CORPUSCULAR HGB CONC 32.7 g/dl (32.0-36.5); MEAN CORPUSCULAR VOLUME 99.4 fl (80.0-96.0); MONO # 0.4 K/mm3 (0.0-0.8); MONO % 7.3 % (0.0-5.0); NEUTROPHILS # 3.5 K/mm3 (1.8-7.7); NEUTROPHILS % 66.1 % (36.0-66.0); PLATELET COUNT, AUTOMATED 407 k/mm3 (150-450); RED CELL DISTRIBUTION WIDTH 14.7 % (11.5-14.5); WHITE BLOOD COUNT 5.3 K/mm3 (4.0-10.0)
[2016-11-08 14:00] VITALS: BP 113/55
[2016-11-08 20:00] VITALS: BP 105/52
[2016-11-08] MEDS: TAMSULOSIN 0.4 MG CAP PO SCH (20:49)
[2016-11-08] MEDS: LATANOPROST 0.005% OPHTH SOLN 2.5 ML OU SCH (20:50)
[2016-11-09] MEDS: LEVOTHYROXINE 88MCG TABLET (0.088 MG) PO SCH (05:43)
[2016-11-09 06:00] VITALS: BP 121/58
[2016-11-09 06:58] LABS: MEAN CORPUSCULAR HEMOGLOBIN 33.4 pg (27.0-33.0); MEAN CORPUSCULAR HGB CONC 33.7 g/dl (32.0-36.5); RED CELL DISTRIBUTION WIDTH 14.7 % (11.5-14.5); WHITE BLOOD COUNT 4.6 K/mm3 (4.0-10.0)
[2016-11-09] MEDS: BENAZEPRIL 20 MG TAB PO SCH (08:33)
[2016-11-09] MEDS: FERROUS SULFATE 325MG TAB PO SCH (08:33)
[2016-11-09] MEDS: PANTOPRAZOLE 40MG TAB (PROTONIX) PO SCH (08:33)
[2016-11-09 08:34] VITALS: BP 121/58
[2016-11-09] MEDS: BETHANECHOL 10 MG TAB PO SCH (08:34)
[2016-11-09] MEDS: amLODIPine 10 MG TAB PO SCH (08:34)
[2016-11-09] MEDS: levETIRAcetam **XR** 500 MG TABLET PO SCH (08:34)
[2016-11-09] MEDS: BRINZOLAMIDE 1 % OPHTH SUSP (AZOPT) 10ML OU SCH (08:34)
[2016-11-09] MEDS: COMBIGAN OPHTH (PATIENT'S OWN MED) OU SCH (08:34)
[2016-11-09] MEDS: METHYLPHENIDATE 5 MG TAB PO SCH (08:34)
[2016-11-09] MEDS: azaTHIOprine 50 MG TAB (J7500) PO SCH (08:34)
[2016-11-09] MEDS: LABETALOL 100 MG TAB PO SCH (08:34)
[2016-11-09] MEDS ORDERED: MUSC1CRE TOP (09:26)
[2016-11-09] MEDS ORDERED: FLOM5CAP PO (09:26)
[2016-11-09] MEDS ORDERED: PROC1CRE5 TOP (09:26)
--- NOTE | 2016-11-10 21:50 | PMRDS ---
DATE OF ADMISSION: 10/18/2016 DATE OF DISCHARGE: 10/21/2016 DISCHARGE DIAGNOSIS: 1. Traumatic brain injury with right subdural hematoma affecting bilateral lower extremities and left upper and lower extremity principally with hemiparesis and decreased sensorium in the lower extremities and left upper extremity. 2. Atherosclerotic cardiovascular disease with hypertension and hyperlipidemia. 3. Hypothyroidism. 4. Osteoarthritis. 5. Autoimmune hepatitis. 6. Prior multifocal pneumonia and atelectasis of the lungs. 7. Status post cataract surgery. 8. Status post knee replacement 9. Glaucoma 10. Persistent headache. HISTORY OF PRESENT ILLNESS: The patient is an 80-year-old white female, who hit her head and sustained a subdural hematoma as she tripped down a couple of stairs on 10/12/2016 and was evaluated and found to have a fairly large right subdural hematoma with a 12 mm midline shift. She was evaluated by Dr. Carty and he performed a drainage procedure with shunt to decompress this. The patient was otherwise stabilized and able to participate in physical, occupational and speech therapy having deficits with communication, dysarthria, balance, ambulation, activities of daily living and clean hygiene, dressing. She was felt to be appropriate for the rehabilitation unit and was admitted to the acute rehabilitation unit at [facility] on 10/18/2016. PROCEDURES PERFORMED DURING THIS STAY INCLUDES: Chest x-ray and CT head on 10/23/2016. DIAGNOSTIC AND LABORATORY DATA INCLUDES: Recurrent complete blood count (CBC) and comprehensive metabolic panel, as well as having checked urine and serology. The patient approximately 5 days onto the service started having increased lethargy and CT head and chest x-ray were performed at that time. It showed continuation of pleural effusion and atelectasis on the chest x-ray and significant interval improvement to 8 mm shift from right to left as oppose to the prior 12 and other signs of aggressive resolution of the large subdural hematoma. The patient was discontinued from most analgesic and trazodone, which seemed to have a significant sedating affect on her and then showed marked improvement in attention. However, the patient still with decreased energy and was started on Ritalin initially 2.5 mg with breakfast and lunch, which showed improvement in mood, energy, attention, concentration and learning ability and then increased to 5 mg with breakfast and lunch, which showed further improvement. The patient has made, since approximately the 27 of October, fairly steady improvement and has participated well in therapy. Her hemoglobin and hematocrit has improved from 9.8 and 29.5 to 10.0 and 29.7 with mild increase on the 11 of platelets at 530,000, which has returned back to normal. Chemistry also showed the patient with periods of elevation of her liver function test however and some periodic hyponatremia, but her electrolytes have normalized and her liver function tests have also normalized. Her albumin was 1.9 on the and now improved with Ensure shakes in addition of encouragement with meals to 2.6. The patient has continued to make steady progress in her therapies with her initially evaluation showing maximum assist in upper body dressing, total assist in lower body dressing, total assist in transfers, Poor+ standing, balance for static and dynamic, do currently min assist in supine to sit, standby assistance sit to stand and stand to sit, standby assistance dressing upper body min assist and dressing lower body independent. Grooming standby assistance. Toileting and balance has improved to good in static, standing and good minus in standing dynamic, balance. The patient initially ambulating 5 feet with min assist to wheel walker and gait belt. In physical therapy, now ambulating 200 feet with standby assist and able to do 14 steps though with proximately min assist. The patient needing a lot of verbal cueing and having difficulty because of her macular degeneration with depth perception on the stairs. The patient had a patient family conference and it was determined that while the patient is standby assist to occasional minimal assist and some activities and otherwise modified independent. She needs frequent supervision and cueing and a little bit of assistance. Their is not able to provide and it is felt she would at this time not be safe doing the stairs to go up stairs where he sleeps, even if she was to be at home and she does need supervision for getting out of bed to perform toileting during the night and she does have nocturia greater than 4 times per night. She has had some problems also during admission with urinary retention, but has improved on this with increase of Flomax to 0.4 mg daily. DISCHARGE MEDICATIONS: - BenGay for arthritis pain principally hands, wrists, ankles and feet - Proctozone 2.5% cream three times a day as needed for hemorrhoids - Flomax 0.8 mg at bedtime (q.h.s.) for urinary retention - Tylenol 325 mg by mouth every 4 hours as needed for pain - Alendronate sodium 70 mg weekly - amlodipine besylate 10 mg daily - atorvastatin 40 mg daily at bedtime (hs) - Imuran 50 mg daily for autoimmune hepatitis - Lotensin 20 mg twice a day for hypertension - Azopt 1% suspension one drop in both eyes twice a day - Combigan one drop in both eyes twice a day - iron sulfate 325 mg twice a day for anemia - labetalol 100 mg twice a day for blood pressure and heart rate control - Keppra 100 mg by mouth twice a day for seizure prevention - Synthroid 88 mcg tablet to take a half tablet or 44 mcg daily - Prilosec 20 mg at bedtime (q.h.s.) for gastroesophageal reflux disease (GERD) - travoprost Z or Travatan Z50 drops per 2.5 mL one drop both eyes at bedtime (hs) COMPLICATIONS: None. DISCHARGE PLAN INSTRUCTIONS: The patient is transferring to [facility] for subacute rehabilitation and continue working on her safety and independent and activities of daily living and mobility and compensating for visual deficits to facility return to home as she will need to be modified independent for them. She is to followup with her primary care doctor, Dr. Velazquez and with her neurosurgeon, Dr. Carty as scheduled one month with Dr. Cm and three or four weeks after discharge with Dr. Velazquez. TIME SPENT ON DISCHARGE: Greater than 35 minutes. MTDD
== END 2016-11-09 11:50 | DRG 56 ==
LOC: M PM&R 12:40
PROVIDERS: ADMIT Physical Medicine & Rehabilitation; ATTEND Physical Medicine & Rehabilitation
DX: I69.154 Hemiplegia and hemiparesis following nontraumatic intracerebral hemorrhage affecting left non-dominant side (principal); J18.9 Pneumonia, unspecified organism; J98.11 Atelectasis; N39.0 Urinary tract infection, site not specified; E87.1 Hypo-osmolality and hyponatremia; I25.10 Atherosclerotic heart disease of native coronary artery without angina pectoris; I69.122 Dysarthria following nontraumatic intracerebral hemorrhage; I69.192 Facial weakness following nontraumatic intracerebral hemorrhage; E03.9 Hypothyroidism, unspecified; I69.193 Ataxia following nontraumatic intracerebral hemorrhage; M15.0 Primary generalized (osteo)arthritis; H40.9 Unspecified glaucoma; R51 Headache; K75.4 Autoimmune hepatitis; W10.9XXD Fall (on) (from) unspecified stairs and steps, subsequent encounter; R33.9 Retention of urine, unspecified; Y92.019 Unspecified place in single-family (private) house as the place of occurrence of the external cause; E66.3 Overweight; D64.9 Anemia, unspecified; H35.30 Unspecified macular degeneration; K21.9 Gastro-esophageal reflux disease without esophagitis; I11.9 Hypertensive heart disease without heart failure; E78.5 Hyperlipidemia, unspecified; N28.9 Disorder of kidney and ureter, unspecified; Z88.6 Allergy status to analgesic agent; Z91.048 Other nonmedicinal substance allergy status; Z79.899 Other long term (current) drug therapy; Z79.891 Long term (current) use of opiate analgesic; Z96.659 Presence of unspecified artificial knee joint; Z68.24 Body mass index [BMI] 24.0-24.9, adult

== ENCOUNTER → 2016-11-13 | Outpatient (REF) | payer MEDICARE ==
[~2016-11-13] MED LIST changes: +AMLO10TA2 PO; +BENA20TA PO; +FERR1TAB8 PO; +FLOM5CAP PO; +LABE10TAB PO; +LEVE500XR PO; +MUSC1CRE TOP; +PROC1CRE5 TOP
--- NOTE | 2016-11-13 14:22 | REP ---
DEEP VENOUS ULTRASONOGRAPHY RIGHT THIGH, RULE OUT DVT: Pain and swelling. TECHNIQUE: Multiple ultrasonographic images of the deep venous structures of the thigh were obtained from the common femoral vein to the popliteal vein along with Doppler interrogation and color flow Doppler images. FINDINGS: There is no abnormal echogenic material seen within any of the visualized deep venous structures that would suggest acute thrombosis. Coaptation is unremarkable throughout. Doppler interrogation shows an expected response to respiratory variability and augmentation. The color flow images show what appears to be a normal vascular pattern throughout. IMPRESSION: There is no ultrasonographic evidence of deep venous thrombosis involving any of the visualized deep venous structures of the right thigh, as described above. Signed by Cristobal Garnica DO 11/13/2016 02:30 P
== END ==
LOC: M RAD 12:00 → EDSTATUS 13:00 → M RAD 13:00
PROVIDERS: ATTEND Internal Medicine
DX: M79.89 Other specified soft tissue disorders (principal)

== ENCOUNTER → 2016-12-14 | Outpatient (REF) | payer MEDICARE ==
--- NOTE | 2016-12-14 13:35 | REP ---
Duplex extremity venous ultrasound: Right lower extremity. History: Right leg swelling, question DVT. Findings: The deep veins are anechoic and fully compressible from the groin to the popliteal fossa in the right lower extremity. Color flow imaging is homogeneous. Spectral Doppler interrogation demonstrates intact respiratory variation in flow and normal manual augmentation of flow. There is no evidence of deep vein thrombosis. Impression: Negative right lower extremity duplex venous ultrasound. No evidence of deep vein thrombosis. Signed by Gilberto Coates MD 12/14/2016 01:26 P
== END ==
LOC: M RAD 12:00 → EDSTATUS 12:30 → M RAD 12:47
PROVIDERS: ATTEND Physician Assistant
DX: M79.89 Other specified soft tissue disorders (principal)

== ENCOUNTER → 2017-08-12 | Outpatient (REF) | payer MEDICARE | LOC: M LAB REF 11:59 | DX: R32 Unspecified urinary incontinence (principal) | CPT/HCPCS: 87086 ==

== ENCOUNTER → 2018-01-11 | Outpatient (CLI) | payer MEDICARE ==
[2018-01-11 09:48] LABS: ANION GAP 9 MEQ/L (8-16); BLOOD UREA NITROGEN 24 MG/DL (7-18); CALCIUM LEVEL 9.3 MG/DL (8.8-10.2); CARBON DIOXIDE LEVEL 26 MEQ/L (21-32); CHLORIDE LEVEL 107 MEQ/L (98-107); CREATININE FOR GFR 0.78 MG/DL (0.55-1.30); GLOMERULAR FILTRATION RATE > 60.0 (>32); GLUCOSE, FASTING 90 MG/DL (70-100); SODIUM LEVEL 142 MEQ/L (136-145)
== END ==
LOC: M LAB 08:49
DX: Z01.812 Encounter for preprocedural laboratory examination (principal); G56.01 Carpal tunnel syndrome, right upper limb
CPT/HCPCS: 80048

== ENCOUNTER → 2018-07-22 | Outpatient (REF) | payer MEDICARE ==
[~2018-07-22] MED LIST changes: -/ATOR40TA; -/WARF25TA; -ALEN70TA39 PO; +ALEN70TA57 PO; -AMLO10TA2 PO; +AMLO10TA5 PO; +COUM1TAB18; +FLOM0.4C39 PO; -FLOM5CAP PO; +GABA-1171 PO; -GABA-279 PO; -LASI20TA PO; +LASI20TA3 PO; +LIPI1TAB2
[2018-07-22 12:31] LABS: BASO % 0.5 % (0.0-1.0); EOS # 0.1 10^3/uL (0.0-0.50); EOS % 2.1 % (0.0-3.0); HEMATOCRIT 37.5 % (36.0-47.0); HEMOGLOBIN 12.6 g/dl (12.0-15.5); LYMPH # 1.2 10^3/uL (1.5-4.5); LYMPH % 19.9 % (24.0-44.0); MEAN CORPUSCULAR HGB CONC 33.6 g/dl (32.0-36.5); MEAN CORPUSCULAR VOLUME 98.2 fl (80.0-96.0); MONO # 0.6 10^3/uL (0.0-0.8); MONO % 9.5 % (0.0-5.0); NEUTROPHILS # 4.2 10^3/uL (1.8-7.7); NEUTROPHILS % 67.8 % (36.0-66.0); PLATELET COUNT, AUTOMATED 267 10^3/uL (150-450); RED BLOOD COUNT 3.82 10^6/uL (4.00-5.40); WHITE BLOOD COUNT 6.2 10^3/uL (4.0-10.0)
[2018-07-22 14:06] LABS: ERYTHROCYTE SEDIMENTATION RATE 28 mm/hr (0-30)
== END ==
LOC: M LABDRAW1 11:59
PROVIDERS: ATTEND Orthopaedic Surgery
DX: Z96.652 Presence of left artificial knee joint (principal)

== ENCOUNTER → 2018-10-01 | Outpatient (REF) | payer MEDICARE ==
[~2018-10-01] MED LIST changes: -ALEN70TA57 PO; +ALEN70TA74 PO; -ASPI1TAB PO; +ASPI81TA26 PO
[2018-10-02 14:52] LABS: PERCENT SATURATION 21.5 % (13.2-45.0)
[2018-10-08 10:34] LABS: HEPATITIS A ANTIBODY IGM NEGATIVE (NEGATIVE); HEPATITIS B CORE ANTIBODY IGM NEGATIVE (NEGATIVE); HEPATITIS B SURFACE ANTIGEN NEGATIVE (NEGATIVE); HEPATITIS C VIRUS ABY INDEX < 0.0 INDEX (<0.8)
== END ==
LOC: M LAB REF 12:52
PROVIDERS: ATTEND Internal Medicine
DX: N18.3 Chronic kidney disease, stage 3 (moderate) (principal); D50.9 Iron deficiency anemia, unspecified; R79.89 Other specified abnormal findings of blood chemistry

== ENCOUNTER → 2018-11-28 | Outpatient (REF) | payer MEDICARE ==
[~2018-11-28] MED LIST changes: -BENA10TA6 PO; +BENA10TA9 PO
== END ==
LOC: M LAB REF 12:14
PROVIDERS: ATTEND Internal Medicine
DX: D64.9 Anemia, unspecified (principal)

== ENCOUNTER 2018-12-26 09:42 | Inpatient (IN) | payer MEDICARE ==
[~2018-12-26] VITALS: Ht 162.6 cm; Wt 59.4 kg
[~2018-12-26 09:42] MED LIST changes: -BENA10TA9 PO; +BENA1TAB24 PO; +BENA40TA5 PO; -BENA40TA7 PO
[2018-12-26] MEDS ORDERED: ACETAMINOPHEN 500 MG TAB PO ONE (10:00)
[2018-12-26] MEDS ORDERED: ADACEL/BOOSTRIX VACCINE (DIPHTH/PERTUSS/ACELL/TETANUS)0.5ML SYR (90715) IM ONE (10:00)
--- NOTE | 2018-12-26 10:43 | REP ---
Clinical: Trauma. Comparison: 02/13/2017 . Findings: Postsurgical changes including right-sided craniotomy with subtle underlying chronic appearing subdural changes. Age-related atrophy and microvascular ischemic changes are appreciated. The ventricles and sulci are symmetric. Bryant-white differentiation is maintained. There is no evidence for acute intracranial hemorrhage, mass/mass effect, pathology or infarction. No extra-axial fluid collection. Calvarium is without acute injury. Paranasal sinuses and mastoid air cells are clear. Impression: Postsurgical and age related changes. No acute intracranial hemorrhage, infarction, or mass/mass effect. Electronically Signed by Jadiel Hernandez MD 12/26/2018 10:34 A
--- NOTE | 2018-12-26 10:44 | REP ---
Clinical: Trauma. Technique: Axial noncontrast images from the skull base to the thoracic inlet with coronal and sagittal re-formations. Findings: Moderate/advanced multilevel degenerative disc osteophyte complexes are appreciated. Alignment and lordosis is maintained. There is no evidence for acute fracture / compression injury or subluxation. Spinal canal and posterior elements are intact. Paravertebral soft tissues are within normal limits. Impression: Moderate/advanced multilevel degenerative spondylosis. No acute cervical trauma/injury. Electronically Signed by Jadiel Hernandez MD 12/26/2018 10:36 A
--- NOTE | 2018-12-26 11:18 | REP ---
LEFT ELBOW, THREE VIEWS: Three views left elbow performed. The study is somewhat limited due to limitations of patient positioning. There is no definite fracture visualized. No dislocation is seen. No intrinsic osseous pathology is seen. Electronically Signed by Catalino Bryant MD 12/26/2018 01:17 P
--- NOTE | 2018-12-26 11:21 | REP ---
LEFT SHOULDER, FOUR VIEWS: Four views of the left shoulder are performed. There is a nondisplaced fracture involving the left humeral head and neck. No other fracture is seen. No dislocation is seen. There is mild joint space narrowing and spurring at the glenohumeral joint. IMPRESSION: Nondisplaced fracture left humeral head and neck. Electronically Signed by Catalino Bryant MD 12/26/2018 01:17 P
[2018-12-26] MEDS ORDERED: CHLO125TA PO (11:22)
[2018-12-26] MEDS ORDERED: ASPI81TA85 PO (11:28)
[2018-12-26 11:51] LABS: BASO % 0.4 % (0.0-1.0); EOS % 0.5 % (0.0-3.0); HEMATOCRIT 32.1 % (36.0-47.0); HEMOGLOBIN 10.4 g/dl (12.0-15.5); LYMPH # 1.1 10^3/uL (1.5-5.0); LYMPH % 14.7 % (24.0-44.0); MEAN CORPUSCULAR HEMOGLOBIN 30.8 pg (27.0-33.0); MEAN CORPUSCULAR HGB CONC 32.4 g/dl (32.0-36.5); MONO # 0.4 10^3/uL (0.0-0.8); MONO % 5.6 % (0.0-5.0); NEUTROPHILS % 78.5 % (36.0-66.0); PLATELET COUNT, AUTOMATED 235 10^3/uL (150-450); RED BLOOD COUNT 3.38 10^6/uL (4.00-5.40); WHITE BLOOD COUNT 7.7 10^3/uL (4.0-10.0)
[2018-12-26 12:32] LABS: ALBUMIN 3.3 GM/DL (3.2-5.2); ALT/SGPT 33 U/L (12-78); BILIRUBIN,TOTAL 0.4 MG/DL (0.2-1.0); BLOOD UREA NITROGEN 28 MG/DL (7-18); CALCIUM LEVEL 9.4 MG/DL (8.8-10.2); CARBON DIOXIDE LEVEL 23 MEQ/L (21-32); CHLORIDE LEVEL 109 MEQ/L (98-107); CK-MB VALUE MASS 2.1 NG/ML (<3.6); CPK CREATINE PHOSPHOKINASE 77 U/L (26-192); CREATININE FOR GFR 0.93 MG/DL (0.55-1.30); GLOMERULAR FILTRATION RATE > 60.0 (>32); GLUCOSE, FASTING 150 MG/DL (70-100); MB/CK RELATIVE INDEX 2.73 (< OR =4); POTASSIUM SERUM 4.3 MEQ/L (3.5-5.1); SODIUM LEVEL 140 MEQ/L (136-145); TOTAL PROTEIN 6.3 GM/DL (6.4-8.2); TROPONIN I < 0.02 NG/ML (< 0.10)
[2018-12-26] MEDS ORDERED: APAP325T4 PO ×2 (13:51)
[2018-12-26] MEDS ORDERED: OMEP-218 PO (13:51)
[2018-12-26] MEDS ORDERED: BENA20TA8 PO (13:51)
[2018-12-26] MEDS ORDERED: AMLO10TA5 PO (13:51)
[2018-12-26] MEDS ORDERED: KEPP1TAB PO (13:51)
[2018-12-26] MEDS ORDERED: SLOWTAB2 PO (13:54)
[2018-12-26] MEDS ORDERED: ALBU83IN INH (13:54)
[2018-12-26] MEDS ORDERED: LEVO75TA4 PO (13:54)
[2018-12-26] MEDS ORDERED: MOM 30ML SUSPENSION UDC PO PRN (14:00)
[2018-12-26] MEDS ORDERED: MAALOX 30 ML SUSP *UDC PO PRN (14:00)
[2018-12-26] MEDS ORDERED: PERCOCET 5MG/325MG TAB PO PRN (14:15)
--- NOTE | 2018-12-26 14:26 | HPEPDOC ---
General Date of Admission 12/26/18 Date of Service: Dec 26, 2018 Primary Care Physician: Lidia Velazquez Attending Physician: ADRIEL REDDY MD Chief Complaint The patient is a 83-year-old female admitted with a reason for visit of FALL. Source: Patient Exam Limitations: No limitations Timing/Duration: 1-3 hours Severity: Mild Associated Symptoms: Syncope, Dizziness History of Present Illness 83 years old white female with past medical history of CAD, hypertension, hyperlipidemia, hypothyroidism, osteoarthritis, autoimmune hepatitis, history of pneumonia, status post cataract surgery, status post knee replacement, glaucoma, history of subdural hematoma was in her usual state of health when she was washing her dishes that she felt dizzy and fell backwards when she tried to grab something the before falling. She hit her forehead left side on some object sustaining a laceration. Patient denies loss of consciousness, seizures, chest pain, shortness of breath, . As per patient, she had a similar episode in the past which she sustained s ubdural hematoma and and injuries 3 times in last 2 years Patient is comfortable at the present time. is the bedside. Offers no new complaints. No headache, no bleeding per nose light. Ears are mouth. No dizziness, no chest pain and no shortness of breath Home Medications Scheduled Acetaminophen (Acetaminophen) 325 Mg Tablet, 325 MG PO QHS, (Reported) Albuterol Sulf (Albuterol Sulfate) 2.5 Mg/3 Ml Vial.neb, 2.5 MG INH BID, (Reported) Amlodipine Besylate (Amlodipine Besylate) 10 Mg Tablet, 10 MG PO DAILY, (Reported) Aspirin (Aspir 81) 81 Mg Tablet.dr, 81 MG PO QHS, (Reported) Atorvastatin Calcium (Atorvastatin Calcium) 40 Mg Tab, 40 MG PO DAILY, (Reported) Azathioprine (Azathioprine) 50 Mg Tab, 50 MG PO DAILY, (Reported) Benazepril HCl (Benazepril HCl) 20 Mg Tablet, 20 MG PO BID, (Reported) Brimonidine Tartrate/Timolol (Combigan 0.2%-0.5% Eye Drops) 1 Lavonne Lavonne, 1 DROP OU BID, (Reported) Brinzolamide (Azopt) 1 % Qian, 1 DROP OU BID, (Reported) Chlorthalidone (Chlorthalidone) 25 Mg Tablet, 12.5 MG PO DAILY, (Reported) Levetiracetam (Keppra) 500 Mg Tablet, 500 MG PO BID, (Reported) Levothyroxine Sodium (Levothyroxine Sodium) 75 Mcg Tablet, 75 MCG PO DAILY, (Reported) Magnesium Chloride (Slow-Mag) 71.5 Mg Tablet.dr, 1 TAB PO QHS, (Reported) Omeprazole (Omeprazole) 20 Mg Capsule.dr, 20 MG PO DAILY, (Reported) Travoprost (Travatan Z) 50 Drop/2.5 Ml Soln, 1 DROP OU QHS, (Reported) Scheduled PRN Acetaminophen (Acetaminophen) 325 Mg Tablet, 325 MG PO Q4H PRN for PAIN, (Reported) Allergies Coded Allergies: TAPE (Verified Allergy, Unknown, ADHESIVE TAPE, 10/12/16) naproxen (Verified Allergy, Unknown, 12/26/18) Past Medical History Medical History CAD, hypertension, hyperlipidemia, hypothyroidism, osteoarthritis, autoimmune hepatitis, history of multifocal pneumonia, history of subdural hematoma, status post cataract surgery, status post knee replacement, glaucoma, and headaches Surgical History , knee replacement Social History * Smoker: Denies Alcohol: Denies Drugs: denies A-FIB/CHADSVASC A-FIB History Current/History of A-Fib/PAF?: No Review of Systems Constitutional: Reports: Other (episode of dizziness) Eyes: Denies: Pain, Vision change, Conjunctivae inflammation, Eyelid inflammation, Redness, Other ENT: Denies: Head Aches, Ear Pain, Dysphagia, Sinus Congestion, Post Nasal Drip, Sore Throat, Epistaxis, Other Symptoms Skin: Denies: Rash, Lesions, Jaundice, Bruising, Itching, Dry, Breakdown, Nail Changes, Other Pulmonary: Denies: Dyspnea, Cough, Pleuritic Chest Pain, Other Symptoms Cardiovascular: Denies: Chest Pain, Palpitations, Orthopnea, Paroxysmal Noc. Dyspnea, Edema, Lt Headedness, Other Symptoms Gastrointestinal: Denies: Nausea, Vomiting, Abdominal Pain, Diarrhea, Constipation, Melena, Hematochezia, Other Symptoms Genitourinary: Denies: Dysuria, Frequency, Incontinence, Hematuria, Retention, Other Symptoms Hematologic: Denies: Bruising, Bleeding Excessively, Petecchia, Purpura, Enlarged Lymph Nodes, Other Hematologic Endocrine: Denies: Polydipsia, Polyphagia, Polyuria, Heat Intolerance, Cold Intolerance, Other Endocrine Sx Musculoskeletal: Reports: Other Symptoms (10. 8. Left shoulder) Neurological: Denies: Weakness, Numbness, Incoordination, Change in speech, Confusion, Seizures, Other Symptoms Psych: Denies: Mood Normal, Anxiety, Depression, Memory Issues, Thoughts of Self Harm, Anger, Thoughts of Harming Other, Other Psych Physical Examination General Exam: Positive: Alert, Cooperative, Other (dressing at the left side of 400) Eye Exam: Positive: Conjunctiva & lids normal ENT Exam: Positive: Atraumatic Neck Exam: Positive: Supple Chest Exam: Positive: Clear to auscultation, Normal air movement Heart Exam: Positive: Rate Normal, Normal S1, Normal S2 Abdomen Exam: Positive: Normal bowel sounds, Soft Extremity Exam: Positive: Normal pulses, Other (sling at the left shoulder with positive tenderness on palpation of the left shoulder) Skin Exam: Positive: Nl turgor and temperature Neuro Exam: Positive: Normal Gait, Strength at 5/5 X4 ext, Sensation Intact Vital Signs Vital Signs Date Time Temp Pulse Resp B/P (MAP) Pulse Ox O2 Delivery O2 Flow Rate FiO2 12/26/18 13:00 60 18 123/60 (81) 100 Room Air 12/26/18 09:56 97.2 Laboratory Data Labs 24H Laboratory Tests 2 12/26/18 11:34: Immature Granulocyte % (Auto) 0.3, White Blood Count 7.7, Red Blood Count 3.38L, Hemoglobin 10.4L, Hematocrit 32.1L, Mean Corpuscular Volume 95.0, Mean Corpuscular Hemoglobin 30.8, Mean Corpuscular Hemoglobin Concent 32.4, Red Cell Distribution Width 13.4, Platelet Count 235, Neutrophils (%) (Auto) 78.5H, Lymphocytes (%) (Auto) 14.7L, Monocytes (%) (Auto) 5.6H, Eosinophils (%) (Auto) 0.5, Basophils (%) (Auto) 0.4, Neutrophils # (Auto) 6.0, Lymphocytes # (Auto) 1.1L, Monocytes # (Auto) 0.4, Eosinophils # (Auto) 0.0, Basophils # (Auto) 0.0, Nucleated Red Blood Cells % (auto) 0.0, Anion Gap 8, Glomerular Filtration Rate > 60.0, Blood Urea Nitrogen 28H, Creatinine 0.93, Sodium Level 140, Potassium Level 4.3, Chloride Level 109H, Carbon Dioxide Level 23, Calcium Level 9.4, Aspartate Amino Transf (AST/SGOT) 19, Alanine Aminotransferase (ALT/SGPT) 33, Total Creatine Kinase 77, Alkaline Phosphatase 50, Total Bilirubin 0.4, Total Protein 6.3L, Albumin 3.3, Creatine Kinase MB 2.1, Creatine Kinase MB Relative Index 2.73, Troponin I < 0.02, Albumin/Globulin Ratio 1.10 CBC/BMP Laboratory Tests 12/26/18 11:34 Red Blood Count 3.38 L, Mean Corpuscular Volume 95.0, Mean Corpuscular Hemoglobin 30.8, Mean Corpuscular Hemoglobin Concent 32.4, Red Cell Distribution Width 13.4, Neutrophils (%) (Auto) 78.5 H, Lymphocytes (%) (Auto) 14.7 L, Monocytes (%) (Auto) 5.6 H, Eosinophils (%) (Auto) 0.5, Basophils (%) (Auto) 0.4, Neutrophils # (Auto) 6.0, Lymphocytes # (Auto) 1.1 L, Monocytes # (Auto) 0.4, Eosinophils # (Auto) 0.0, Basophils # (Auto) 0.0, Calcium Level 9.4, Aspartate Amino Transf (AST/SGOT) 19, Alanine Aminotransferase (ALT/SGPT) 33, Total Creatine Kinase 77, Alkaline Phosphatase 50, Total Bilirubin 0.4, Total Protein 6.3 L, Albumin 3.3 Problems (1) Near syncope Status: Acute Problem Text: 83 years old, frail white female with past medical history of CAD, hypertension, hyperlipidemia, hypothyroidism, osteoarthritis, degenerative joint disease, autoimmune disorder, history of subdural and subarachnoid hemorrhage in the past had a near syncopal episode after she sustained an episode of dizziness while washing the dishes and fell forward. She tried to grab something in the front and hit her forehead and sustained a laceration to left side of 400 and injury to her left humerus. Patient being admitted for observation. PT, OT eval and possible placement to subacute rehabilitation as patient cannot use her (she uses walker to ambulate and her home is not designed to allow a wheelchair access. Admitted to telemetry and PCU Saline lock Troponins 2 every 6 hours Echocardiogram Carotid Dopplers Routine blood work in a.m. Physical therapy and occupation therapy evaluation Activity as tolerated Diet 2 g sodium Continue home meds DVT prophylaxis with Lovenox (2) Humerus fracture Status: Acute Problem Text: Discussed with the ED attending. Patient does not need orthopedic consultation As patient has a nondisplaced humeral fracture from neck and head and a sling. He has been applying Pain management with Percocet PT/ OT eval (3) HTN (hypertension) Status: Chronic Problem Text: Under well control Continue home meds (4) Hypothyroid Status: Chronic Problem Text: TSH has been ordered The home meds (5) GERD (gastroesophageal reflux disease) Status: Chronic (6) Glaucoma Status: Chronic (7) DJD (degenerative joint disease) Status: Chronic Plan / VTE VTE Prophylaxis Ordered?: Yes ADRIEL REDDY MD Dec 26, 2018 14:26
--- NOTE | 2018-12-26 15:29 | REP ---
CAROTID ULTRASOUND: Real-time ultrasound evaluation and duplex Doppler interrogation of the extracranial carotid vasculature is performed. There is moderate plaquing and narrowing in both carotid bulbs extending into the internal and external carotid arteries. Luminal narrowing is less than 50%. There is no evidence of hemodynamically significant stenosis of either internal carotid artery. Normal flow velocities are seen. The left vertebral artery demonstrates normal direction of flow. The right vertebral artery is not seen. RIGHT LEFT Peak systolic velocity ICA 88.4 cm/s 77.1 cm/s End diastolic velocity ICA 13.4 cm/s 12.8 cm/s Peak systolic velocity CCA 126.7 cm/s 43.7 cm/s Peak systolic velocity ECA 199.6 cm/s 39.2 cm/s ICA/CCA ratio 0.7 1.76 IMPRESSION: Bilateral luminal narrowing of the internal carotid arteries less than 50%. No evidence of hemodynamically significant stenosis. Electronically Signed by Catalino Bryant MD 12/26/2018 03:21 P
[2018-12-26 15:30] VITALS: BP 135/65
[2018-12-26] MEDS: ENOXAPARIN 40 MG/0.4 ML SYRINGE (J1650) SC SCH (15:48)
[2018-12-26] MEDS: ALBUTEROL SULFATE 2.5 MG/0.5 ML INH NEB SOLN INH SCH (18:05)
[2018-12-26] MEDS: ACETAMINOPHEN TAB 650MG DOSE (2X325MG) PO PRN ×2 (18:31→22:48)
--- NOTE | 2018-12-26 19:28 | ECGEPIP ---
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
[2018-12-26 20:00] VITALS: BP 127/63
[2018-12-26] MEDS: DOCUSATE SODIUM 100 MG CAP PO SCH (20:36)
[2018-12-26] MEDS: levETIRAcetam 250MG TABLET (KEPPRA) PO SCH (20:37)
[2018-12-26] MEDS: BENAZEPRIL 20 MG TAB PO SCH (20:37)
[2018-12-26] MEDS: ASPIRIN 81 MG ENTERIC TAB PO SCH (20:37)
[2018-12-26] MEDS: BRIMONIDINE 0.15% OPHTH SOLN 5 ML OU SCH (20:38)
[2018-12-26] MEDS: LATANOPROST 0.005% OPHTH SOLN 2.5 ML OU SCH (20:38)
[2018-12-26] MEDS: TIMOLOL MALEATE 0.5% OPHTH SOLN 5 ML OU SCH (20:38)
[2018-12-26 23:52] VITALS: BP 115/54
[2018-12-27 04:00] VITALS: BP 151/70
[2018-12-27] MEDS: LEVOTHYROXINE 75MCG TABLET (0.075MG) PO SCH (05:05)
[2018-12-27 06:19] LABS: HEMATOCRIT 32.3 % (36.0-47.0); HEMOGLOBIN 10.7 g/dl (12.0-15.5); MEAN CORPUSCULAR HEMOGLOBIN 31.7 pg (27.0-33.0); MEAN CORPUSCULAR HGB CONC 33.1 g/dl (32.0-36.5); MEAN CORPUSCULAR VOLUME 95.6 fl (80.0-96.0); PLATELET COUNT, AUTOMATED 228 10^3/uL (150-450); RED BLOOD COUNT 3.38 10^6/uL (4.00-5.40); WHITE BLOOD COUNT 8.3 10^3/uL (4.0-10.0)
[2018-12-27 06:42] LABS: ALBUMIN 3.2 GM/DL (3.2-5.2); ALT/SGPT 31 U/L (12-78); BILIRUBIN,TOTAL 0.5 MG/DL (0.2-1.0); BLOOD UREA NITROGEN 25 MG/DL (7-18); CALCIUM LEVEL 9.3 MG/DL (8.8-10.2); CARBON DIOXIDE LEVEL 24 MEQ/L (21-32); CHLORIDE LEVEL 108 MEQ/L (98-107); GLOMERULAR FILTRATION RATE > 60.0 (>32); GLUCOSE, FASTING 87 MG/DL (70-100); POTASSIUM SERUM 3.4 MEQ/L (3.5-5.1); SODIUM LEVEL 140 MEQ/L (136-145); TOTAL PROTEIN 6.8 GM/DL (6.4-8.2)
[2018-12-27] MEDS: ALBUTEROL SULFATE 2.5 MG/0.5 ML INH NEB SOLN INH SCH ×2 (07:12→19:22)
[2018-12-27 08:00] VITALS: BP 170/62
[2018-12-27] MEDS ORDERED: POTASSIUM CHLORIDE 10 MEQ SR TABLET PO ONE (08:00)
[2018-12-27] MEDS: OMEPRAZOLE 20 MG CAP PO SCH (08:33)
[2018-12-27] MEDS: ATORVASTATIN 20 MG TAB PO SCH (08:33)
[2018-12-27] MEDS: levETIRAcetam 250MG TABLET (KEPPRA) PO SCH ×2 (08:34→19:52)
[2018-12-27] MEDS: amLODIPine 10 MG TAB PO SCH (08:34)
[2018-12-27] MEDS: BENAZEPRIL 20 MG TAB PO SCH ×2 (08:34→19:52)
[2018-12-27] MEDS: azaTHIOprine 50 MG TAB (J7500) PO SCH (08:34)
[2018-12-27] MEDS: DOCUSATE SODIUM 100 MG CAP PO SCH ×2 (08:35→19:51)
[2018-12-27] MEDS: CHLORTHALIDONE 12.5MG PER 1/2 TABLET PO SCH (08:35)
[2018-12-27] MEDS: ENOXAPARIN 40 MG/0.4 ML SYRINGE (J1650) SC SCH (08:36)
[2018-12-27] MEDS: TIMOLOL MALEATE 0.5% OPHTH SOLN 5 ML OU SCH ×2 (08:37→19:52)
[2018-12-27] MEDS: BRIMONIDINE 0.15% OPHTH SOLN 5 ML OU SCH ×2 (08:37→19:52)
--- NOTE | 2018-12-27 10:30 | IPNPDOC ---
Subjective Date Seen The patient was seen on 12/27/18. Subjective Chief Complaint/HPI Patient is comfortable in no distress. Offers no new complaints General: Denies: ROS Unobtainable, Chills, Night Sweats, Fatigue, Malaise, Normal Appetite, Other Symptoms Constitutional: Denies: Chills, Fever, Malaise, Night Sweats, Weakness, Fatigue, Weight Loss, Lethargy, Other Eyes: Denies: Pain, Vision change, Conjunctivae inflammation, Eyelid inflammation, Redness, Other ENT: Denies: Head Aches, Ear Pain, Dysphagia, Sinus Congestion, Post Nasal Drip , Sore Throat, Epistaxis, Other Symptoms Skin: Denies: Rash, Lesions, Jaundice, Bruising, Itching, Dry, Breakdown, Nail Changes, Other Pulmonary: Denies: Dyspnea, Cough, Pleuritic Chest Pain, Other Symptoms Cardiovascular: Denies: Chest Pain, Palpitations, Orthopnea, Paroxysmal Noc. Dyspnea, Edema, Lt Headedness, Other Symptoms Endocrine: Denies: Polydipsia, Polyphagia, Polyuria, Heat Intolerance, Cold Intolerance, Other Endocrine Sx Musculoskeletal: Denies: Neck Pain, Back Pain, Shoulder Pain, Arm Pain, Hand Pain, Leg Pain, Foot Pain, Joint Pain, Muscle Pain, Spasms, Other Symptoms Neurological: Denies: Weakness, Numbness, Incoordination, Change in speech, Co nfusion, Seizures, Other Symptoms Objective Physical Examination General Exam: Positive: Alert, Cooperative, Other (dressing at the left side of 400) Eye Exam: Positive: Conjunctiva & lids normal ENT Exam: Positive: Atraumatic Neck Exam: Positive: Supple Chest Exam: Positive: Clear to auscultation, Normal air movement Heart Exam: Positive: Rate Normal, Normal S1, Normal S2 Abdomen Exam: Positive: Normal bowel sounds, Soft Extremity Exam: Positive: Normal pulses, Other (sling at the left shoulder with positive tenderness on palpation of the left shoulder) Skin Exam: Positive: Nl turgor and temperature Neuro Exam: Positive: Normal Gait, Strength at 5/5 X4 ext, Sensation Intact Assessment /Plan Problems (1) Near syncope Status: Acute Problem Text: 83 years old, frail white female with past medical history of CAD, hypertension, hyperlipidemia, hypothyroidism, osteoarthritis, degenerative joint disease, autoimmune disorder, history of subdural and subarachnoid hemorrhage in the past had a near syncopal episode after she sustained an episode of dizziness while washing the dishes and fell forward. She tried to grab something in the front and hit her forehead and sustained a laceration to left side of 400 and injury to her left humerus. Patient being admitted for observation. PT, OT eval and possible placement to subacute rehabilitation as patient cannot use her (she uses walker to ambulate and her home is not designed to allow a wheelchair access. Admitted to telemetry and PCU Saline lock Troponins 2 are negative Echocardiogram pending Carotid Dopplers: No stenosis noted bilaterally Routine blood work within normal limit. This morning Physical therapy and occupation therapy evaluation Activity as tolerated Diet 2 g sodium Continue home meds DVT prophylaxis with Lovenox (2) Humerus fracture Status: Acute Problem Text: Discussed with the ED attending. Patient does not need orthopedic consultation As patient has a nondisplaced humeral fracture from neck and head and a sling. He has been applying Pain management with Percocet PT/ OT eval (3) HTN (hypertension) Status: Chronic Problem Text: Under well control Continue home meds (4) Hypothyroid Status: Chronic Problem Text: TSH has been ordered The home meds (5) GERD (gastroesophageal reflux disease) Status: Chronic (6) Glaucoma Status: Chronic (7) DJD (degenerative joint disease) Status: Chronic (8) Hypokalemia Status: Acute Problem Text: Potassium supplemented Check labs in a.m. Plan/VTE VTE Prophylaxis Ordered?: Yes VS, I&O, 24H, Fishbone Vital Signs/I&O Vital Signs Date Time Temp Pulse Resp B/P (MAP) Pulse Ox O2 Delivery O2 Flow Rate FiO2 12/27/18 08:34 170/62 12/27/18 08:34 77 12/27/18 08:00 98.6 20 100 12/26/18 15:21 Room Air I&O- Last 24 Hours up to 6 AM 12/27/18 05:59 Intake Total 240 ml Output Total 1250 ml Balance -1010 ml Laboratory Data 24H LABS Laboratory Tests 2 12/26/18 11:34: Immature Granulocyte % (Auto) 0.3, White Blood Count 7.7, Red Blood Count 3.38L, Hemoglobin 10.4L, Hematocrit 32.1L, Mean Corpuscular Volume 95.0, Mean Corpuscular Hemoglobin 30.8, Mean Corpuscular Hemoglobin Concent 32.4, Red Cell Distribution Width 13.4, Platelet Count 235, Neutrophils (%) (Auto) 78.5H, Lymphocytes (%) (Auto) 14.7L, Monocytes (%) (Auto) 5.6H, Eosinophils (%) (Auto) 0.5, Basophils (%) (Auto) 0.4, Neutrophils # (Auto) 6.0, Lymphocytes # (Auto) 1.1L, Monocytes # (Auto) 0.4, Eosinophils # (Auto) 0.0, Basophils # (Auto) 0.0, Nucleated Red Blood Cells % (auto) 0.0, Anion Gap 8, Glomerular Filtration Rate > 60.0, Blood Urea Nitrogen 28H, Creatinine 0.93, Sodium Level 140, Potassium Level 4.3, Chloride Level 109H, Carbon Dioxide Level 23, Calcium Level 9.4, Aspartate Amino Transf (AST/SGOT) 19, Alanine Aminotransferase (ALT/SGPT) 33, Total Creatine Kinase 77, Alkaline Phosphatase 50, Total Bilirubin 0.4, Total Protein 6.3L, Albumin 3.3, Creatine Kinase MB 2.1, Creatine Kinase MB Relative Index 2.73, Troponin I < 0.02, Albumin/Globulin Ratio 1.10 12/26/18 20:56: Troponin I < 0.02 12/27/18 01:58: Troponin I < 0.02 12/27/18 05:25: Nucleated Red Blood Cells % (auto) 0.0, Anion Gap 8, Glomerular Filtration Rate > 60.0, Blood Urea Nitrogen 25H, Creatinine 0.80, Sodium Level 140, Potassium Level 3.4#L, Chloride Level 108H, Carbon Dioxide Level 24, Calcium Level 9.3, Aspartate Amino Transf (AST/SGOT) 18, Alanine Aminotransferase (ALT/SGPT) 31, Alkaline Phosphatase 53, Total Bilirubin 0.5, Total Protein 6.8, Albumin 3.2, Albumin/Globulin Ratio 0.89L CBC/BMP Laboratory Tests 12/26/18 11:34 Red Blood Count 3.38 L, Mean Corpuscular Volume 95.0, Mean Corpuscular Hemoglobin 30.8, Mean Corpuscular Hemoglobin Concent 32.4, Red Cell Distribution Width 13.4, Neutrophils (%) (Auto) 78.5 H, Lymphocytes (%) (Auto) 14.7 L, Monocytes (%) (Auto) 5.6 H, Eosinophils (%) (Auto) 0.5, Basophils (%) (Auto) 0.4, Neutrophils # (Auto) 6.0, Lymphocytes # (Auto) 1.1 L, Monocytes # (Auto) 0.4, Eosinophils # (Auto) 0.0, Basophils # (Auto) 0.0, Calcium Level 9.4, Aspartate Amino Transf (AST/SGOT) 19, Alanine Aminotransferase (ALT/SGPT) 33, Total Creatine Kinase 77, Alkaline Phosphatase 50, Total Bilirubin 0.4, Total Protein 6.3 L, Albumin 3.3 12/27/18 05:25 Red Blood Count 3.38 L, Mean Corpuscular Volume 95.6, Mean Corpuscular Hemoglobin 31.7, Mean Corpuscular Hemoglobin Concent 33.1, Red Cell Distribution Width 13.3, Calcium Level 9.3, Aspartate Amino Transf (AST/SGOT) 18, Alanine Aminotransferase (ALT/SGPT) 31, Alkaline Phosphatase 53, Total Bilirubin 0.5, Total Protein 6.8, Albumin 3.2 ADRIEL REDDY MD Dec 27, 2018 10:30
[2018-12-27 12:00] VITALS: BP 121/59
[2018-12-27] MEDS: ACETAMINOPHEN TAB 650MG DOSE (2X325MG) PO PRN (15:22)
[2018-12-27 16:00] VITALS: BP 157/66
[2018-12-27] MEDS: ASPIRIN 81 MG ENTERIC TAB PO SCH (19:52)
[2018-12-27] MEDS: LATANOPROST 0.005% OPHTH SOLN 2.5 ML OU SCH (19:53)
[2018-12-27 20:00] VITALS: BP 153/67
[2018-12-27 23:59] VITALS: BP 95/51
[2018-12-28 04:00] VITALS: BP 166/73
[2018-12-28] MEDS: LEVOTHYROXINE 75MCG TABLET (0.075MG) PO SCH (04:57)
[2018-12-28] MEDS: ACETAMINOPHEN TAB 650MG DOSE (2X325MG) PO PRN ×2 (05:10→20:38)
[2018-12-28] MEDS: ALBUTEROL SULFATE 2.5 MG/0.5 ML INH NEB SOLN INH SCH ×2 (07:13→19:35)
[2018-12-28 08:00] VITALS: BP 133/65
[2018-12-28] MEDS: BENAZEPRIL 20 MG TAB PO SCH ×2 (08:36→20:38)
[2018-12-28] MEDS: azaTHIOprine 50 MG TAB (J7500) PO SCH (08:36)
[2018-12-28] MEDS: ATORVASTATIN 20 MG TAB PO SCH (08:36)
[2018-12-28] MEDS: levETIRAcetam 250MG TABLET (KEPPRA) PO SCH ×2 (08:36→20:38)
[2018-12-28] MEDS: OMEPRAZOLE 20 MG CAP PO SCH (08:36)
[2018-12-28] MEDS: amLODIPine 10 MG TAB PO SCH (08:36)
[2018-12-28] MEDS: CHLORTHALIDONE 12.5MG PER 1/2 TABLET PO SCH (08:37)
[2018-12-28] MEDS: ENOXAPARIN 40 MG/0.4 ML SYRINGE (J1650) SC SCH (08:37)
[2018-12-28] MEDS: DOCUSATE SODIUM 100 MG CAP PO SCH ×2 (08:37→20:37)
[2018-12-28] MEDS: TIMOLOL MALEATE 0.5% OPHTH SOLN 5 ML OU SCH ×2 (08:39→20:39)
[2018-12-28] MEDS: BRIMONIDINE 0.15% OPHTH SOLN 5 ML OU SCH ×2 (08:39→20:38)
[2018-12-28] MEDS ORDERED: SLF 3 ML SYR IV PRN (10:30)
--- NOTE | 2018-12-28 10:32 | ECHO ---
DATE OF PROCEDURE: 12/27/2018 AGE: 83 GENDER: Female. HEIGHT: 64 inches. WEIGHT: 121 pounds. BODY SURFACE AREA: 1.58 meters squared. LOCATION: Inpatient, progressive care unit (PCU), room 3211. REFERRING PHYSICIAN: Dr. Cortez INDICATION: Transient ischemic attack. MEASUREMENTS: 2D MEASUREMENTS: RV - 3.0 cm LV - 4.0 cm Septum 0.9 cm Posterior wall 0.9 cm Aortic root 3.0 cm LA - 3.6 cm LVEF 65% DOPPLER MEASUREMENTS: AV - 1.94 m/s LVOT - 1.1 m/s LVOT diameter 2.2 cm MV-E 96, A 75, E/A ratio 1.3. Early mitral deceleration time 271 ms E prime 6 A prime 5.2 E/E prime ratio 16 PV 0.8 m/s Pulmonary artery acceleration time 154 ms RVSP 20 mmHg IVC 1.0 cm COMMENTS: Normal sinus rhythm with first degree AV block but no intraventricular conductance disturbance. Normal left ventricular size, wall thickness, and wall motion. No sign of prior infarction. Left atrial size upper limits of normal with Doppler evidence of an impairment of LV diastolic function and possibly mildly elevated mean left atrial pressure. Normal right heart chamber sizes and motion with normal pulmonary arterial pressure. Normal IVC size and collapse against an elevated central venous pressure. Three equal sized aortic cusps with moderately thickened cusp edges with adequate cusp separation and only very mild insufficiency. Normal aort root size. Moderately severe mitral annular calcification without inflow tract obstruction and only trace insufficiency. Unable to detect a separate intracardiac mass, but with the thickening of her mitral and aortic valvular apparatus, we could not rule out a sessile vegetation. No pericardial effusion. If a cardiac source is seriously suspect for her neurological deficit, a transesophageal echocardiogram would be the investigation of choice.
--- NOTE | 2018-12-28 10:43 | IPNPDOC ---
Subjective Date Seen The patient was seen on 12/28/18. Subjective Chief Complaint/HPI Patient is comfortable offers no new complaints at the present time General: Denies: ROS Unobtainable, Chills, Night Sweats, Fatigue, Malaise, Normal Appetite, Other Symptoms Constitutional: Denies: Chills, Fever, Malaise, Night Sweats, Weakness, Fatigue, Weight Loss, Lethargy, Other Eyes: Denies: Pain, Vision change, Conjunctivae inflammation, Eyelid inflammation, Redness, Other ENT: Denies: Head Aches, Ear Pain, Dysphagia, Sinus Congestion, Post Nasal Drip, Sore Throat, Epistaxis, Other Symptoms Skin: Denies: Rash, Lesions, Jaundice, Bruising, Itching, Dry, Breakdown, Nail Changes, Other Pulmonary: Denies: Dyspnea, Cough, Pleuritic Chest Pain, Other Symptoms Cardiovascular: Denies: Chest Pain, Palpitations, Orthopnea, Paroxysmal Noc. Dyspnea, Edema, Lt Headedness, Other Symptoms Gastrointestinal: Denies: Nausea, Vomiting, Abdominal Pain, Diarrhea, Constipation, Melena, Hematochezia, Other Symptoms Neurological: Denies: Weakness, Numbness, Incoordination, Change in speech, Confusion, Seizures, Other Symptoms Objective Physical Examination General Exam: Positive: No Acute Distress, Other (dressing at the left side of 400) ENT Exam: Positive: Atraumatic Neck Exam: Positive: Supple Chest Exam: Positive: Clear to auscultation, Normal air movement Heart Exam: Positive: Rate Normal, Normal S1, Normal S2 Abdomen Exam: Positive: Normal bowel sounds, Soft Extremity Exam: Positive: Normal pulses, Other (sling at the left shoulder with positive tenderness on palpation of the left shoulder) Assessment /Plan Problems (1) Near syncope Status: Acute Problem Text: 83 years old, frail white female with past medical history of CAD, hypertension, hyperlipidemia, hypothyroidism, osteoarthritis, degenerative joint disease, autoimmune disorder, history of subdural and subarachnoid hemorrhage in the past had a near syncopal episode after she sustained an episode of dizziness while washing the dishes and fell forward. She tried to grab something in the front and hit her forehead and sustained a laceration to left side of 400 and injury to her left humerus. Patient being admitted for observation. PT, OT eval and possible placement to subacute rehabilitation as patient cannot use her (she uses walker to ambulate and her home is not designed to allow a wheelchair access. Admitted to telemetry and PCU Saline lock Troponins 2 are negative Telemetry monitoring is also within normal limits Echocardiogram pending Carotid Dopplers: No stenosis noted bilaterally Normal blood work Physical therapy and occupation therapy evaluation Activity as tolerated Diet 2 g sodium Continue home meds DVT prophylaxis with Lovenox (2) Humerus fracture Status: Acute Problem Text: Discussed with the ED attending. Patient does not need orthopedic consultation As patient has a nondisplaced humeral fracture from neck and head and a sling. He has been applying Pain management with Percocet PT/ OT eval (3) HTN (hypertension) Status: Chronic Problem Text: Under well control Continue home meds (4) Hypothyroid Status: Chronic Problem Text: TSH has been ordered The home meds (5) GERD (gastroesophageal reflux disease) Status: Chronic (6) Glaucoma Status: Chronic (7) DJD (degenerative joint disease) Status: Chronic (8) Hypokalemia Status: Resolved Problem Text: Potassium supplemented Check labs in a.m. Plan/VTE VTE Prophylaxis Ordered?: Yes VS, I&O, 24H, Fishbone Vital Signs/I&O Vital Signs Date Time Temp Pulse Resp B/P (MAP) Pulse Ox O2 Delivery O2 Flow Rate FiO2 12/28/18 08:36 133/65 12/28/18 08:36 82 12/28/18 08:00 97.1 18 99 12/26/18 15:21 Room Air I&O- Last 24 Hours up to 6 AM 12/28/18 05:59 Intake Total 720 ml Output Total 1350 ml Balance -630 ml ADRIEL REDDY MD Dec 28, 2018 10:43
[2018-12-28 12:00] VITALS: BP 103/51
[2018-12-28] MEDS: SLF 3 ML SYR IV SCH ×2 (13:05→20:39)
[2018-12-28 16:44] VITALS: BP 138/56
[2018-12-28] MEDS: ASPIRIN 81 MG ENTERIC TAB PO SCH (20:37)
[2018-12-28] MEDS: LATANOPROST 0.005% OPHTH SOLN 2.5 ML OU SCH (20:38)
[2018-12-28 22:00] VITALS: BP 134/57
[2018-12-29] MEDS: SLF 3 ML SYR IV SCH ×2 (05:33→14:00)
[2018-12-29] MEDS: LEVOTHYROXINE 75MCG TABLET (0.075MG) PO SCH (05:34)
[2018-12-29 06:00] VITALS: BP 141/69
[2018-12-29] MEDS: levETIRAcetam 250MG TABLET (KEPPRA) PO SCH (07:59)
[2018-12-29 08:00] VITALS: BP 141/69
[2018-12-29] MEDS: BENAZEPRIL 20 MG TAB PO SCH (08:00)
[2018-12-29] MEDS: amLODIPine 10 MG TAB PO SCH (08:00)
[2018-12-29] MEDS: CHLORTHALIDONE 12.5MG PER 1/2 TABLET PO SCH (08:00)
[2018-12-29] MEDS: DOCUSATE SODIUM 100 MG CAP PO SCH (08:01)
[2018-12-29] MEDS: TIMOLOL MALEATE 0.5% OPHTH SOLN 5 ML OU SCH (08:02)
[2018-12-29] MEDS: BRIMONIDINE 0.15% OPHTH SOLN 5 ML OU SCH (08:02)
[2018-12-29] MEDS: LATANOPROST 0.005% OPHTH SOLN 2.5 ML OU SCH (08:03)
[2018-12-29] MEDS: OMEPRAZOLE 20 MG CAP PO SCH (08:03)
[2018-12-29] MEDS: ENOXAPARIN 40 MG/0.4 ML SYRINGE (J1650) SC SCH (08:03)
[2018-12-29] MEDS: azaTHIOprine 50 MG TAB (J7500) PO SCH (08:04)
[2018-12-29] MEDS: ATORVASTATIN 20 MG TAB PO SCH (08:04)
[2018-12-29] MEDS: ALBUTEROL SULFATE 2.5 MG/0.5 ML INH NEB SOLN INH SCH (08:09)
--- NOTE | 2018-12-29 10:15 | IPNPDOC ---
Subjective Date Seen The patient was seen on 12/29/18. Subjective Chief Complaint/HPI No new complaints. Patient was to go home with quad cane General: Denies: ROS Unobtainable, Chills, Night Sweats, Fatigue, Malaise, Normal Appetite, Other Symptoms Constitutional: Denies: Chills, Fever, Malaise, Night Sweats, Weakness, Fatigue, Weight Loss, Lethargy, Other Eyes: Denies: Pain, Vision change, Conjunctivae inflammation, Eyelid inflammation, Redness, Other ENT: Denies: Head Aches, Ear Pain, Dysphagia, Sinus Congestion, Post Nasal Drip, Sore Throat, Epistaxis, Other Symptoms Skin: Denies: Rash, Lesions, Jaundice, Bruising, Itching, Dry, Breakdown, Nail Changes, Other Pulmonary: Denies: Dyspnea, Cough, Pleuritic Chest Pain, Other Symptoms Cardiovascular: Denies: Chest Pain, Palpitations, Orthopnea, Paroxysmal Noc. Dyspnea, Edema, Lt Headedness, Other Symptoms Musculoskeletal: Denies: Neck Pain, Back Pain, Shoulder Pain, Arm Pain, Hand Pain, Leg Pain, Foot Pain, Joint Pain, Muscle Pain, Spasms, Other Symptoms Neurological: Denies: Weakness, Numbness, Incoordination, Change in speech, Confusion, Seizures, Other Symptoms Objective Physical Examination ENT Exam: Positive: Atraumatic Neck Exam: Positive: Supple Chest Exam: Positive: Clear to auscultation, Normal air movement Heart Exam: Positive: Rate Normal, Normal S1, Normal S2 Abdomen Exam: Positive: Normal bowel sounds, Soft Extremity Exam: Positive: Normal pulses, Other (sling at the left shoulder with positive tenderness on palpation of the left shoulder) Assessment /Plan Problems (1) Near syncope Status: Acute Problem Text: 83 years old, frail white female with past medical history of CAD, hypertension, hyperlipidemia, hypothyroidism, osteoarthritis, degenerative joint disease, autoimmune disorder, history of subdural and subarachnoid hemorrhage in the past had a near syncopal episode after she sustained an episode of dizziness while washing the dishes and fell forward. She tried to grab something in the front and hit her forehead and sustained a laceration to left side of 400 and injury to her left humerus. Patient being admitted for observation. PT, OT eval and possible placement to subacute rehabilitation as patient cannot use her (she uses walker to ambulate and her home is not designed to allow a wheelchair a ccess. Troponins 2 are negative Telemetry monitoring is also within normal limits Echocardiogram report: Normal sinus rhythm with first degree AV block but no intraventricular conductance disturbance. Normal left ventricular size, wall thickness, and wall motion. No sign of prior infarction. Left atrial size upper limits of normal with Doppler evidence of an impairment of LV diastolic function and possibly mildly elevated mean left atrial pressure. Normal right heart chamber sizes and motion with normal pulmonary arterial pressure. Normal IVC size and collapse against an elevated central venous pressure. Three equal sized aortic cusps with moderately thickened cusp edges with adequate cusp separation and only very mild insufficiency. Normal aort root size. Moderately severe mitral annular calcification without inflow tract obstruction and only trace insufficiency. Unable to detect a separate intracardiac mass, but with the thickening of her mitral and aortic valvular apparatus, we could not rule out a sessile vegetation. Physical therapy and occupation therapy evaluation Activity as tolerated Diet 2 g sodium Continue home meds DVT prophylaxis with Lovenox Possible discharge home with quad cane if cleared by physical therapy are to subacute area facility (2) Humerus fracture Status: Acute Problem Text: Discussed with the ED attending. Patient does not need orthopedic consultation As patient has a nondisplaced humeral fracture from neck and head and a sling. He has been applying Pain management with Percocet PT/ OT eval (3) HTN (hypertension) Status: Chronic Problem Text: Under well control Continue home meds (4) Hypothyroid Status: Chronic Problem Text: TSH has been ordered The home meds (5) GERD (gastroesophageal reflux disease) Status: Chronic (6) Glaucoma Status: Chronic (7) DJD (degenerative joint disease) Status: Chronic (8) Hypokalemia Status: Resolved Problem Text: Potassium supplemented Check labs in a.m. Plan/VTE VTE Prophylaxis Ordered?: Yes VS, I&O, 24H, Fishbone Vital Signs/I&O Vital Signs Date Time Temp Pulse Resp B/P (MAP) Pulse Ox O2 Delivery O2 Flow Rate FiO2 12/29/18 08:32 18 12/29/18 08:00 141/69 12/29/18 08:00 79 12/29/18 06:00 97.7 100 12/26/18 15:21 Room Air I&O- Last 24 Hours up to 6 AM 12/29/18 06:00 Intake Total 900 ml Output Total 0 ml Balance 900 ml ADRIEL REDDY MD Dec 29, 2018 10:15
--- NOTE | 2018-12-29 13:32 | DS.PDOC ---
Discharge Summary General Date of Admission Dec 28, 2018 at 12:13 Date of Discharge 12/29/18 Discharge Summary PROCEDURES PERFORMED DURING STAY: None. ADMITTING DIAGNOSES: 1. Presyncope, fall, left humeral fracture. DISCHARGE DIAGNOSES: 1. Presyncope, fall, left humeral fracture. COMPLICATIONS/CHIEF COMPLAINT: Humerus Fracture Near Syncope. HISTORY OF PRESENT ILLNESS: 83 years old white female with past medical history of CAD, hypertension, hyperlipidemia, hypothyroidism, osteoarthritis, autoimmune hepatitis, history of pneumonia, status post cataract surgery, status post knee replacement, glaucoma, history of subdural hematoma was in her usual state of health when she was washing her dishes that she felt dizzy and fell backwards when she tried to grab something the before falling. She hit her forehead left side on some object sustaining a laceration. Patient denies loss of consciousness, seizures, chest pain, shortness of breath, . As per patient, she had a similar episode in the past which she sustained subdural hematoma and and injuries 3 times in last 2 years Patient is comfortable at the present time. is the bedside. Offers no new complaints. No headache, no bleeding per nose light. Ears are mouth. No dizziness, no chest pain and no shortness of breath. HOSPITAL COURSE: Patient was admitted to telemetry for further workup. Patient had this presyncopal episodes. Echocardiogram, carotid Dopplers and CT head was done which were essentially within normal limits. Physical therapy and occupational therapy consult were also called. On initially was recommended to get a subacute area facility, but that later patient was able to ambulate with a quad walker with one hand, as she has a fracture of the left humerus. Patient is cleared by physical therapy for discharge home. He'll be discharged home on physical therapy and home care and follow-up with orthopedic in 1-2 weeks as an outpatient. Will continue all patient's home medications and further management as per patient's PCP. DISCHARGE MEDICATIONS: Please see below. ALLERGIES: Please see below. PHYSICAL EXAMINATION ON DISCHARGE: VITAL SIGNS: Please see below. GENERAL: Within normal limits HEENT: PERRLA. Extraocular muscles intact] NECK: Supple CARDIOVASCULAR EXAMINATION: S1, S2, regular RESPIRATORY EXAMINATION: Clear to A&P ABDOMINAL EXAMINATION: Benign EXTREMITIES: Left arm immobilizer. Otherwise no clubbing, cyanosis, edema SKIN: Within normal limits NEUROLOGICAL EXAMINATION: . No focal motor sensory deficit PSYCHIATRIC EXAMINATION: None LABORATORY DATA: Please see below. IMAGING: Head CT:Postsurgical and age related changes. No acute intracranial hemorrhage, infarction, or mass/mass effect. Bilateral carotid Dopplers:Bilateral luminal narrowing of the internal carotid arteries less than 50%. No evidence of hemodynamically significant stenosis. Echocardiogram:Normal sinus rhythm with first degree AV block but no int raventricular conductance disturbance. Normal left ventricular size, wall thickness, and wall motion. No sign of prior infarction. Left atrial size upper limits of normal with Doppler evidence of an impairment of LV diastolic function and possibly mildly elevated mean left atrial pressure. Normal right heart chamber sizes and motion with normal pulmonary arterial pressure. Normal IVC size and collapse against an elevated central venous pressure. Three equal sized aortic cusps with moderately thickened cusp edges with adequate cusp separation and only very mild insufficiency. Normal aort root size. Moderately severe mitral annular calcification without inflow tract obstruction and only trace insufficiency. Unable to detect a separate intracardiac mass, but with the thickening of her mitral and aortic valvular apparatus, we could not rule out a sessile vegetation. No pericardial effusion. PROGNOSIS: Good ACTIVITY: Use quad walker with the right and when ambulating DIET: As tolerated DISCHARGE PLAN: Follow with PCP in one week and follow with orthopedic in 1-2 weeks DISPOSITION: . Home DISCHARGE INSTRUCTIONS: 1. As per discharge instructions. ITEMS TO FOLLOWUP ON ON OUTPATIENT: 1. Follow with PCP in one week and follow with orthopedic in 1-2 weeks DISCHARGE CONDITION: Stable. TIME SPENT ON DISCHARGE: 35 minutes. Vital Signs/I&Os Vital Signs Date Time Temp Pulse Resp B/P (MAP) Pulse Ox O2 Delivery O2 Flow Rate FiO2 12/29/18 08:32 18 12/29/18 08:00 141/69 12/29/18 08:00 79 12/29/18 06:00 97.7 100 12/26/18 15:21 Room Air I&O- Last 24 Hours up to 6 AM 12/29/18 06:00 Intake Total 900 ml Output Total 0 ml Balance 900 ml Discharge Medications Scheduled Acetaminophen (Acetaminophen) 325 Mg Tablet, 325 MG PO QHS, (Reported) Albuterol Sulf (Albuterol Sulfate) 2.5 Mg/3 Ml Vial.neb, 2.5 MG INH BID, (Reported) Amlodipine Besylate (Amlodipine Besylate) 10 Mg Tablet, 10 MG PO DAILY, (Reported) Aspirin (Aspir 81) 81 Mg Tablet.dr, 81 MG PO QHS, (Reported) Atorvastatin Calcium (Atorvastatin Calcium) 40 Mg Tab, 40 MG PO DAILY, (Reported) Azathioprine (Azathioprine) 50 Mg Tab, 50 MG PO DAILY, (Reported) Benazepril HCl (Benazepril HCl) 20 Mg Tablet, 20 MG PO BID, (Reported) Brimonidine Tartrate/Timolol (Combigan 0.2%-0.5% Eye Drops) 1 Lavonne Lavonne, 1 DROP OU BID, (Reported) Brinzolamide (Azopt) 1 % Qian, 1 DROP OU BID, (Reported) Chlorthalidone (Chlorthalidone) 25 Mg Tablet, 12.5 MG PO DAILY, (Reported) Levetiracetam (Keppra) 500 Mg Tablet, 500 MG PO BID, (Reported) Levothyroxine Sodium (Levothyroxine Sodium) 75 Mcg Tablet, 75 MCG PO DAILY, (Reported) Magnesium Chloride (Slow-Mag) 71.5 Mg Tablet.dr, 1 TAB PO QHS, (Reported) Omeprazole (Omeprazole) 20 Mg Capsule.dr, 20 MG PO DAILY, (Reported) Travoprost (Travatan Z) 50 Drop/2.5 Ml Soln, 1 DROP OU QHS, (Reported) Scheduled PRN Acetaminophen (Acetaminophen) 325 Mg Tablet, 325 MG PO Q4H PRN for PAIN, (R eported) Allergies Coded Allergies: TAPE (Verified Allergy, Unknown, ADHESIVE TAPE, 10/12/16) naproxen (Verified Allergy, Unknown, 12/26/18) ADRIEL REDDY MD Dec 29, 2018 13:32
[2019-04-27] MEDS ORDERED: AMLO2.5T3 PO (08:50)
[2019-04-27] MEDS ORDERED: ALB2.5NEB INH (08:50)
[2019-04-27] MEDS ORDERED: CALCTAB89 PO (08:54)
[2019-04-27] MEDS ORDERED: VITMTA PO (08:54)
[2019-04-27] MEDS ORDERED: VITA100T29 PO (08:54)
[2019-04-27] MEDS ORDERED: PRESCAP PO (08:54)
[2019-04-27] MEDS ORDERED: CYAN100050 PO (08:54)
[2019-04-27] MEDS ORDERED: KP F1200 PO (08:54)
[2019-04-27] MEDS ORDERED: VITA100066 PO (08:54)
== END 2018-12-29 16:05 | disposition home health service (06) | DRG 563 ==
LOC: EDBD 09:42 → M ED 09:42 → M ED INP 09:43 → M PCU 15:32 → OBSVTOIN 12-28 12:13 → M MS5PR 12-28 16:35
PROVIDERS: ADMIT Internal Medicine; ATTEND Internal Medicine
DX: S42.295A Other nondisplaced fracture of upper end of left humerus, initial encounter for closed fracture (principal); R55 Syncope and collapse; I25.10 Atherosclerotic heart disease of native coronary artery without angina pectoris; I10 Essential (primary) hypertension; E78.5 Hyperlipidemia, unspecified; E03.9 Hypothyroidism, unspecified; M19.90 Unspecified osteoarthritis, unspecified site; S01.81XA Laceration without foreign body of other part of head, initial encounter; K75.4 Autoimmune hepatitis; Z98.49 Cataract extraction status, unspecified eye; H40.9 Unspecified glaucoma; Z79.82 Long term (current) use of aspirin; Z79.899 Other long term (current) drug therapy; Z88.6 Allergy status to analgesic agent; Z91.048 Other nonmedicinal substance allergy status; Z96.659 Presence of unspecified artificial knee joint; W18.09XA Striking against other object with subsequent fall, initial encounter; Y92.010 Kitchen of single-family (private) house as the place of occurrence of the external cause; Y93.G1 Activity, food preparation and clean up

== ENCOUNTER 2019-04-01 20:40 | Emergency (ER) | payer MEDICARE ==
[~2019-04-01] VITALS: Ht 162.6 cm; Wt 59.1 kg
[~2019-04-01 20:40] MED LIST changes: +ALBU83IN INH; +APAP325T4 PO; +ASPI81TA85 PO; +BENA10TA9 PO; -BENA1TAB24 PO; +BENA20TA8 PO; -BENA40TA5 PO; +BENA40TA7 PO; +CHLO125TA PO; +KEPP1TAB PO; +LEVO75TA4 PO; +OMEP-218 PO; +SLOWTAB2 PO
--- NOTE | 2019-04-01 22:23 | REPVR ---
PROCEDURE INFORMATION: Exam: CT Head Without Contrast Exam date and time: 04/01/2019 10:00 PM Age: 83 years old Clinical history: Injury or trauma; Fall; Initial encounter; Blunt trauma (contusions or hematomas) TECHNIQUE: Imaging protocol: Computed tomography of the head without contrast. Axial and coronal reformatted images were created and reviewed. Radiation optimization: All CT scans at this facility use at least one of these dose optimization techniques: automated exposure control; mA and/or kV adjustment per patient size (includes targeted exams where dose is matched to clinical indication); or iterative reconstruction. COMPARISON: CT Head without contrast 12/26/2018 10:20 AM FINDINGS: Brain: Mild right temporal encephalomalacia, similar to prior. Patchy areas of hypoattenuation in the periventricular and subcortical white matter, consistent with chronic small vessel ischemic disease. No CT evidence of acute intracranial hemorrhage or acute territorial infarction. No significant mass effect or midline shift. Basal cisterns patent. Ventricles: Prominence of the cortical sulci, cisterns and ventricular system, consistent with cerebral and cerebellar volume loss. Bones/joints: No acute osseous abnormality. Right-sided craniotomy defect. Sinuses: Minimal ethmoid mucosal thickening. Mastoid air cells: Grossly unremarkable. Soft tissues: Multifocal scalp swelling. Vasculature: Calcific atherosclerotic disease in the cavernous internal carotid arteries, as well as the vertebro-basilar system. IMPRESSION: 1. No CT evidence of acute intracranial pathology. 2. Additional findings, as above. Electronically signed by: Dontae Orr On 04/01/2019 22:22:57 PM
--- NOTE | 2019-04-01 22:26 | REPVR ---
PROCEDURE INFORMATION: Exam: CT Cervical Spine Without Contrast Exam date and time: 04/01/2019 10:00 PM Age: 83 years old Clinical history: Injury or trauma; Fall; Initial encounter; Blunt trauma TECHNIQUE: Imaging protocol: Computed tomography images of the cervical spine without contrast. Axial, coronal and sagittal reformatted images were created and reviewed. Radiation optimization: All CT scans at this facility use at least one of these dose optimization techniques: automated exposure control; mA and/or kV adjustment per patient size (includes targeted exams where dose is matched to clinical indication); or iterative reconstruction. COMPARISON: CT Spine,cervical w/o contrast 12/26/2018 10:20 AM FINDINGS: Vertebrae: Osteopenia. Straightening of the normal cervical lordosis. Alignment anatomic. Mild levoscoliosis. No CT evidence of acute fracture, dislocation or subluxation. Vertebral body heights maintained. Discs/Spinal canal/Neural foramina: Multilevel degenerative changes, characterized by disc space narrowing, osteophytosis and uncovertebral and facet joint hypertrophy. Multilevel spinal canal and neural foraminal stenosis. Soft tissues: Grossly unremarkable. Lungs: Biapical pleural thickening. IMPRESSION: 1. No CT evidence of acute cervical spine traumatic injury. 2. Additional findings, as above. Electronically signed by: Dontae Orr On 04/01/2019 22:26:26 PM
[2019-04-01 23:36] VITALS: BP 139/79
== END 2019-04-01 23:38 | disposition home or self-care (01) ==
LOC: M ED 20:40
DX: S00.81XA Abrasion of other part of head, initial encounter (principal); W19.XXXA Unspecified fall, initial encounter; Y92.099 Unspecified place in other non-institutional residence as the place of occurrence of the external cause; Y93.9 Activity, unspecified; Y99.9 Unspecified external cause status; Z86.79 Personal history of other diseases of the circulatory system; Z79.82 Long term (current) use of aspirin; Z79.899 Other long term (current) drug therapy; Z91.89 Other specified personal risk factors, not elsewhere classified; Z88.6 Allergy status to analgesic agent

== ENCOUNTER → 2019-04-14 | Outpatient (CLI) | payer MEDICARE ==
[2019-04-14 10:06] LABS: PLATELET COUNT, AUTOMATED 344 10^3/uL (150-450)
[2019-04-14 10:16] LABS: INR 1.09; PROTHROMBIN TIME 13.9 SECONDS (11.8-14.0)
[2019-04-14 10:17] LABS: PARTIAL THROMBOPLASTIN TIME 28.8 SECONDS (25.0-38.4)
== END ==
LOC: M LAB 08:51
PROVIDERS: ATTEND Internal Medicine Pulmonary Disease
DX: R91.8 Other nonspecific abnormal finding of lung field (principal)

== ENCOUNTER → 2019-04-27 | Outpatient (CLI) | payer MEDICARE ==
[~2019-04-27] MED LIST changes: +ALB2.5NEB INH; +AMLO2.5T3 PO; -BENA10TA9 PO; +BENA1TAB24 PO; +BENA40TA5 PO; -BENA40TA7 PO; +CALCTAB89 PO; +CYAN100050 PO; +KP F1200 PO; +LIDOCAINE 1% MDV 20ML VIAL As Ordered ONE; +PRESCAP PO; +VITA100066 PO; +VITA100T29 PO; +VITMTA PO
[2019-04-27 11:00] VITALS: BP 160/70
--- NOTE | 2019-04-28 09:25 | REP ---
CT chest without contrast: History: The patient was referred for CT-guided needle biopsy of the right upper lobe nodule observed on [facility] chest CT dated March 16, 2019. This showed an 8 mm nodule. Findings: The patient was interviewed and informed consent was obtained. She was placed on the CT table in oblique position in preparation for the biopsy. Preliminary CT images however demonstrate that the target has decreased substantially in volume. Now measuring 4 mm. Accordingly, the anticipated needle biopsy was not performed. A noncontrast CT study was carried out. There are scattered areas of bronchiectasis noted. There is an area of inspissated endobronchial secretions in the anterior segment of the right upper lobe similar to the prior study. There are some to benign subpleural nodules visible along the major fissure on the left. The other subpleural nodules appears stable. No new pulmonary nodule is appreciated. Impression: The intended biopsy target has decreased substantially in size consistent with inflammatory changes. There are stable small scattered sub centimeter pulmonary nodules elsewhere in the right upper lobe and right lower lobe. There are scattered bronchiectatic changes with inspissated areas of endobronchial secretions in the right upper lobe and right lower lobe. We deferred the originally intended percutaneous needle biopsy procedure. Electronically Signed by Gilberto Coates MD 04/28/2019 10:36 A
== END ==
LOC: M IRPRO 07:56
PROVIDERS: ATTEND Internal Medicine Pulmonary Disease
DX: R91.8 Other nonspecific abnormal finding of lung field (principal)

== ENCOUNTER → 2019-07-07 | Outpatient (REF) | payer MEDICARE ==
[~2019-07-07] MED LIST changes: -LIDOCAINE 1% MDV 20ML VIAL As Ordered ONE
[2019-07-08 14:15] LABS: PERCENT SATURATION 18.9 % (13.2-45.0)
== END ==
LOC: M LAB REF 12:29
PROVIDERS: ATTEND Internal Medicine
DX: D64.9 Anemia, unspecified (principal)

== ENCOUNTER → 2019-10-14 | Outpatient (REF) | payer MEDICARE ==
[~2019-10-14] MED LIST changes: -AMLO10TA5 PO; +AMLO1TAB25 PO; -ASPI81TA85 PO; +ASPI81TA86 PO
[2019-10-15 11:39] LABS: FERRITIN 6 NG/ML (8-252); IRON (FE) 35 UG/DL (50-170); PERCENT SATURATION 10.2 % (13.2-45.0); TOTAL IRON BINDING CAPACITY 344 UG/DL (250-450)
[2019-10-15 11:54] LABS: FOLATE > 24.0 NG/ML (>5.4); VITAMIN B12 LEVEL > 2000 PG/ML (247-911)
== END ==
LOC: M LAB REF 11:12
PROVIDERS: ATTEND Internal Medicine
DX: D64.9 Anemia, unspecified (principal)

== ENCOUNTER → 2020-01-22 | Outpatient (CLI) | payer MEDICARE ==
--- NOTE | 2020-01-30 13:38 | REP ---
CAROTID ULTRASOUND COMPARISON: 12/26/2018. HISTORY: Stenosis. TECHNIQUE: Real-time ultrasound evaluation and duplex Doppler interrogation of the extracranial carotid vasculature is performed. FINDINGS: There is no significant change when compared to the prior study. There is again moderate partially calcified plaque extending through the carotid bulbs bilaterally into the internal and external carotid arteries. Both external carotid arteries are stenotic. There are normal flow velocities in the internal carotid arteries bilaterally, with no compelling duplex Doppler sonographic evidence of hemodynamically significant stenosis of either internal carotid artery. There is normal direction of flow in both vertebral arteries. RIGHT LEFT Peak systolic velocity ICA 77.4 cm/s 108.0 cm/s End diastolic velocity ICA 14.8 cm/s 25.1 cm/s Peak systolic velocity CCA 72.7 cm/s 64.5 cm/s Peak systolic velocity ECA 199.0 cm/s 283.0 cm/s ICA/CCA ratio 1.06 1.67 IMPRESSION: Moderate partially calcified plaque noted in the carotid bulbs extending into the internal and external carotid arteries. No evidence of hemodynamically significant stenosis of either internal carotid artery, with luminal narrowing less than 50%. MTDD
== END ==
LOC: M RAD 11:43
PROVIDERS: ATTEND Physician Assistant
DX: I65.23 Occlusion and stenosis of bilateral carotid arteries (principal)

== ENCOUNTER → 2020-05-09 | Outpatient (REF) | payer MEDICARE ==
[~2020-05-09] MED LIST changes: -ALEN70TA74 PO; +ALEN70TA82 PO; +LABE100T4 PO; -LABE10TAB PO
== END ==
LOC: M LAB REF 17:06
PROVIDERS: ATTEND Internal Medicine Pulmonary Disease
DX: J47.9 Bronchiectasis, uncomplicated (principal)

== ENCOUNTER → 2020-05-10 | Outpatient (REF) | payer MEDICARE | LOC: M LAB REF 17:00 | PROVIDERS: ATTEND Internal Medicine Pulmonary Disease | DX: J47.9 Bronchiectasis, uncomplicated (principal) ==

== ENCOUNTER → 2020-05-16 | Outpatient (REF) | payer MEDICARE | LOC: M LAB REF 17:05 | PROVIDERS: ATTEND Internal Medicine Pulmonary Disease | DX: J47.9 Bronchiectasis, uncomplicated (principal) ==

== ENCOUNTER 2020-06-09 14:19 | Outpatient (CLI) | payer MEDICARE ==
[~2020-06-09] VITALS: Ht 160 cm; Wt 58.6 kg
[2020-06-09 14:20] VITALS: BP 184/81
[2020-06-09] MEDS ORDERED: ZOLEDRONIC ACID 5 MG in IV 1 EA IV ONE (14:30)
[2020-06-09 15:30] VITALS: BP 168/73
== END 2020-06-09 15:30 | disposition home or self-care (01) ==
LOC: M INFU 14:19
PROVIDERS: ATTEND Internal Medicine
DX: M81.0 Age-related osteoporosis without current pathological fracture (principal); Z91.048 Other nonmedicinal substance allergy status
CPT/HCPCS: 96365; J3489

== ENCOUNTER → 2020-07-04 | Outpatient (CLI) | payer MEDICARE ==
--- NOTE | 2020-07-04 14:48 | REP ---
INDICATION: ABNORMAL FINDING OF LUNG. COMPARISON: None. Chest CT dated 03/22/2020. TECHNIQUE: Chest CT without IV contrast per FINDINGS: The 9 mm pleural-based lung nodule posteromedially in the superior segment of the right lower lobe identified on 03/22/2020 on today measures 7 mm. No other lung nodules or masses are identified There are no infiltrates or pleural effusions. There is no mediastinal or axillary lymph node enlargement. The study is insensitive for hilar lymph node enlargement in the absence of IV contrast. Thoracic aorta is unremarkable except for calcified atheroma. Cardiac size normal. No pericardial effusion. I suspect bronchiectasis. Upper abdomen: I suspect there are tiny calculi layering along the dependent portion of the gallbladder. This is unchanged. There is no biliary duct dilatation. Visualized areas of the pancreas are unremarkable. There is a hypodense left adrenal nodule measuring 15 mm in diameter, unchanged from a prior study of 08/26/2014, likely a benign adenoma. There is a right renal cyst in the left renal cyst. These are unchanged. IMPRESSION: The known pleural-based nodule in the superior segment right lower lobe has decreased in size. No adenopathy, infiltrate or effusion. Suspect bronchiectasis. Cholelithiasis. Left adrenal hypodense nodule, unchanged as described, likely a benign adenoma. Bilateral renal cysts, unchanged. <Electronically signed by Catalino Anderson > 07/04/20 [id number]
== END ==
LOC: M RAD 11:23
PROVIDERS: ATTEND Internal Medicine Pulmonary Disease
DX: R91.8 Other nonspecific abnormal finding of lung field (principal)

== ENCOUNTER 2020-07-11 09:53 | Emergency (ER) | payer MEDICARE ==
[~2020-07-11] VITALS: Ht 162.6 cm; Wt 56.7 kg
--- NOTE | 2020-07-11 11:29 | REP ---
INDICATION: FALL, PAIN, BRUISING. COMPARISON: None. TECHNIQUE: Two views of the right humerus. FINDINGS: AP and lateral views of the right humerus demonstrate diffuse osteopenia. There is glenohumeral and acromioclavicular joint osteoarthritis. A periarticular soft tissue calcification is seen adjacent to the right shoulder. This is consistent with chronic calcific tendinitis or bursitis.. No fracture or subluxation is seen. No opaque foreign body noted. IMPRESSION: Diffuse osteopenia. Shoulder osteoarthritis. Periarticular soft tissue calcification consistent with tendinitis or bursitis. No acute bony abnormality.. <Electronically signed by Carlos Coates > 07/11/20 [id number]
--- NOTE | 2020-07-11 11:31 | REP ---
INDICATION: FALL, PAIN, BRUISING. COMPARISON: No comparison study.. TECHNIQUE: Three views of the right shoulder are provided. FINDINGS: Three views of the right shoulder demonstrate moderate glenohumeral and acromioclavicular joint osteoarthritis. There is some chondrocalcinosis along the supraspinatus tendon. There is a large soft tissue calcification anterior and medial to the proximal humerus consistent with calcific tendinitis changes. No fracture or bony destructive lesion is seen. IMPRESSION: No acute bony abnormality. Osteoarthritis, chondrocalcinosis, periarticular soft tissue calcification consistent with tendinitis or bursitis. <Electronically signed by Carlos Coates > 07/11/20 [id number]
--- NOTE | 2020-07-11 11:31 | REP ---
INDICATION: FALL, PAIN, BRUISING. COMPARISON: Comparison chest x-ray October 23, 2016.. TECHNIQUE: Five views including PA chest. FINDINGS: PA chest radiograph is unremarkable. There is no evidence of pneumothorax or hydrothorax. Mediastinum is not traumatically widened. The thoracic aorta is slightly tortuous. Heart is not enlarged. No infiltrate is seen. Multiple views of the ribcage bilaterally demonstrate mild diffuse osteopenia. There are degenerative changes at the shoulders bilaterally. Degenerative disc disease is seen in the spine. No rib fracture or bony destructive rib lesion is appreciated. IMPRESSION: No rib fracture or bony destructive rib lesion seen. Degenerative disc disease in the thoracic spine and degenerative changes in the shoulders are noted. No active disease in the chest. <Electronically signed by Carlos Coates > 07/11/20 1125
--- NOTE | 2020-07-11 11:31 | REP ---
INDICATION: FALL, PAIN, BRUISING. COMPARISON: None. TECHNIQUE: AP and lateral views of the left forearm. FINDINGS: Two views of the left forearm demonstrate diffuse osteopenia. There is some chondrocalcinosis at the wrist along with osteoarthritis.. No fracture or subluxation is seen. No opaque foreign body noted. IMPRESSION: Diffuse osteopenia. Degenerative changes at the wrist. No fracture or subluxation seen. <Electronically signed by Carlos Coates > 07/11/20 [id number]
--- NOTE | 2020-07-11 11:34 | REP ---
INDICATION: LEFT HIP PAIN. COMPARISON: Comparison left hip radiographs are from January 15, 2017.. TECHNIQUE: AP view of the pelvis and AP and frogleg views of each hip are acquired. Total five views. FINDINGS: There is mild diffuse osteopenia. Osteoarthritic changes are seen bilaterally at the hips with 5 acetabular and mild femoral spurring. There is tendon insertion site spurring on the greater trochanters bilaterally, right greater than left consistent with chronic tendonitis. Vascular calcification is seen. Tendon insertion site calcification is observed in the hamstring tendons at the ischium bilaterally. These are chronic findings. Femoral heads are smooth and rounded. Hip joint spaces are preserved. No bony destructive lesion is seen. IMPRESSION: Degenerative changes with osteoarthritis of the hips and tendon insertion site spurring and calcification. <Electronically signed by Carlos Cotaes > 07/11/20 [id number]
[2020-07-11 11:56] LABS: HEMATOCRIT 37.2 % (36.0-47.0); HEMOGLOBIN 12.5 g/dl (12.0-15.5); MEAN CORPUSCULAR HEMOGLOBIN 33.2 pg (27.0-33.0); MEAN CORPUSCULAR HGB CONC 33.6 g/dl (32.0-36.5); MEAN CORPUSCULAR VOLUME 98.9 fl (80.0-96.0); PLATELET COUNT, AUTOMATED 256 10^3/uL (150-450); RED BLOOD COUNT 3.76 10^6/uL (4.00-5.40); WHITE BLOOD COUNT 7.6 10^3/uL (4.0-10.0)
[2020-07-11 12:09] LABS: INR 0.96
[2020-07-11] MEDS ORDERED: ISOVUE-370 76% 100ML VIAL As Ordered ONE (12:26)
--- NOTE | 2020-07-11 13:24 | REP ---
INDICATION: trauma, RUQ pain COMPARISON: 10/11/2017. TECHNIQUE: CT Scan of the abdomen and pelvis was performed with intravenous administration of 100 cc of Isovue 370, without oral contrast. Sagittal and coronal reconstruction images are performed. FINDINGS: Lung bases: Unremarkable. Liver: Normal Gallbladder: Unremarkable. Spleen: Normal. Adrenals: There is a stable left adrenal nodule measuring 1.8 cm in diameter. Pancreas: There is diffuse dilatation of the pancreatic duct up to 5 mm in diameter unchanged since the prior exam. There is no evidence of mass or cyst in the pancreas.. Kidneys: There are bilateral renal cysts, the largest is in the upper pole of the right kidney measuring 3.1 cm in maximum diameter. Small and large bowel: There is a large amount of fecal material throughout the colon. Multiple diverticula are seen of the sigmoid and left colon.. Free fluid: None. Abdominal aorta: No aneurysm or dissection. 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 Adenopathy: None. Appendix: Not inflamed. Osseous structures: There is a slightly displaced posterior right 9th rib fracture. There are degenerative changes of the spine without compression deformity.. Pelvis: No mass. IMPRESSION: Slightly displaced fracture posterior right 9th rib. No other acute abnormalities as discussed in detail above. <Electronically signed by Catalino Bryant > 07/11/20 [id number]
[2020-07-11 14:32] VITALS: BP 151/72
== END 2020-07-11 14:36 | disposition home or self-care (01) ==
LOC: M ED 09:53
DX: S22.31XA Fracture of one rib, right side, initial encounter for closed fracture (principal); R10.9 Unspecified abdominal pain; W18.30XA Fall on same level, unspecified, initial encounter; Y92.098 Other place in other non-institutional residence as the place of occurrence of the external cause; Y93.89 Activity, other specified; Y99.8 Other external cause status; R56.9 Unspecified convulsions; K22.70 Barrett's esophagus without dysplasia; E07.9 Disorder of thyroid, unspecified; K75.4 Autoimmune hepatitis; I10 Essential (primary) hypertension; R05 Cough; Z91.048 Other nonmedicinal substance allergy status; Z79.899 Other long term (current) drug therapy; Z79.82 Long term (current) use of aspirin
CPT/HCPCS: 71111; 73030; 73060; 73090; 73521; 74177; 80047; 85027; 85610; 99284; Q9967

== ENCOUNTER 2020-08-16 19:30 | Emergency (ER) | payer MEDICARE ==
[~2020-08-16] VITALS: Ht 162.6 cm; Wt 57.7 kg
[2020-08-16] MEDS ORDERED: ACETAMINOPHEN TAB 650MG DOSE (2X325MG) PO ONE (20:00)
--- NOTE | 2020-08-16 20:44 | REPVR ---
PROCEDURE INFORMATION: Exam: CT Cervical Spine Without Contrast Exam date and time: 08/16/2020 8:34 PM Age: 84 years old Clinical indication: Injury or trauma; Fall; Blunt trauma; Additional info: Fall, post headache TECHNIQUE: Imaging protocol: Computed tomography images of the cervical spine without contrast. Radiation optimization: All CT scans at this facility use at least one of these dose optimization techniques: automated exposure control; mA and/or kV adjustment per patient size (includes targeted exams where dose is matched to clinical indication); or iterative reconstruction. COMPARISON: CT Spine,cervical w/o contrast 04/01/2019 9:48 PM FINDINGS: Bones/joints: No traumatic segmental malalignment of cervical spine or craniocervical junction. Vertebral body height is maintained at all levels. No acute fracture. No destructive or blastic cervical spine osseous lesion. Discs/Spinal canal/Neural foramina: Intervertebral disc height is decreased at multiple levels, with typical degenerative pattern and associated endplate, articular pillar and uncovertebral spurs. Lungs: No concerning abnormality of the imaged lung apices. Soft tissues: Soft tissues show no concerning abnormality or asymmetry. IMPRESSION: 1. No acute fracture or traumatic subluxation of the cervical spine. 2. Multilevel degenerative disc and articular pillar arthropathy. Electronically signed by: Amandeep Campbell On 08/16/2020 20:43:40 PM
--- NOTE | 2020-08-16 20:48 | REPVR ---
PROCEDURE INFORMATION: Exam: CT Head Without Contrast Exam date and time: 08/16/2020 8:34 PM Age: 84 years old Clinical indication: Injury or trauma; Fall; Blunt trauma (contusions or hematomas); Additional info: Fall, post headache TECHNIQUE: Imaging protocol: Computed tomography of the head without contrast. Radiation optimization: All CT scans at this facility use at least one of these dose optimization techniques: automated exposure control; mA and/or kV adjustment per patient size (includes targeted exams where dose is matched to clinical indication); or iterative reconstruction. COMPARISON: CT Head without contrast 04/01/2019 9:48 PM FINDINGS: Brain: Acute traumatic subarachnoid hemorrhage is present within bilateral hemispheric sulci and also within the basilar cisterns , particularly in the suprasellar cistern. There is also an acute right tentorial subdural hemorrhage measuring 5 mm in thickness, and a right inferior frontal subdural hemorrhage abutting the left orbital roof, measuring 6 mm in thickness and 3.5 cm in transverse diameter. Cerebral ventricles: Prominence of the ventricles and sulci suggests underlying volume loss. No evidence of infarct or midline shift. Bones/joints: Old craniotomy changes of the right calvarium. No acute calvarial fracture. IMPRESSION: 1. Acute subarachnoid hemorrhage, bilateral frontal, temporal and left perisylvian and within the basilar cisterns. Suprasellar cistern and left perisylvian subarachnoid hemorrhage raises a question of possible aneurysm. 2. Right tentorial and inferior left frontal acute subdural hemorrhages, with measurements given above. No midline shift or diffuse cerebral edema Electronically signed by: Amandeep Campbell On 08/16/2020 20:48:21 PM
[2020-08-16 21:09] LABS: BASO % 0.5 % (0.0-1.0); EOS # 0.1 10^3/uL (0.0-0.5); EOS % 0.7 % (0.0-3.0); HEMOGLOBIN 13.1 g/dl (12.0-15.5); LYMPH # 0.9 10^3/uL (1.5-5.0); LYMPH % 10.6 % (24.0-44.0); MEAN CORPUSCULAR HEMOGLOBIN 33.7 pg (27.0-33.0); MEAN CORPUSCULAR HGB CONC 34.5 g/dl (32.0-36.5); MEAN CORPUSCULAR VOLUME 97.7 fl (80.0-96.0); MONO # 0.4 10^3/uL (0.0-0.8); MONO % 5.5 % (2.0-8.0); NEUTROPHILS # 6.6 10^3/uL (1.5-8.5); NEUTROPHILS % 82.1 % (36.0-66.0); PLATELET COUNT, AUTOMATED 242 10^3/uL (150-450); RED BLOOD COUNT 3.89 10^6/uL (4.00-5.40); WHITE BLOOD COUNT 8.1 10^3/uL (4.0-10.0)
[2020-08-16 21:20] LABS: INR 0.99; PROTHROMBIN TIME 13.3 SECONDS (12.5-14.3)
[2020-08-16 21:21] LABS: PARTIAL THROMBOPLASTIN TIME 24.7 SECONDS (24.2-38.5)
[2020-08-16 21:29] LABS: BLOOD UREA NITROGEN 32 MG/DL (7-18); CALCIUM LEVEL 9.3 MG/DL (8.8-10.2); CARBON DIOXIDE LEVEL 27 MEQ/L (21-32); CHLORIDE LEVEL 103 MEQ/L (98-107); CREATININE FOR GFR 0.89 MG/DL (0.55-1.30); GLOMERULAR FILTRATION RATE > 60.0 (>32); GLUCOSE, FASTING 138 MG/DL (70-100); POTASSIUM SERUM 3.5 MEQ/L (3.5-5.1); SODIUM LEVEL 137 MEQ/L (136-145)
[2020-08-16] MEDS ORDERED: LABETALOL 100MG/20ML VIAL IV STA (21:37)
[2020-08-16 21:57] LABS: RSV AMPLIFICATION NEGATIVE (NEGATIVE)
[2020-08-16 22:03] VITALS: BP 182/78
[2020-08-16 22:42] VITALS: BP 136/60
== END 2020-08-16 22:44 | disposition short-term general hospital (02) ==
LOC: M ED 19:30
DX: S06.5X0A Traumatic subdural hemorrhage without loss of consciousness, initial encounter (principal); W01.0XXA Fall on same level from slipping, tripping and stumbling without subsequent striking against object, initial encounter; Y92.009 Unspecified place in unspecified non-institutional (private) residence as the place of occurrence of the external cause; Y93.01 Activity, walking, marching and hiking; Y99.8 Other external cause status; I25.10 Atherosclerotic heart disease of native coronary artery without angina pectoris; I10 Essential (primary) hypertension; E78.5 Hyperlipidemia, unspecified; K75.4 Autoimmune hepatitis; E03.9 Hypothyroidism, unspecified; Z79.82 Long term (current) use of aspirin; Z79.890 Hormone replacement therapy; Z79.899 Other long term (current) drug therapy; Z91.048 Other nonmedicinal substance allergy status; Z86.69 Personal history of other diseases of the nervous system and sense organs; Z86.79 Personal history of other diseases of the circulatory system

== ENCOUNTER → 2021-01-27 | Outpatient (REF) | payer MEDICARE ==
[2021-01-27 13:58] LABS: BLOOD UREA NITROGEN 20 MG/DL (7-18); CARBON DIOXIDE LEVEL 25 MEQ/L (21-32); CHLORIDE LEVEL 109 MEQ/L (98-107); CREATININE FOR GFR 0.73 MG/DL (0.55-1.30); GLOMERULAR FILTRATION RATE > 60.0 (>32); GLUCOSE, FASTING 74 MG/DL (70-100); MAGNESIUM LEVEL 1.9 MG/DL (1.8-2.4); POTASSIUM SERUM 4.2 MEQ/L (3.5-5.1); SODIUM LEVEL 141 MEQ/L (136-145)
== END ==
LOC: M LAB REF 11:41
PROVIDERS: ATTEND Internal Medicine
DX: I10 Essential (primary) hypertension (principal); E83.42 Hypomagnesemia

== ENCOUNTER → 2021-02-09 | Outpatient (REF) | payer MEDICARE ==
[2021-02-09 10:28] LABS: BLOOD UREA NITROGEN 20 MG/DL (7-18); CALCIUM LEVEL 9.1 MG/DL (8.8-10.2); CARBON DIOXIDE LEVEL 26 MEQ/L (21-32); CHLORIDE LEVEL 110 MEQ/L (98-107); GLOMERULAR FILTRATION RATE > 60.0 (>32); GLUCOSE, FASTING 114 MG/DL (70-100); MAGNESIUM LEVEL 1.6 MG/DL (1.8-2.4); POTASSIUM SERUM 3.7 MEQ/L (3.5-5.1); SODIUM LEVEL 141 MEQ/L (136-145)
== END ==
LOC: M LAB REF 09:48
PROVIDERS: ATTEND Internal Medicine
DX: E83.42 Hypomagnesemia (principal); E11.21 Type 2 diabetes mellitus with diabetic nephropathy

== ENCOUNTER → 2021-04-17 | Outpatient (CLI) | payer MEDICARE ==
[2021-04-17 15:14] LABS: BASO % 0.5 % (0.0-1.0); EOS # 0.1 10^3/uL (0.0-0.5); EOS % 0.9 % (0.0-3.0); HEMATOCRIT 40.5 % (36.0-47.0); HEMOGLOBIN 13.5 g/dl (12.0-15.5); LYMPH # 1.2 10^3/uL (1.5-5.0); LYMPH % 20.3 % (24.0-44.0); MEAN CORPUSCULAR HGB CONC 33.3 g/dl (32.0-36.5); MONO # 0.5 10^3/uL (0.0-0.8); MONO % 8.3 % (2.0-8.0); NEUTROPHILS % 69.7 % (36.0-66.0); PLATELET COUNT, AUTOMATED 233 10^3/uL (150-450); RED BLOOD COUNT 4.09 10^6/uL (4.00-5.40); WHITE BLOOD COUNT 5.8 10^3/uL (4.0-10.0)
[2021-04-17 15:49] LABS: ALBUMIN 3.7 GM/DL (3.2-5.2); ALT/SGPT 33 U/L (12-78); BILIRUBIN,TOTAL 0.3 MG/DL (0.2-1.0); BLOOD UREA NITROGEN 17 MG/DL (7-18); CALCIUM LEVEL 9.7 MG/DL (8.8-10.2); CARBON DIOXIDE LEVEL 30 MEQ/L (21-32); CHLORIDE LEVEL 106 MEQ/L (98-107); CREATININE FOR GFR 0.54 MG/DL (0.55-1.30); FREE THYROXINE INDEX 4.2 % (1.3-4.8); GLOMERULAR FILTRATION RATE > 60.0 (>32); GLUCOSE, FASTING 97 MG/DL (70-100); POTASSIUM SERUM 4.6 MEQ/L (3.5-5.1); SODIUM LEVEL 140 MEQ/L (136-145); T UPTAKE 39 % (30-39); THYROID STIMULATING HORMONE 0.653 uIU/ML (0.358-3.740); THYROXINE (T4) 10.8 UG/DL (4.5-12.0); TOTAL PROTEIN 7.2 GM/DL (6.4-8.2)
== END ==
LOC: M PLALAB 13:54
PROVIDERS: ATTEND Psychiatry & Neurology Neurology
DX: N39.0 Urinary tract infection, site not specified (principal); Z79.899 Other long term (current) drug therapy

== ENCOUNTER 2021-06-12 14:40 | Outpatient (CLI) | payer MEDICARE ==
[~2021-06-12] VITALS: Ht 162.6 cm; Wt 57.7 kg
[~2021-06-12 14:40] MED LIST changes: +BENA-8 PO; -BENA20TA8 PO; -BENA40TA5 PO; +BENA40TA84 PO; +OMEP-173 PO; -OMEP-218 PO
[2021-06-12 14:50] VITALS: BP 162/98
[2021-06-12] MEDS ORDERED: ZOLEDRONIC ACID 5 MG in IV 1 EA IV ONE (15:00)
[2021-06-12 15:40] VITALS: BP 174/82
[2021-06-13] MEDS ORDERED: QUET1TAB17 PO (15:47)
[2021-06-13] MEDS ORDERED: MELA5CAP2 PO (15:47)
[2021-06-13] MEDS ORDERED: TRAZ-252 PO (15:47)
[2021-06-13] MEDS ORDERED: LEVO50TA5 PO (18:08)
[2021-06-13] MEDS ORDERED: AMLO1TAB25 PO (18:11)
[2021-06-13] MEDS ORDERED: LEVE10003 PO (18:11)
[2021-06-13] MEDS ORDERED: SLOWTAB2 PO (18:11)
== END 2021-06-12 15:40 | disposition home or self-care (01) ==
LOC: M INFU 14:40
PROVIDERS: ATTEND Internal Medicine
DX: M81.0 Age-related osteoporosis without current pathological fracture (principal)

== ENCOUNTER 2021-06-13 13:47 | Inpatient (IN) | payer MEDICARE ==
[~2021-06-13] VITALS: Ht 162.6 cm; Wt 53.5 kg
[2021-06-13 15:00] LABS: BASO % 0.7 % (0.0-1.0); EOS # 0.1 10^3/uL (0.0-0.5); EOS % 1.6 % (0.0-3.0); HEMATOCRIT 36.7 % (36.0-47.0); HEMOGLOBIN 12.4 g/dl (12.0-15.5); LYMPH % 15.6 % (24.0-44.0); MEAN CORPUSCULAR HEMOGLOBIN 33.3 pg (27.0-33.0); MEAN CORPUSCULAR HGB CONC 33.8 g/dl (32.0-36.5); MEAN CORPUSCULAR VOLUME 98.7 fl (80.0-96.0); MONO # 0.5 10^3/uL (0.0-0.8); MONO % 7.8 % (2.0-8.0); NEUTROPHILS # 4.6 10^3/uL (1.5-8.5); NEUTROPHILS % 74.1 % (36.0-66.0); PLATELET COUNT, AUTOMATED 222 10^3/uL (150-450); RED BLOOD COUNT 3.72 10^6/uL (4.00-5.40); WHITE BLOOD COUNT 6.2 10^3/uL (4.0-10.0)
[2021-06-13 15:43] LABS: ALBUMIN 3.5 GM/DL (3.2-5.2); ALT/SGPT 34 U/L (12-78); BILIRUBIN,DIRECT 0.1 MG/DL (0.0-0.2); BILIRUBIN,TOTAL 0.3 MG/DL (0.2-1.0); BLOOD UREA NITROGEN 19 MG/DL (7-18); CALCIUM LEVEL 9.6 MG/DL (8.8-10.2); CARBON DIOXIDE LEVEL 21 MEQ/L (21-32); CHLORIDE LEVEL 108 MEQ/L (98-107); CREATININE FOR GFR 0.77 MG/DL (0.55-1.30); GLOMERULAR FILTRATION RATE > 60.0 (>32); GLUCOSE, FASTING 99 MG/DL (70-100); POTASSIUM SERUM 4.4 MEQ/L (3.5-5.1); SODIUM LEVEL 137 MEQ/L (136-145); THYROID STIMULATING HORMONE 0.524 uIU/ML (0.358-3.740); TOTAL PROTEIN 6.5 GM/DL (6.4-8.2)
[2021-06-13] MEDS ORDERED: MELA5CAP2 PO (15:47)
[2021-06-13] MEDS ORDERED: QUET1TAB17 PO (15:47)
[2021-06-13] MEDS ORDERED: TRAZ-252 PO (15:47)
[2021-06-13 16:20] LABS: RSV AMPLIFICATION NEGATIVE (NEGATIVE)
[2021-06-13] MEDS ORDERED: LEVO50TA5 PO (18:08)
[2021-06-13] MEDS ORDERED: SLOWTAB2 PO (18:11)
[2021-06-13] MEDS ORDERED: AMLO1TAB25 PO (18:11)
[2021-06-13] MEDS ORDERED: LEVE10003 PO (18:11)
[2021-06-13] MEDS ORDERED: HOME MED LIST COMPLETE! XX SCH (18:15)
[2021-06-13] MEDS ORDERED: ACETAMINOPHEN 325 MG TAB PO PRN (20:10)
[2021-06-13] MEDS: levETIRAcetam 250MG TABLET (KEPPRA) PO SCH (22:13)
[2021-06-13] MEDS: traZODone 50 MG TAB PO SCH (22:13)
[2021-06-13 22:48] VITALS: BP 167/83
[2021-06-14] MEDS: BENAZEPRIL 20 MG TAB PO SCH ×3 (00:38→20:02)
[2021-06-14 06:00] VITALS: BP 145/61
[2021-06-14] MEDS: LEVOTHYROXINE 50MCG TABLET (0.05MG) PO SCH (06:05)
[2021-06-14 06:58] LABS: HEMATOCRIT 38.3 % (36.0-47.0); HEMOGLOBIN 12.8 g/dl (12.0-15.5); MEAN CORPUSCULAR HEMOGLOBIN 33.2 pg (27.0-33.0); MEAN CORPUSCULAR HGB CONC 33.4 g/dl (32.0-36.5); MEAN CORPUSCULAR VOLUME 99.2 fl (80.0-96.0); PLATELET COUNT, AUTOMATED 225 10^3/uL (150-450); RED BLOOD COUNT 3.86 10^6/uL (4.00-5.40); WHITE BLOOD COUNT 8.6 10^3/uL (4.0-10.0)
[2021-06-14 07:23] LABS: BLOOD UREA NITROGEN 15 MG/DL (7-18); CALCIUM LEVEL 9.2 MG/DL (8.8-10.2); CARBON DIOXIDE LEVEL 24 MEQ/L (21-32); CHLORIDE LEVEL 108 MEQ/L (98-107); CREATININE FOR GFR 0.67 MG/DL (0.55-1.30); GLOMERULAR FILTRATION RATE > 60.0 (>32); GLUCOSE, FASTING 106 MG/DL (70-100); MAGNESIUM LEVEL 1.9 MG/DL (1.8-2.4); PHOSPHORUS LEVEL 3.2 MG/DL (2.5-4.9); SODIUM LEVEL 138 MEQ/L (136-145)
[2021-06-14 08:21] LABS: VITAMIN B12 LEVEL 1151 PG/ML (247-911)
[2021-06-14] MEDS: levETIRAcetam 250MG TABLET (KEPPRA) PO SCH ×2 (08:40→20:01)
[2021-06-14] MEDS: ATORVASTATIN 20 MG TAB PO SCH (08:40)
[2021-06-14] MEDS: ENOXAPARIN 40MG/0.4ML SYRINGE (J1650 PER 10MG) SC SCH (08:41)
[2021-06-14] MEDS: OMEPRAZOLE 20MG CAP PO SCH (08:41)
[2021-06-14] MEDS ORDERED: AZATHIOPRINE PO SCH (09:00)
[2021-06-14 19:45] VITALS: BP 154/60
[2021-06-14] MEDS: traZODone 50 MG TAB PO SCH (20:01)
[2021-06-15 06:00] VITALS: BP 128/56
[2021-06-15] MEDS: LEVOTHYROXINE 50MCG TABLET (0.05MG) PO SCH (06:20)
[2021-06-15] MEDS: OMEPRAZOLE 20MG CAP PO SCH (08:18)
[2021-06-15] MEDS: BENAZEPRIL 20 MG TAB PO SCH ×2 (08:18→20:29)
[2021-06-15] MEDS: ATORVASTATIN 20 MG TAB PO SCH (08:18)
[2021-06-15] MEDS: levETIRAcetam 250MG TABLET (KEPPRA) PO SCH ×2 (08:18→20:30)
[2021-06-15] MEDS: ENOXAPARIN 40MG/0.4ML SYRINGE (J1650 PER 10MG) SC SCH (08:19)
[2021-06-15] MEDS: traZODone 50 MG TAB PO SCH (20:29)
[2021-06-15 22:00] VITALS: BP 149/66
[2021-06-16] MEDS: LEVOTHYROXINE 50MCG TABLET (0.05MG) PO SCH (05:49)
[2021-06-16 06:00] VITALS: BP 143/67
[2021-06-16] MEDS: levETIRAcetam 250MG TABLET (KEPPRA) PO SCH (08:25)
[2021-06-16 08:26] VITALS: BP 143/67
[2021-06-16] MEDS: BENAZEPRIL 20 MG TAB PO SCH (08:26)
[2021-06-16] MEDS: ATORVASTATIN 20 MG TAB PO SCH (08:26)
[2021-06-16] MEDS: OMEPRAZOLE 20MG CAP PO SCH (08:26)
[2021-06-16] MEDS: ENOXAPARIN 40MG/0.4ML SYRINGE (J1650 PER 10MG) SC SCH (08:26)
== END 2021-06-16 15:10 | disposition home health service (06) | DRG 884 ==
LOC: M ED 13:47 → M ED INP 16:49 → ENRESERV 21:10 → M MSPAV 22:25
PROVIDERS: ADMIT Internal Medicine; ATTEND Family Medicine
DX: F03.90 Unspecified dementia, unspecified severity, without behavioral disturbance, psychotic disturbance, mood disturbance, and anxiety (principal); M81.0 Age-related osteoporosis without current pathological fracture; I10 Essential (primary) hypertension; E78.5 Hyperlipidemia, unspecified; R26.81 Unsteadiness on feet; H40.9 Unspecified glaucoma; E03.9 Hypothyroidism, unspecified; I25.10 Atherosclerotic heart disease of native coronary artery without angina pectoris; E06.3 Autoimmune thyroiditis; F22 Delusional disorders; Z91.048 Other nonmedicinal substance allergy status; Z79.899 Other long term (current) drug therapy; Z86.79 Personal history of other diseases of the circulatory system

== ENCOUNTER 2021-06-18 07:53 | Inpatient (IN) | payer MEDICARE ==
[~2021-06-18] VITALS: Ht 160 cm; Wt 54.1 kg
[~2021-06-18 07:53] MED LIST changes: +LEVE10003 PO; +LEVO50TA5 PO; +MELA5CAP2 PO; +QUET1TAB17 PO; +TRAZ-252 PO
[2021-06-18] MEDS ORDERED: ISOVUE-370 76% 100ML VIAL As Ordered ONE (08:12)
[2021-06-18 08:31] LABS: BASO % 0.6 % (0.0-1.0); EOS # 0.1 10^3/uL (0.0-0.5); EOS % 2.3 % (0.0-3.0); HEMATOCRIT 36.2 % (36.0-47.0); HEMOGLOBIN 12.1 g/dl (12.0-15.5); LYMPH # 1.1 10^3/uL (1.5-5.0); LYMPH % 17.4 % (24.0-44.0); MEAN CORPUSCULAR HEMOGLOBIN 33.2 pg (27.0-33.0); MEAN CORPUSCULAR HGB CONC 33.4 g/dl (32.0-36.5); MEAN CORPUSCULAR VOLUME 99.2 fl (80.0-96.0); MONO # 0.4 10^3/uL (0.0-0.8); MONO % 6.4 % (2.0-8.0); NEUTROPHILS # 4.5 10^3/uL (1.5-8.5); NEUTROPHILS % 72.7 % (36.0-66.0); PLATELET COUNT, AUTOMATED 248 10^3/uL (150-450); RED BLOOD COUNT 3.65 10^6/uL (4.00-5.40); WHITE BLOOD COUNT 6.2 10^3/uL (4.0-10.0)
[2021-06-18 08:43] LABS: INR 0.86; PARTIAL THROMBOPLASTIN TIME 28.1 SECONDS (25.9-37.0); PROTHROMBIN TIME 12.1 SECONDS (12.7-14.5)
[2021-06-18 08:49] LABS: CK-MB VALUE MASS 3.4 NG/ML (<3.6); MB/CK RELATIVE INDEX 4.15 (< OR =4)
[2021-06-18 09:05] LABS: ALBUMIN 3.6 GM/DL (3.2-5.2); ALT/SGPT 43 U/L (12-78); BILIRUBIN,DIRECT 0.1 MG/DL (0.0-0.2); BILIRUBIN,TOTAL 0.4 MG/DL (0.2-1.0); ETHYL ALCOHOL (ETHANOL) < 0.003 % (0.000-0.010); LIPASE 224 U/L (73-393); MAGNESIUM LEVEL 2.3 MG/DL (1.8-2.4); TOTAL PROTEIN 7.3 GM/DL (6.4-8.2)
[2021-06-18] MEDS ORDERED: NS 1,000 ML IV ONE (09:05)
[2021-06-18 09:26] LABS: FREE T4 1.34 NG/DL (0.76-1.46)
[2021-06-18 10:28] LABS: MB/CK RELATIVE INDEX 3.53 (< OR =4)
[2021-06-18 10:37] LABS: AMPHETAMINES LEVEL URINE NEGATIVE (NEGATIVE); BARBITURATES URINE NEGATIVE (NEGATIVE); BENZODIAZEPINES URINE NEGATIVE (NEGATIVE); CANNABINOIDS URINE NEGATIVE (NEGATIVE); COCAINE METABOLITE URINE NEGATIVE (NEGATIVE); METHADONE URINE NEGATIVE (NEGATIVE); OPIATES URINE NEGATIVE (NEGATIVE); PHENCYCLIDINE URINE NEGATIVE (NEGATIVE)
[2021-06-18 10:49] LABS: RSV AMPLIFICATION NEGATIVE (NEGATIVE)
[2021-06-18 11:35] LABS: CK-MB VALUE MASS 3.4 NG/ML (<3.6); MB/CK RELATIVE INDEX 4.3 (< OR =4)
[2021-06-18] MEDS ORDERED: QUET50TA4 PO (11:48)
[2021-06-18] MEDS ORDERED: CYAN100049 PO (12:17)
[2021-06-18] MEDS ORDERED: FISH1000 PO (12:17)
[2021-06-18 12:20] VITALS: BP 164/74
[2021-06-18] MEDS ORDERED: HOME MED LIST COMPLETE! XX SCH (12:20)
[2021-06-18 14:00] VITALS: BP 102/42
[2021-06-18] MEDS ORDERED: NS 1,000 ML IV SCH (14:10)
[2021-06-18] MEDS ORDERED: ACETAMINOPHEN TAB 650MG DOSE (2X325MG) PO PRN (14:10)
[2021-06-18] MEDS: OMEPRAZOLE 20MG CAP PO SCH (17:09)
[2021-06-18] MEDS: ATORVASTATIN 20 MG TAB PO SCH (17:09)
[2021-06-18] MEDS: CYANOCOBALAMIN 500 MCG TAB PO SCH (17:10)
[2021-06-18] MEDS: LEVOTHYROXINE 50MCG TABLET (0.05MG) PO SCH (17:10)
[2021-06-18] MEDS: levETIRAcetam 250MG TABLET (KEPPRA) PO SCH (21:24)
[2021-06-18] MEDS: traZODone 50 MG TAB PO SCH (21:24)
[2021-06-18] MEDS: HEPARIN SOD (PORCINE) 5000UNITS/ML 1ML VIAL/SYRINGE SQ SCH (21:25)
[2021-06-18 22:00] VITALS: BP 120/38
[2021-06-19] MEDS: LEVOTHYROXINE 50MCG TABLET (0.05MG) PO SCH (05:43)
[2021-06-19] MEDS: HEPARIN SOD (PORCINE) 5000UNITS/ML 1ML VIAL/SYRINGE SQ SCH ×2 (05:46→16:13)
[2021-06-19 06:00] VITALS: BP 141/59
[2021-06-19 06:16] LABS: HEMATOCRIT 32.9 % (36.0-47.0); HEMOGLOBIN 11.3 g/dl (12.0-15.5); MEAN CORPUSCULAR HEMOGLOBIN 33.9 pg (27.0-33.0); MEAN CORPUSCULAR HGB CONC 34.3 g/dl (32.0-36.5); MEAN CORPUSCULAR VOLUME 98.8 fl (80.0-96.0); PLATELET COUNT, AUTOMATED 218 10^3/uL (150-450); RED BLOOD COUNT 3.33 10^6/uL (4.00-5.40); WHITE BLOOD COUNT 6.4 10^3/uL (4.0-10.0)
[2021-06-19 06:41] LABS: ALBUMIN 2.8 GM/DL (3.2-5.2); BILIRUBIN,TOTAL 0.3 MG/DL (0.2-1.0); CREATININE FOR GFR 1.13 MG/DL (0.55-1.30); GLOMERULAR FILTRATION RATE 48.6 (>32); POTASSIUM SERUM 4.2 MEQ/L (3.5-5.1); TOTAL PROTEIN 6.2 GM/DL (6.4-8.2)
[2021-06-19] MEDS: OMEPRAZOLE 20MG CAP PO SCH (10:29)
[2021-06-19] MEDS: CYANOCOBALAMIN 500 MCG TAB PO SCH (10:29)
[2021-06-19] MEDS: levETIRAcetam 250MG TABLET (KEPPRA) PO SCH ×2 (10:29→20:19)
[2021-06-19] MEDS: ATORVASTATIN 20 MG TAB PO SCH (10:29)
[2021-06-19 14:00] VITALS: BP 158/67
[2021-06-19] MEDS: traZODone 50 MG TAB PO SCH (20:19)
[2021-06-19 22:00] VITALS: BP 129/88
[2021-06-20] VITALS (8 sets, daily range): BP systolic 113–163; BP diastolic 61–91
[2021-06-20] MEDS: LEVOTHYROXINE 50MCG TABLET (0.05MG) PO SCH (05:29)
[2021-06-20 05:58] LABS: HEMATOCRIT 33.9 % (36.0-47.0); HEMOGLOBIN 11.6 g/dl (12.0-15.5); MEAN CORPUSCULAR HEMOGLOBIN 33.3 pg (27.0-33.0); MEAN CORPUSCULAR HGB CONC 34.2 g/dl (32.0-36.5); MEAN CORPUSCULAR VOLUME 97.4 fl (80.0-96.0); PLATELET COUNT, AUTOMATED 230 10^3/uL (150-450); RED BLOOD COUNT 3.48 10^6/uL (4.00-5.40)
[2021-06-20 06:22] LABS: ALBUMIN 2.7 GM/DL (3.2-5.2); BILIRUBIN,TOTAL 0.3 MG/DL (0.2-1.0); CALCIUM LEVEL 9.4 MG/DL (8.8-10.2); CREATININE FOR GFR 1.07 MG/DL (0.55-1.30); GLOMERULAR FILTRATION RATE 51.8 (>32); POTASSIUM SERUM 4.3 MEQ/L (3.5-5.1); TOTAL PROTEIN 5.7 GM/DL (6.4-8.2)
[2021-06-20] MEDS: LR 1,000 ML IV SCH (06:29)
[2021-06-20] MEDS: ATORVASTATIN 20 MG TAB PO SCH (10:09)
[2021-06-20] MEDS: levETIRAcetam 250MG TABLET (KEPPRA) PO SCH ×2 (10:09→20:07)
[2021-06-20] MEDS: OMEPRAZOLE 20MG CAP PO SCH (10:09)
[2021-06-20] MEDS: CYANOCOBALAMIN 500 MCG TAB PO SCH (10:10)
[2021-06-20] MEDS ORDERED: dexameTHASONE 10MG/1ML VIAL PRES.FREE (J1100 PER 1MG) XX ONE (15:50)
[2021-06-20] MEDS ORDERED: LIDOCAINE 1% MDV 20ML VIAL XX ONE (15:50)
[2021-06-20] MEDS ORDERED: ROPIvacaine 0.5% 30ML INJECTION (J2795 PER 1MG) XX ONE (15:50)
[2021-06-20] MEDS ORDERED: ceFAZolin 2 GM/D5W 50 ML IV BAG (J0690 PER 500MG) As Ordered ONE (16:29)
[2021-06-20] MEDS: fentaNYL 100 MCG/2 ML INJECTION IV PRN ×2 (16:35→19:13)
[2021-06-20] MEDS ORDERED: fentaNYL 100 MCG/2 ML INJECTION As Ordered ONE (17:09)
[2021-06-20] MEDS ORDERED: LIDOCAINE 2% 100MG/5ML SDV (FOR ANES.) As Ordered ONE (17:09)
[2021-06-20] MEDS ORDERED: propofoL 200 MG/20 ML VIAL As Ordered ONE (17:09)
[2021-06-20] MEDS ORDERED: MIDAZOLAM INJ 2MG/2ML VIAL (J2250 PER 1MG) As Ordered ONE (17:12)
[2021-06-20] MEDS ORDERED: ACETAMINOPHEN 1000MG 100ML IV BTL (OFIRMEV) (J0131 PER 10MG) As Ordered ONE (17:20)
[2021-06-20] MEDS ORDERED: ONDANSETRON 4MG/2ML VIAL IV PRN (19:10)
[2021-06-20] MEDS ORDERED: LR 1,000 ML IV SCH (19:10)
[2021-06-20] MEDS ORDERED: fentaNYL 100 MCG/2 ML INJECTION IV PRN (19:10)
[2021-06-20] MEDS ORDERED: oxyCODONE 5MG TAB PO PRN (19:10)
[2021-06-20] MEDS: traZODone 50 MG TAB PO SCH (20:07)
[2021-06-21] VITALS (7 sets, daily range): BP systolic 133–161; BP diastolic 56–91
[2021-06-21] MEDS: ceFAZolin SOD 1 GM in D5W MINI-BAG PLUS 50 ML IV SCH ×3 (00:56→17:28)
[2021-06-21] MEDS: LR 1,000 ML IV SCH ×2 (01:15→22:00)
[2021-06-21 05:10] LABS: HEMATOCRIT 33.6 % (36.0-47.0); HEMOGLOBIN 11.5 g/dl (12.0-15.5); MEAN CORPUSCULAR HGB CONC 34.2 g/dl (32.0-36.5); MEAN CORPUSCULAR VOLUME 96.6 fl (80.0-96.0); PLATELET COUNT, AUTOMATED 243 10^3/uL (150-450); RED BLOOD COUNT 3.48 10^6/uL (4.00-5.40); WHITE BLOOD COUNT 7.1 10^3/uL (4.0-10.0)
[2021-06-21] MEDS: LEVOTHYROXINE 50MCG TABLET (0.05MG) PO SCH (05:29)
[2021-06-21 05:38] LABS: ALBUMIN 2.9 GM/DL (3.2-5.2); ALT/SGPT 39 U/L (12-78); BILIRUBIN,TOTAL 0.3 MG/DL (0.2-1.0); BLOOD UREA NITROGEN 25 MG/DL (7-18); CALCIUM LEVEL 9.3 MG/DL (8.8-10.2); CARBON DIOXIDE LEVEL 25 MEQ/L (21-32); CHLORIDE LEVEL 107 MEQ/L (98-107); CREATININE FOR GFR 0.92 MG/DL (0.55-1.30); GLOMERULAR FILTRATION RATE > 60.0 (>32); GLUCOSE, FASTING 165 MG/DL (70-100); POTASSIUM SERUM 4.2 MEQ/L (3.5-5.1); SODIUM LEVEL 139 MEQ/L (136-145); TOTAL PROTEIN 6.4 GM/DL (6.4-8.2)
[2021-06-21] MEDS: ATORVASTATIN 20 MG TAB PO SCH (09:39)
[2021-06-21] MEDS: levETIRAcetam 250MG TABLET (KEPPRA) PO SCH ×2 (09:40→20:52)
[2021-06-21] MEDS: OMEPRAZOLE 20MG CAP PO SCH (09:41)
[2021-06-21] MEDS: CYANOCOBALAMIN 500 MCG TAB PO SCH (09:41)
[2021-06-21] MEDS ORDERED: PERCOCET 5MG/325MG TAB PO PRN ×2 (14:55)
[2021-06-21] MEDS ORDERED: ENOXAPARIN 40MG/0.4ML SYRINGE (J1650 PER 10MG) SC SCH (18:00)
[2021-06-21] MEDS: traZODone 50 MG TAB PO SCH (20:51)
[2021-06-22 06:00] VITALS: BP 145/77
[2021-06-22] MEDS: LEVOTHYROXINE 50MCG TABLET (0.05MG) PO SCH (06:15)
[2021-06-22 07:14] LABS: HEMATOCRIT 35.2 % (36.0-47.0); HEMOGLOBIN 12.1 g/dl (12.0-15.5); MEAN CORPUSCULAR HEMOGLOBIN 33.6 pg (27.0-33.0); MEAN CORPUSCULAR HGB CONC 34.4 g/dl (32.0-36.5); MEAN CORPUSCULAR VOLUME 97.8 fl (80.0-96.0); PLATELET COUNT, AUTOMATED 269 10^3/uL (150-450); WHITE BLOOD COUNT 8.6 10^3/uL (4.0-10.0)
[2021-06-22 07:45] LABS: ALT/SGPT 32 U/L (12-78); BILIRUBIN,TOTAL 0.4 MG/DL (0.2-1.0); BLOOD UREA NITROGEN 20 MG/DL (7-18); CALCIUM LEVEL 10.1 MG/DL (8.8-10.2); CARBON DIOXIDE LEVEL 30 MEQ/L (21-32); CHLORIDE LEVEL 107 MEQ/L (98-107); GLOMERULAR FILTRATION RATE > 60.0 (>32); GLUCOSE, FASTING 105 MG/DL (70-100); POTASSIUM SERUM 4.1 MEQ/L (3.5-5.1); SODIUM LEVEL 141 MEQ/L (136-145); TOTAL PROTEIN 6.3 GM/DL (6.4-8.2)
[2021-06-22 07:58] VITALS: BP 145/73
[2021-06-22 08:00] VITALS: BP 145/73
[2021-06-22] MEDS: levETIRAcetam 250MG TABLET (KEPPRA) PO SCH (08:45)
[2021-06-22] MEDS: OMEPRAZOLE 20MG CAP PO SCH (08:45)
[2021-06-22 08:46] VITALS: BP 145/73
[2021-06-22] MEDS: CYANOCOBALAMIN 500 MCG TAB PO SCH (08:46)
[2021-06-22] MEDS: ATORVASTATIN 20 MG TAB PO SCH (08:46)
[2021-06-22 14:00] VITALS: BP 143/63
[2021-06-22] MEDS ORDERED: PERCOCET PO (14:01)
== END 2021-06-22 16:28 | DRG 511 ==
LOC: EDBD 07:53 → M ED 07:53 → M ED INP 11:12 → ENRESERV 11:50 → M MSPAV 12:19
PROVIDERS: ADMIT Internal Medicine; ATTEND Internal Medicine
PROC: 0PSJ04Z Reposition Left Radius with Internal Fixation Device, Open Approach (ICD-10-PCS; principal; 2021-06-20 16:00)
DX: S52.552A Other extraarticular fracture of lower end of left radius, initial encounter for closed fracture (principal); N17.9 Acute kidney failure, unspecified; S52.612A Displaced fracture of left ulna styloid process, initial encounter for closed fracture; I25.10 Atherosclerotic heart disease of native coronary artery without angina pectoris; I10 Essential (primary) hypertension; E78.5 Hyperlipidemia, unspecified; E03.9 Hypothyroidism, unspecified; H40.9 Unspecified glaucoma; K75.4 Autoimmune hepatitis; Z66 Do not resuscitate; R55 Syncope and collapse; G31.83 Neurocognitive disorder with Lewy bodies; F02.80 Dementia in other diseases classified elsewhere, unspecified severity, without behavioral disturbance, psychotic disturbance, mood disturbance, and anxiety; M16.0 Bilateral primary osteoarthritis of hip; F01.50 Vascular dementia, unspecified severity, without behavioral disturbance, psychotic disturbance, mood disturbance, and anxiety; Z20.822 Contact with and (suspected) exposure to COVID-19; Z79.899 Other long term (current) drug therapy; Z91.048 Other nonmedicinal substance allergy status; W10.8XXA Fall (on) (from) other stairs and steps, initial encounter; Z98.49 Cataract extraction status, unspecified eye; Y92.018 Other place in single-family (private) house as the place of occurrence of the external cause; Y93.89 Activity, other specified; Y99.8 Other external cause status; Z87.820 Personal history of traumatic brain injury; Z96.653 Presence of artificial knee joint, bilateral

== ENCOUNTER → 2021-07-10 | Outpatient (CLI) | payer MEDICARE ==
[~2021-07-10] MED LIST changes: +CYAN100049 PO; +FISH1000 PO; +PERCOCET PO; +QUET50TA4 PO
== END ==
LOC: M SOG 10:31
PROVIDERS: ATTEND Physician Assistant
DX: Z48.89 Encounter for other specified surgical aftercare (principal)

== ENCOUNTER → 2021-08-15 | Outpatient (CLI) | payer MEDICARE | LOC: M SOG 09:20 | PROVIDERS: ATTEND Physician Assistant | DX: S52.532D Colles' fracture of left radius, subsequent encounter for closed fracture with routine healing (principal); W18.30XD Fall on same level, unspecified, subsequent encounter ==